=== PATIENT | female | born 1965 | race Caucasian/White ===

== ENCOUNTER → 2018-10-25 13:43 | Outpatient (CLI) | payer BC, SELFPAY ==
[2018-10-25 14:44] LABS: Alanine Aminotransferase 38 U/L (12-78); Albumin Level 3.7 gm/dL (3.4-5.0); Alkaline Phosphatase 84 U/L (46-116); Anion Gap 13.9 mEq/L (5-15); Aspartate Amino Transferase 12 U/L (15-37); Bilirubin,Total 0.7 mg/dL (0.2-1.0); Blood Urea Nitrogen 15 mg/dL (7-18); Calcium 9.9 mg/dL (8.5-10.1); Carbon Dioxide 28 mmol/L (21.0-32.0); Chloride 100 mmol/L (98-107); Chol/HDL Ratio 5.7 (1-3.5); Cholesterol 240 mg/dL (140-200); Creatinine,Serum 0.77 mg/dL (0.55-1.02); Estimated Glomerular Filt Rate 78 ml/min (>60); Free Thyroxine Index 3.2 ug/dL (5.93-13.13); GFR (African American) 95 ML/MIN (>60); Globulin 3.6 gm/dl (1.3-3.2); Glucose 131 mg/dL (74-106); HDL Cholesterol 42 mg/dL (29-89); LDL Cholesterol 135 mg/dL (0-130); Potassium 3.9 mmoL/L (3.5-5.1); Sodium 138 mmol/L (136-145); T4 (Thyroxine) 10.3 ug/dl (4.7-13.3); Thyroid Stimulating Hormone 2.91 uIU/ml (0.358-3.740); Total Protein,Serum 7.3 gm/dL (6.4-8.2); Triglycerides 316 mg/dL (30-200); Triiodothryronine (T3) Uptake 31 % (31-39); VLDL Cholesterol 63 mg/dL (0-40)
[2018-10-25 14:46] LABS: Basophils % 0.3 % (0.1-2.0); Eosinophils # 0.1 K/mm3 (0.0-0.4); Eosinophils % 1.3 % (0.1-12.0); Hematocrit 40.4 % (37.0-47.0); Hemoglobin 12.8 g/dL (12.2-16.2); Lymphocytes # 1.2 K/mm3 (0.7-4.5); Lymphocytes % 17.7 % (10-50); Mean Corpuscular HGB Conc 31.7 g/dL (31.8-35.4); Mean Corpuscular Volume 85.3 fl (81-99); Mean Platelet Volume 7.6 fl (7.4-10.4); Monocytes # 0.4 K/mm3 (0.1-1.0); Monocytes % 5.2 % (1.7-9.3); Neutrophils # 5.1 K/mm3 (1.8-7.8); Neutrophils % 75.4 % (37.0-80.0); Platelet Count 234 K/mm3 (142-424); Red Blood Count 4.74 M/mm3 (4.20-5.40); Red Cell Distribution Width 14.6 % (11.5-17.5); White Blood Count 6.8 K/mm3 (4.8-10.8)
== END ==
PROVIDERS: Visit Provider Physician Assistant
DX: F41.9 Anxiety disorder, unspecified (principal)
CPT/HCPCS: 80053; 80061; 82652; 84436; 84443; 84479; 85025

== ENCOUNTER → 2018-12-12 07:17 | Outpatient (CLI) | payer BC, SELFPAY ==
--- NOTE | 2018-12-12 07:22 | CA_ITS ---
PROCEDURE: 2-D M-mode and color Doppler study INDICATIONS FOR THE TEST: Chest pain+ COPD Heart Murmur Tobacco Smoking Palpitations+ Fatigue Syncope Edema Hypertension Diabetes Mellitus+ Rheumatic Fever SOB+ABBOTT Obesity Hyperlipidemia Family History HD Additional History PATIENT INFORMATION HEIGHT: 65 WEIGHT: 222 GENDER: Female B/P: 149/75 2-D/M-MODE INTERPRETATION: 2-D MEASUREMENTS OBSERVED VALUES IN CMS Right Ventricular Dimension (RVDd) 2.3 Interventricular Septum (Thickness)(IVsd) 0.9 Left Ventricular Internal Dimensions(LVIDd) 4.6 Left Ventricular Posterior Wall (Thickness)(LVPWd) 0.9 Aortic Root 2.7 Aortic Cusp Separation 2.0 Left Atrial Dimensions (LAD) 3.6 2D 1. Left atrium is normal size, left ventricle is normal size, there is no concentric left ventricular hypertrophy, visually estimated ejection fraction 55% with no regional wall motion abnormality. 2. The right atrium and right ventricle are normal size and contractility. 3. The aortic valve is minimally thickened and fibrosed. 4. The mitral valve leaflets are minimally thickened. 5. The tricuspid valve is grossly normal. 6. The pulmonic valve is poorly visualized. 7. No significant pericardial effusion noted. DOPPLER INTERROGATION: Doppler interrogation of the aortic, mitral and tricuspid valvular presence of mild mitral and tricuspid regurgitation, tricuspid regurgitation jet velocity is inadequate for calculation of the right ventricular systolic pressure, diastolic parameters are within normal range. CONCLUSION: 1. Normal left ventricular size, preserved left ventricular systolic function, visually estimated ejection fraction of 55% with no regional wall motion abnormality, diastolic parameters are within normal range. 2. Mild mitral and tricuspid regurgitation 3. No significant pericardial effusion noted.
--- NOTE | 2018-12-12 07:22 | NM_ITS ---
History and Indications: Hypertension, diabetes, hyperlipidemia, family history, chest pain and shortness of breath Procedure: Agent exercised on Froylan protocol 6 minutes, resting heart rate was 70 beats per resting blood pressure 162/93, with exercise maximum heart achieved was 1 56 bpm which is greater than 85% of the maximum predicted heart rate and a blood pressure was 210/88. Test was started due to shortness of breath patient denied any complained of chest pain. Patient has adequate exercise capacity achieved 7mets of workload on treadmill, the blood pressure response to exercise was hypertensive. Electrocardiogram: Resting echocardiogram showed sinus and a possible septal infarct, with exercise there is [address] segment depression noted from the baseline EKG more pronounced in the recovery. The EKG portion of the exercise Myoview is positive for ischemia. Cardiac stress and resting SPECT images: Cardiac stress and resting SPECT images were obtained using technetium 99 Myoview 32.9 mCi stress and 10.4 mCi at rest. Gated SPECT further analysis of segmental wall motion and calculation of the ejection fraction also done. Cardiac stress and resting SPECT images show uniform myocardial activity without segmental perfusion abnormality, computer derived ejection fraction is over 65% with no regional wall motion abnormality, right ventricle is normal size and contractility. Conclusion: 1. The EKG portion of the exercise Myoview is positive for ischemia, patient has adequate exercise capacity achieved 7mets of workload on treadmill, the blood pressure response to exercise was hypertensive, test was started shortness of breath patient denied any complained of chest pain. 2. No scintigraphic evidence of reversible ischemia seen at this level of exercise, either derived ejection fraction is over 65% with no regional wall motion abnormality, right ventricle is normal size and contractility.
--- NOTE | 2018-12-12 07:48 | HMH.ITSHM ---
Current Home Medications as stated by this patient Rosalinda Cooper or field service representative. []METFORMIN OMEPRAZOLE BUSPIRONE CARVEDILOL LOSARTAN MINOCYCLINE FUROSEMIDE GLIPIZIDE
== END ==
PROVIDERS: PCP Physician Assistant; Visit Provider Internal Medicine
DX: E11.9 Type 2 diabetes mellitus without complications (principal); F41.9 Anxiety disorder, unspecified; I20.9 Angina pectoris, unspecified; R00.2 Palpitations; R06.02 Shortness of breath; Z79.84 Long term (current) use of oral hypoglycemic drugs; F17.210 Nicotine dependence, cigarettes, uncomplicated
CPT/HCPCS: 78452; 93017; 93306; A9502

== ENCOUNTER → 2019-03-02 09:23 | Outpatient (CLI) | payer BC, SELFPAY ==
--- NOTE | 2019-03-02 09:24 | US_ITS ---
US thyroid HISTORY: Follow-up thyroid nodules ITS.REASON: Thyroid nodules ORDERING PHYSICIAN: RAMON Hi PATIENT AGE: 53 years Comparison: 01/11/2011 FINDINGS: The right lobe is 4.5 x 1.4 x 2 cm. Multiple small nodules are present including a 3 mm hypoechoic nodule upper pole, 7 x 4 mm isoechoic nodule upper pole, 4 mm slightly hypoechoic nodule upper pole, 5 mm hypoechoic nodule mid polar region posteriorly, 6 mm isoechoic nodule lower pole, 5 mm isoechoic nodule lower pole. There is a 9 x 5 mm hypoechoic nodule in the left aspect of the isthmus The left lobe is 4.7 x 1.3 x 1.7 cm. There is a 7 mm cyst in the upper pole, 3 mm cyst in the upper pole, 4 mm hypoechoic nodule mid pole, 4 mm hypoechoic nodule mid pole, 12 mm hypoechoic nodule lower pole IMPRESSION: Enlarged thyroid gland with multiple nodules which have low level of suspicion for malignancy. The nodules have low level of suspicion for malignancy. Most of the nodules are not significant changed. It is somewhat difficult to compare to the previous exam due to different scanning techniques. There is a 9 x 5 mm hypoechoic nodule at the isthmus was not readily demonstrated previously and may represent a cyst. A 12 x 6 mm hypoechoic nodule is noted in the lower pole of the left not demonstrated on the previous study. Recommend 6 month follow-up.
== END ==
PROVIDERS: PCP Physician Assistant; Visit Provider Physician Assistant
DX: E04.1 Nontoxic single thyroid nodule (principal)
CPT/HCPCS: 76536

== ENCOUNTER → 2019-07-31 13:48 | Outpatient (POV) | payer BC, SELFPAY | PROVIDERS: Visit Provider Dermatology | DX: Z00.00 Encounter for general adult medical examination without abnormal findings (principal) ==

== ENCOUNTER → 2020-01-09 11:55 | Outpatient (CLI) | payer BC, SELFPAY ==
[2020-01-11 17:50] LABS: Covid-19 Nasal PCR Sendout Lex DETECTED
--- NOTE | 2020-01-11 18:14 | PC.NURSE ---
Notified pt's PCP of POSITIVE COVID results. RAMON Obrien to notify patient. Results faxed to [facility].
== END ==
PROVIDERS: Visit Provider Internal Medicine Adolescent Medicine
DX: R06.00 Dyspnea, unspecified (principal); R05 Cough; Z03.818 Encounter for observation for suspected exposure to other biological agents ruled out

== ENCOUNTER → 2020-01-23 11:38 | Outpatient (CLI) | payer BC, SELFPAY ==
[2020-01-24 16:25] LABS: Covid-19 Nasal PCR Sendout Lex DETECTED
== END ==
PROVIDERS: Visit Provider Internal Medicine Adolescent Medicine
DX: Z20.828 Contact with and (suspected) exposure to other viral communicable diseases (principal)
CPT/HCPCS: U0003

== ENCOUNTER → 2020-02-06 10:42 | Outpatient (CLI) | payer BC, SELFPAY ==
[2020-02-07 15:06] LABS: Covid-19 Nasal PCR Sendout Lex NOT DETECTED
--- NOTE | 2020-02-07 15:14 | PC.NURSE ---
1511 pt notified of negative covid-19 results, results faxed to [facility] as requested
== END ==
PROVIDERS: Visit Provider Internal Medicine Adolescent Medicine
DX: Z03.818 Encounter for observation for suspected exposure to other biological agents ruled out (principal)
CPT/HCPCS: U0003

== ENCOUNTER 2020-03-28 16:24 | Emergency (ER) | payer BC, SELFPAY ==
[2020-03-28 16:25] VITALS: BP 170/99; PULSE 82; RESP 13; TEMP 36.8; O2SAT 99; BMI 36.3
--- NOTE | 2020-03-28 16:28 | ECG_ITS ---
APPROVED REPORT Exam: Resting ECG HR:85 bpm ECG Measurements Heart Rate 85 AXES RI 152 P 23 QRSd 88 QRS -9 QT 380 T 0 QTc 452 <Conclusion> Normal sinus rhythm Incomplete RBBB,Otherwise a normal ECG Electronically signed by : Vinnie Corcoran, 03/29/2020 12:17:32
--- NOTE | 2020-03-28 16:33 | XR_ITS ---
PROCEDURE: XR CHEST 2V Patient Age:54Y CLINICAL HISTORY: cp chest pain. Previous the smoker. COMPARISON: The CXR CHEST(2 VIEWS-NOT PORTABLE) from 03/20/2015 CXR CHEST(2 VIEWS-NOT PORTABLE) from 07/06/2016 ABDPELW/O CT ABD PELVIS W/O CONTRAST from 07/06/2016 XR CHEST 2V from 12/10/2019 FINDINGS: Lungs clear with nothing definitely acute. threat monitoring analyst leads are in place and likely contribute to a small focal area relative density at the medial left base retrocardiac region; along with other overlapping vascular structures and tent rib shadow here. Do not feel this is of significance but is noted. However if the patient does have a significant smoking history may qualify for a screening CT chest of which is a useful diagnostic screening tool The heart is normal in size but inna and mediastinal structures satisfactory. The chest wall T-spine intact,. No pleural effusion. No pneumothorax. . IMPRESSION: . No acute cardiopulmonary findings. . Overlapping shadows (including school lunch monitor lead, vascular markings and 10th rib) most likely account a small focal area of relative densityproject over the posterior 10th rib at the medial left lung base. Not of significant concern. However if patient does have a significant smoking history would suggest pursuing screening CT chest as it is a useful diagnostic screening tool. Alternatively a follow-up PA and lateral CXR in 4 months to confirm stability would be suggested Dictated by: Raúl Collins MD 03/30/2020 21:13 Electronically signed by Raúl Collins MD in [place] 03/30/2020 21:13
[2020-03-28 17:15] LABS: Basophils % 0.3 % (0.1-2.0); Eosinophils # 0.1 K/mm3 (0.0-0.4); Eosinophils % 1.7 % (0.1-12.0); Hematocrit 39.7 % (37.0-47.0); Hemoglobin 13.5 g/dL (12.2-16.2); Lymphocytes # 1.6 K/mm3 (0.7-4.5); Mean Corpuscular Hemoglobin 28.6 pg (27.0-31.2); Mean Corpuscular Volume 84.2 fl (81-99); Mean Platelet Volume 8.1 fl (7.4-10.4); Monocytes # 0.3 K/mm3 (0.1-1.0); Monocytes % 4.1 % (1.7-9.3); Neutrophils # 4.9 K/mm3 (1.8-7.8); Neutrophils % 71.1 % (37.0-80.0); Platelet Count 247 K/mm3 (142-424); Red Blood Count 4.71 M/mm3 (4.20-5.40); Red Cell Distribution Width 14.4 % (11.5-17.5); White Blood Count 6.9 K/mm3 (4.8-10.8)
[2020-03-28 17:26] LABS: Anion Gap 12.7 mEq/L (5-15); Blood Urea Nitrogen 12 mg/dl (7-17); Calcium 9.4 mg/dl (8.4-10.2); Carbon Dioxide 31 mmol/L (22.0-30.0); Chloride 91 mmol/L (98-107); Creatinine Clearance Estimated 130 mL/min (50-200); Estimated Glomerular Filt Rate 75 ml/min (>60); GFR (African American) 90 ML/MIN (>60); Glucose 311 mg/dl (74-100); Potassium 3.7 mmoL/L (3.5-5.1); Sodium 131 mmol/L (136-145)
[2020-03-28 17:37] VITALS: BP 138/67; PULSE 92; RESP 16; O2SAT 100
[2020-03-28 17:49] LABS: Troponin I < 0.01 ng/ml (0.00-0.034)
[2020-03-28 18:20] VITALS: BP 150/83; PULSE 95; RESP 18; O2SAT 99
--- NOTE | 2020-03-28 18:40 | HMH.EDCP ---
ED Disposition Clinical Impression: Atypical chest pain Disposition: Home, Self-Care Condition on Discharge: Good Instructions: DI for Atypical Chest Pain Referrals: Mara Mike PA [Primary Care Provider] - - Critical Care Critical Care Time: No Attestation: On 03/28/20, the high probability of a clinically significant, sudden or life threatening deterioration of the following system(s) required my full and direct attention, intervention and personal management. The time I documented below is in addition to time spent performing reported procedures but includes the following listed in this critical care notation. Medical Decision Making - Medical Records Medical records reviewed: Yes: I reviewed the patient's medical records. - Angel Inquiry Pt receiving controlled substance: No Vital Signs: 03/28/20 16:25 03/28/20 17:37 03/28/20 18:20 Temperature 98.2 F Temperature Source Oral Pulse Rate [Right] 82 92 H 95 H Respiratory Rate 13 16 18 Blood Pressure [Right Arm] 170/99 H 138/67 150/83 H Blood Pressure Mean [Right Arm] 122 90 105 Blood Pressure Source [Right Arm] Automatic Cuff Automatic Cuff Blood Pressure Position [Right Arm] Sitting Supine 02 Sat by Pulse Oximetry 99 100 99 Oxygen Delivery Method Room Air 03/28/20 18:47 Temperature Temperature Source Pulse Rate [Right] 87 Respiratory Rate 20 Blood Pressure [Right Arm] 141/79 H Blood Pressure Mean [Right Arm] 99 Blood Pressure Source [Right Arm] Automatic Cuff Blood Pressure Position [Right Arm] Supine 02 Sat by Pulse Oximetry 98 Oxygen Delivery Method - Lab Data Lab results reviewed: Yes: I reviewed the patient's lab results. Lab Results 03/28/20 17:05: WBC 6.9, RBC 4.71, Hgb 13.5, Hct 39.7, MCV 84.2, MCH 28.6, MCHC 34.0, RDW 14.4, Plt Count 247, MPV 8.1, Neut % (Auto) 71.1, Lymph % (Auto) 23.0, [place] % (Auto) 4.1, Eos % (Auto) 1.7, Baso % (Auto) 0.3, Neut # (Auto) 4.9, Lymph # (Auto) 1.6, [place] # (Auto) 0.3, Eos # (Auto) 0.1, Baso # (Auto) 0.0 03/28/20 17:05: Sodium 131 L, Potassium 3.7, Chloride 91 L, Carbon Dioxide 31 H, Anion Gap 12.7, BUN 12, Creatinine 0.80, Estimated Creat Clear 130, Estimated GFR 75, Est GFR ( Amer) 90, Glucose 311 H, Calcium 9.4, Troponin I < 0.01 Result diagrams: 03/28/20 17:05 03/28/20 17:05 Orders (Tests/Meds): ED MEDICATIONS Discontinued Medications Generic Name Dose Route Start Last Admin Trade Name Freq PRN Reason Stop Dose Admin Aspirin 243 mg 03/28/20 18:03 03/28/20 18:07 Aspirin 81mg Chewable Tablet PO 03/28/20 18:04 243 mg ONCE ONE Administration ORDERS Category Date Time Status XR chest 2V Stat Exams 03/28/20 16:33 Taken Troponin I Q3H Lab 03/28/20 19:45 Ordered Troponin I Q3H Lab 03/28/20 22:45 Ordered Troponin I Stat Lab 03/28/20 19:04 Ordered ECG Request by /Nse Stat Y 03/28/20 16:33 Ordered - Radiology Data #1 Image(s): Chest Image Reviewed: Yes I reviewed the patient's radiology image Preliminary Findings: Normal/NAD - MAYELIN Score for Non-Stemi Age of Patient: 40-49 years old Heart Rate: 70-89 bpm Systolic Blood Pressure: 120-139 mmhg Serum Creatinine: <0.40 mg/dl CHF Killip Class: I-No CHF Other Risk Factors: None Non-Stemi Risk Score: 69 Risk Stratification: 1-108 = Low Risk Medical Decision Narrative: Dr. Guzman about this patient and we both agreed that if the second troponin is negative she can go home and follow-up with cardiology next week. Chest Pain HPI - General Chief Complaint: Chest Pain Stated Complaint: chest pain Time Seen by Provider: 03/28/20 18:00 Mode of Arrival: Ambulatory Source of Information: Patient Limitations: No Limitations Description of Symptoms (Recalled from ER Triage Doc. by RN): C/O chest pressure and burning sensation in her chest for 2 weeks. Denies cough, fever, soa. - History of Present Illness HPI narrative: 54-year-old female presents the ED with chest pressure
--- NOTE | 2020-03-28 18:46 | PC.NURSE ---
dr sierra paged
[2020-03-28 18:47] VITALS: BP 141/79; PULSE 87; RESP 20; O2SAT 98
--- NOTE | 2020-03-28 18:50 | PC.NURSE ---
dr Megan jacobson
--- NOTE | 2020-03-28 18:54 | PC.NURSE ---
dr mckeon spoke with dr ayala
--- NOTE | 2020-03-28 19:11 | PC.NURSE ---
shift change report given to nacho rojas and lisetrn
[2020-03-28 19:13] VITALS: BP 134/76; PULSE 86; RESP 18; O2SAT 97
[2020-03-28 19:41] LABS: Troponin I < 0.01 ng/ml (0.00-0.034)
[2020-03-28 19:55] VITALS: BP 144/87; PULSE 85; RESP 18; TEMP 37; O2SAT 99
== END 2020-03-28 19:58 | disposition home or self-care (01) ==
PROVIDERS: Emergency Provider Family Medicine; PCP Physician Assistant
DX: R07.89 Other chest pain (principal); E11.9 Type 2 diabetes mellitus without complications; Z79.84 Long term (current) use of oral hypoglycemic drugs; I10 Essential (primary) hypertension; K21.9 Gastro-esophageal reflux disease without esophagitis; Z79.899 Other long term (current) drug therapy; Z90.49 Acquired absence of other specified parts of digestive tract; Z90.09 Acquired absence of other part of head and neck
CPT/HCPCS: 36415; 71046; 80048; 84484; 85025; 93005; 99284

== ENCOUNTER 2020-04-11 09:00 | Day surgery (SDC) | payer BC, SELFPAY ==
[2020-04-11] VITALS (11 sets, daily range): BP systolic 103–158; BP diastolic 72–94; PULSE 75–89; RESP 16–20; TEMP 36.6–36.8; O2SAT 94–97; BMI 35.3
--- NOTE | 2020-04-11 | IR_ITS ---
APPROVED REPORT PROCEDURES Left heart catheterization Left ventriculogram Selective coronary angiogram INDICATION High risk abnormal Myoview, Angina pectoris, Informed consent was obtained prior to the procedure. COMPLICATIONS None Estimated Blood Loss: less than 10 ml TECHNIQUE One percent lidocaine used to anesthetize the right anterior aspect of the wrist. The right radial artery was accessed via the Seldinger technique. A 6 [place] sheath was placed in the right radial artery. 2.5 mg of verapamil, 800 mcg of nitroglycerin, 1mg Lidocaine and 5000 U Heparin were given through the arterial sheath. The trap catheter was also used to perform left heart catheterization, left ventriculogram and selective coronary angiogram. At the end of the procedure the sheath was removed good hemostasis was achieved using Traclet band, patient was transferred to the postop holding area in stable condition. ANGIOGRAPHIC RESULTS The left main artery Has a distal 10 to 20% stenosis The left anterior descending artery Ostially and proximally normal with excellent KARO-3 flow. The remaining LAD has mild 10% atheromatous plaque The circumflex artery Dominant normal The right coronary artery Large dominant and has proximal 30 to 40% concentric stenosis with remaining vessel being normal The STANTON ventriculogram reveals Normal 65% The left ventricular end-diastolic pressure 25-30 mmHg IMPRESSION Moderate disease in the large dominant proximal right coronary Normal ejection fraction Moderate to severely LVEDP consistent with advanced diastolic dysfunction PLAN 1. Standard therapy for ischemic heart disease 2. Treatment of diastolic dysfunction Electronically signed by : Jagdish Mckenzie, 04/11/2020 14:04:40
[2020-04-11 09:46] LABS: Basophils % 0.7 % (0.1-2.0); Eosinophils # 0.1 K/mm3 (0.0-0.4); Eosinophils % 2.1 % (0.1-12.0); Hematocrit 40.8 % (37.0-47.0); Hemoglobin 13.1 g/dL (12.2-16.2); Lymphocytes # 0.8 K/mm3 (0.7-4.5); Lymphocytes % 19.1 % (10-50); Mean Corpuscular Hemoglobin 27.9 pg (27.0-31.2); Mean Platelet Volume 8.3 fl (7.4-10.4); Monocytes # 0.2 K/mm3 (0.1-1.0); Monocytes % 5.3 % (1.7-9.3); Neutrophils # 3.1 K/mm3 (1.8-7.8); Platelet Count 185 K/mm3 (142-424); Red Blood Count 4.69 M/mm3 (4.20-5.40); Red Cell Distribution Width 14.4 % (11.5-17.5); White Blood Count 4.3 K/mm3 (4.8-10.8)
[2020-04-11 10:01] LABS: Anion Gap 13.8 mEq/L (5-15); Blood Urea Nitrogen 11 mg/dl (7-17); Calcium 9.6 mg/dl (8.4-10.2); Carbon Dioxide 30 mmol/L (22.0-30.0); Chloride 94 mmol/L (98-107); Creatinine Clearance Estimated 202 mL/min (50-200); Estimated Glomerular Filt Rate 129 ml/min (>60); GFR (African American) 156 ML/MIN (>60); Glucose 329 mg/dl (74-100); Potassium 3.8 mmoL/L (3.5-5.1); Sodium 134 mmol/L (136-145)
== END 2020-04-11 15:02 | disposition home or self-care (01) ==
LOC: CATHLAB 09:05
PROVIDERS: PCP Physician Assistant; Visit Provider Internal Medicine
DX: I25.118 Atherosclerotic heart disease of native coronary artery with other forms of angina pectoris (principal); I11.0 Hypertensive heart disease with heart failure; I50.32 Chronic diastolic (congestive) heart failure; E11.9 Type 2 diabetes mellitus without complications; Z88.8 Allergy status to other drugs, medicaments and biological substances; Z79.84 Long term (current) use of oral hypoglycemic drugs; Z79.899 Other long term (current) drug therapy; Z86.19 Personal history of other infectious and parasitic diseases
CPT/HCPCS: 80048; 85025; 93458; 99152; C1725; C1769; J1644; Q9967

== ENCOUNTER → 2020-04-29 17:15 | Outpatient (CLI) | payer BC, SELFPAY ==
[2020-04-29 18:04] LABS: Basophils % 0.2 % (0.1-2.0); Eosinophils # 0.1 K/mm3 (0.0-0.4); Eosinophils % 0.9 % (0.1-12.0); Hematocrit 40.7 % (37.0-47.0); Hemoglobin 13.6 g/dL (12.2-16.2); Lymphocytes # 1.4 K/mm3 (0.7-4.5); Lymphocytes % 20.6 % (10-50); Mean Corpuscular HGB Conc 33.4 g/dL (31.8-35.4); Mean Corpuscular Hemoglobin 28.7 pg (27.0-31.2); Mean Corpuscular Volume 85.8 fl (81-99); Monocytes # 0.3 K/mm3 (0.1-1.0); Monocytes % 4.4 % (1.7-9.3); Neutrophils # 5.1 K/mm3 (1.8-7.8); Neutrophils % 73.9 % (37.0-80.0); Platelet Count 240 K/mm3 (142-424); Red Blood Count 4.74 M/mm3 (4.20-5.40); Red Cell Distribution Width 14.3 % (11.5-17.5); White Blood Count 6.9 K/mm3 (4.8-10.8)
[2020-04-29 18:15] LABS: Alanine Aminotransferase 173 U/L (12-78); Albumin Level 4.3 g/dl (3.5-5.0); Albumin/Globulin Ratio 1.5 (1.1-1.8); Alkaline Phosphatase 178 U/L (38-126); Anion Gap 18.1 mEq/L (5-15); Aspartate Amino Transferase 156 U/L (14-36); Bilirubin,Total 0.6 mg/dl (0.2-1.3); Blood Urea Nitrogen 18 mg/dl (7-17); Calcium 9.6 mg/dl (8.4-10.2); Carbon Dioxide 26 mmol/L (22.0-30.0); Chloride 94 mmol/L (98-107); Chol/HDL Ratio 6.1 (1-3.5); Cholesterol 279 mg/dl (140-200); Estimated Glomerular Filt Rate 87 ml/min (>60); GFR (African American) 106 ML/MIN (>60); Globulin 2.8 g/dL (1.3-3.2); Glucose 363 mg/dl (74-100); HDL Cholesterol 46 mg/dl (40-60); Potassium 4.1 mmoL/L (3.5-5.1); Sodium 134 mmol/L (136-145); Total Protein,Serum 7.1 g/dl (6.3-8.2)
[2020-04-29 18:27] LABS: Direct LDL Cholesterol 152.04 mg/dL (100-129)
[2020-04-29 18:31] LABS: Triglycerides 853 mg/dl (30-150)
[2020-04-29 18:33] LABS: 25-OH Vitamin D, Total 25.3 ng/mL (30-100)
[2020-04-29 18:46] LABS: Thyroid Stimulating Hormone 3.54 uIU/mL (0.465-4.68)
[2020-04-29 21:22] LABS: Hemoglobin A1C 11.1 % (4.0-6.0)
[2020-04-29 22:18] LABS: Creatinine,Urine Random 73 mg/dL (Not Estab.); Microalbumin < 6.000 mg/L (0-16.7)
[2020-05-02 08:48] LABS: Hep A Ab, IgM Negative (Negative); Hepatitis B Core Antibody IgM Negative (Negative); Hepatitis B Surface Antigen Negative (Negative)
[2020-05-02 17:59] LABS: Hepatitis C Antibody <0.1 s/co ratio (0.0-0.9)
== END ==
PROVIDERS: Visit Provider Physician Assistant
DX: E11.9 Type 2 diabetes mellitus without complications (principal); R79.89 Other specified abnormal findings of blood chemistry; E55.9 Vitamin D deficiency, unspecified; Z79.84 Long term (current) use of oral hypoglycemic drugs
CPT/HCPCS: 80053; 80061; 80074; 82043; 82306; 82570; 83036; 84436; 84443; 85025

== ENCOUNTER → 2020-05-13 14:07 | Outpatient (CLI) | payer BC, SELFPAY ==
--- NOTE | 2020-05-13 14:07 | CT_ITS ---
PROCEDURE: CT CHEST WO CON CLINICAL INDICATION: dyspnea Chest pain and dyspnea COMPARISON: CT ABDPELW/O CT ABD PELVIS W/O CONTRAST from 07/06/2016 TECHNIQUE: Axial images obtained with sagittal and coronal reformats. All CT scans at the facility use one or more dose reduction, viz: automated exposure control, ma/kV adjustment per patient size (including targeted exams where dose is matched to indication, i.e. head), or iterative reconstruction technique. FINDINGS: The HEART AND MEDIASTINAL STRUCTURES: 1.5 cm soft tissue density in the anterior mediastinum which may represent a mildly prominent lymph node. LUNGS AND PLEURAL SPACES: 5 mm subpleural nodule right upper lobe posteriorly. 6 mm nodule in the minor fissure on the right. Minimal atelectatic or fibrotic change in the right middle lobe and also in the lingula. No effusions or infiltrates. The no acute bony anomaly. BONY STRUCTURES: No acute bony abnormalities apparent. UPPER ABDOMEN: Unremarkable. ADDITIONAL FINDINGS: No other significant abnormalities. IMPRESSION: 1. No acute finding. 2. Soft tissue density anterior mediastinum which may represent a mildly prominent lymph node 3. 5 mm right upper lobe nodule. 4. Recommend six-month CT follow-up to confirm stability of the above mentioned abnormalities. Dictated b Ulises Byrd MD 05/14/2020 10:08 Ulises Byrd MD in [place] 05/14/2020 10:08
--- NOTE | 2020-05-13 14:38 | CA_ITS ---
APPROVED REPORT EXAM: Comprehensive 2D, Doppler, and color-flow Echocardiogram Sales And Service Officer: Amanda Cochran RDCS Ht: 5 ft 6 in Wt: 220lbs BSA: 2.08 BP: 130/70 mmHg Indications: SOA CP CAD DM HTN ABBOTT OBESITY 2D Dimensions LVOT 1.31 cm (M/F) 1.5-2.5 M-Mode Dimensions RVDd 1.81 cm (0.9-2.6) LVDd 4.53 cm (3.5-5.7) LVDs 2.92 cm (3.5-5.7) IVSd 0.84 cm (0.6-1.1) PWd 0.60 cm (0.6-1.1) EF (Teich) 65.10% FS 35.50% EDV (Teich) 93.90 mL ESV (Teich) 32.80 mL LV Diastology E/A Ratio 0.77 Aortic Valve LVOT Max 129.00 (70-110 cm/s) LVOT VTI 22.53 cm Mitral Valve MV A Velocity 82.00 (40-130 cm/s) Left Ventricle Left atrium is mildly enlarged, left ventricle is normal size, mild concentric left ventricular hypertrophy, visually estimated ejection fraction 55% with no regional wall motion abnormality, grade 1 diastolic dysfunction seen without tissue Doppler evidence of raise left atrial pressure. Right Ventricle Right atrium and right ventricular normal size and contractility. Aortic Valve Aortic valve is thickened and calcified leaflet chordae display good mobility, there is no aortic stenosis or aortic insufficiency. Mitral Valve Mitral valve is grossly normal, there is mild mitral regurgitation. Tricuspid Valve Tricuspid valve is grossly normal, there is mild tricuspid regurgitation, tricuspid regurgitation jet velocity is inadequate for calculation of the right ventricular systolic pressure. Pulmonic Valve Pulmonic valve is poorly visualized. Great Vessels Aortic root is normal size. Pericardium No significant pericardial effusion noted. Conclusion 1. Mildly enlarged left atrium, normal left ventricular size, mild concentric left ventricular hypertrophy, visually estimated ejection fraction 55% with no regional wall motion abnormality, grade 1 diastolic dysfunction seen without tissue Doppler evidence of raise left atrial pressure. 2. Mild mitral and tricuspid regurgitation. 3. No significant pericardial effusion noted. Electronically signed by : Glen Maldonado, 05/13/2020 18:11:50
[2020-05-13 16:58] LABS: Chloride 93 mmol/L (98-107)
[2020-05-13 16:59] LABS: Potassium 4.1 mmoL/L (3.5-5.1); Sodium 134 mmol/L (136-145)
[2020-05-13 17:01] LABS: Blood Urea Nitrogen 13 mg/dl (7-17); Estimated Glomerular Filt Rate 104 ml/min (>60); GFR (African American) 126 ML/MIN (>60)
[2020-05-13 17:02] LABS: Anion Gap 16.1 mEq/L (5-15); Calcium 9.3 mg/dl (8.4-10.2); Carbon Dioxide 29 mmol/L (22.0-30.0); Glucose 197 mg/dl (74-100)
== END ==
PROVIDERS: Urology; PCP Physician Assistant; Visit Provider Physician Assistant
DX: R06.00 Dyspnea, unspecified (principal); R07.9 Chest pain, unspecified; R07.89 Other chest pain; Z86.19 Personal history of other infectious and parasitic diseases; I10 Essential (primary) hypertension; I11.9 Hypertensive heart disease without heart failure; I25.118 Atherosclerotic heart disease of native coronary artery with other forms of angina pectoris; I51.89 Other ill-defined heart diseases; E11.9 Type 2 diabetes mellitus without complications; I25.10 Atherosclerotic heart disease of native coronary artery without angina pectoris; Z79.84 Long term (current) use of oral hypoglycemic drugs
CPT/HCPCS: 36415; 71250; 80048; 93306

== ENCOUNTER → 2020-09-05 12:50 | Outpatient (CLI) | payer BC, SELFPAY ==
--- NOTE | 2020-09-05 13:38 | PC.NURSE ---
Complete PFT done without complications. Albuterol 0.083% given via hand held nebulizer, per written protocol, Pt tolerated tx well.
--- NOTE | 2020-09-05 13:53 | CT_ITS ---
PROCEDURE: CT CHEST WO CON CLINICAL INDICATION: Lung nodule soa pulmonary nodule COMPARISON: CT CT CHEST WO CON from 05/13/2020 TECHNIQUE: Axial images obtained with sagittal and coronal reformats. All CT scans at the facility use one or more dose reduction, viz: automated exposure control, ma/kV adjustment per patient size (including targeted exams where dose is matched to indication, i.e. head), or iterative reconstruction technique. FINDINGS: HEART AND MEDIASTINAL STRUCTURES: There is a mildly prominent anterior mediastinal lymph node once again noted measuring 15 by 15 mm not significantly changed. LUNGS AND PLEURAL SPACES: A subpleural 5 mm nodules present in the right upper lobe which is stable. A 6 mm fissural nodule is present in the right minor fissure region which is stable. 3 mm left upper lobe nodule unchanged. Calcified granuloma superior segment left lower lobe unchanged BONY STRUCTURES: There are degenerative changes in the thoracic spine UPPER ABDOMEN: Diffuse fatty liver. Prior cholecystectomy. Borderline splenomegaly at 14 cm ADDITIONAL FINDINGS: No other significant abnormalities. IMPRESSION: Stable CT appearance of the chest. No change in the small pulmonary nodules and the anterior mediastinal lymph node. Consider annual follow-up. Dictated by: Ulises Byrd MD 09/07/2020 09:05 Ulises Byrd MD in [place] 09/07/2020 09:05
== END ==
PROVIDERS: PCP Physician Assistant; Visit Provider Internal Medicine Pulmonary Disease
DX: R91.1 Solitary pulmonary nodule (principal)
CPT/HCPCS: 71250; 94060; 94726; 94729

== ENCOUNTER → 2020-09-16 15:47 | Outpatient (POV) | payer BC, SELFPAY | PROVIDERS: Visit Provider Dermatology | DX: Z00.00 Encounter for general adult medical examination without abnormal findings (principal) ==

== ENCOUNTER → 2021-03-31 15:08 | Outpatient (POV) | payer BC, SELFPAY | PROVIDERS: Visit Provider Dermatology | DX: Z00.00 Encounter for general adult medical examination without abnormal findings (principal) ==

== ENCOUNTER → 2021-05-25 06:49 | Outpatient (CLI) | payer BC, SELFPAY ==
--- NOTE | 2021-05-25 07:13 | CT_ITS ---
PROCEDURE: CT CHEST WO CON CLINICAL INDICATION: Nodule follow up COMPARISON: CT ABDPELW/O CT ABD PELVIS W/O CONTRAST from 07/06/2016 TECHNIQUE: Axial images obtained with sagittal and coronal reformats. All CT scans at the facility use one or more dose reduction, viz: automated exposure control, ma/kV adjustment per patient size (including targeted exams where dose is matched to indication, i.e. head), or iterative reconstruction technique. FINDINGS: There is a mildly prominent anterior mediastinal lymph node once again identified the at 15 mm not significantly changed. No new areas of adenopathy are evident. Stable 6 mm nodule right upper lobe posteriorly a stable 6 mm fissural nodule in the right minor fissure. No new nodules evident. No effusions or infiltrates. Stable 4 mm fissural nodule along the left major fissure. 3 mm fissural nodule along the major fissure inferiorly. Stable 3 mm left upper lobe nodule superiorly IMPRESSION: Stable CT appearance of the chest. No change small bilateral pulmonary nodules and anterior mediastinal lymph node Dictated by: Ulises Byrd MD 05/26/2021 04:14 Ulises Byrd MD in [place] 05/26/2021 04:14
== END ==
PROVIDERS: PCP Physician Assistant; Visit Provider Internal Medicine Pulmonary Disease
DX: R91.8 Other nonspecific abnormal finding of lung field (principal)
CPT/HCPCS: 71250

== ENCOUNTER → 2021-07-03 16:20 | Outpatient (CLI) | payer BC, SELFPAY ==
[2021-07-03 17:42] LABS: Basophils % 0.3 % (0.1-2.0); Eosinophils # 0.1 K/mm3 (0.0-0.4); Eosinophils % 1.7 % (0.1-12.0); Hematocrit 36.6 % (37.0-47.0); Hemoglobin 11.8 g/dL (12.2-16.2); Lymphocytes # 1.7 K/mm3 (0.7-4.5); Lymphocytes % 23.2 % (10-50); Mean Corpuscular HGB Conc 32.1 g/dL (31.8-35.4); Mean Corpuscular Hemoglobin 27.6 pg (27.0-31.2); Mean Corpuscular Volume 85.9 fl (81-99); Mean Platelet Volume 8.2 fl (7.4-10.4); Monocytes # 0.3 K/mm3 (0.1-1.0); Monocytes % 4.3 % (1.7-9.3); Neutrophils # 5.2 K/mm3 (1.8-7.8); Neutrophils % 70.4 % (37.0-80.0); Platelet Count 251 K/mm3 (142-424); Red Blood Count 4.27 M/mm3 (4.20-5.40); Red Cell Distribution Width 15.1 % (11.5-17.5); White Blood Count 7.4 K/mm3 (4.8-10.8)
[2021-07-03 18:13] LABS: Alanine Aminotransferase 41 U/L (12-78); Alkaline Phosphatase 90 U/L (38-126); Anion Gap 10.6 mEq/L (5-15); Aspartate Amino Transferase 27 U/L (14-36); Bilirubin,Direct 0.1 mg/dl (0.0-0.4); Bilirubin,Indirect 0.2 mg/dL (0.0-0.9); Bilirubin,Total 0.3 mg/dl (0.2-1.3); Bilirubin,Unconjugated 0.2 mg/dL (0.0-1.1); Blood Urea Nitrogen 10 mg/dl (7-17); Calcium 9.4 mg/dl (8.4-10.2); Carbon Dioxide 29 mmol/L (22.0-30.0); Chloride 106 mmol/L (98-107); Chol/HDL Ratio 5.7 (1-3.5); Cholesterol 235 mg/dl (140-200); Estimated Glomerular Filt Rate 104 ml/min (>60); GFR (African American) 126 ML/MIN (>60); Glucose 113 mg/dl (74-100); HDL Cholesterol 41 mg/dl (40-60); Potassium 4.6 mmoL/L (3.5-5.1); Sodium 141 mmol/L (136-145); Total Protein,Serum 6.8 g/dl (6.3-8.2); Triglycerides 342 mg/dl (30-150); VLDL Cholesterol 68 mg/dL (0-40)
[2021-07-03 18:24] LABS: Direct LDL Cholesterol 139.25 mg/dL (100-129)
== END ==
PROVIDERS: Visit Provider Urology
DX: Z01.812 Encounter for preprocedural laboratory examination (principal); Z20.822 Contact with and (suspected) exposure to COVID-19; R06.00 Dyspnea, unspecified; R07.9 Chest pain, unspecified; R00.2 Palpitations; I25.10 Atherosclerotic heart disease of native coronary artery without angina pectoris; I10 Essential (primary) hypertension; E11.9 Type 2 diabetes mellitus without complications; E78.5 Hyperlipidemia, unspecified
CPT/HCPCS: 36415; 80048; 80061; 80076; 85025; C9803; U0003; U0005

== ENCOUNTER 2021-07-06 08:34 | Day surgery (SDC) | payer BC, SELFPAY ==
[2021-07-06] VITALS (12 sets, daily range): BP systolic 94–151; BP diastolic 60–95; PULSE 66–92; RESP 16–20; O2SAT 92–99; BMI 34.5
--- NOTE | 2021-07-06 07:11 | IR_ITS ---
APPROVED REPORT Patient Location: Outpatient PROCEDURES Left heart catheterization Left ventriculogram Selective coronary angiogram INDICATION Classic angina pectoris Informed consent was obtained prior to the procedure. COMPLICATIONS none Estimated Blood Loss: less than 10 ml TECHNIQUE One percent lidocaine used to anesthetize the right anterior aspect of the wrist. The right radial artery was accessed via the Seldinger technique. A 6 [place] sheath was placed in the right radial artery. 2.5 mg of verapamil, 800 mcg of nitroglycerin, 1mg Lidocaine and 5000 U Heparin were given through the arterial sheath. The [place] catheter was also used to perform left heart catheterization, left ventriculogram and selective coronary angiogram. At the end of the procedure the sheath was removed good hemostasis was achieved using Traclet band, patient was transferred to the postop holding area in stable condition. ANGIOGRAPHIC RESULTS The left main artery Normal The left anterior descending artery Mild luminal irregularities The circumflex artery Nondominant normal The right coronary artery Dominant with mild luminal irregularities The STANTON ventriculogram reveals Slightly hyperdynamic at 70% The left ventricular end-diastolic pressure 30 mmHg IMPRESSION Mild nonflow limiting coronary disease Hyperdynamic ventricle severely elevated LVEDP all consistent with diastolic dysfunction PLAN 1. Medical management 2. Increase diuretics as well as losartan and carvedilol for diastolic dysfunction Electronically signed by : Jagdish Mckenzie MD 07/06/2021 12:23:45
--- NOTE | 2021-07-06 09:47 | CA_ITS ---
APPROVED REPORT EXAM: Comprehensive 2D, Doppler, and color-flow Echocardiogram Poultry Cleaner: Amanda Cochran RDCS Ht: 5 ft 6 in Wt: 214lbs BSA: 2.06 BP: 146/90 mmHg Indications: CP,DM,HTN,HLP 2D Dimensions LVOT 1.49 cm (M/F) 1.5-2.5 M-Mode Dimensions RVDd 1.75 cm (0.9-2.6) LA Diam 3.41 cm (1.9-4.0) LVDd 4.99 cm (3.5-5.7) Ao Diam 2.83 cm (2.0-3.7) LVDs 3.21 cm (3.5-5.7) IVSd 0.75 cm (0.6-1.1) PWd 1.11 cm (0.6-1.1) EF (Teich) 64.90% FS 35.70% EDV (Teich) 117.70 mL TAPSE 1.65 (<1.7) ESV (Teich) 41.30 mL LV Diastology E Decel Time 227.00 (160-240 msec) E/A Ratio 0.9 MED E' 5.20 (< 7 cm/sec) E'/MED E' Ratio 12.29 (>14) LAT E' 7.50 (<10 cm/sec) E/LAT E' Ratio 8.52 (>14) Mitral Valve MV E Max Robert. 64.00 (40-130 cm/s) MV A Velocity 73.00 (40-130 cm/s) E/A Ratio 0.88 MV Decel. Time 227.00 (160-240 ms) MV PHT 66.00 ms Left Ventricle Left atrium is mildly enlarged, left ventricle is normal size, mild concentric left ventricular hypertrophy, visually estimated ejection fraction 55% with no regional wall motion abnormality, grade 1 diastolic dysfunction seen without tissue Doppler evidence of raise left atrial pressure. Right Ventricle Right atrium and right ventricle are normal size and contractility. Aortic Valve Aortic valve is minimally thickened and fibrosed, there is no aortic stenosis or aortic insufficiency. Mitral Valve Mitral valve grossly normal, there is trace mitral regurgitation. Tricuspid Valve Tricuspid valve grossly normal, there is trace tricuspid regurgitation, tricuspid regurgitation jet velocity is inadequate for calculation of the right ventricular systolic pressure. Pulmonic Valve Pulmonic valve is poorly visualized. Great Vessels Aortic root is normal size. Pericardium No significant pericardial effusion noted. Conclusion 1. Mildly enlarged left atrium, normal left ventricular size, mild concentric left ventricular hypertrophy, visually estimated ejection fraction 55% with no regional wall motion abnormality, grade 1 diastolic dysfunction seen without tissue Doppler evidence of raise left atrial pressure. 2. Trace mitral and tricuspid regurgitation. 3. No significant pericardial effusion noted. Electronically signed by : Glen Maldonado MD 07/06/2021 19:36:09
--- NOTE | 2021-07-06 12:38 | ECG_ITS ---
APPROVED REPORT Exam: Resting ECG HR:72 bpm ECG Measurements Heart Rate 72 AXES AL 170 P 29 QRSd 92 QRS -25 QT 414 T -11 QTc 453 Conclusion Normal sinus rhythm Late R wave progression, unchanged, previously noted inferior ST-T wave inversion in III, unchanged Abnormal ECG Electronically signed by : Alvin Burton MD 07/07/2021 10:54:39
[2021-07-06 12:42] LABS: POC Glucose,Bedside 135 (70-110)
== END 2021-07-06 13:28 | disposition home or self-care (01) ==
LOC: CATHLAB 08:35
PROVIDERS: PCP Physician Assistant; Visit Provider Internal Medicine
DX: I25.118 Atherosclerotic heart disease of native coronary artery with other forms of angina pectoris (principal); E78.5 Hyperlipidemia, unspecified; I10 Essential (primary) hypertension; E11.9 Type 2 diabetes mellitus without complications; R07.9 Chest pain, unspecified; Z79.4 Long term (current) use of insulin
CPT/HCPCS: 82962; 93005; 93306; 93458; 99152; C1725; C1769; J1644; J2405; Q9967

== ENCOUNTER → 2021-07-16 11:01 | Outpatient (CLI) | payer BC, SELFPAY ==
[2021-07-16 11:24] LABS: Basophils # 0.1 K/mm3 (0-0.2); Basophils % 0.8 % (0.1-2.0); Eosinophils # 0.1 K/mm3 (0.0-0.4); Eosinophils % 1.5 % (0.1-12.0); Hematocrit 40.9 % (37.0-47.0); Lymphocytes # 1.4 K/mm3 (0.7-4.5); Mean Corpuscular HGB Conc 31.8 g/dL (31.8-35.4); Mean Corpuscular Hemoglobin 26.9 pg (27.0-31.2); Mean Corpuscular Volume 84.7 fl (81-99); Mean Platelet Volume 7.9 fl (7.4-10.4); Monocytes # 0.3 K/mm3 (0.1-1.0); Neutrophils % 78.6 % (37.0-80.0); Platelet Count 258 K/mm3 (142-424); Red Blood Count 4.82 M/mm3 (4.20-5.40); Red Cell Distribution Width 15.2 % (11.5-17.5)
[2021-07-16 11:31] LABS: Chloride 95 mmol/L (98-107); Potassium 3.9 mmoL/L (3.5-5.1); Sodium 137 mmol/L (136-145)
[2021-07-16 11:33] LABS: Blood Urea Nitrogen 12 mg/dl (7-17)
[2021-07-16 11:34] LABS: Alanine Aminotransferase 43 U/L (12-78); Albumin Level 4.3 g/dl (3.5-5.0); Alkaline Phosphatase 97 U/L (38-126); Anion Gap 15.9 mEq/L (5-15); Aspartate Amino Transferase 31 U/L (14-36); Bilirubin,Direct 0.4 mg/dl (0.0-0.4); Bilirubin,Total 0.4 mg/dl (0.2-1.3); Calcium 8.8 mg/dl (8.4-10.2); Carbon Dioxide 30 mmol/L (22.0-30.0); Estimated Glomerular Filt Rate 128 ml/min (>60); GFR (African American) 155 ML/MIN (>60); Glucose 220 mg/dl (74-100); Total Protein,Serum 7.3 g/dl (6.3-8.2)
== END ==
PROVIDERS: Visit Provider Physician Assistant
DX: I10 Essential (primary) hypertension (principal); R53.83 Other fatigue; Z51.81 Encounter for therapeutic drug level monitoring; Z79.899 Other long term (current) drug therapy
CPT/HCPCS: 36415; 80048; 80076; 85025

== ENCOUNTER → 2021-07-16 11:30 | Outpatient (CLI) | payer BC, SELFPAY ==
--- NOTE | 2021-07-16 11:35 | XR_ITS ---
PROCEDURE: XR CHEST 2V CLINICAL HISTORY: SOA COMPARISON: CR CXR CHEST(2 VIEWS-NOT PORTABLE) from 07/06/2016 CR XR CHEST 2V from 12/10/2019 CR XR CHEST 2V from 03/28/[address] CHEST WO CON from 05/25/2021 FINDINGS: The cardiomediastinal silhouette and pulmonary vascularity are within normal limits. The lungs are clear without infiltrates, suspicious nodules, or pleural effusions. Minimal midthoracic curvature convex right. IMPRESSION: No acute findings. Dictated by: Ulises Byrd MD 07/16/2021 13:54 Ulises Byrd MD in [place] 07/16/2021 13:54
== END ==
PROVIDERS: PCP Physician Assistant; Visit Provider Internal Medicine
DX: R06.02 Shortness of breath (principal)
CPT/HCPCS: 71046

== ENCOUNTER 2021-09-11 16:19 | Emergency (ER) | payer BC, SELFPAY ==
--- NOTE | 2021-09-11 16:23 | XR_ITS ---
PROCEDURE INFORMATION: Exam: XR Left Knee Exam date and time: 09/11/2021 4:23 PM Age: 56 years old Clinical indication: Injury or trauma; Blunt trauma; Knee; Left; Patient HX: Fall 2 weeks ago TECHNIQUE: Imaging protocol: XR Left knee. Views: 3 views. COMPARISON: No relevant prior studies available. FINDINGS: Bones/joints: No acute fracture or dislocation. The 3 knee compartments are preserved. Normal bone mineralization. Soft tissues: No soft tissue swelling or effusion. IMPRESSION: No acute findings.
--- NOTE | 2021-09-11 16:23 | XR_ITS ---
PROCEDURE INFORMATION: Exam: XR Left Hip Exam date and time: 09/11/2021 4:23 PM Age: 56 years old Clinical indication: Injury or trauma; Blunt trauma (contusions or hematomas); Left; Hip; Patient HX: Fall 2 weeks ago TECHNIQUE: Imaging protocol: XR Left hip. Views: 2 or 3 views hip with pelvis when performed. COMPARISON: ABDPELW/O CT ABD PELVIS W/O CONTRAST 07/06/2016 11:45 AM FINDINGS: Bones/joints: No acute fracture or dislocation. SI joints, hip joints and pubic symphysis are unremarkable. Normal bone mineralization. Soft tissues: Unremarkable. IMPRESSION: No acute findings.
--- NOTE | 2021-09-11 16:24 | XR_ITS ---
PROCEDURE INFORMATION: Exam: XR Lumbosacral Spine Exam date and time: 09/11/2021 4:24 PM Age: 56 years old Clinical indication: Injury or trauma; Fall; Blunt trauma (contusions or hematomas) TECHNIQUE: Imaging protocol: XR of the lumbosacral spine. Views: 2 or 3 views. COMPARISON: ABDPELW/O CT ABD PELVIS W/O CONTRAST 07/06/2016 11:45 AM FINDINGS: Bones/joints: No acute fracture or spondylolisthesis. Mild disc space narrowing at L3-L4. Small endplate osteophytes are seen at all levels. Moderate facet arthrosis at L5-S1 and mild facet arthrosis at L4-L5. SI joints are unremarkable. Soft tissues: Unremarkable. IMPRESSION: Mild degenerative changes.
[2021-09-11 18:00] VITALS: BP 168/90; PULSE 85; RESP 18; TEMP 36.7; O2SAT 98; BMI 34.7
--- NOTE | 2021-09-11 18:40 | HMH.EDUTC ---
[facility] Disposition Clinical Impression: Left knee pain Qualifiers: Chronicity: acute Qualified Code(s): M25.562 - Pain in left knee Contusion of left hip Qualifiers: Encounter type: initial encounter Qualified Code(s): S70.02XA - Contusion of left hip, initial encounter Lumbar strain Qualifiers: Encounter type: initial encounter Qualified Code(s): S39.012A - Strain of muscle, fascia and tendon of lower back, initial encounter Disposition: Home, Self-Care Condition on Discharge: Good Additional Instructions: Rest the extremity, Elevate the extremity as tolerated while you are resting. Take ibuprofen for pain. I sent in a prescription to your pharmacy. Follow up with Dr. Simmons (orthopedics). I put in a referral but you need to call his office and schedule an appointment. Follow up with your regular doctor. GO TO THE ER FOR ANY WORSENING SYMPTOMS Prescriptions: Ibuprofen [Ibuprofen 800mg Tablet] 800 mg PO Q8HP PRN #30 tab PRN Reason: Moderate Pain Transmission Status: Received by [id number] Referrals: Mara Mike PA [Primary Care Provider] - Kael Simmons MD [Staff Physician] - Time of Disposition: 19:12 Medical Decision Making - Medical Records Medical records reviewed: No: I reviewed the patient's medical records. - Angel Inquiry Pt receiving controlled substance: No Vital Signs: 09/11/21 18:00 09/11/21 19:13 Temperature 98.0 F 98.0 F Temperature Source Oral Pulse Rate 85 Pulse Rate [Right Brachial] 85 Respiratory Rate 18 18 Blood Pressure 168/90 H Blood Pressure [Right Arm] 168/90 H Blood Pressure Mean [Right Arm] 116 Blood Pressure Source [Right Arm] Automatic Cuff Blood Pressure Position [Right Arm] Sitting 02 Sat by Pulse Oximetry 98 Oxygen Delivery Method Room Air [facility] [place] HPI - General Stated complaint: AO fall 08/26/21 injured L hip L knee lower back Time Seen by Provider: 09/11/21 18:40 Mode of Arrival: Ambulatory Source of Information: Patient Limitations: No Limitations Description of Symptoms (Recalled from Triage Doc. by RN): PATIENT C/O PAIN TO LEFT HIP, LEFT KNEE, AND LOWER BACK. SHE REPORTS SHE SLIPPED AND FELL AT HER BROTHER'S HOUSE THE DAY BEFORE THANKSGIVING HEENT Symptoms (Recalled from RN notes): No Resp Symptoms (Recalled from RN notes): No Skin Symptoms (Recalled from RN notes): No MS Symptoms (Recalled from RN notes): Yes Functional Status (Recalled from RN notes): WNL - History of Present Illness Provider Complaint: She states that she fell on [address] and came down on her left knee and left hip. She also has had low back pain since then. She thought she would get better, but she is still having this pain. - Related Data Home Medications Medication Instructions Recorded Confirmed Aspirin [Low Dose Aspirin EC] 81 mg PO DAILY 07/06/21 08/19/21 Blood Sugar Diagnostic [ReliOn See Rx Instructions .ROUTE 07/06/21 08/19/21 Prime Test Strips] .MEDSUPPLY Buspirone HCl [Buspirone 7.5mg See Rx Instructions .ROUTE .COMPLEX 07/06/21 08/19/21 tablets] Cholecalciferol (Vitamin D3) See Rx Instructions .ROUTE .COMPLEX 07/06/21 08/19/21 [Vitamin D3 1,000 Unit Cap] Dulaglutide [Trulicity] See Rx Instructions .ROUTE .COMPLEX 07/06/21 08/19/21 Ergocalciferol (Vitamin D2) See Rx Instructions .ROUTE .COMPLEX 07/06/21 08/19/21 [Drisdol] Metformin HCl [Metformin 1000mg See Rx Instructions .ROUTE .COMPLEX 07/06/21 08/19/21 Tablets] Minocycline HCl [Minocin 100mg See Rx Instructions .ROUTE .COMPLEX 07/06/21 08/19/21 capsule] Omeprazole See Rx Instructions .ROUTE .COMPLEX 07/06/21 08/19/21 Spironolactone See Rx Instructions .ROUTE .COMPLEX 07/06/21 08/19/21 carvediloL [Coreg 25mg Tablet] 25 mg PO BID 07/06/21 08/19/21 furosemide 80 mg tablet 80 mg PO BID tab 07/16/21 08/19/21 Previous Rx's Medication Instructions Recorded blood-glucose transmitter See Rx Instructions .ROUTE 08/10/21 .COMPLEX #1 each
[2021-09-11 19:13] VITALS: BP 168/90; PULSE 85; RESP 18; TEMP 36.7; O2SAT 98
== END 2021-09-11 19:19 | disposition home or self-care (01) ==
PROVIDERS: Emergency Provider Nurse Practitioner Family; PCP Physician Assistant
DX: S70.02XA Contusion of left hip, initial encounter (principal); S39.012A Strain of muscle, fascia and tendon of lower back, initial encounter; W01.0XXA Fall on same level from slipping, tripping and stumbling without subsequent striking against object, initial encounter; Y92.89 Other specified places as the place of occurrence of the external cause; K21.9 Gastro-esophageal reflux disease without esophagitis; I10 Essential (primary) hypertension; I25.10 Atherosclerotic heart disease of native coronary artery without angina pectoris; F41.9 Anxiety disorder, unspecified; Z79.899 Other long term (current) drug therapy; Z87.891 Personal history of nicotine dependence
CPT/HCPCS: 72100; 73502; 73562; 99202; G0463

== ENCOUNTER → 2021-09-30 14:34 | Outpatient (CLI) | payer BC, SELFPAY ==
[2021-09-30 15:00] LABS: Basophils # 0.1 K/mm3 (0-0.2); Basophils % 0.7 % (0.1-2.0); Eosinophils # 0.1 K/mm3 (0.0-0.4); Hematocrit 40.4 % (37.0-47.0); Lymphocytes # 1.5 K/mm3 (0.7-4.5); Lymphocytes % 16.8 % (10-50); Mean Corpuscular HGB Conc 32.3 g/dL (31.8-35.4); Mean Corpuscular Hemoglobin 27.5 pg (27.0-31.2); Mean Corpuscular Volume 85.4 fl (81-99); Mean Platelet Volume 8.7 fl (7.4-10.4); Monocytes # 0.3 K/mm3 (0.1-1.0); Monocytes % 3.4 % (1.7-9.3); Neutrophils # 6.9 K/mm3 (1.8-7.8); Neutrophils % 78.2 % (37.0-80.0); Platelet Count 315 K/mm3 (142-424); Red Blood Count 4.73 M/mm3 (4.20-5.40); Red Cell Distribution Width 16.1 % (11.5-17.5); White Blood Count 8.8 K/mm3 (4.8-10.8)
[2021-09-30 15:38] LABS: Creatinine,Urine Random 61 mg/dL (Not Estab.); Microalbumin < 6.000 mg/L (0-16.7)
[2021-09-30 16:46] LABS: Hemoglobin A1C 6.7 % (4.0-6.0)
[2021-09-30 18:03] LABS: Alanine Aminotransferase 52 U/L (12-78); Albumin Level 4.2 g/dl (3.5-5.0); Albumin/Globulin Ratio 1.5 (1.1-1.8); Alkaline Phosphatase 95 U/L (38-126); Anion Gap 15.8 mEq/L (5-15); Aspartate Amino Transferase 32 U/L (14-36); Bilirubin,Total 0.5 mg/dl (0.2-1.3); Blood Urea Nitrogen 14 mg/dl (7-17); Calcium 8.7 mg/dl (8.4-10.2); Carbon Dioxide 31 mmol/L (22.0-30.0); Chloride 93 mmol/L (98-107); Chol/HDL Ratio 4.7 (1-3.5); Cholesterol 155 mg/dl (140-200); Estimated Glomerular Filt Rate 87 ml/min (>60); GFR (African American) 105 ML/MIN (>60); Globulin 2.8 g/dL (1.3-3.2); Glucose 131 mg/dl (74-100); HDL Cholesterol 33 mg/dl (40-60); Potassium 3.8 mmoL/L (3.5-5.1); Sodium 136 mmol/L (136-145); Triglycerides 166 mg/dl (30-150); VLDL Cholesterol 33 mg/dL (0-40)
[2021-09-30 18:14] LABS: Direct LDL Cholesterol 98.67 mg/dL (100-129)
[2021-09-30 18:20] LABS: 25-OH Vitamin D, Total 55.1 ng/mL (30-100)
[2021-09-30 18:21] LABS: T4 (Thyroxine) 15.7 ug/dl (5.53-11.0)
[2021-09-30 18:34] LABS: Thyroid Stimulating Hormone 2.26 uIU/mL (0.465-4.68)
== END ==
PROVIDERS: Visit Provider Nurse Practitioner Family
DX: E11.9 Type 2 diabetes mellitus without complications (principal); E66.3 Overweight; Z68.34 Body mass index [BMI] 34.0-34.9, adult; Z79.4 Long term (current) use of insulin; Z79.899 Other long term (current) drug therapy
CPT/HCPCS: 80053; 80061; 82043; 82306; 82570; 83036; 84436; 84443; 85025

== ENCOUNTER → 2021-10-14 08:16 | Outpatient (CLI) | payer BC, SELFPAY ==
--- NOTE | 2021-10-14 08:17 | MM_ITS ---
PROCEDURE INFORMATION: Exam: Screening 3D Mammography Exam date and time: 10/14/2021 8:17 AM Age: 56 years old Clinical indication: Encounter for screening mammogram for malignant neoplasm of breast TECHNIQUE: Imaging protocol: Screening tomosynthesis and 2D mammography including computer-aided detection (CAD) when performed. Bilateral. COMPARISON: DMDB DIGITAL MAMM-DX BILATERAL 06/02/2012 10:08 AM FINDINGS: MAMMOGRAPHY: Breast composition: The breast tissue is composed of scattered areas of fibroglandular density. Mass: None. Architectural distortion: None. Calcifications: No suspicious calcifications. Asymmetric density: None. Skin thickening: None. Axillary adenopathy: None. IMPRESSION: No mammographic evidence of malignancy. Annual screening is recommended unless otherwise clinically indicated. ASSESSMENT: BI-RADS Category 1: Negative
== END ==
PROVIDERS: PCP Physician Assistant; Visit Provider Emergency Medicine
DX: Z12.31 Encounter for screening mammogram for malignant neoplasm of breast (principal)
CPT/HCPCS: 77063; 77067

== ENCOUNTER → 2021-10-16 15:07 | Outpatient (CLI) | payer BC, SELFPAY ==
--- NOTE | 2021-10-16 15:26 | XR_ITS ---
FINAL REPORT CLINICAL HISTORY: Rt hand/wrist pain, evaluate for cysts FINDINGS: RIGHT HAND Three views demonstrate no acute fracture. There is no dislocation. There are mild degenerative changes. The soft tissues are unremarkable. IMPRESSION: Mild degenerative change with no acute bony abnormality. Reviewed, Interpreted and Dictated by Nick Youssef III, MD Transcribed by Sarah Smith Authenticated by Nick Youssef III, MD on 10/16/2021 04:08:11 PM [facility]
--- NOTE | 2021-10-16 15:26 | XR_ITS ---
FINAL REPORT CLINICAL HISTORY: rt wrist pain, evaluate for cysts FINDINGS: RIGHT WRIST Three views demonstrate no acute fracture or dislocation. There are mild degenerative changes. The soft tissues are unremarkable. IMPRESSION: Mild degenerative change with no acute bony abnormality. Reviewed, Interpreted and Dictated by Nick Youssef III, MD Transcribed by Sarah Smith Authenticated by Nick Youssef III, MD on 10/16/2021 04:08:08 PM [facility]
== END ==
PROVIDERS: PCP Physician Assistant; Visit Provider Orthopaedic Surgery
DX: M79.641 Pain in right hand (principal); M25.531 Pain in right wrist
CPT/HCPCS: 73110; 73130

== ENCOUNTER 2021-10-18 02:10 | Emergency (ER) | payer BC, SELFPAY ==
[2021-10-18 02:11] VITALS: BP 133/92; PULSE 86; RESP 18; TEMP 36.5; O2SAT 98; BMI 34.7
[2021-10-18 02:25] LABS: POC Glucose,Bedside 487 (70-110)
--- NOTE | 2021-10-18 03:44 | HMH.EDGENADL ---
ED Disposition Clinical Impression: Hyperglycemia Disposition: Home, Self-Care Condition on Discharge: Fair Instructions: DI for Hyperglycemia -- Adult Additional Instructions: If you continue to have hypoglycemia please follow-up with your primary care physician, to discuss changing insulin regimen. In the meantime for greater than 200 glucoses you can take some additional insulin, recommend doing this slowly, seeing how your blood sugars respond before giving larger amounts. Referrals: Mara Mike PA [Primary Care Provider] - - Critical Care Critical Care Time: No Attestation: On 10/18/21, the high probability of a clinically significant, sudden or life threatening deterioration of the following system(s) required my full and direct attention, intervention and personal management. The time I documented below is in addition to time spent performing reported procedures but includes the following listed in this critical care notation. Medical Decision Making - Medical Records Medical records reviewed: Yes: I reviewed the patient's medical records. - Angel Inquiry Pt receiving controlled substance: No Angel was queried for this patient: No Vital Signs: 10/18/21 02:11 Temperature 97.7 F Temperature Source Oral Pulse Rate [Right Radial] 86 Respiratory Rate 18 Blood Pressure [Right Arm] 133/92 H Blood Pressure Mean [Right Arm] 105 Blood Pressure Source [Right Arm] Automatic Cuff Blood Pressure Position [Right Arm] Sitting 02 Sat by Pulse Oximetry 98 Oxygen Delivery Method Room Air - Lab Data Lab results reviewed: Yes: I reviewed the patient's lab results. Lab Results 10/18/21 02:16: POC Glucose 487 H* Orders (Tests/Meds): ED MEDICATIONS Generic Name Dose Route Start Last Admin Trade Name Freq PRN Reason Stop Dose Admin Lactated Ringer's 500 mls @ 999 mls/hr 10/18/21 02:45 10/18/21 02:53 Lactated Ringer's 1000 Ml Bag IV 10/18/21 03:15 999 mls/hr .Q31M TARA Administration Discontinued Medications Generic Name Dose Route Start Last Admin Trade Name Freq PRN Reason Stop Dose Admin Insulin Human Regular 5 unit 10/18/21 02:38 10/18/21 02:50 Insulin Human Regular 100 Units/Ml 10ml Vial IVP 10/18/21 02:39 5 unit ONCE ONE Administration ORDERS Category Date Time Status POC Glucose,Bedside Stat Lab 10/18/21 03:45 Ordered Medical Decision Narrative: Patient is a 56-year-old female presenting to emergency room due to complaint of hypoglycemia. She has no additional symptoms and also recently had a steroid shot, believe this is some reaction to that. Given this we will give patient a liter of fluids, treat patient with 5 units of regular insulin. Patient initial glucose was 480s, repeat was 401 and patient's glucose in the Dexcom was 366. Discussed increasing insulin at home in response to hypoglycemia, but doing so carefully. Patient made hemodynamically stable while here in the emergency department. General Adult HPI - General Chief complaint: Hyper/Hypoglycemia Stated complaint: Elevated blood sugar over 600 Time Seen by Provider: 10/18/21 02:20 Mode of Arrival: Ambulatory Limitations: No Limitations Description of Symptoms (Recalled from ER Triage Doc. by RN): Pt reports having steriod injections to her left knee and left hip and is now having trouble controlling her blood sugar. She reports FSBS of over 600 at home. FSBS is 487 per glucometer. Pt reports no other symptoms of hyperglycemia and has no complaints. - History of Present Illness HPI narrative: Patient is a 56-year-old female presenting to the emergency department chief complaint of glycemia. Patient states that she had steroid injections in her left hip on Tuesday and that since then her blood sugar has been uncontrollable. She states that she has a Dexcom which has been continuing to keep her up due to all the acting her high blood sugars. States that she takes 12 units of NovoLog
[2021-10-18 05:11] VITALS: BP 130/77; PULSE 81; RESP 18; TEMP 36.8; O2SAT 98
[2021-10-21 10:29] LABS: POC Glucose,Bedside 346 (70-110)
[2021-10-21 10:29] LABS: POC Glucose,Bedside 403 (70-110)
== END 2021-10-18 05:17 | disposition home or self-care (01) ==
PROVIDERS: Emergency Provider Emergency Medicine; PCP Physician Assistant
DX: E11.65 Type 2 diabetes mellitus with hyperglycemia (principal); F41.9 Anxiety disorder, unspecified; I25.10 Atherosclerotic heart disease of native coronary artery without angina pectoris; I10 Essential (primary) hypertension; K21.9 Gastro-esophageal reflux disease without esophagitis; Z87.891 Personal history of nicotine dependence; Z79.84 Long term (current) use of oral hypoglycemic drugs
CPT/HCPCS: 82962; 96365; 96375; 99282

== ENCOUNTER 2021-10-19 16:30 | Outpatient (RCR) | payer BC, SELFPAY ==
--- NOTE | 2021-10-13 17:26 | HMH.PTOPEV ---
PT Outpatient Evaluation Rehab PT Outpatient Evaluation Start: 10/13/21 17:09 Freq: Status: Active Protocol: Document 10/13/21 17:10 CARRILLOTING (Rec: 10/13/21 17:26 MELISSA [id number]) Electronically Signed By Curt Oconnell, PT 10/13/21 17:10 Outpatient Therapy Subjective History Subjective History Patient is a 56 year old female presenting to outpatient PT with reports of L hip and knee pain starting after a fall in 08/2021. Most recent imaging negative. Hip > knee. Comorbidities include hx of R elbow surgery x 2, hysterectomy, HTN, cardiomyopathy and diabetes. Chief Complaint Pain,Stiff Symptom Type Burning Symptoms Relieved By Rest/Positioning,OTC Meds Symptoms Aggravated By Standing,Physical Activity, Walking Prior Functional Limitations None Current Functional Limitations Housework,Sleeping,Standing, Walking,Stairs Symptom Description Constant but Variable Level of pain today (0-10) 3 Pain scale - at its best (0-10) 2 Pain scale - at its worst (0-10) 10 Hip/Knee Eval Gait Observation General Gait Pattern Observation Antalgic Gait,Decrease Weight Bear (L) Assistive Device Assistive Devices None / NA Palpation Tenderness left Knee Palpation Finding Tenderness Knee Palpation Overall Comment greater trochanteric bursa, pes anserene bursa 3/4 Hip Palpation Findings Tenderness MMT Hip Flexion Strength Grade 4 Good Hip Abduction Strength Grade 4 Good Hip Adduction Strength Grade 4 Good Hip Extension Strength Grade 4- Good- Hip External Rotation Strength Grade 4- Good- Hip Internal Rotation Strength Grade 4- Good- Knee Extension Strength Grade 4- Good- Knee Flexion Strength Grade 4 Good ROM Hip ROM Reason Not Measured Within Functional Limits Knee ROM Reason Not Measured Within Functional Limits Special Tests Hip Sherrie Test Positive Left Hip Piriformis Test Positive Left Guero Test Positive Outpatient Therapy Assessment Impairments Problems/Impairmments Palpation Tenderness,Impaired Strength,Impaired Walking, Impaired Standing,Impaired Household Care,Impaired Stair Climbing,Impaired Incline Stepping,Impaired Stepping on
== END 2021-10-19 16:35 | disposition home or self-care (01) ==
LOC: PT 16:30
PROVIDERS: PCP Physician Assistant; Visit Provider Nurse Practitioner Family
DX: M25.552 Pain in left hip (principal)
CPT/HCPCS: 97010; 97110; 97163

== ENCOUNTER → 2021-10-24 09:19 | Outpatient (CLI) | payer BC, SELFPAY ==
--- NOTE | 2021-10-24 09:20 | MR_ITS ---
PROCEDURE INFORMATION: Exam: MR Right Upper Extremity Other Than Joint Without Contrast; Hand Exam date and time: 10/24/2021 9:20 AM Age: 56 years old Clinical indication: Patient HX: 4th digit proximal cyst. Pain x's 6th months. Nki. No HX of ca/sx. [facility] X[facility]. ; Additional info: Hand pain TECHNIQUE: Imaging protocol: MR of the Right upper extremity without contrast. Exam focused on the hand. COMPARISON: CR XR HAND RT MIN 3V 10/16/2021 3:37 PM FINDINGS: Bones and cartilage: No acute fracture. There is loss of fat suppression within the distal portions of the fingers on the sagittal fluid sensitive sequence (most significantly involving the 3rd and 4th digits). There is no edema or abnormality of the 3rd and 4th digits on the remaining sequences. [id number] 5th MCP joint osteoarthrosis with subchondral cysts and joint line osteophytes. Otherwise scattered minimal to mild degenerative changes within the hand. Joint spaces: No joint effusion. Collateral ligaments of digits: Unremarkable. No evidence of tear. Flexor compartment tendons: Unremarkable. No evidence of tear. Extensor compartment tendons: Unremarkable. No evidence of tear. Muscles: Unremarkable. Soft tissues: There is a 4 mm T2 bright/T1 intermediate mass within volar soft tissues of the 4th finger, at the level of the mid diaphysis of the proximal phalanx. Mass is centered within subcutaneous adipose tissue, and demonstrates broad contact with the 4th digit flexor tendon sheath. The mass is also in close proximity to the digital nerve on the radial side, but appears to be by a fat plane. This is favored to represent a ganglion cyst on the basis of this noncontrast exam. Suspected additional ganglion cyst in the ulnar portion of the wrist, better seen on the dedicated wrist study. IMPRESSION: Small 4 mm probable ganglion cyst in the volar soft tissues of the proximal 4th finger, slightly radial to the midline.
--- NOTE | 2021-10-24 09:20 | MR_ITS ---
PROCEDURE INFORMATION: Exam: MR Right Upper Extremity Joint Without Contrast; Wrist Exam date and time: 10/24/2021 9:20 AM Age: 56 years old Clinical indication: Pain; Wrist; Right; Prior surgery; Surgery date: 6+ months; Surgery type: Cyst removal; Patient HX: PT had cyst removed 1 year ago. Since then its grown back. No HX of ca/sx. Prior XR @ [facility]; Additional info: Wrist pain TECHNIQUE: Imaging protocol: MR of the Right upper extremity without contrast. Exam focused on the wrist. COMPARISON: CR XR WRIST RT MIN 3V 10/16/2021 3:37 PM FINDINGS: Limitations: Significant motion artifact, which results in blurring/distortion of the images. Bones and cartilage: No acute fracture. [id number] osteoarthrosis of the distal radioulnar joint. Minimal degenerative spurring of the 1st CMC joint, triscaphe joint, and radiocarpal joint. Joint spaces: No joint effusion. Scapholunate ligament: No evidence of tear. Lunotriquetral ligament: No evidence of tear. Triangular fibrocartilage complex: There may be some degenerative thinning of the central articular disc. No gross tear. Flexor compartment tendons: Unremarkable. No tear. Extensor compartment tendons: Unremarkable. No tear. Muscles: Unremarkable. No acute abnormality. Soft tissues: There is a 6 mm T2 bright/T1 dark mass within the ulnar soft tissues of the rest, at the level of the ulnar styloid. Mass is centered within the superficial subcutaneous adipose tissue. This is favored to represent a ganglion cyst on the basis of this noncontrast exam. IMPRESSION: Motion degraded exam. Probable 6 mm ganglion cyst in the ulnar soft tissues of the wrist.
== END ==
PROVIDERS: PCP Physician Assistant; Visit Provider Orthopaedic Surgery
DX: M79.641 Pain in right hand (principal); M25.531 Pain in right wrist
CPT/HCPCS: 73218; 73221

== ENCOUNTER → 2021-10-27 09:44 | Outpatient (CLI) | payer BC, SELFPAY | PROVIDERS: PCP Physician Assistant; Visit Provider Nurse Practitioner | DX: U07.1 COVID-19 (principal) | CPT/HCPCS: C9803; U0003; U0005 ==

== ENCOUNTER 2022-04-23 08:44 | Emergency (ER) | payer BC, SELFPAY ==
[2022-04-23 08:45] VITALS: BP 143/88; PULSE 85; RESP 18; TEMP 36.8; O2SAT 100; BMI 34.7
[2022-04-23 08:49] VITALS: BP 143/88; PULSE 84; RESP 16; O2SAT 99
--- NOTE | 2022-04-23 08:58 | PC.NURSE ---
DELANEY WATTS at
--- NOTE | 2022-04-23 09:00 | HMH.EDGENADL ---
ED Disposition Clinical Impression: Hematoma Disposition: Home, Self-Care Condition on Discharge: Good Instructions: DI for Hematoma (Bruise) Additional Instructions: Moshe wrap, ice, elevation for 3 days. Tylenol for pain. Hematoma/discoloration will take several weeks to resolve. Follow-up with your primary care provider next week for recheck and further care. Additional instructions for EXTREMITY PAIN: Return to an emergency department immediately if you have uncontrollable pain, fever, loss of feeling or inability to move your injured extremity. Referrals: Mara Mike PA [Primary Care Provider] - - Critical Care Critical Care Time: No Attestation: On 04/23/22, the high probability of a clinically significant, sudden or life threatening deterioration of the following system(s) required my full and direct attention, intervention and personal management. The time I documented below is in addition to time spent performing reported procedures but includes the following listed in this critical care notation. Medical Decision Making - Angel Inquiry Pt receiving controlled substance: No Vital Signs: 04/23/22 08:45 04/23/22 08:49 Temperature 98.3 F Temperature Source Oral Pulse Rate 84 Pulse Rate [Left Radial] 85 Respiratory Rate 18 16 Blood Pressure 143/88 H Blood Pressure [Left Arm] 143/88 H Blood Pressure Mean 114 Blood Pressure Mean [Left Arm] 106 Blood Pressure Source [Left Arm] Automatic Cuff Blood Pressure Position [Left Arm] Sitting 02 Sat by Pulse Oximetry 100 99 Oxygen Delivery Method Room Air Room Air General Adult HPI - General Stated complaint: hematoma rt hand Time Seen by Provider: 04/23/22 08:55 - History of Present Illness HPI narrative: Patient states that she was using and adding machine this morning and suddenly developed painful swelling on the dorsum of her right hand. No trauma to the area. She had no prior existing problems in that area, no bumps or masses, prior to today she says the back of her hand was normal. Her hand feels tingly. She went to her primary care provider's office, no provider was in the office yet, office personnel sent her to the emergency room. She is concerned about a blood clot. She is on aspirin, no other anticoagulants. She has no other areas of bruising, no easy bleeding, no petechia. - Related Data Home Medications Medication Instructions Recorded Confirmed Blood Sugar Diagnostic [ReliOn See Rx Instructions .ROUTE 07/06/21 11/25/21 Prime Test Strips] .MEDSUPPLY Bacillus coagulans 800 million cell PO 11/25/21 11/25/21 cell tablet Previous Rx's Medication Instructions Recorded losartan 100 mg tablet 100 mg PO DAILY #30 tab 08/19/21 blood-glucose sensor See Rx Instructions .ROUTE 09/10/21 .COMPLEX #3 each Ibuprofen [Ibuprofen 800mg 800 mg PO Q8HP PRN #30 tab 09/11/21 Tablet] blood sugar diagnostic See Rx Instructions .ROUTE #100 09/14/21 each famotidine 20 mg tablet 20 mg PO BID #180 tab 09/16/21 spironolactone 50 mg tablet See Rx Instructions .ROUTE 11/16/21 .COMPLEX #90 tablet aspirin 81 mg tablet,delayed See Rx Instructions .ROUTE 12/29/21 release .COMPLEX #90 tablet buspirone 7.5 mg tablet See Rx Instructions .ROUTE 12/29/21 .COMPLEX #270 tablet carvedilol 25 mg tablet See Rx Instructions .ROUTE 12/29/21 .COMPLEX #180 tablet ergocalciferol (vitamin D2) 1,250 See Rx Instructions .ROUTE 12/29/21 mcg (50,000 unit) capsule .COMPLEX #14 cap furosemide 80 mg tablet See Rx Instructions .ROUTE 12/29/21 .COMPLEX #180 tab dulaglutide 1.5 mg/0.5 mL See Rx Instructions .ROUTE 02/18/22 subcutaneous pen injector .COMPLEX #12 ml glipizide 10 mg tablet, extended See Rx Instructions .ROUTE 02/18/22 release 24 hr .COMPLEX #180 tab metformin 1,000 mg tablet See Rx Instructions .ROUTE 02/18/22 .COMPLEX #180 tab blood-glucose transmitter See Rx Instructions .ROUTE 02/22/22 .COMPLEX #1 eac
--- NOTE | 2022-04-23 09:05 | PC.NURSE ---
Rt hand wrapped with minesh wrap and ice pack provided to pt.
[2022-04-23 09:21] VITALS: BP 143/88; PULSE 85; RESP 18; TEMP 36.8; O2SAT 100
== END 2022-04-23 09:23 | disposition home or self-care (01) ==
PROVIDERS: Emergency Provider Emergency Medicine; PCP Physician Assistant
DX: S60.221A Contusion of right hand, initial encounter (principal); R94.31 Abnormal electrocardiogram [ECG] [EKG]; R07.9 Chest pain, unspecified; R20.2 Paresthesia of skin; R00.2 Palpitations; R42 Dizziness and giddiness; I10 Essential (primary) hypertension; I45.10 Unspecified right bundle-branch block; I25.119 Atherosclerotic heart disease of native coronary artery with unspecified angina pectoris; E04.8 Other specified nontoxic goiter; E55.9 Vitamin D deficiency, unspecified; E11.9 Type 2 diabetes mellitus without complications; K21.9 Gastro-esophageal reflux disease without esophagitis; F41.9 Anxiety disorder, unspecified; Z79.4 Long term (current) use of insulin; Z79.82 Long term (current) use of aspirin; Z79.84 Long term (current) use of oral hypoglycemic drugs; Z79.899 Other long term (current) drug therapy; Z88.8 Allergy status to other drugs, medicaments and biological substances; Z87.891 Personal history of nicotine dependence; Z82.49 Family history of ischemic heart disease and other diseases of the circulatory system; Z83.3 Family history of diabetes mellitus; Z80.9 Family history of malignant neoplasm, unspecified
CPT/HCPCS: 99282

== ENCOUNTER → 2022-05-28 14:50 | Outpatient (CLI) | payer BC, SELFPAY ==
--- NOTE | 2022-05-28 14:50 | CT_ITS ---
FINAL REPORT CLINICAL HISTORY: LUNG CANCER SCREENING FORMER SMOKER QUIT 8 YEARS AGO 1 PACK PER DAY FOR 30 YEARS COMPARISON: CT dated May 25, 2021 and May 13, 2020 FINDINGS: CT CHEST SCREENING CTDI vol (mGy): 2.90 DLP (mGy-cm): 96.38 Axial images were obtained from the lung apex to the mid abdomen by computed tomography. Low-dose protocol was utilized. FINDINGS: CHEST: There is no axillary adenopathy. There is a 1.8 cm anterior mediastinal nodule seen on image 90 of series 3. The nodule has been entirely stable since 2020 and can be considered benign. There are calcified left hilar lymph nodes. The heart is proper size. There is no pericardial or pleural effusion. Limited images of the upper abdomen are unremarkable. Lung window images demonstrate scarring in the right lung base. There is a pleural based 4 mm nodule in the posterior right upper lobe seen on image 15 of series 5. This nodule has been stable since 2020 and can be considered benign. IMPRESSION: Lung RADS category 2. Recommend 12 month follow-up low-dose chest CT. Reviewed, Interpreted and Dictated by Valeriano Bowman MD Transcribed by Magdalene Titus Authenticated and [facility]
== END ==
PROVIDERS: PCP Physician Assistant; Visit Provider Internal Medicine Pulmonary Disease
DX: Z87.891 Personal history of nicotine dependence (principal); Z12.2 Encounter for screening for malignant neoplasm of respiratory organs
CPT/HCPCS: 71271

== ENCOUNTER → 2022-07-09 16:26 | Outpatient (CLI) | payer BC, SELFPAY ==
[2022-07-09 18:09] LABS: Alanine Aminotransferase 87 U/L (12-78); Albumin Level 3.8 g/dl (3.5-5.0); Alkaline Phosphatase 147 U/L (38-126); Aspartate Amino Transferase 49 U/L (14-36); Bilirubin,Indirect 0.3 mg/dL (0.0-0.9); Bilirubin,Total 0.3 mg/dl (0.2-1.3); Bilirubin,Unconjugated 0.3 mg/dL (0.0-1.1); Blood Urea Nitrogen 21 mg/dl (7-17); Calcium 8.5 mg/dl (8.4-10.2); Carbon Dioxide 31 mmol/L (22.0-30.0); Chloride 93 mmol/L (98-107); Chol/HDL Ratio 6.3 (1-3.5); Cholesterol 203 mg/dl (140-200); Estimated Glomerular Filt Rate 57 ml/min (>60); GFR (African American) 69 ML/MIN (>60); Glucose 272 mg/dl (74-100); HDL Cholesterol 32 mg/dl (40-60); Hemoglobin A1C 9.1 % (4.0-6.0); Sodium 138 mmol/L (136-145); Total Protein,Serum 6.3 g/dl (6.3-8.2)
[2022-07-09 18:10] LABS: Triglycerides 500 mg/dl (30-150)
[2022-07-09 18:20] LABS: Direct LDL Cholesterol 104.89 mg/dL (100-129)
[2022-07-09 18:27] LABS: Free Thyroxine Index 3.4 ug/dL (5.93-13.13); T4 (Thyroxine) 10.9 ug/dl (5.53-11.0); Triiodothryronine (T3) Uptake 31 % (23.5-40.5)
[2022-07-09 18:40] LABS: Thyroid Stimulating Hormone 2.51 uIU/mL (0.465-4.68)
== END ==
PROVIDERS: PCP Physician Assistant; Visit Provider Nurse Practitioner
DX: R06.09 Other forms of dyspnea (principal); I11.9 Hypertensive heart disease without heart failure; E78.5 Hyperlipidemia, unspecified; E78.2 Mixed hyperlipidemia
CPT/HCPCS: 36415; 80048; 80061; 80076; 83036; 83735; 84436; 84443; 84479

== ENCOUNTER → 2022-08-25 13:02 | Outpatient (CLI) | payer BC, SELFPAY ==
--- NOTE | 2022-08-25 13:12 | XR_ITS ---
FINAL REPORT CLINICAL HISTORY: stepped on glass LT FOOT FINDINGS: LEFT FOOT 3 views were obtained. There is no acute fracture or dislocation. The joint spaces are intact. There is no soft tissue abnormality. No radiopaque foreign body is identified. IMPRESSION: No acute bony abnormality with no evidence of radiopaque foreign body. Reviewed, Interpreted and Dictated by Nick Youssef III, MD Transcribed by Eliane Sanchez Authenticated and [facility]
== END ==
PROVIDERS: PCP Physician Assistant; Visit Provider Physician Assistant
DX: E11.69 Type 2 diabetes mellitus with other specified complication (principal); S99.922A Unspecified injury of left foot, initial encounter; Z79.4 Long term (current) use of insulin
CPT/HCPCS: 73630

== ENCOUNTER → 2022-09-07 09:27 | Outpatient (CLI) | payer BC, SELFPAY ==
--- NOTE | 2022-09-07 09:27 | US_ITS ---
FINAL REPORT CLINICAL HISTORY: elevated liver enzymes FINDINGS: Ultrasound images of the right upper quadrant were obtained. The pancreas is partially obscured. The liver parenchyma is increased echogenicity. The gallbladder is absent. The common duct is normal. Limited images of the right kidney are unremarkable. IMPRESSION: Fatty liver. Absent gallbladder. Reviewed, Interpreted and Dictated by Nick Youssef III, MD Transcribed by Carter Cruz Authenticated and . [facility]
== END ==
PROVIDERS: PCP Physician Assistant; Visit Provider Physician Assistant
DX: R00.2 Palpitations (principal); R00.0 Tachycardia, unspecified; R74.8 Abnormal levels of other serum enzymes
CPT/HCPCS: 76705; 93270

== ENCOUNTER → 2022-09-22 11:04 | Outpatient (CLI) | payer BC, SELFPAY ==
--- NOTE | 2022-09-22 11:07 | CT_ITS ---
FINAL REPORT CLINICAL HISTORY: evaluate for foreign object in the ball of the foot FINDINGS: CT LEFT FOOT WITHOUT CONTRAST Technique: Axial images through the left foot were performed by computed tomography. Sagittal and coronal reconstruction images were performed. This study was performed with techniques to keep radiation doses as low as reasonably achievable (ALARA). Individualized dose reduction techniques using automated exposure control or adjustment of mA and/or kV according to the patient's size were employed. No fracture is identified. No dislocation identified. No significant degenerative changes identified. There is a chronic calcification adjacent to the bipartite lateral sesamoid of the great toe. There is soft tissue infiltration of the lateral forefoot subcutaneous tissue that may represent localized inflammation. No foreign body is identified. IMPRESSION: No foreign body identified. Soft tissue infiltration of the lateral forefoot may represent localized inflammation. Chronic calcification adjacent to the bipartite lateral sesamoid of the great toe. Reviewed, Interpreted and Dictated by Nick Youssef III, MD Transcribed by Carter Cruz Authenticated and [facility]
== END ==
PROVIDERS: PCP Physician Assistant; Visit Provider Nurse Practitioner Family
DX: M79.672 Pain in left foot (principal); S90.852A Superficial foreign body, left foot, initial encounter; S99.922A Unspecified injury of left foot, initial encounter
CPT/HCPCS: 73700

== ENCOUNTER → 2022-10-26 16:28 | Outpatient (CLI) | payer BC, SELFPAY ==
--- NOTE | 2022-10-26 16:31 | MM_ITS ---
PROCEDURE INFORMATION: Exam: MG Bilateral Screening 3D Mammography Exam date and time: 10/26/2022 4:20 PM Age: 57 years old Clinical indication: Screening mammogram TECHNIQUE: Imaging protocol: Bilateral Screening tomosynthesis and 2D mammography including computer-aided detection (CAD) when performed. COMPARISON: 1. MG MM DIG SCREENING MAMM BI W/CAD 10/14/2021 8:27 AM 2. MG DMDB DIGITAL MAMM-DX BILATERAL 06/02/2012 10:08 AM FINDINGS: MAMMOGRAPHY: Breast composition: There are scattered areas of fibroglandular density. Mass: Stable benign-appearing subcentimeter nodules are present in the left breast. No new or morphologically suspicious nodule has developed to suggest malignancy. Architectural distortion: No new or suspicious architectural distortion. Calcifications: No new or suspicious calcifications are present Asymmetric density: No new or suspicious asymmetric density is present Skin thickening: None. Axillary adenopathy: None. IMPRESSION: No mammographic evidence of malignancy. Recommend annual screening mammography unless otherwise clinically indicated. ASSESSMENT: BI-RADS category 2: Benign
== END ==
PROVIDERS: PCP Physician Assistant; Visit Provider Physician Assistant
DX: Z12.31 Encounter for screening mammogram for malignant neoplasm of breast (principal)
CPT/HCPCS: 77063; 77067

== ENCOUNTER → 2022-12-02 06:13 | Outpatient (CLI) | payer BC, SELFPAY | PROVIDERS: PCP Physician Assistant; Visit Provider Nurse Practitioner Family | DX: I20.8 Other forms of angina pectoris (principal) | CPT/HCPCS: 78452; 93017; 93306; J2785 ==

== ENCOUNTER → 2022-12-06 15:49 | Outpatient (CLI) | payer BC, SELFPAY ==
[2022-12-06 16:57] LABS: Basophils # 0.1 K/mm3 (0-0.2); Basophils % 0.6 % (0.1-2.0); Eosinophils # 0.1 K/mm3 (0.0-0.4); Eosinophils % 1.4 % (0.1-12.0); Hemoglobin 13.1 g/dL (12.2-16.2); Lymphocytes # 1.6 K/mm3 (0.7-4.5); Lymphocytes % 17.1 % (10-50); Mean Corpuscular HGB Conc 32.7 g/dL (31.8-35.4); Mean Corpuscular Hemoglobin 28.2 pg (27.0-31.2); Mean Corpuscular Volume 86.5 fl (81-99); Mean Platelet Volume 8.1 fl (7.4-10.4); Monocytes # 0.3 K/mm3 (0.1-1.0); Monocytes % 3.5 % (1.7-9.3); Neutrophils # 7.3 K/mm3 (1.8-7.8); Neutrophils % 77.4 % (37.0-80.0); Platelet Count 290 K/mm3 (142-424); Red Blood Count 4.63 M/mm3 (4.20-5.40); Red Cell Distribution Width 14.4 % (11.5-17.5); White Blood Count 9.5 K/mm3 (4.8-10.8)
[2022-12-06 17:30] LABS: Hemoglobin A1C 9.4 % (4.0-6.0)
[2022-12-06 17:34] LABS: Alanine Aminotransferase 76 U/L (12-78); Albumin Level 4.6 g/dl (3.5-5.0); Alkaline Phosphatase 117 U/L (38-126); Anion Gap 13.1 mEq/L (5-15); Aspartate Amino Transferase 53 U/L (14-36); Bilirubin,Direct 0.4 mg/dl (0.0-0.4); Bilirubin,Indirect 0.4 mg/dL (0.0-0.9); Bilirubin,Total 0.8 mg/dl (0.2-1.3); Bilirubin,Unconjugated 0.4 mg/dL (0.0-1.1); Blood Urea Nitrogen 23 mg/dl (7-17); Calcium 9.7 mg/dl (8.4-10.2); Carbon Dioxide 31 mmol/L (22.0-30.0); Chloride 90 mmol/L (98-107); Chol/HDL Ratio 6.9 (1-3.5); Cholesterol 270 mg/dl (140-200); Estimated Glomerular Filt Rate 57 ml/min (>60); GFR (African American) 69 ML/MIN (>60); Glucose 353 mg/dl (74-100); HDL Cholesterol 39 mg/dl (40-60); Potassium 4.1 mmoL/L (3.5-5.1); Sodium 130 mmol/L (136-145); Total Protein,Serum 7.3 g/dl (6.3-8.2)
[2022-12-06 17:46] LABS: Direct LDL Cholesterol 118.16 mg/dL (100-129)
[2022-12-06 17:50] LABS: Free T4 (Free Thyroxine) 1.16 ng/dl (0.78-2.19); Triglycerides 748 mg/dl (30-150)
[2022-12-06 18:04] LABS: Thyroid Stimulating Hormone 3.71 uIU/mL (0.465-4.68)
== END ==
PROVIDERS: PCP Physician Assistant; Visit Provider Nurse Practitioner
DX: R06.00 Dyspnea, unspecified (principal); R07.9 Chest pain, unspecified; R42 Dizziness and giddiness; I25.118 Atherosclerotic heart disease of native coronary artery with other forms of angina pectoris; I11.9 Hypertensive heart disease without heart failure; I45.10 Unspecified right bundle-branch block; E78.2 Mixed hyperlipidemia; I63.9 Cerebral infarction, unspecified; E11.69 Type 2 diabetes mellitus with other specified complication; Z79.84 Long term (current) use of oral hypoglycemic drugs
CPT/HCPCS: 36415; 80048; 80061; 80076; 83036; 84439; 84443; 85025

== ENCOUNTER → 2023-09-01 11:58 | Outpatient (CLI) | payer BC, SELFPAY ==
[2023-09-01 11:25] LABS: Coronavirus 19, PCR Not Detected (NotDetected); Influenza A, PCR Not Detected (NotDetected); Influenza B, PCR Not Detected (NotDetected)
== END ==
PROVIDERS: PCP Physician Assistant; Visit Provider Internal Medicine
DX: R06.02 Shortness of breath (principal)
CPT/HCPCS: 87636

== ENCOUNTER 2023-09-04 12:32 | Emergency (ER) | payer BC, SELFPAY ==
[2023-09-04] VITALS (7 sets, daily range): BP systolic 112–133; BP diastolic 67–88; PULSE 82–113; RESP 18; TEMP 36.8; O2SAT 97–100; BMI 32.3
--- NOTE | 2023-09-04 13:13 | PC.NURSE ---
DR DENISE AT BEDSIDE
[2023-09-04 13:22] LABS: Adenovirus,PCR Not Detected (NotDetected); Coronavirus 19, PCR Not Detected (NotDetected); Coronavirus 229E Not Detected (NotDetected); Coronavirus NL63 Not Detected (NotDetected); Coronavirus OC43 Not Detected (NotDetected); Coronovirus HKU1,PCR Not Detected (NotDetected); Human Metapneumovirus Not Detected (NotDetected); Influenza A, PCR Not Detected (NotDetected); Influenza AH1, 2009 Not Detected (NotDetected); Influenza AH1, PCR Not Detected (NotDetected); Influenza AH3,PCR Not Detected (NotDetected); Influenza B, PCR Not Detected (NotDetected); Parainfluenza 1, PCR Not Detected (NotDetected); Parainfluenza 2, PCR Not Detected (NotDetected); Parainfluenza 3, PCR Not Detected (NotDetected); Parainfluenza 4, PCR Not Detected (NotDetected); Rhinovirus/Enterovirus Not Detected (NotDetected)
--- NOTE | 2023-09-04 13:22 | HMH.EDGENADL ---
Discharge Plan Disposition Patient Disposition: Home, Self-Care Prescriptions Prescriptions: New ipratropium-albuterol 0.5 mg-3 mg(2.5 mg base)/3 mL solution for nebulization 3 ml inhalation Q20M PRN (Reason: shortness of breath or wheezing) Qty: 90 0RF Rx Instructions: for 3 doses prednisone 50 mg tablet 50 mg PO DAILY 3 Days Qty: 3 0RF [id number]-fjaznuvqp-SU [Bromfed DM] 2-30-10 mg/5 mL syrup 5 ml PO Q6H PRN (Reason: cold symptoms) Qty: 118 0RF No Action metformin 1,000 mg tablet See Rx Instructions .ROUTE .COMPLEX Qty: 180 3RF Dose Instruction: Take 1 tablet by mouth twice daily Rx Instructions: Take 1 tablet by mouth twice daily losartan 50 mg tablet 50 mg PO DAILY Qty: 90 3RF (DME) Dexcom G7 Nut Tightener Misc See Rx Instructions .Route Qty: 1 0RF Rx Instructions: As directed Repatha SureClick 140 mg/mL pen injector 140 mg SQ Q2W 90 Days Qty: 7 3RF albuterol sulfate 90 mcg/actuation HFA aerosol inhaler 2 inh inhalation Q6H PRN (Reason: shortness of breath or wheezing) 90 Days Qty: 8.5 3RF Digestive Advantage Probio-Pre 800 million cell tablet PO ipratropium-albuterol 0.5 mg-3 mg(2.5 mg base)/3 mL solution for nebulization 3 ml inhalation QID PRN (Reason: shortness of breath or wheezing) Qty: 180 0RF sulfamethoxazole-trimethoprim [Bactrim DS] 800-160 mg tablet 1 tab PO BID 10 Days Qty: 20 0RF (DME) Dexcom G6 Sensor Device See Rx Instructions .ROUTE .COMPLEX Qty: 3 8RF Dose Instruction: USE DIRECTED Rx Instructions: USE DIRECTED (DME) Dexcom G6 Transmitter Device See Rx Instructions .ROUTE .COMPLEX Qty: 1 4RF Dose Instruction: USE DIRECTED Rx Instructions: USE DIRECTED spironolactone 50 mg tablet 50 mg PO DAILY Qty: 90 3RF (DME) ReliOn Prime Test Strips Strip See Rx Instructions .ROUTE .COMPLEX Qty: 100 0RF Dose Instruction: USE STRIP TO CHECK GLUCOSE TWICE DAILY Rx Instructions: USE STRIP TO CHECK GLUCOSE TWICE DAILY loratadine [Allergy Relief (loratadine)] 10 mg tablet 10 mg PO DAILY Qty: 90 2RF furosemide 80 mg tablet See Rx Instructions .ROUTE .COMPLEX Qty: 180 1RF Dose Instruction: Take 1 tablet by mouth twice daily Rx Instructions: Take 1 tablet by mouth twice daily (DME) pen needle, diabetic [BD Verónica 2nd Gen Pen Needle] 32 gauge x 5/32 needle See Rx Instructions .ROUTE .COMPLEX Qty: 100 12RF Dose Instruction: USE DIRECTED Rx Instructions: USE DIRECTED insulin lispro protamin-lispro [Humalog Mix 75-25 KwikPen] 100 unit/mL (75-25) insulin pen See Rx Instructions .ROUTE .COMPLEX Qty: 15 12RF Dose Instruction: INJECT 25 UNITS SUBCUTANEOUSLY TWICE DAILY Rx Instructions: INJECT 25 UNITS SUBCUTANEOUSLY TWICE DAILY ergocalciferol (vitamin D2) 1,250 mcg (50,000 unit) capsule See Rx Instructions .ROUTE .COMPLEX Qty: 14 3RF Dose Instruction: TAKE 1 CAPSULE BY MOUTH ONCE A WEEK FOR SUPPLEMENT Rx Instructions: TAKE 1 CAPSULE BY MOUTH ONCE A WEEK FOR SUPPLEMENT cholecalciferol (vitamin D3) [Vitamin D3] 25 mcg (1,000 unit) capsule See Rx Instructions .ROUTE .COMPLEX Qty: 90 3RF Dose Instruction: TAKE 1 CAPSULE BY MOUTH ONCE DAILY FOR SUPPLEMENT Rx Instructions: TAKE 1 CAPSULE BY MOUTH ONCE DAILY FOR SUPPLEMENT (DME) DexKlickSports G7 Sensor Device See Rx Instructions .ROUTE .COMPLEX Qty: 9 3RF Dose Instruction: USE DIRECTED Rx Instructions: USE DIRECTED Ozempic 2 mg/dose (8 mg/3 mL) pen injector See Rx Instructions .ROUTE .COMPLEX Qty: 3 5RF Dose Instruction: INJECT 2 MG SUBCUTANEOUSLY ONCE A WEEK Rx Instructions: INJECT 2 MG SUBCUTANEOUSLY ONCE A WEEK buspirone 7.5 mg tablet See Rx Instructions .ROUTE .COMPLEX Qty: 270 0RF Dose Instruction: TAKE 1 TABLET BY MOUTH THREE TIMES DAILY Rx Ins
--- NOTE | 2023-09-04 13:22 | XR_ITS ---
PROCEDURE INFORMATION: Exam: XR Chest Exam date and time: 09/04/2023 1:20 PM Age: 58 years old Clinical indication: Cough TECHNIQUE: Imaging protocol: Radiologic exam of the chest. Views: 2 views. COMPARISON: CT LUNG SCREENING 05/28/2022 2:58 PM FINDINGS: Lungs: Unremarkable. No consolidation. Pleural spaces: Unremarkable. No pleural effusion. No pneumothorax. Heart/Mediastinum: Unremarkable. No cardiomegaly. Bones/joints: Unremarkable. IMPRESSION: No acute findings.
--- NOTE | 2023-09-04 13:26 | PC.NURSE ---
pt to xray via wheelchair
--- NOTE | 2023-09-04 13:40 | PC.NURSE ---
pt back to room
--- NOTE | 2023-09-04 14:35 | PC.NURSE ---
DR DENISE AT BEDSIDE TO UPDATE PT AND FAMILY
[2023-09-04 16:11] LABS: Respiratory Syncytial Virus Detected (NotDetected)
== END 2023-09-04 14:55 | disposition home or self-care (01) ==
PROVIDERS: Emergency Provider Emergency Medicine; PCP Physician Assistant
DX: J45.901 Unspecified asthma with (acute) exacerbation (principal); J22 Unspecified acute lower respiratory infection; R06.02 Shortness of breath; R05.9 Cough, unspecified; I25.118 Atherosclerotic heart disease of native coronary artery with other forms of angina pectoris; E04.9 Nontoxic goiter, unspecified
CPT/HCPCS: 71046; 87632; 87635; 99284

== ENCOUNTER → 2023-09-12 23:21 | Outpatient (CLI) | payer BC, SELFPAY ==
[2023-09-12 18:39] LABS: Microalbumin < 6.000 mg/L (0-16.7)
[2023-09-12 18:47] LABS: Creatinine,Urine Random 24 mg/dL (Not Estab.)
== END ==
PROVIDERS: PCP Physician Assistant; Visit Provider Physician Assistant
DX: E11.9 Type 2 diabetes mellitus without complications (principal); Z79.4 Long term (current) use of insulin; Z79.84 Long term (current) use of oral hypoglycemic drugs; Z79.85 Long-term (current) use of injectable non-insulin antidiabetic drugs
CPT/HCPCS: 82043; 82570

== ENCOUNTER → 2023-09-14 16:46 | Outpatient (CLI) | payer BC, SELFPAY ==
[2023-09-14 17:12] LABS: Basophils # 0.1 K/mm3 (0-0.2); Basophils % 0.6 % (0.1-2.0); Eosinophils # 0.2 K/mm3 (0.0-0.4); Eosinophils % 1.6 % (0.1-12.0); Hemoglobin 13.3 g/dL (12.2-16.2); Lymphocytes # 1.5 K/mm3 (0.7-4.5); Lymphocytes % 12.6 % (10-50); Mean Corpuscular HGB Conc 33.2 g/dL (31.8-35.4); Mean Corpuscular Hemoglobin 29.4 pg (27.0-31.2); Mean Corpuscular Volume 88.3 fl (81-99); Mean Platelet Volume 7.8 fl (7.4-10.4); Monocytes # 0.4 K/mm3 (0.1-1.0); Monocytes % 3.3 % (1.7-9.3); Neutrophils # 9.4 K/mm3 (1.8-7.8); Neutrophils % 81.7 % (37.0-80.0); Platelet Count 269 K/mm3 (142-424); Red Blood Count 4.53 M/mm3 (4.20-5.40); Red Cell Distribution Width 14.7 % (11.5-17.5); White Blood Count 11.5 K/mm3 (4.8-10.8)
[2023-09-14 18:04] LABS: Hemoglobin A1C 8.1 % (4.0-6.0)
[2023-09-14 18:10] LABS: Alanine Aminotransferase 57 U/L (12-78); Albumin Level 4.4 g/dl (3.5-5.0); Albumin/Globulin Ratio 1.5 (1.1-1.8); Alkaline Phosphatase 127 U/L (38-126); Anion Gap 12.4 mEq/L (5-15); Aspartate Amino Transferase 33 U/L (14-36); Bilirubin,Total 0.5 mg/dl (0.2-1.3); Blood Urea Nitrogen 32 mg/dl (7-17); Calcium 9.3 mg/dl (8.4-10.2); Carbon Dioxide 30 mmol/L (22.0-30.0); Chloride 95 mmol/L (98-107); Chol/HDL Ratio 5.6 (1-3.5); Cholesterol 297 mg/dl (140-200); Estimated Glomerular Filt Rate 36 ml/min (>60); GFR (African American) 43 ML/MIN (>60); Glucose 295 mg/dl (74-100); HDL Cholesterol 53 mg/dl (40-60); Potassium 4.4 mmoL/L (3.5-5.1); Sodium 133 mmol/L (136-145); Total Protein,Serum 7.4 g/dl (6.3-8.2)
[2023-09-14 18:23] LABS: Triglycerides 731 mg/dl (30-150)
[2023-09-14 18:27] LABS: 25-OH Vitamin D, Total 47.8 ng/mL (30-100)
[2023-09-14 18:41] LABS: Thyroid Stimulating Hormone 2.47 uIU/mL (0.465-4.68)
== END ==
PROVIDERS: PCP Physician Assistant; Visit Provider Physician Assistant
DX: E11.9 Type 2 diabetes mellitus without complications (principal); Z79.899 Other long term (current) drug therapy; E66.9 Obesity, unspecified; Z68.34 Body mass index [BMI] 34.0-34.9, adult
CPT/HCPCS: 80053; 80061; 82306; 83036; 84443; 85025

== ENCOUNTER → 2023-09-27 08:38 | Outpatient (CLI) | payer BC, SELFPAY ==
[2023-09-27 16:02] LABS: Free Thyroxine Index 3.6 ug/dL (5.93-13.13); T4 (Thyroxine) 10.6 ug/dl (5.53-11.0); Triiodothryronine (T3) Uptake 34 % (23.5-40.5)
[2023-09-27 16:16] LABS: Thyroid Stimulating Hormone 2.39 uIU/mL (0.465-4.68)
== END ==
PROVIDERS: PCP Physician Assistant; Visit Provider Physician Assistant
DX: E04.9 Nontoxic goiter, unspecified (principal)
CPT/HCPCS: 84436; 84443; 84479

== ENCOUNTER → 2023-09-27 12:51 | Outpatient (CLI) | payer BC, SELFPAY ==
--- NOTE | 2023-09-27 12:52 | CT_ITS ---
FINAL REPORT TECHNIQUE: Axial CT images of the chest were obtained without contrast. Low-dose protocol was utilized. This study was performed with techniques to keep radiation doses as low as reasonably achievable (ALARA). Individualized dose reduction techniques using automated exposure control or adjustment of mA and/or kV according to the patient's size were employed. CLINICAL HISTORY: lung cancer screening FORMER SMOKER QUIT 9 YEARS AGO, 1PPD X30 YEARS WHEN SMOKING COMPARISON: 05/28/2022 FINDINGS: CT CHEST WITHOUT, LOW DOSE SCREENING CT Di Vol: 2.90 mGy DLP: 85.17 mGy*cm There is no axillary, mediastinal, or hilar adenopathy. The heart size is normal. There is no pleural or pericardial effusion. The lung windows show a stable 4 mm pleural-based focus in the posterior right upper lobe, a stable 3 mm nodule in the posterior left upper lobe on image 21 of series 3, and a stable 5 mm nodule in the anterior right lung on image 39. Limited images of the upper abdomen demonstrate no acute findings. IMPRESSION: Stable nodules as above. LR Category 2: 12 month follow-up low-dose chest CT is recommended. Reviewed, Interpreted and Dictated by Valeriano Bowman MD Transcribed by Poornima Beltran Authenticated and [facility]
[2023-09-27 14:20] LABS: Blood Urea Nitrogen 28 mg/dl (7-17); Carbon Dioxide 26 mmol/L (22.0-30.0); Chloride 96 mmol/L (98-107); Estimated Glomerular Filt Rate 46 ml/min (>60); GFR (African American) 56 ML/MIN (>60)
[2023-09-27 15:00] LABS: Anion Gap 16.2 mEq/L (5-15); Potassium 4.2 mmoL/L (3.5-5.1); Sodium 134 mmol/L (136-145)
[2023-09-27 15:03] LABS: Calcium 8.3 mg/dl (8.4-10.2); Glucose 248 mg/dl (74-100)
== END ==
PROVIDERS: PCP Physician Assistant; Visit Provider Physician Assistant
DX: Z12.2 Encounter for screening for malignant neoplasm of respiratory organs (principal); R79.89 Other specified abnormal findings of blood chemistry
CPT/HCPCS: 71271; 80048

== ENCOUNTER 2023-12-13 08:50 | Day surgery (SDC) | payer BC, SELFPAY ==
[2023-12-13 09:46] VITALS: BP 128/78; PULSE 78; RESP 18; TEMP 36.6; O2SAT 100; BMI 35.2
[2023-12-13 10:43] VITALS: BP 128/78; PULSE 87; RESP 18; TEMP 36.6; O2SAT 100
[2023-12-13] MEDS: APRACLONIDINE 0.5% OPHTH SOLN 5ML OP (14:22)
[2023-12-13] MEDS: PHENYLEPHRINE 2.5% OPHTH SOLN 2ML 0.0500000000000000028 ML OP (14:23)
[2023-12-13] MEDS: TETRACAINE 0.5% OPTH SOL 15ML OP (14:23)
[2023-12-13] MEDS: TROPICAMIDE 1% OPTH SOLN 2ML OP (14:23)
== END 2023-12-13 10:43 | disposition home or self-care (01) ==
PROVIDERS: PCP Physician Assistant; Visit Provider Ophthalmology
PROC: (CPT 66821; principal; 2023-12-13 10:30)
DX: H26.491 Other secondary cataract, right eye (principal)
CPT/HCPCS: 66821

== ENCOUNTER 2024-02-23 14:15 | Outpatient (CLI) | payer BC, SELFPAY ==
[2024-02-23 16:15] LABS: Hemoglobin A1C 9.4 % (4.0-6.0)
== END 2024-02-23 23:59 | disposition home or self-care (01) ==
LOC: LAB 14:15
PROVIDERS: PCP Physician Assistant; Visit Provider Physician Assistant
DX: E11.69 Type 2 diabetes mellitus with other specified complication (principal); Z79.4 Long term (current) use of insulin; Z79.84 Long term (current) use of oral hypoglycemic drugs; Z79.85 Long-term (current) use of injectable non-insulin antidiabetic drugs
CPT/HCPCS: 36415; 83036

== ENCOUNTER 2024-03-09 15:14 | Outpatient (CLI) | payer BC, SELFPAY ==
--- NOTE | 2024-03-09 15:14 | CA_ITS ---
FINAL REPORT TECHNIQUE: Color Doppler, duplex Doppler and compression sonography of the left lower extremity deep venous systems was performed. CLINICAL HISTORY: possible dvt, left leg pain/swelling COMPARISON: None FINDINGS: There is no evidence of deep venous thrombosis from the level of the groin to the calf. The veins are patent and compressible. IMPRESSION: No evidence of deep venous thrombosis left lower extremity. Reviewed, Interpreted and Dictated by Nick Youssef III, MD Transcribed by Poornima Beltran Authenticated and [facility]
[2024-03-09 16:44] LABS: Alanine Aminotransferase 62 U/L (12-78); Albumin Level 3.7 g/dl (3.5-5.0); Albumin/Globulin Ratio 1.5 (1.1-1.8); Alkaline Phosphatase 106 U/L (38-126); Amylase 63 U/L (30-110); Anion Gap 14.2 mEq/L (5-15); Aspartate Amino Transferase 40 U/L (14-36); Bilirubin,Total 0.5 mg/dl (0.2-1.3); Blood Urea Nitrogen 26 mg/dl (7-17); Calcium 9.2 mg/dl (8.4-10.2); Carbon Dioxide 28 mmol/L (22.0-30.0); Chloride 98 mmol/L (98-107); Estimated Glomerular Filt Rate 51 ml/min (>60); GFR (African American) 62 ML/MIN (>60); Globulin 2.5 g/dL (1.3-3.2); Glucose 328 mg/dl (74-100); Lipase 297 U/L (23-300); Potassium 4.2 mmoL/L (3.5-5.1); Sodium 136 mmol/L (136-145); Total Protein,Serum 6.2 g/dl (6.3-8.2)
== END 2024-03-09 23:59 | disposition home or self-care (01) ==
LOC: RT 15:14
PROVIDERS: PCP Physician Assistant; Visit Provider Physician Assistant
DX: M79.605 Pain in left leg (principal); M25.552 Pain in left hip; M54.32 Sciatica, left side; W18.2XXA Fall in (into) shower or empty bathtub, initial encounter; R22.42 Localized swelling, mass and lump, left lower limb; E11.69 Type 2 diabetes mellitus with other specified complication; Z79.84 Long term (current) use of oral hypoglycemic drugs; Z79.85 Long-term (current) use of injectable non-insulin antidiabetic drugs; Z79.4 Long term (current) use of insulin; E66.9 Obesity, unspecified; Z68.34 Body mass index [BMI] 34.0-34.9, adult
CPT/HCPCS: 36415; 80053; 82150; 83690; 93971

== ENCOUNTER 2024-03-12 16:48 | Outpatient (CLI) | payer BC, SELFPAY ==
--- NOTE | 2024-03-12 17:15 | XR_ITS ---
PROCEDURE INFORMATION: Exam: XR Left Hip Exam date and time: 03/12/2024 5:17 PM Age: 58 years old Clinical indication: Injury or trauma; Fall; Blunt trauma (contusions or hematomas); Left; Pelvic region TECHNIQUE: Imaging protocol: Radiologic exam of the left hip. Views: 2 or 3 views hip with pelvis when performed. COMPARISON: CR XR HIP LT 2-3V W/PELVIS 09/11/2021 4:24 PM FINDINGS: Bones/joints: Unremarkable. No acute fracture. Soft tissues: Unremarkable. IMPRESSION: No acute findings.
--- NOTE | 2024-03-12 17:15 | XR_ITS ---
PROCEDURE INFORMATION: Exam: XR Lumbosacral Spine Exam date and time: 03/12/2024 5:17 PM Age: 58 years old Clinical indication: Injury or trauma; Fall; Blunt trauma (contusions or hematomas) TECHNIQUE: Imaging protocol: Radiologic exam of the lumbosacral spine. Views: 4 or 5 views. COMPARISON: CR XR LUMBAR SPINE 2-3V 09/11/2021 4:23 PM FINDINGS: Bones/joints: No compression fractures. Mild multilevel degenerative disc disease. Moderate lower lumbar spine facet arthropathy. Soft tissues: Unremarkable. Intraperitoneal space: Right upper quadrant cholecystectomy clips in place. Vasculature: Mild aortoiliac atherosclerotic disease. IMPRESSION: No acute findings.
--- NOTE | 2024-03-12 17:15 | XR_ITS ---
PROCEDURE INFORMATION: Exam: XR Left Knee Exam date and time: 03/12/2024 5:17 PM Age: 58 years old Clinical indication: Injury or trauma; Fall; Blunt trauma; Knee; Left TECHNIQUE: Imaging protocol: Radiologic exam of the left knee. Views: 4 or more views. COMPARISON: CR XR KNEE LT 3V 09/11/2021 4:27 PM FINDINGS: Bones/joints: No fracture or dislocation. Mild tricompartmental degenerative joint disease is greatest in the medial compartment. Soft tissues: Normal. IMPRESSION: No acute findings.
== END 2024-03-12 23:59 | disposition home or self-care (01) ==
LOC: RAD 16:48
PROVIDERS: PCP Physician Assistant; Visit Provider Physician Assistant
DX: R22.42 Localized swelling, mass and lump, left lower limb (principal); M25.552 Pain in left hip; M54.32 Sciatica, left side; W19.XXXA Unspecified fall, initial encounter
CPT/HCPCS: 72110; 73502; 73564

== ENCOUNTER 2024-03-24 12:25 | Outpatient (CLI) | payer BC, SELFPAY ==
--- NOTE | 2024-03-24 12:26 | MR_ITS ---
FINAL REPORT TECHNIQUE: Multiplanar MR without gadolinium enhancement CLINICAL HISTORY: LBP radiating down left leg COMPARISON: None FINDINGS: Sagittal images show normal vertebral height. Alignment is normal. Marrow signal pattern is unremarkable. L1-2: There is no evidence of central canal stenosis or neural foraminal narrowing. L2-3: A small annular bulge is present with borderline central canal stenosis. L3-4: A small annular bulge and mild facet arthropathy are present, with borderline central canal stenosis. L4-5: A small annular bulge is present with moderate facet arthropathy and borderline central canal stenosis. L5-S1: Moderate facet arthropathy is present along with a tiny central disc protrusion. IMPRESSION: Multilevel lumbar degenerative change, with borderline canal stenosis at multiple levels. Reviewed, Interpreted and Dictated by Dano Ko MD Transcribed by Kala Murphy Authenticated and [facility]
== END 2024-03-24 23:59 | disposition home or self-care (01) ==
LOC: RAD 12:26
PROVIDERS: PCP Physician Assistant; Visit Provider Physician Assistant
DX: M54.16 Radiculopathy, lumbar region (principal)
CPT/HCPCS: 72148; 76376

== ENCOUNTER 2024-03-30 16:26 | Outpatient (CLI) | payer BC, SELFPAY | END 2024-03-30 23:59 | disposition home or self-care (01) | LOC: RAD 16:27 | PROVIDERS: PCP Physician Assistant; Visit Provider Physician Assistant | DX: M25.562 Pain in left knee (principal) | CPT/HCPCS: 73721 ==

== ENCOUNTER 2024-04-17 10:39 | Outpatient (CLI) | payer BC, SELFPAY ==
[2024-04-17 11:21] LABS: Basophils # 0.1 K/mm3 (0-0.2); Basophils % 0.6 % (0.1-2.0); Eosinophils # 0.2 K/mm3 (0.0-0.4); Hematocrit 40.6 % (37.0-47.0); Hemoglobin 13.1 g/dL (12.2-16.2); Lymphocytes # 1.4 K/mm3 (0.7-4.5); Lymphocytes % 15.6 % (10-50); Mean Corpuscular HGB Conc 32.3 g/dL (31.8-35.4); Mean Corpuscular Hemoglobin 29.6 pg (27.0-31.2); Mean Corpuscular Volume 91.6 fl (81-99); Mean Platelet Volume 7.9 fl (7.4-10.4); Monocytes # 0.4 K/mm3 (0.1-1.0); Monocytes % 4.2 % (1.7-9.3); Neutrophils # 7.1 K/mm3 (1.8-7.8); Neutrophils % 77.7 % (37.0-80.0); Platelet Count 222 K/mm3 (142-424); Red Blood Count 4.43 M/mm3 (4.20-5.40); Red Cell Distribution Width 15.6 % (11.5-17.5); White Blood Count 9.2 K/mm3 (4.8-10.8)
[2024-04-17 11:41] LABS: Alanine Aminotransferase 88 U/L (12-78); Albumin Level 4.2 g/dl (3.5-5.0); Albumin/Globulin Ratio 1.4 (1.1-1.8); Alkaline Phosphatase 89 U/L (38-126); Anion Gap 15.7 mEq/L (5-15); Aspartate Amino Transferase 76 U/L (14-36); Blood Urea Nitrogen 27 mg/dl (7-17); Calcium 9.6 mg/dl (8.4-10.2); Carbon Dioxide 27 mmol/L (22.0-30.0); Chloride 97 mmol/L (98-107); Estimated Glomerular Filt Rate 57 ml/min (>60); GFR (African American) 69 ML/MIN (>60); Glucose 186 mg/dl (74-100); Potassium 4.7 mmoL/L (3.5-5.1); Sodium 135 mmol/L (136-145); Total Protein,Serum 7.2 g/dl (6.3-8.2)
== END 2024-04-17 23:59 | disposition home or self-care (01) ==
LOC: LAB 10:40
PROVIDERS: PCP Physician Assistant; Visit Provider Physician Assistant
DX: Z01.818 Encounter for other preprocedural examination (principal); S83.207A Unspecified tear of unspecified meniscus, current injury, left knee, initial encounter
CPT/HCPCS: 36415; 80053; 85025

== ENCOUNTER 2024-05-09 06:49 | Day surgery (SDC) | payer BC, SELFPAY ==
[2024-05-07 11:45] VITALS: BMI 34.2
[2024-05-09] VITALS (10 sets, daily range): BP systolic 109–133; BP diastolic 64–84; PULSE 81–90; RESP 16–18; TEMP 36.1–36.6; O2SAT 90–100
[2024-05-09 07:12] LABS: POC Glucose,Bedside 213 (70-110)
[2024-05-09] MEDS: LACTATED RINGERS 1000ML 1,000 ML 25 ML IV (07:28)
[2024-05-09] MEDS: BUPIVACAINE 0.25% 30ML VIAL 75 MG (08:18)
[2024-05-09] MEDS: RINGERS SOLUTION,LACTATED 6,000 ML 25 ML IR (08:18)
[2024-05-09] MEDS: CLINDAMYCIN PHOSPHATE/D5W 900 MG/50 ML PIGGYBACK 100 MG IV (08:18)
--- NOTE | 2024-05-09 08:44 | P.OP_ITS ---
Date of procedure: 05/09/24 Pre-op Diagnosis:: Left knee medial and lateral meniscus tears Post-op Diagnosis:: Same Procedure performed:: Left knee arthroscopy partial medial meniscectomy partial lateral meniscectomy Surgeon:: Thanh Mcdowell DO Fish Drier(s):: Cal[employer] PROFESSOR:: Everette Ramirez Anesthesia: GETA Estimated blood loss (mL): 0 Operative findings:: Macerated complex tear posterior horn medial meniscus macerated complex tear posterior horn and body lateral meniscus Operative note:: Patient identified preoperatively. Left knee joanne with yes minus chills. Tr ansported operative suite placed upon operating bed. General anesthesia administered and the airway secured. Left lower extremity was then placed in the knee burrell prepped draped normal sterile fashion. Once prepped and draped final operative timeout performed to identify proper patient procedure and extremity. Everyone involved in the case agreed. There were no contraindications to beginning. She did receive preoperative antibiotics and clindamycin. Marking pen was used to joanne the bony landmarks of the knee and standard portal sites. Esmarch was used to exsanguinate the extremity pneumatic tourniquet inflated to 300 mmHg. Skin knife used to make standard anterior lateral portal. Blunt trocar was placed in the patellofemoral joint exchange with a camera. Diagnostic arthroscopy began. I spoke directly into the medial joint line where the anterior medial portal was made with the help of an 18-gauge spinal needle. There is a large macerated complex tear of the posterior horn of the medial meniscus. Using combination of straight biter sucker shaver and electrocautery partial medial meniscectomy was performed back to stable rim. There was some mild softening of the cartilage of the medial femoral condyle but no full- thickness cartilage lesions. Attention was then brought to the intercondylar notch the ACL was seen and there was some mild tearing of the most lateral fibers of the ACL. Debridement of the torn fibers were performed. The majority of the ACL intact. Scope into the lateral joint line. Within the lateral joint line there is also a large complex tear of the posterior horn and body of the lateral meniscus using combination of a straight biter and sucker shaver partial lateral meniscectomy was performed back to stable rim. Lateral cartilage was also without full-thickness cartilage lesion and only mildly softened. Swept back into the medial gutter into the patellofemoral joint patella tracked midline within the trochlea camera removed joint drain. Skin closed with nylon stitch sterile dressing placed from toe to thigh patient waking anesthesia taken recovery in stable condition. Condition: stable Disposition: PACU Complications:: None apparent
--- NOTE | 2024-05-09 08:49 | EXP.ANES.CKL ---
[facility] Disclaimer: The information contained in this section may have been updated after the patient was seen, as this information can be updated by other users. Medical History Metatarsalgia of both feet Injury of left foot Ground glass opacity present on imaging of lung Dyspnea on exertion Lung nodule Family history of lung cancer Stopped smoking with greater than 30 pack year history Mediastinal lymphadenopathy Mild intermittent asthma Abnormal electrocardiography RBBB Dizziness Typical angina Palpitations CAD (coronary artery disease) Chest pain Dyspnea Thyroid goiter Vitamin D deficiency Anxiety Right shoulder pain BMI 36.0-36.9,adult Surgical History History of bladder suspension procedure History of tonsillectomy Family History Other Cancer Coronary artery disease Diabetes Social History (Updated 05/09/24 @ 07:19 by Christine Pond RN) Smoking Status: Never smoker how long ago did patient quit smokin alcohol intake: never substance use type: denies use current occupational status: employed Travel in the last 8 weeks: None household members: spouse housing: house current occupational exposures/hazards: No caffeine: Yes [facility] Anesthesia Checklist Patient Identification Patient Identification: Arm Band and Family Structural Data Admitted From: Home Planned Operative Procedure/s: Left Knee ATS with partial lateral mniscectomy. Consent for Planned Operative Procedure(s) Verified: Yes Verified Documents: Surgical Consent and History and Physical NPO Status Verified Time NPO: 00:00 Additional verifications Patient : No Anesthesia Reactions: No Hx Blood Transfusions: No Blood Transfusion Reaction: No Cephalosporin Allergy: Yes Previous Colonoscopy: No Airway Assessment Mallampati Score:: Class II C-Spine Mobility Assessed: Yes TMJ Mobility Assessed: Yes Dentition: Good Dentition Neurological Assessment Level of Consciousness: Awake, Alert, Appropriate and Follows Commands Hx Seizures: No Anesthesia Plan Anesthesia Risk discussed: Yes ASA Class: III Anesthesia Type: General Preoperative Comments Pre-Operative Comments: IDDM. RBBB. Asthma.
--- NOTE | 2024-05-09 08:51 | P.PNANES_ITS ---
[facility] Anesthesia Record Part I Anesthesia Record I Intake, IV Amount: 800 Hydration: Adequate Estimated blood loss (mL): 10 Urine output (mL): 0 Blood Products used (#): none Blood Pressure: 116/73 SaO2: 90 Pulse Rate: 87 Airway Patency: Patent Respiratory Rate: 18 Temperature: 97.2 F Patient is:: Drowsy and Stable Stable to PACU at:: 08:45 Comments:: blood sugar in RR 176.
[2024-05-09 08:55] LABS: POC Glucose,Bedside 176 (70-110)
[2024-05-09] MEDS: MORPHINE 2MG/ML SYRINGE 2 MG IV (09:17)
[2024-05-09] MEDS: KETOROLAC 30MG/ML VIAL 30 MG IV (09:21)
--- NOTE | 2024-05-09 14:30 | EXP.ANES.II ---
[facility] Anesthesia Record Part II Anesthesia Record Part II Discharge Time: 09:15 Destination: Surgical Day Care (OP Surgery) PACU nurse assessment reviewed?: Yes Patient Condition:: Good Anesthesia Complications:: None Swallowing reflex intact?: Yes Airway Patency: Patent Cyanosis?: No Blood Pressure: 133/84 SaO2: 97 Respiratory Rate: 17 Pulse Rate: 86 Temperature: 98 F Mental Status: Alert & Oriented Pain level:: 0 Nausea and/or vomitting:: None Intake, IV Amount: 0 Hydration: Adequate
== END 2024-05-09 10:20 | disposition home or self-care (01) ==
PROVIDERS: PCP Physician Assistant; Visit Provider Orthopaedic Surgery
PROC: (CPT 29870; principal; 2024-05-09 08:30)
DX: S83.231A Complex tear of medial meniscus, current injury, right knee, initial encounter (principal); S83.271A Complex tear of lateral meniscus, current injury, right knee, initial encounter; W18.2XXA Fall in (into) shower or empty bathtub, initial encounter
CPT/HCPCS: 29880; 82962; 96374; J1100; J1885; J2250; J2270; J2405; J3010; J7120

== ENCOUNTER 2024-07-26 14:51 | Outpatient (CLI) | payer BC, SELFPAY ==
[2024-07-26 15:08] LABS: Basophils # 0.1 K/mm3 (0-0.2); Basophils % 0.7 % (0.1-2.0); Eosinophils # 0.2 K/mm3 (0.0-0.4); Eosinophils % 1.8 % (0.1-12.0); Hematocrit 38.7 % (37.0-47.0); Hemoglobin 13.2 g/dL (12.2-16.2); Lymphocytes # 1.7 K/mm3 (0.7-4.5); Lymphocytes % 19.6 % (10-50); Mean Corpuscular HGB Conc 34.2 g/dL (31.8-35.4); Mean Corpuscular Hemoglobin 29.3 pg (27.0-31.2); Mean Corpuscular Volume 85.6 fl (81-99); Mean Platelet Volume 7.6 fl (7.4-10.4); Monocytes # 0.4 K/mm3 (0.1-1.0); Monocytes % 4.6 % (1.7-9.3); Neutrophils # 6.4 K/mm3 (1.8-7.8); Neutrophils % 73.3 % (37.0-80.0); Platelet Count 254 K/mm3 (142-424); Red Blood Count 4.52 M/mm3 (4.20-5.40); Red Cell Distribution Width 14.7 % (11.5-17.5); White Blood Count 8.8 K/mm3 (4.8-10.8)
[2024-07-26 15:28] LABS: Hemoglobin A1C 9.7 % (4.0-6.0)
[2024-07-26 16:20] LABS: Free T4 (Free Thyroxine) 1.46 ng/dl (0.78-2.19)
[2024-07-26 16:58] LABS: Alanine Aminotransferase 93 U/L (12-78); Albumin Level 4.3 g/dl (3.5-5.0); Alkaline Phosphatase 126 U/L (38-126); Aspartate Amino Transferase 58 U/L (14-36); Bilirubin,Direct 0.4 mg/dl (0.0-0.4); Bilirubin,Indirect 0.3 mg/dL (0.0-0.9); Bilirubin,Total 0.7 mg/dl (0.2-1.3); Bilirubin,Unconjugated 0.3 mg/dL (0.0-1.1); Blood Urea Nitrogen 22 mg/dl (7-17); Calcium 9.2 mg/dl (8.4-10.2); Carbon Dioxide 25 mmol/L (22.0-30.0); Chloride 99 mmol/L (98-107); Chol/HDL Ratio 6.8 (1-3.5); Cholesterol 238 mg/dl (140-200); Estimated Glomerular Filt Rate 57 ml/min (>60); GFR (African American) 69 ML/MIN (>60); Glucose 216 mg/dl (74-100); HDL Cholesterol 35 mg/dl (40-60); Sodium 133 mmol/L (136-145); Total Protein,Serum 6.9 g/dl (6.3-8.2)
[2024-07-26 17:10] LABS: Direct LDL Cholesterol 108.46 mg/dL (100-129)
[2024-07-26 17:28] LABS: Thyroid Stimulating Hormone 1.98 uIU/mL (0.465-4.68)
[2024-07-26 17:43] LABS: Triglycerides 845 mg/dl (30-150)
== END 2024-07-26 23:59 | disposition home or self-care (01) ==
LOC: LAB 14:52
PROVIDERS: PCP Physician Assistant; Visit Provider Physician Assistant
DX: R06.09 Other forms of dyspnea (principal); R42 Dizziness and giddiness; E78.2 Mixed hyperlipidemia; I11.9 Hypertensive heart disease without heart failure; I10 Essential (primary) hypertension; I25.118 Atherosclerotic heart disease of native coronary artery with other forms of angina pectoris; R07.9 Chest pain, unspecified
CPT/HCPCS: 36415; 80048; 80061; 80076; 82565; 83036; 84439; 84443; 84520; 85025

== ENCOUNTER 2024-08-06 09:00 | Outpatient (CLI) | payer BC, SELFPAY ==
[2024-08-06] VITALS (8 sets, daily range): BP systolic 71–145; BP diastolic 41–87; PULSE 63–91; RESP 18; O2SAT 98–100; BMI 34.2
--- NOTE | 2024-08-06 09:01 | CT_ITS ---
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 A noncontrast coronary calcium scan was performed. A CT attenuation threshold of 130 Hounsfield units (HU) was used for the detection of calcium in contiguous voxels of 1 sq mm in area to be counted as individual lesions. Bolus tracking in the ascending aorta with a threshold of 180 HU was performed. Immediately afterwards, ECG synchronized cardiac CT was then performed from the cardiac base to apex using retrospective gating with ECG tube current modulation. A total of 85 mL of Isovue 370 mg/mL contrast medium was administered at 5 mL/sec followed by a saline flush using a biphasic injection protocol. A tube voltage of 120 KVp was used. The average heart rate at the time of acquisition was 56 bpm and regular. Image Reconstruction Transaxial images were reconstructed at 0.67 mm slide thickness. Data was reviewed interactively on an advanced workstation capable of 2 and 3-dimensional displays in all conventional reconstruction formats, including multiplanar reformations, maximum intensity projections, curved multiplanar reformations, and volume rendered reconstructions. When applicable, selected routine images describing the relevant coronary anatomy and pathology were saved and sent to PACS. Complications None Technical Quality Overall image quality was good. Coronary artery opacification was adequate. Total DLP (Dose-Length Product) is 1522.5 mGy-cm. The reported value represents the total of one or more individual components during the CT acquisition of this date and at this time, and as such, the same value may appear in more than one CT report depending on the interpreting/reporting physicians. COMPARISON None FINDINGS CT Coronary Calcium Scoring LMA (Left Main Artery) = 0 LAD (Left Anterior Descending) = 49 LCX (Left Coronary Circumflex) = 0 RCA (Right Coronary Artery) = 34 Total Calcium Score = 83 using the AJ-130 method. The observed calcium score of 83 is at 91st percentile for subjects of the same age, sex, and race/ethnicity. The interpretation of the calcium heart score is based on the following continuum*: 0 = no calcified plaque detected (risk of coronary artery disease is very low ??? less than 5%) 1-10 = calcium detected in extremely minimal levels (risk of coronary diseases is still low ??? less than 10%) 11-100 = mild levels of plaque detected with certainty (mild or minimal narrowing of heart arteries is likely) 101-400 = definite,at least moderate levels of plaque detected (relatively high risk of a heart attack within 3-5 years) >401-999 = extensive levels of plaque detected (high risk of heart attack, high levels of vascular disease are present, high likelihood of at least one significant coronary narrowing) *The calcium heart score quantifies the burden of coronary calcification/plaque in the coronary arteries. The calcium heart score is not able to evaluate the presence or burden of non-calcified (i.e. soft) plaque. There is no identifiable calcification in the aortic valve, mitral annulus or mitral valve, pericardium, or myocardium. Coronary CT Angiography The coronary arterial system is right dominant. Quantitative Stenosis Grading: Left Main (LM): The left main originates normally from the left sinus of Valsalva. The LM bifurcates into the left anterior descending artery and left circumflex artery. The LM is patent with no evidence of atherosclerosis. Left Anterior Descending (LAD) and Diagonal Branches: The LAD gives off 3 diagonal branch(es). There is mixed calcified/noncalcified plaque in the proximal LAD, with up to 50-70% luminal stenosis at the bifurcation with the first diagonal branch. There is no evidence of LAD-myocardial bridge. Left Circumflex (LCX) and Obtuse Marginals (OM): The LCX gives off 2 Obtuse Marginal (OM) branch(es). The LCX and its branches are patent with no evidence of atherosclerosis. Right Coronary Artery (RCA): The RCA originates normally from the right sinus of Valsalva. The RCA gives off a posterior descending artery (PDA) and posterolateral (PL) branches. There is mixed calcified/noncalcified plaque in the proximal and mid RCA segment, with up to 25-49% luminal stenosis in the mid RCA segment. Non-Coronary Cardiac Findings: Analysis of the left ventricular (LV) structure and function was performed after 3-D reconstruction of the LV from axial images, with user-corrected automatic contouring for assessment of LV volumes and user-defined reconstruction from oblique planes for measurement of 3-D cardiac structure and function. -The left ventricle systolic function is normal. -There is incomplete opacification of the distal left atrial appendage. This likely represents early imaging acquisition after IV contrast administration, but true perfusion defect cannot be entirely ruled out. Two right pulmonary veins and two left pulmonary veins drain normally into the left atrium. -No pericardial thickening or calcification. -Central and branch pulmonary arteries in the [id number] are unremarkable. -Thoracic aorta within the visualized thoracic aortic-branches in the [id number] is unremarkable. Extracardiac Structures No significant extra-cardiac findings. Note, however, that this study is focused on the cardiac findings. IMPRESSION -Presence of coronary calcification with an Agatston score = 83 using the AJ-130 method. -The observed calcium score of 83 is at 91st percentile for subjects of the same age, sex, and race/ethnicity. -Mild to moderate atherosclerotic coronary disease in the proximal LAD/first diagonal branch, as well as atherosclerosis in the mid RCA segment. The lesion at the bifurcation of LAD/first diagonal branch may have significant flow-limiting atherosclerosis. -CAD-RADS 3. Management recommendations per ACC/AHA guidelines*, as clinically appropriate. *Recommendations: CAD RADS 0: Reassurance. Consider non-atherosclerotic causes of chest pain. CAD RADS 1: Consider non-atherosclerotic causes of chest pain. Consider preventive therapy and risk factor modification. CAD RADS 2: Consider non-atherosclerotic causes of chest pain. Consider preventive therapy and risk factor modification, particularly for patients with nonobstructive plaque in multiple segments. CAD RADS 3: Consider further functional testing. Consider symptom-guided anti-ischemic and preventive pharmacotherapy as well as risk factor modification per published guideline statements. CAD RADS 4A: Consider further functional testing or invasive coronary angiography with revascularization per published guideline statements. Consider symptom-guided anti-ischemic and preventive pharmacotherapy as well as risk factor modification per published guideline statements. CAD RADS 4B: Invasive coronary angiography recommended with revascularization per published guideline statements. Consider symptom-guided anti-ischemic and preventive pharmacotherapy as well as risk factor modification per published guideline statements. CAD RADS 5: Consider invasive angiography and/or viability assessment with revascularization per published guideline statements. Consider symptom-guided anti-ischemic and preventive pharmacotherapy as well as risk factor modification per published guideline statements. CRITICAL RESULT None COMMUNICATION Per this written report The coronary and cardiac findings of this CCTA were reviewed, reported, and signed by Dominik Ohara MD (Global Marketing Coordinator) Conclusion Electronically signed by : Jacqueline Ohara MD 08/09/2024 09:52:48
[2024-08-06] MEDS: METOPROLOL TARTRATE 50MG TABLET PO ×2 (09:30→10:38)
[2024-08-06] MEDS: IVABRADINE HCL 7.5MG TABLET PO (09:30)
[2024-08-06 09:36] LABS: POC Glucose,Bedside 237 (70-110)
[2024-08-06] MEDS: NITROGLYCERIN 0.4MG SL TABLET SL (12:10)
[2024-08-06] MEDS: 0.9 % SODIUM CHLORIDE 50 ML VIAL IV (12:25)
[2024-08-06] MEDS: SODIUM CHLORIDE 0.9% 10ML SYR (RAD ONLY) 10 ML IV (12:25)
[2024-08-06] MEDS: IOPAMIDOL-370 (76%);100ML BOTTLE 85 ML IV (12:25)
== END 2024-08-06 12:45 | disposition home or self-care (01) ==
PROVIDERS: PCP Physician Assistant; Visit Provider Physician Assistant
DX: I25.118 Atherosclerotic heart disease of native coronary artery with other forms of angina pectoris (principal); R06.09 Other forms of dyspnea; R42 Dizziness and giddiness; I11.9 Hypertensive heart disease without heart failure; R07.9 Chest pain, unspecified
CPT/HCPCS: 75574; 82962; Q9967

== ENCOUNTER 2024-09-05 16:48 | Outpatient (CLI) | payer BC, SELFPAY ==
--- NOTE | 2024-09-05 16:51 | MM_ITS ---
PROCEDURE INFORMATION: Exam: MG Bilateral Screening 3D Mammography Exam date and time: 09/05/2024 4:44 PM Age: 59 years old Clinical indication: Screening examination TECHNIQUE: Imaging protocol: Bilateral Screening tomosynthesis and 2D mammography including computer-aided detection (CAD) when performed. COMPARISON: 1. MG MM DIG SCREENING MAMM BI W/CAD 10/26/2022 4:20 PM 2. MG MM DIG SCREENING MAMM BI W/CAD 10/14/2021 8:27 AM FINDINGS: MAMMOGRAPHY: Breast composition: There are scattered areas of fibroglandular density. Mass: None. Architectural distortion: None. Calcifications: No suspicious calcifications. Asymmetric density: None. Skin thickening: None. Axillary adenopathy: None. IMPRESSION: No mammographic evidence of malignancy. Annual screening is recommended unless otherwise clinically indicated. ASSESSMENT: BI-RADS Category 1: Negative.
== END 2024-09-05 23:59 | disposition home or self-care (01) ==
LOC: RAD 16:49
PROVIDERS: PCP Physician Assistant; Visit Provider Physician Assistant
DX: Z12.31 Encounter for screening mammogram for malignant neoplasm of breast (principal)
CPT/HCPCS: 77063; 77067

== ENCOUNTER 2024-09-18 07:42 | Outpatient (CLI) | payer BC, SELFPAY ==
[2024-09-18 08:11] LABS: Basophils # 0.1 K/mm3 (0-0.2); Basophils % 0.6 % (0.1-2.0); Eosinophils # 0.1 K/mm3 (0.0-0.4); Eosinophils % 1.6 % (0.1-12.0); Hematocrit 36.7 % (37.0-47.0); Hemoglobin 12.5 g/dL (12.2-16.2); Lymphocytes # 1.1 K/mm3 (0.7-4.5); Lymphocytes % 12.2 % (10-50); Mean Corpuscular HGB Conc 33.9 g/dL (31.8-35.4); Mean Corpuscular Hemoglobin 28.8 pg (27.0-31.2); Mean Corpuscular Volume 84.8 fl (81-99); Mean Platelet Volume 8.4 fl (7.4-10.4); Monocytes # 0.5 K/mm3 (0.1-1.0); Monocytes % 5.3 % (1.7-9.3); Neutrophils % 80.3 % (37.0-80.0); Platelet Count 232 K/mm3 (142-424); Red Blood Count 4.33 M/mm3 (4.20-5.40); Red Cell Distribution Width 15.1 % (11.5-17.5); White Blood Count 8.8 K/mm3 (4.8-10.8)
[2024-09-18 09:56] LABS: Albumin Level 3.9 g/dl (3.5-5.0); Chloride 96 mmol/L (98-107); Potassium 3.3 mmoL/L (3.5-5.1); Sodium 134 mmol/L (136-145)
[2024-09-18 09:59] LABS: Alanine Aminotransferase 75 U/L (12-78); Albumin/Globulin Ratio 1.6 (1.1-1.8); Alkaline Phosphatase 106 U/L (38-126); Anion Gap 9.3 mEq/L (5-15); Aspartate Amino Transferase 57 U/L (14-36); Bilirubin,Total 0.6 mg/dl (0.2-1.3); Blood Urea Nitrogen 35 mg/dl (7-17); Calcium 8.1 mg/dl (8.4-10.2); Carbon Dioxide 32 mmol/L (22.0-30.0); Cholesterol 160 mg/dl (140-200); Estimated Glomerular Filt Rate 46 ml/min (>60); GFR (African American) 56 ML/MIN (>60); Globulin 2.4 g/dL (1.3-3.2); Glucose 158 mg/dl (74-100); Total Protein,Serum 6.3 g/dl (6.3-8.2); Triglycerides 336 mg/dl (30-150); VLDL Cholesterol 67 mg/dL (0-40)
[2024-09-18 10:00] LABS: Chol/HDL Ratio 4.7 (1-3.5); HDL Cholesterol 34 mg/dl (40-60)
[2024-09-18 10:12] LABS: Direct LDL Cholesterol 70.83 mg/dL (100-129)
[2024-09-18 10:23] LABS: 25-OH Vitamin D, Total 37.3 ng/mL (30-100)
[2024-09-18 10:45] LABS: Hemoglobin A1C 8.1 % (4.0-6.0)
[2024-09-18 10:59] LABS: HIV Combo NEGATIVE (Negative)
[2024-09-18 14:51] LABS: Creatinine,Urine Random 98 mg/dL (Not Estab.)
[2024-09-18 15:07] LABS: Microalbumin < 6.000 mg/L (0-16.7)
== END 2024-09-18 23:59 | disposition home or self-care (01) ==
LOC: LAB 07:45
PROVIDERS: PCP Physician Assistant; Visit Provider Physician Assistant
DX: E11.9 Type 2 diabetes mellitus without complications (principal); Z79.84 Long term (current) use of oral hypoglycemic drugs
CPT/HCPCS: 36415; 80050; 80053; 80061; 82043; 82306; 82570; 83036; 84443; 85025; 87389; 87522

== ENCOUNTER 2024-09-24 12:03 | Observation (INO) | payer BC, SELFPAY ==
[2024-09-24] VITALS (18 sets, daily range): BP systolic 101–144; BP diastolic 54–92; PULSE 72–100; RESP 16–18; TEMP 36.5–37; O2SAT 94–100; BMI 34.2; BMI 33.5
--- NOTE | 2024-09-24 12:01 | ECG_ITS ---
APPROVED REPORT Exam: Resting ECG HR:94 bpm ECG Measurements Heart Rate 94 AXES IA 124 P -35 QRSd 110 QRS -34 QT 363 T -8 QTc 415 Conclusion SINUS RHYTHM LEFT AXIS DEVIATION [QRS AXIS < -30] LOW QRS VOLTAGE IN PRECORDIAL LEADS [QRS DEFLECTION < 1.0 mV IN CHEST LEADS] INCOMPLETE RIGHT BUNDLE BRANCH BLOCK [90+ ms QRS DURATION, TERMINAL R IN V1/V2, 40+ ms S IN I/aVL/V4/V5/V6] ANTEROSEPTAL MYOCARDIAL INFARCTION , OF INDETERMINATE AGE [40+ ms Q WAVE IN V1-V4] No STEMI Electronically signed by : AYAN OTTO, 09/24/2024 16:06:46
--- NOTE | 2024-09-24 12:14 | HMH.EDGENADL ---
Discharge Plan Disposition Patient Disposition: Admitted Condition: Serious Clinical Impressions Clinical Impression: Unstable angina, Hypokalemia Acute on chronic renal failure Qualifiers: Acute renal failure type: unspecified Chronic kidney disease stage: unspecified stage Qualified Code(s): N17.9 - Acute kidney failure, unspecified Discharge ED Provider: Mae Olivo General Adult HPI <RAMON Bellamy - Last Filed: 09/24/24 13:26> General Chief complaint: Chest Pain Stated complaint: Chest pain Time Seen by Provider: 09/24/24 12:13 History of Present Illness HPI narrative: Patient presents for evaluation of chest pain. Patient has a several month history of unstable angina. She has known nonocclusive cardiovascular disease and follows closely with Dr. Mckenzie's group. She has essentially been maximally medically managed and plan was for elective heart cath. Patient however presents with angina since Tuesday. It has been continuous and [id number]. She has taken all of her anginal regimens without relief including nitroglycerin. She called the cardiology clinic today and they sent her to the emergency department for further evaluation. On arrival patient reports chest pain at approximately 8 out of 10 with no dyspnea shortness of breath fever chills hemoptysis hematochezia melena nausea vomit diarrhea. It does not radiate and no are no aggravating or relieving factors. Related Data Home Medications ?Medication ?Instructions ?Recorded ?Confirmed aspirin 81 mg tablet,delayed 81 mg PO DAILY 05/09/24 09/24/24 release furosemide 80 mg tablet 80 mg PO BID 05/09/24 09/24/24 loratadine 10 mg tablet (Allergy 10 mg PO DAILY 05/09/24 09/24/24 Relief (loratadine)) metformin 1,000 mg tablet 1,000 mg PO BID 05/09/24 09/24/24 omeprazole 40 mg capsule,delayed 40 mg PO DAILY 05/09/24 09/24/24 release Lactobacillus 40-Bifidobact 1 cap PO DAILY 08/06/24 09/24/24 3-S.thermophilus 100 billion cell capsule (Probiotic) buspirone 7.5 mg tablet 7.5 mg PO TID 09/24/24 09/24/24 cholecalciferol (vitamin D3) 25 25 mcg PO DAILY 09/24/24 09/24/24 mcg (1,000 unit) capsule dapagliflozin propanediol 10 mg 10 mg PO DAILY 09/24/24 09/24/24 tablet (Farxiga) ergocalciferol (vitamin D2) 1,250 1,250 mcg PO WEEKLY 09/24/24 09/24/24 mcg (50,000 unit) capsule glipizide 10 mg tablet, extended 10 mg PO BID 09/24/24 09/24/24 release 24 hr insulin lispro protamine-lispro 25 unit SQ BID 09/24/24 09/24/24 100 unit/mL (75-25) subcutaneous pen (Humalog Mix 75-25 KwikPen) minocycline 100 mg capsule 100 mg PO BID 09/24/24 09/24/24 nitroglycerin 0.4 mg sublingual 0.4 mg sublingual Q5MINP PRN chest 09/24/24 09/24/24 tablet pain tirzepatide 7.5 mg/0.5 mL 7.5 mg SQ WEEKLY 09/24/24 09/24/24 subcutaneous pen injector (Guadalupe) Previous Rx's ?Medication ?Instructions ?Recorded losartan 50 mg tablet 50 mg PO DAILY #90 tabs 02/06/24 blood-glucose sensor (Dexcom G7 #9 ea 04/28/24 Sensor device) pen needle, diabetic 32 gauge x #100 ea 05/28/24 (BD Verónica 2nd Gen Pen Needle) blood sugar diagnostic (ReliOn #100 ea 06/20/24 Prime Test Strips) chlorthalidone 25 mg tablet 25 mg PO DAILY #30 tabs 07/26/24 evolocumab 140 mg/mL subcutaneous 140 mg SQ Q2W #3 mL 07/26/24 pen injector (Sonia Tam) carvedilol 25 mg tablet 25 mg PO BID #180 tabs 09/19/24 isosorbide mononitrate 60 mg 60 mg PO DAILY #30 tabs 09/19/24 tablet,extended release 24 hr Allergies Allergy/AdvReac Type Severity Reaction Status Date / Time acetaminophen (From Lortab) Allergy Severe Swelling Verified 09/06/24 15:24 oral / throat hydrocodone (HYDROCODONE) Allergy Severe S-SWELLS-OR Verified 09/06/24 15:24 AL/THROAT cefaclor (From CECLOR) Allergy Unknown S-SWELLS-OR Verified 09/06/24 15:24 AL/THROAT celecoxib (From CELEBREX) Allergy Unknown S-SWELLS-OR Verified 09/06/24 15:24 AL/THROAT meperidine (From DEMEROL) Allergy Unknown S-SWELLS-OR Verified 09/06/24 15:24 AL/THROAT isosorbide AdvReac Intermediate GUTIÉRREZ Verified 09/06/24 15:24 atorvastatin AdvReac Mild myalgia Verified 09/06/24 15:24 pravastatin AdvReac Mild myalgia Verified 09/06/24 15:24 rosuvastatin (From Crestor) AdvReac Mild myalgia Verified 09/06/24 15:24 ranolazine (From Ranexa) AdvReac Dizziness Verified 09/06/24 15:24 Nlceqlx-NRU-OcP Reductase AdvReac Muscle Pain Verified 09/06/24 15:24 Inhibitor (Iilpcbk-Loi-Xey Reductase Inhibitor) [facility] <RAMON Bellamy - Last Filed: 09/24/24 13:26> [facility] Disclaimer: The information contained in this section may have been updated after the patient was seen, as this information can be updated by other users. Medical History (Updated 09/24/24 @ 13:04 by RAMON Bellamy) Abnormal findings on diagnostic imaging of heart and coronary circulation Atypical angina Abnormal electrocardiography Metatarsalgia of both feet Injury of left foot Ground glass opacity present on imaging of lung Dyspnea on exertion Lung nodule Family history of lung cancer Stopped smoking with greater than 30 pack year history Mediastinal lymphadenopathy Mild intermittent asthma RBBB Dizziness Typical angina Palpitations CAD (coronary artery disease) Chest pain Dyspnea Thyroid goiter Vitamin D deficiency Anxiety Right shoulder pain BMI 36.0-36.9,adult Surgical History History of bladder suspension procedure History of tonsillectomy Family History Other Cancer Coronary artery disease Diabetes Social History Smoking Status: Former smoker tobacco type: cigarettes packs per day: 1 how long ago did patient quit smokin alcohol intake: never substance use type: denies use current occupational status: employed Travel in the last 8 weeks: None household members: spouse housing: house current occupational exposures/hazards: No caffeine: Yes Have you lived/traveled outside [place] in past 30 days?: No Contact w/someone who lives/traveled outside US past 30 days?: No Exposure to someone with infectious disease in past 14 days?: No Do you have a fever (greater than 100.4 F or 38 C)?: No Have you tested positive for COVID-19: No Exposed to someone with COVID-19 in past 14 days?: No Do you have a sore throat?: No Do you have a cough?: No Do you have any weakness?: No Do you have any diarrhea?: No Are you experiencing any unusual bleeding?: No Do you have any muscle aches/pain?: No Do you have any abdominal pain?: No Are you experiencing loss of taste or smell?: No Other Medical History Have you received the Flu Vaccine for this season: No Have you received the Pneumonia Vaccine: No <RAMON Bellamy - Last Filed: 09/24/24 13:26> ROS Obtained: Yes Systems reviewed as appropriate & no additional complaints except as documented Physical Exam <RAMON Bellamy - Last Filed: 09/24/24 13:26> General General appearance: alert and in no apparent distress Respiratory Respiratory exam: Present normal lung sounds bilaterally Cardiovascular Cardiovascular exam: Present regular rate Neurological Exam Neurological exam: Present alert and oriented X3 Medical Decision Making <RAMON Bellamy - Last Filed: 09/24/24 13:26> Medical Records Medical records reviewed: Yes I reviewed the patient's medical records. Screening: Per USPSTF and CDC recommendations, given the prevalence of disease in our region, it is our hospital?s policy to screen for HIV and viral Hepatitis for all patients aged 18 and over and those with ongoing risk factors. Angel Inquiry Pt receiving controlled substance: No Vital Signs: 09/24/24 12:04 09/24/24 12:31 09/24/24 13:33 Temperature 98.6 F 98.0 F Temperature Source Oral Oral Pulse Rate 92 H 74 Pulse Rate [Left Radial] 92 H Respiratory Rate 17 18 16 Blood Pressure 109/76 L 111/74 Blood Pressure [Right Arm] 101/72 L Blood Pressure Mean 87 Blood Pressure Mean [Right Arm] 81 Blood Pressure Source [Right Arm] Automatic Cuff Blood Pressure Position [Right Arm] Standing 02 Sat by Pulse Oximetry 98 100 Oxygen Delivery Method Room Air Room Air Lab Data Lab results reviewed: Yes I reviewed the patient's lab results. Lab Results 09/24/24 12:14: WBC 10.9 H, RBC 4.38, Hgb 12.3, Hct 36.8 L, MCV 84.0, MCH 28.1, MCHC 33.4, RDW 14.0, Plt Count 252, MPV 10.1, Neut % (Auto) 77.8, Lymph % (Auto) 13.7, Phillips % (Auto) 5.9, Eos % (Auto) 1.6, Baso % (Auto) 0.4, Neut # (Auto) 8.5 H, Lymph # (Auto) 1.5, Phillips # (Auto) 0.6, Eos # (Auto) 0.2, Baso # (Auto) 0.0, PT 10.7, INR 0.95, Sodium 132 L, Potassium 2.8 L*, Chloride 92 L, Carbon Dioxide 34 H, Anion Gap 8.8, BUN 36 H, Creatinine 1.50 H, Estimated Creat Clear 61, Estimated GFR 36 L, Est GFR ( Amer) 43 L, Glucose 107 H, Calcium 8.6, Total Bilirubin 0.8, AST 76 H, ALT 82 H, Alkaline Phosphatase 116, Troponin I < 0.01, Total Protein 7.0, Albumin 4.0, Globulin 3.0, Albumin/Globulin Ratio 1.3 09/24/24 12:46: Urine Color Yellow, Urine Appearance Clear, Urine pH 6.0, Ur Specific [place] 1.010, Urine Protein Negative, Urine Glucose (UA) Negative, Urine Ketones Negative, Urine Blood Negative, Urine Nitrate Negative, Urine Bilirubin Negative, Urine Urobilinogen 0.2, Ur Leukocyte Esterase Negative, Urine RBC None, Urine WBC None, Ur Squamous Epith Cells 3-5, Urine Bacteria None 09/24/24 12:14 09/24/24 12:14 Orders (Tests/Meds): ED MEDICATIONS Generic Name Dose Route Start Last Admin Trade Name Freq PRN Reason Stop Dose Admin Fentanyl Citrate 50 mcg 09/24/24 13:24 09/24/24 13:53 Fentanyl 100mcg/2ml Vial IV 09/25/24 01:24 100 mcg Q3MINP PRN Administration Sedation Fentanyl Citrate 25 mcg 12/23/24 13:24 Fentanyl 100mcg/2ml Vial IV 09/25/24 01:24 Q3MINP PRN Sedation Flumazenil 0.2 mg 09/24/24 13:24 Flumazenil 0.1mg/Ml 5ml Vial IV 09/25/24 01:24 NEEDED PRN Sedation Heparin Sodium (Porcine) 10,000 unit 09/24/24 13:24 09/24/24 13:52 Heparin 1,000 Units/Ml 10ml Vial (Software Project Engineer) IV 09/24/24 17:24 5,000 unit NEEDED PRN Administration Emergency Box Corporate Legal Secretary Hydralazine HCl 20 mg 09/24/24 13:24 Hydralazine 20mg/Ml Vial IV 09/24/24 17:24 ONCE PRN sbp>160 Potassium Chloride/Water 100 mls @ 50 mls/hr 09/24/24 13:19 09/24/24 13:28 Potassium Chloride 20meq/100ml Ivpb IV 09/24/24 19:18 50 mls/hr Q2H TARA Administration Adenosine 180 mg/ Sodium 90 mls @ 519.275 mls/hr 09/24/24 13:24 Chloride IV 09/24/24 17:24 ONCE PRN fractional flow reserve 180 MCG/KG/MIN Adenosine 90 mg/ Sodium 90 mls @ 1,038.55 mls/hr 09/24/24 13:24 Chloride IV 09/24/24 17:24 ONCE PRN fractional flow reserve 180 MCG/KG/MIN Sodium Chloride 1,000 mls @ 25 mls/hr 09/24/24 13:30 09/24/24 13:52 Sod Chloride 0.9% 500ml Bag IV 09/25/24 13:24 25 mls/hr .Q25H TARA Administration Labetalol HCl 20 mg 09/24/24 13:24 Labetalol 20mg/4ml Syringe IV 09/24/24 17:24 ONCE PRN sbp>160 Midazolam HCl 1 mg 09/24/24 13:24 Midazolam 2mg/2ml Vial IV 09/25/24 01:24 Q3MINP PRN Sedation Midazolam HCl 1 mg 09/24/24 13:24 09/24/24 13:53 Midazolam Hcl 1mg/Ml 5ml Vial IV 09/25/24 01:24 5 mg Q3MINP PRN Administration Sedation Naloxone HCl 0.4 mg 09/24/24 13:24 Naloxone 0.4mg/Ml Vial IV 09/25/24 01:24 Q5MINP PRN Decreased Respirations Nitroglycerin 800 mcg 09/24/24 13:24 09/24/24 13:52 Nitroglycerin 800mcg/8ml Syr (Software Project Engineer) IA 09/24/24 17:24 800 mcg NEEDED PRN Administration Emergency Box Corporate Legal Secretary Protamine Sulfate 50 mg 09/24/24 13:24 Protamine Sulfate 50mg/5ml Vial (Software Project Engineer) IV 09/24/24 17:24 ONCE PRN act>200 Sodium Chloride 10 ml 09/24/24 13:24 Sodium Chloride 0.9% 10ml Flush Syringe IV 10/24/24 13:23 NEEDED PRN Maintain IV Site Discontinued Medications Generic Name Dose Route Start Last Admin Trade Name Freq PRN Reason Stop Dose Admin Diphenhydramine HCl 50 mg 09/24/24 13:24 09/24/24 13:51 Diphenhydramine 50mg/Ml Vial IV 09/24/24 13:25 50 mg ONCE ONE Administration Heparin Sodium/Sodium Chloride 3,000 unit 09/24/24 13:24 Heparin 1,000 Units/500ml Ns (Software Project Engineer) IV 09/24/24 13:25 ONCE ONE Sodium Chloride 1,000 mls @ 999 mls/hr 09/24/24 12:22 09/24/24 12:39 Sod Chlor 0.9% 1000ml Bag IV 09/24/24 13:22 999 mls/hr .Q1H1M ONE Administration Lidocaine HCl 20 ml 09/24/24 13:24 Lidocaine 1% 10ml Mdv IJ 09/24/24 13:25 ONCE ONE Lidocaine HCl 20 ml 09/24/24 13:24 Lidocaine 1% 5ml Pf Vial IJ 09/24/24 13:25 ONCE ONE Potassium Chloride 60 meq 09/24/24 13:19 09/24/24 13:28 Potassium Chloride 20meq Tab PO 09/24/24 13:20 60 meq ONCE ONE Administration Propofol 60 mg 09/24/24 14:17 09/24/24 14:18 Propofol 10mg/Ml 20ml Vial IV 09/24/24 14:18 60 mg ONCE ONE Administration Verapamil HCl 2.5 mg 09/24/24 13:24 09/24/24 13:51 Verapamil 2.5mg/Ml 2ml Vial IV 09/24/24 13:25 2.5 mg ONCE ONE Administration ORDERS Category Date Time Status Chest XR -- portable [XR chest portable] Stat Exams 09/24/24 12:22 Completed CBC w/Auto Diff [Complete Blood Count Auto Diff] Stat Lab 09/24/24 12:14 Completed CMP [Comprehensive Metabolic Panel] Stat Lab 09/24/24 12:14 Completed INR [Prothrombin Time INR] Stat Lab 09/24/24 12:14 Completed Trop I [Troponin I] Stat Lab 09/24/24 12:14 Completed Troponin I Q3H Lab 09/24/24 15:30 Ordered Troponin I Q3H Lab 09/24/24 18:30 Ordered UA [Urinalysis and Microscopic] Stat Lab 09/24/24 12:46 Completed HEART Score History (anamnesis): Moderately suspicious ECG: Non-specific disturbance Age: 45-65 years Risk factors: Atherosclerosis history Troponin: </= normal limit HEART Score: 5 Medical Decision Narrative: In summary patient is a 59-year-old female who presents to the emergency department for evaluation of unstable angina. Patient is initially with a blood pressure of 101/72 pulse 92 satting at 98% on room air breathing 17 times a minute upon arrival, afebrile at 98.6. Physical exam reveals normal breath sounds normal heart sounds and no reproducible chest pain on palpation.. Differential diagnosis includes ACS versus angina versus pneumonia versus esophagitis or other noncardiac causes etc. Initial workup will be conducted with hematologic labs plain film chest x-ray. Initial interventions include crystalloid bolus Zofran.. Initial workup reviewed by me shows that her white count is 10.9 and H&H are normal absolute neutrophil count is 8.5 sodium is 132 potassium is 2.8 chloride 92 CO2 is 34 gap is 8.8 BUN is 36 creatinine is 1.5 GFR is 36 AST and ALT are 76 and 82 and initial troponin is less than 0.01 urinalysis is bland and my informal interpretation of her plain film chest x-ray shows no acute processes. I have initiated volume resuscitation for her acute on chronic kidney failure, potassium repletion for her critical potassium with p.o. and IV and I then had an interactive discussion with Mike Ibarra of cardiology. We discussed patient management and patient will be admitted for further evaluation and care. Spoke to the hospitalist as well regarding patient management and they have been agreeable for admission. Olivo: I personally evaluated the patient. I agree with the assessment and plan from the YASIR. I personally interpreted ECG which demonstrates sinus rhythm, rate 94, left axis deviation, normal TN and QTc, no STEMI. Patient is receiving treatment for hypokalemia identified on labs, additional repletion will be completed. Troponin is undetectably low which is reassuring against acute pathology, however given her history and the reason she was sent to the ER at the recommendation of the cardiology clinic, cardiology was consulted and the recommendations are being followed. I was consulted by the YASIR, and we discussed the complexity of problems being addressed. I approved the treatment and management plan for this patient's care in the emergency department, thus performing a substantial portion of the medical decision making. Mae Olivo MD <Mae Olivo MD - Last Filed: 09/24/24 14:24> Vital Signs: 09/24/24 12:04 09/24/24 12:31 09/24/24 13:33 Temperature 98.6 F 98.0 F Temperature Source Oral Oral Pulse Rate 92 H 74 Pulse Rate [Left Radial] 92 H Respiratory Rate 17 18 16 Blood Pressure 109/76 L 111/74 Blood Pressure [Right Arm] 101/72 L Blood Pressure Mean 87 Blood Pressure Mean [Right Arm] 81 Blood Pressure Source [Right Arm] Automatic Cuff Blood Pressure Position [Right Arm] Standing 02 Sat by Pulse Oximetry 98 100 Oxygen Delivery Method Room Air Room Air Lab Data Lab Results 09/24/24 12:14: WBC 10.9 H, RBC 4.38, Hgb 12.3, Hct 36.8 L, MCV 84.0, MCH 28.1, MCHC 33.4, RDW 14.0, Plt Count 252, MPV 10.1, Neut % (Auto) 77.8, Lymph % (Auto) 13.7, Phillips % (Auto) 5.9, Eos % (Auto) 1.6, Baso % (Auto) 0.4, Neut # (Auto) 8.5 H, Lymph # (Auto) 1.5, Phillips # (Auto) 0.6, Eos # (Auto) 0.2, Baso # (Auto) 0.0, PT 10.7, INR 0.95, Sodium 132 L, Potassium 2.8 L*, Chloride 92 L, Carbon Dioxide 34 H, Anion Gap 8.8, BUN 36 H, Creatinine 1.50 H, Estimated Creat Clear 61, Estimated GFR 36 L, Est GFR ( Amer) 43 L, Glucose 107 H, Calcium 8.6, Total Bilirubin 0.8, AST 76 H, ALT 82 H, Alkaline Phosphatase 116, Troponin I < 0.01, Total Protein 7.0, Albumin 4.0, Globulin 3.0, Albumin/Globulin Ratio 1.3 09/24/24 12:46: Urine Color Yellow, Urine Appearance Clear, Urine pH 6.0, Ur Specific [place] 1.010, Urine Protein Negative, Urine Glucose (UA) Negative, Urine Ketones Negative, Urine Blood Negative, Urine Nitrate Negative, Urine Bilirubin Negative, Urine Urobilinogen 0.2, Ur Leukocyte Esterase Negative, Urine RBC None, Urine WBC None, Ur Squamous Epith Cells 3-5, Urine Bacteria None Orders (Tests/Meds): ED MEDICATIONS Generic Name Dose Route Start Last Admin Trade Name Mehranq PRN Reason Stop Dose Admin Fentanyl Citrate 50 mcg 09/24/24 13:24 09/24/24 13:53 Fentanyl 100mcg/2ml Vial IV 09/25/24 01:24 100 mcg Q3MINP PRN Administration Sedation Fentanyl Citrate 25 mcg 09/24/24 13:24 Fentanyl 100mcg/2ml Vial IV 09/25/24 01:24 Q3MINP PRN Sedation Flumazenil 0.2 mg 09/24/24 13:24 Flumazenil 0.1mg/Ml 5ml Vial IV 09/25/24 01:24 NEEDED PRN Sedation Heparin Sodium (Porcine) 10,000 unit 09/24/24 13:24 09/24/24 13:52 Heparin 1,000 Units/Ml 10ml Vial (Software Project Engineer) IV 09/24/24 17:24 5,000 unit NEEDED PRN Administration Emergency Box Corporate Legal Secretary Hydralazine HCl 20 mg 09/24/24 13:24 Hydralazine 20mg/Ml Vial IV 09/24/24 17:24 ONCE PRN sbp>160 Potassium Chloride/Water 100 mls @ 50 mls/hr 09/24/24 13:19 09/24/24 13:28 Potassium Chloride 20meq/100ml Ivpb IV 09/24/24 19:18 50 mls/hr Q2H TARA Administration Adenosine 180 mg/ Sodium 90 mls @ 519.275 mls/hr 09/24/24 13:24 Chloride IV 09/24/24 17:24 ONCE PRN fractional flow reserve 180 MCG/KG/MIN Adenosine 90 mg/ Sodium 90 mls @ 1,038.55 mls/hr 09/24/24 13:24 Chloride IV 09/24/24 17:24 ONCE PRN fractional flow reserve 180 MCG/KG/MIN Sodium Chloride 1,000 mls @ 25 mls/hr 09/24/24 13:30 09/24/24 13:52 Sod Chloride 0.9% 500ml Bag IV 09/25/24 13:24 25 mls/hr .Q25H TARA Administration Labetalol HCl 20 mg 09/24/24 13:24 Labetalol 20mg/4ml Syringe IV 09/24/24 17:24 ONCE PRN sbp>160 Midazolam HCl 1 mg 09/24/24 13:24 Midazolam 2mg/2ml Vial IV 09/25/24 01:24 Q3MINP PRN Sedation Midazolam HCl 1 mg 09/24/24 13:24 09/24/24 13:53 Midazolam Hcl 1mg/Ml 5ml Vial IV 09/25/24 01:24 5 mg Q3MINP PRN Administration Sedation Naloxone HCl 0.4 mg 09/24/24 13:24 Naloxone 0.4mg/Ml Vial IV 09/25/24 01:24 Q5MINP PRN Decreased Respirations Nitroglycerin 800 mcg 09/24/24 13:24 09/24/24 13:52 Nitroglycerin 800mcg/8ml Syr (Software Project Engineer) IA 09/24/24 17:24 800 mcg NEEDED PRN Administration Emergency Box Corporate Legal Secretary Protamine Sulfate 50 mg 09/24/24 13:24 Protamine Sulfate 50mg/5ml Vial (Software Project Engineer) IV 09/24/24 17:24 ONCE PRN act>200 Sodium Chloride 10 ml 09/24/24 13:24 Sodium Chloride 0.9% 10ml Flush Syringe IV 10/24/24 13:23 NEEDED PRN Maintain IV Site Discontinued Medications Generic Name Dose Route Start Last Admin Trade Name Freq PRN Reason Stop Dose Admin Diphenhydramine HCl 50 mg 09/24/24 13:24 09/24/24 13:51 Diphenhydramine 50mg/Ml Vial IV 09/24/24 13:25 50 mg ONCE ONE Administration Heparin Sodium/Sodium Chloride 3,000 unit 09/24/24 13:24 Heparin 1,000 Units/500ml Ns (Software Project Engineer) IV 09/24/24 13:25 ONCE ONE Sodium Chloride 1,000 mls @ 999 mls/hr 09/24/24 12:22 09/24/24 12:39 Sod Chlor 0.9% 1000ml Bag IV 09/24/24 13:22 999 mls/hr .Q1H1M ONE Administration Lidocaine HCl 20 ml 09/24/24 13:24 Lidocaine 1% 10ml Mdv IJ 09/24/24 13:25 ONCE ONE Lidocaine HCl 20 ml 09/24/24 13:24 Lidocaine 1% 5ml Pf Vial IJ 09/24/24 13:25 ONCE ONE Potassium Chloride 60 meq 09/24/24 13:19 09/24/24 13:28 Potassium Chloride 20meq Tab PO 09/24/24 13:20 60 meq ONCE ONE Administration Propofol 60 mg 09/24/24 14:17 09/24/24 14:18 Propofol 10mg/Ml 20ml Vial IV 09/24/24 14:18 60 mg ONCE ONE Administration Verapamil HCl 2.5 mg 09/24/24 13:24 09/24/24 13:51 Verapamil 2.5mg/Ml 2ml Vial IV 09/24/24 13:25 2.5 mg ONCE ONE Administration ORDERS Category Date Time Status Chest XR -- portable [XR chest portable] Stat Exams 09/24/24 12:22 Completed CBC w/Auto Diff [Complete Blood Count Auto Diff] Stat Lab 09/24/24 12:14 Completed CMP [Comprehensive Metabolic Panel] Stat Lab 09/24/24 12:14 Completed INR [Prothrombin Time INR] Stat Lab 09/24/24 12:14 Completed Trop I [Troponin I] Stat Lab 09/24/24 12:14 Completed Troponin I Q3H Lab 09/24/24 15:30 Ordered Troponin I Q3H Lab 09/24/24 18:30 Ordered UA [Urinalysis and Microscopic] Stat Lab 09/24/24 12:46 Completed HEART Score HEART Score: 5 Medical Decision Narrative: In summary patient is a [age, sex] who presents to the emergency department for evaluation of [complaint]. Patient is [hemodynamically stable/unstable] upon arrival, [febrile/afebrile]. [Unremarkable physical exam, nonfocal exam versus focal remarkable exam]. Differential diagnosis includes [DDx]. Initial workup will be conducted with [hematologic labs, imaging, respiratory swab, describe workup]. Initial interventions include [crystalloid bolus, medications, p.o. challenge, etc.] initial workup reviewed by me [hematologic labs are remarkable for... Imaging remarkable for... Urinalysis remarkable for]. Upon repeat evaluation [patient had acceptable resolution of symptoms, had persistent pain for which additional interventions were conducted (describe interventions), tolerated p.o., was ambulatory, etc.]. Given this [patient is appropriate for discharge at this time and will be discharged with a prescription for... The case was discussed with hospital medicine regarding management and they will admit the patient their service for continued evaluation at this time... Etc.] Places where you can increase complexity: I informally interpreted the patient's chest x-ray or CT read and is remarkable for... Documenting what the alarm security or surveillance monitor shows with rate and rhythm Consideration of test but deferring. Ex: I considered chest x-ray on this patient however given that they have no oxygen requirement and are clear to auscultation all lung harrison will be deferred. Social determinants of health: Given that patient is undomiciled increases complexity. Given that patient has polysubstance abuse compounds all aspects of care Olivo: I personally evaluated the patient. I agree with the assessment and plan from the YASIR. I personally interpreted ECG which demonstrates sinus rhythm, rate 94, left axis deviation, normal TN and QTc, no STEMI. Patient is receiving treatment for hypokalemia identified on labs, additional repletion will be completed. Troponin is undetectably low which is reassuring against acute pathology, however given her history and the reason she was sent to the ER at the recommendation of the cardiology clinic, cardiology was consulted and the recommendations are being followed. I was consulted by the YASIR, and we discussed the complexity of problems being addressed. I approved the treatment and management plan for this patient's care in the emergency department, thus performing a substantial portion of the medical decision making. Mae Olivo MD Critical Care <RAMON Bellamy - Last Filed: 09/24/24 13:26> Critical Care Time Critical Care Time: Yes Attestation: On 09/24/24, the high probability of a clinically significant, sudden or life threatening deterioration of the following systems: Cardiovascular, cardiopulmonary, renal; required my full and direct attention, intervention and personal management. The time I documented below is in addition to time spent performing reported procedures but includes the following listed in this critical care notation. Total Time Total Critical Care Time: 30
--- NOTE | 2024-09-24 12:22 | XR_ITS ---
FINAL REPORT CLINICAL HISTORY: Chest pain COMPARISON: 12/10/2019 FINDINGS: No acute pulmonary opacity is present. There is no evidence of effusion or pneumothorax. Mediastinum is unremarkable. Heart size is normal. IMPRESSION: No acute abnormality. Authenticated and ERN
[2024-09-24 12:34] LABS: Chloride 92 mmol/L (98-107)
[2024-09-24 12:35] LABS: Sodium 132 mmol/L (136-145)
[2024-09-24 12:37] LABS: Alanine Aminotransferase 82 U/L (12-78); Aspartate Amino Transferase 76 U/L (14-36); Blood Urea Nitrogen 36 mg/dl (7-17); Creatinine Clearance Estimated 61 mL/min (50-200); Estimated Glomerular Filt Rate 36 ml/min (>60); GFR (African American) 43 ML/MIN (>60)
[2024-09-24 12:38] LABS: Albumin/Globulin Ratio 1.3 (1.1-1.8); Alkaline Phosphatase 116 U/L (38-126); Anion Gap 8.8 mEq/L (5-15); Bilirubin,Total 0.8 mg/dl (0.2-1.3); Calcium 8.6 mg/dl (8.4-10.2); Carbon Dioxide 34 mmol/L (22.0-30.0); Glucose 107 mg/dl (74-100)
[2024-09-24] MEDS: 0.9 % SODIUM CHLORIDE 1000ML 1,000 ML 999 ML IV (12:39)
[2024-09-24 12:47] LABS: Potassium 2.8 mmoL/L (3.5-5.1)
--- NOTE | 2024-09-24 12:47 | PC.NURSE ---
Don notified of 2.8 potassium
[2024-09-24 12:49] LABS: Basophils % 0.4 % (0.1-2.0); Eosinophils % 1.6 % (0.1-12.0); Hematocrit 36.8 % (37.0-47.0); Hemoglobin 12.3 g/dL (12.2-16.2); Lymphocytes # 1.5 K/mm3 (0.7-4.5); Lymphocytes % 13.7 % (10-50); Mean Corpuscular HGB Conc 33.4 g/dL (31.8-35.4); Mean Corpuscular Hemoglobin 28.1 pg (27.0-31.2); Mean Platelet Volume 10.1 fl (7.4-10.4); Monocytes % 5.9 % (1.7-9.3); Neutrophils # 8.5 K/mm3 (1.8-7.8); Neutrophils % 77.8 % (37.0-80.0); Platelet Count 252 K/mm3 (142-424); Red Blood Count 4.38 M/mm3 (4.20-5.40); White Blood Count 10.9 K/mm3 (4.8-10.8)
[2024-09-24 12:49] LABS: Microscopic, Urine URINE MICROSCOPIC (MICROSCOPIC)
[2024-09-24 12:50] LABS: Eosinophils # 0.2 K/mm3 (0.0-0.4); Monocytes # 0.6 K/mm3 (0.1-1.0)
[2024-09-24 12:52] LABS: Appearance,Urine CLEAR (Clear); Bilirubin,Urine Negative (Negative); Blood, Urine Negative (Negative); Color,Urine YELLOW (Yellow); Glucose,Urine (UA) Negative (Negative); Ketones,Urine Negative (Negative); Leukocyte Esterase,Urine Negative (Negative); Nitrate,Urine Negative (Negative); Protein,Urine Negative (Negative); Urobilinogen,Urine 0.2 EU/dl (0.2)
[2024-09-24 12:53] LABS: Troponin I < 0.01 ng/ml (0.00-0.034)
--- NOTE | 2024-09-24 13:01 | PC.NURSE ---
pt placed in a gown,belongings placed in bag and non skid socks applied. groin assessed and no shaving needed at this time
[2024-09-24 13:21] LABS: INR 0.95 (0.9-1.1); Prothrombin Time 10.7 seconds (10.1-12.5)
--- NOTE | 2024-09-24 13:22 | IR_ITS ---
APPROVED REPORT Patient Location: Inpatient Boarding Room Fixer: NICHOLAS Curry RT (R) PROCEDURES Left heart catheterization Left ventriculogram Selective coronary angiogram INDICATION Unstable angina Informed consent was obtained prior to the procedure. COMPLICATIONS None Estimated Blood Loss: Less than 10 mls TECHNIQUE One percent lidocaine used to anesthetize the right anterior aspect of the wrist. The right radial artery was accessed via the Seldinger technique. A 6 Yemeni sheath was placed in the right radial artery. 2.5 mg of Verapamil, 800 mcg of nitroglycerin, 1mg Lidocaine and 5000 U Heparin were given through the arterial sheath. The papa catheter was also used to perform left heart catheterization, left ventriculogram and selective coronary angiogram. At the end of the procedure the sheath was removed good hemostasis was achieved using Traclet band, patient was transferred to the postop holding area in stable condition. ANGIOGRAPHIC RESULTS The left main artery Normal The left anterior descending artery Mild diffuse 10% luminal regularities The circumflex artery Mild diffuse 10% luminal regularities The right coronary artery Dominant with proximal to mid vessel 30 to 40% nonflow limiting stenosis The [place] ventriculogram reveals Normal 65% The left ventricular end-diastolic pressure 10 to 15 mmHg IMPRESSION Mild nonflow limiting coronary artery disease Normal ejection fraction Normal LVEDP Elevated creatinine PLAN 1. Admitted overnight with IV fluids in order to reduce risk of contrast nephropathy 2. Medical management for coronary artery disease 3. Evaluation of noncardiac symptomatology Electronically signed by : Jagdish Mckenzie MD 09/24/2024 14:16:52
[2024-09-24] MEDS: KCl 20mEq/100ml 100 ML 50 MEQ IV ×3 (13:28→21:52)
[2024-09-24] MEDS: POTASSIUM CHLORIDE 20MEQ TAB 60 MEQ PO ×2 (13:28→22:54)
--- NOTE | 2024-09-24 13:44 | PC.NURSE ---
Notified of pt conflict with fentanyl r/t allergies, stated clear to give fentanyl
[2024-09-24] MEDS: diphenhydrAMINE 50MG/ML VIAL 50 MG IV (13:51)
[2024-09-24] MEDS: VERAPAMIL 2.5MG/ML 2ML VIAL 2.5 MG IV (13:51)
[2024-09-24] MEDS: 0.9 % SODIUM CHLORIDE 500 ML 25 ML IV (13:52)
[2024-09-24] MEDS: NITROGLYCERIN 800MCG/8ML SYR (CATH LAB) 800 MCG IA (13:52)
[2024-09-24] MEDS: HEPARIN 1,000 UNITS/ML 10ML VIAL (CATH LAB) 10000 UNIT IV (13:52)
[2024-09-24] MEDS: MIDAZOLAM HCL 1MG/ML 5ML VIAL 1 MG IV (13:53)
[2024-09-24] MEDS: FENTANYL 100MCG/2ML VIAL 50 MCG IV (13:53)
--- NOTE | 2024-09-24 14:06 | HMH.PHAINT1 ---
Pharmacy Intervention Comments: MEDICATION RECONCILIATION COMPLETED ON PATIENT USING EXTERNAL FILL HISTORY FROM PHARMACY AND LIST FROM CARDIOLOGY/PCP OFFICES. -KERA TAVAREZD
[2024-09-24] MEDS: PROPOFOL 10MG/ML 20ML VIAL 60 MG IV (14:18)
[2024-09-24] MEDS: IOPAMIDOL-370 (76%);100ML BOTTLE 40 ML IV (14:26)
--- NOTE | 2024-09-24 14:47 | PC.NURSE ---
arrived by o[facility] from [employer]
[2024-09-24 17:21] LABS: Magnesium 0.8 mg/dl (1.6-2.3)
--- NOTE | 2024-09-24 18:22 | PC.NURSE ---
NEW ADMIT THIS SHIFT FOLLOWING C RIGHT RADIAL APPROACH. C/O SLIGHT CHEST PAIN DURING INITIAL INTERACTION WITH MD, NOT REQUIRING O2 SUPPORT.
--- NOTE | 2024-09-24 18:47 | P.HP_ITS ---
History of Present Illness *Admission Date: 09/24/24 *Reason for visit:: Hypokalemia, ADELITA *History of present illness: Rosalinda Cooper is a 59-year-old female with a medical history significant for CAD, hypertension, type 2 diabetes, HFpEF, GERD presents with midsternal chest pain ongoing for 3 days. She states she has been having these chest pains for many years, but it was per pronounced over the weekend. She states it is midsternal pressure without radiation. Denies shortness of breath, palpitations, abdominal pain. She states she has a history of acid reflux but seems to think it is well-controlled with omeprazole. Has been adherent to medications, no recent stressors. Workup in the ED significant for potassium 2.8, creatinine 1.5 (baseline 1.0), slightly elevated AST/ALT. Dr. Mckenzie was contacted and proceeded with [facility] which did not show significant coronary disease requiring stents. Case discussed with ED provider and decision was made to admit patient for hypokalemia, ADELITA. [facility] Disclaimer: The information contained in this section may have been updated after the patient was seen, as this information can be updated by other users. Medical History Abnormal findings on diagnostic imaging of heart and coronary circulation Atypical angina Abnormal electrocardiography Metatarsalgia of both feet Injury of left foot Ground glass opacity present on imaging of lung Dyspnea on exertion Lung nodule Family history of lung cancer Stopped smoking with greater than 30 pack year history Mediastinal lymphadenopathy Mild intermittent asthma RBBB Dizziness Typical angina Palpitations CAD (coronary artery disease) Chest pain Dyspnea Thyroid goiter Vitamin D deficiency Anxiety Right shoulder pain BMI 36.0-36.9,adult Surgical History History of bladder suspension procedure History of tonsillectomy Family History Other Cancer Coronary artery disease Diabetes Social History (Updated 09/24/24 @ 15:39 by Alondra Quigley, LORI) Smoking Status: Former smoker tobacco type: cigarettes packs per day: 1 how long ago did patient quit smokin alcohol intake: never substance use type: denies use current occupational status: employed Travel in the last 8 weeks: None household members: spouse housing: house current occupational exposures/hazards: No caffeine: Yes Have you lived/traveled outside [place] in past 30 days?: No Contact w/someone who lives/traveled outside US past 30 days?: No Exposure to someone with infectious disease in past 14 days?: No Do you have a fever (greater than 100.4 F or 38 C)?: No Have you tested positive for COVID-19: No Exposed to someone with COVID-19 in past 14 days?: No Do you have a sore throat?: No Do you have a cough?: No Do you have any weakness?: No Do you have any diarrhea?: No Are you experiencing any unusual bleeding?: No Do you have any muscle aches/pain?: No Do you have any abdominal pain?: No Are you experiencing loss of taste or smell?: No Other Medical History Have you received the Flu Vaccine for this season: No Have you received the Pneumonia Vaccine: Yes Meds Home Medications and Allergies Home Medications ?Medication ?Instructions ?Recorded ?Confirmed ?Type losartan 50 mg tablet 50 mg PO DAILY #90 tabs 02/06/24 09/24/24 Rx blood-glucose sensor (Dexcom G7 #9 ea 04/28/24 09/24/24 Rx Sensor device) aspirin 81 mg tablet,delayed 81 mg PO DAILY 05/09/24 09/24/24 History release furosemide 80 mg tablet 80 mg PO BID 05/09/24 09/24/24 History loratadine 10 mg tablet (Allergy 10 mg PO DAILY 05/09/24 09/24/24 History Relief (loratadine)) metformin 1,000 mg tablet 1,000 mg PO BID 05/09/24 09/24/24 History omeprazole 40 mg capsule,delayed 40 mg PO DAILY 05/09/24 09/24/24 History release pen needle, diabetic 32 gauge x #100 ea 05/28/24 09/24/24 Rx 32 (BD Verónica 2nd Gen Pen Needle) blood sugar diagnostic (ReliOn #100 ea 06/20/24 09/24/24 Rx Prime Test Strips) chlorthalidone 25 mg tablet 25 mg PO DAILY #30 tabs 07/26/24 09/24/24 Rx evolocumab 140 mg/mL subcutaneous 140 mg SQ Q2W #3 mL 07/26/24 09/24/24 Rx pen injector (Sonia Tam) Lactobacillus 40-Bifidobact 1 cap PO DAILY 08/06/24 09/24/24 History 3-S.thermophilus 100 billion cell capsule (Probiotic) carvedilol 25 mg tablet 25 mg PO BID #180 tabs 09/19/24 09/24/24 Rx isosorbide mononitrate 60 mg 60 mg PO DAILY #30 tabs 09/19/24 09/24/24 Rx tablet,extended release 24 hr buspirone 7.5 mg tablet 7.5 mg PO TID 09/24/24 09/24/24 History cholecalciferol (vitamin D3) 25 25 mcg PO DAILY 09/24/24 09/24/24 History mcg (1,000 unit) capsule dapagliflozin propanediol 10 mg 10 mg PO DAILY 09/24/24 09/24/24 History tablet (Farxiga) ergocalciferol (vitamin D2) 1,250 1,250 mcg PO WEEKLY 09/24/24 09/24/24 History mcg (50,000 unit) capsule glipizide 10 mg tablet, extended 10 mg PO BID 09/24/24 09/24/24 History release 24 hr insulin lispro protamine-lispro 25 unit SQ BID 09/24/24 09/24/24 History 100 unit/mL (75-25) subcutaneous pen (Humalog Mix 75-25 KwikPen) minocycline 100 mg capsule 100 mg PO BID 09/24/24 09/24/24 History nitroglycerin 0.4 mg sublingual 0.4 mg sublingual Q5MINP PRN chest 09/24/24 09/24/24 History tablet pain tirzepatide 7.5 mg/0.5 mL 7.5 mg SQ WEEKLY 09/24/24 09/24/24 History subcutaneous pen injector (Mounjaro) New Prescriptions to Start Prescriptions: Allergies Allergy/AdvReac Type Severity Reaction Status Date / Time acetaminophen (From Lortab) Allergy Severe Swelling Verified 09/06/24 15:24 oral / throat hydrocodone (HYDROCODONE) Allergy Severe S-SWELLS-OR Verified 09/06/24 15:24 AL/THROAT cefaclor (From CECLOR) Allergy Unknown S-SWELLS-OR Verified 09/06/24 15:24 AL/THROAT celecoxib (From CELEBREX) Allergy Unknown S-SWELLS-OR Verified 09/06/24 15:24 AL/THROAT meperidine (From DEMEROL) Allergy Unknown S-SWELLS-OR Verified 09/06/24 15:24 AL/THROAT isosorbide AdvReac Intermediate GUTIÉRREZ Verified 09/06/24 15:24 atorvastatin AdvReac Mild myalgia Verified 09/06/24 15:24 pravastatin AdvReac Mild myalgia Verified 09/06/24 15:24 rosuvastatin (From Crestor) AdvReac Mild myalgia Verified 09/06/24 15:24 ranolazine (From Ranexa) AdvReac Dizziness Verified 09/06/24 15:24 Npkhgrk-NCK-DkW Reductase AdvReac Muscle Pain Verified 09/06/24 15:24 Inhibitor (Jorzgcv-Lio-Cnb Reductase Inhibitor) Exam Data for Last 24 hours Vital signs and Labs for Last 24 Hours: Temp Pulse Resp BP Pulse Ox O2 Del Method 98.1 F 85 18 144/80 H 95 Room Air 09/24/24 14:25 09/24/24 17:40 09/24/24 17:40 09/24/24 17:40 09/24/24 17:40 09/24/24 16:59 Laboratory Results - last 24 hr 09/24/24 12:14: WBC 10.9 H, RBC 4.38, Hgb 12.3, Hct 36.8 L, MCV 84.0, MCH 28.1, MCHC 33.4, RDW 14.0, Plt Count 252, MPV 10.1, Neut % (Auto) 77.8, Lymph % (Auto) 13.7, [place] % (Auto) 5.9, Eos % (Auto) 1.6, Baso % (Auto) 0.4, Neut # (Auto) 8.5 H, Lymph # (Auto) 1.5, [place] # (Auto) 0.6, Eos # (Auto) 0.2, Baso # (Auto) 0.0, PT 10.7, INR 0.95, Sodium 132 L, Potassium 2.8 L*, Chloride 92 L, Carbon Dioxide 34 H, Anion Gap 8.8, BUN 36 H, Creatinine 1.50 H, Estimated Creat Clear 61, Estimated GFR 36 L, Est GFR ( Amer) 43 L, Glucose 107 H, Calcium 8.6, Magnesium 0.8 L, Total Bilirubin 0.8, AST 76 H, ALT 82 H, Alkaline Phosphatase 116, Troponin I < 0.01, Total Protein 7.0, Albumin 4.0, Globulin 3.0, Albumin/Globulin Ratio 1.3 09/24/24 12:46: Urine Color Yellow, Urine Appearance Clear, Urine pH 6.0, Ur Specific Rodman 1.010, Urine Protein Negative, Urine Glucose (UA) Negative, Urine Ketones Negative, Urine Blood Negative, Urine Nitrate Negative, Urine Bilirubin Negative, Urine Urobilinogen 0.2, Ur Leukocyte Esterase Negative, Urine RBC None, Urine WBC None, Ur Squamous Epith Cells 3-5, Urine Bacteria None I & O for Last 24 hours: Intake & Output 09/21/24 09/22/24 09/23/24 09/24/24 23:59 23:59 23:59 23:59 Intake Total 500 / 500 Output Total 0 / 0 Balance 500 / 500 Weight 94.12 kg Constitutional Constitutional: no acute distress *Routine HEENT Exam Head: Present normocephalic Eye: Present EOMI and PERRL ENT: Present mucous membranes moist *Routine Neck Exam Neck: Present supple; Absent lymphadenopathy *Routine Respiratory Exam Respiratory: Present CTA bilaterally *Routine Cardiovascular Exam Cardiovascular: Present RRR *Routine Abdominal Exam Abdominal: Present soft and normoactive bowel sounds; Absent tenderness *Routine Rectal Exam Rectal:: deferred *Routine Genitalia Exam Genitalia:: deferred *Routine Extremities Exam Extremities: Absent cyanosis, clubbing or edema *Routine Skin Exam Skin: Present warm; Absent rash *Routine Neurological Exam Neurological: Present alert and oriented X3 Assessment and Plan *Assessment and plan (1) Hypokalemia: Status: Acute Category: Medical Code(s): E87.6 - Hypokalemia (2) Atypical angina: Status: Acute Category: Medical Code(s): I20.89 - Other forms of angina pectoris Plan Rosalinda Cooper is a 59-year-old female with a medical history significant for CAD, hypertension, type 2 diabetes, HFpEF, GERD presents with midsternal chest pain ongoing for 3 days. She states she has been having these chest pains for many years, but it was per pronounced over the weekend. She states it is midsternal pressure without radiation. Denies shortness of breath, palpitations, abdominal pain. She states she has a history of acid reflux but seems to think it is well-controlled with omeprazole. Has been adherent to medications, no recent stressors. She states she has been adherent to her diuretic regimen for her HFpEF including Lasix 80 mg twice daily, but also takes a chlorthalidone. Workup in the ED significant for potassium 2.8, creatinine 1.5 (baseline 1.0), slightly elevated AST/ALT. Dr. Mckenzie was contacted and proceeded with [facility] which did not show significant coronary disease requiring stents. Case discussed with ED provider and decision was made to admit patient for hypokalemia, ADELITA. #Chest pain ? S/p LHC today with no significant coronary disease requiring stents. ? CXR without acute findings. ? Etiology unclear at this time. May be related to acid reflux versus stress versus other esophageal spasm, and it does not seem reproducible to palpation. ? With a history of acid reflux, there might be underlying esophageal stricture. Can consider referral to GI if needed. ? Continue home PPI. ? Follow-up CT chest. #ADELITA #Hypokalemia #Hypomagnesemia ? Initial potassium 2.8, magnesium 0.8, creatinine 1.5 (baseline 1.0). ? Likely in the setting of overdiuresis for HFpEF. ? Replating potassium and magnesium. ? Continue IV NS at 75 mL/h for now. Continue oral rehydration. ? Anticipate discharge in the morning once this resolves. #Type 2 diabetes ? LDSSI, ACHS glucose checks. #HFpEF ? Hold home diuretics, Farxiga in the setting of ADELITA. #CAD ? Continue home aspirin, statin. #Hypertension ? Hold most home antihypertensives in the setting of ADELITA at this time, including chlorthalidone, Lasix, Imdur, losartan. ? Continue Coreg. #GERD ? Continue home PPI. #Anxiety/depression ? Continue home BuSpar Full code DVT prophylaxis: Lovenox 40 mg
--- NOTE | 2024-09-24 19:12 | CT_ITS ---
PROCEDURE INFORMATION: Exam: CT Chest Without Contrast; Diagnostic Exam date and time: 09/24/2024 7:23 PM Age: 59 years old Clinical indication: Pain; Chest pressure; Additional info: Chest pain TECHNIQUE: Imaging protocol: Diagnostic computed tomography of the chest without contrast. Radiation optimization: All CT scans at this facility use at least one of these dose optimization techniques: automated exposure control; mA and/or kV adjustment per patient size (includes targeted exams where dose is matched to clinical indication); or iterative reconstruction. COMPARISON: 1. CT LUNG SCREENING 09/27/2023 1:[address] LUNG SCREENING 05/28/2022 2:58 PM FINDINGS: Lungs: Multiple small bilateral calcified granulomata. Several additional scattered less than 4 mm nodules not definitively calcified. Stable posterior right upper lobe subpleural 4 mm nodule. Stable small right minor fissural nodule with benign morphology. No consolidation or mass. Pleural spaces: No pneumothorax. No pleural effusion. Heart: Heart size is normal. Mild mitral annular calcification. No pericardial effusion. Coronary arteries: Coronary artery calcifications, subjectively mild. Lymph nodes: Stable mildly enlarged 1.5 cm anterior mediastinal lymph node. No other enlarged lymph nodes. Small calcified mediastinal/hilar lymph nodes compatible with remote granulomatous disease. Vasculature: Limited evaluation without contrast. No thoracic aortic aneurysm. Mild calcified aortic atherosclerosis. Main pulmonary artery is normal caliber. Bones/joints: No acute or suspicious osseous lesion. Mild degenerative changes of the included spine. Soft tissues: Unremarkable. Other findings: No acute abnormality in the included upper abdomen. Decreased attenuation of the liver compatible hepatic steatosis. Status post cholecystectomy. IMPRESSION: 1. Scattered less than 6 mm pulmonary nodules as above. As per Fleischner Society 2017 guidelines for follow-up and management of pulmonary nodules: For patients at low risk (minimal or absent history of smoking and of other known risk factors), no routine follow-up is indicated. For patients at high risk (history of smoking or of other known risk factors), consider optional CT Chest at 12 months. 2. Coronary artery calcifications. 3. Hepatic steatosis. 4. Other chronic and incidental findings as above.
[2024-09-24] MEDS: MAGNESIUM SULFATE IN WATER 2 GM/50 ML PIGGYBACK IV (20:35)
[2024-09-24] MEDS: humaLOG 100 UNITS/ML 10ML VIAL (SSI) 3 UNIT SUBCUT (20:36)
[2024-09-24] MEDS: humaLOG 100 UNITS/ML 10ML VIAL (SSI) SUBCUT (20:36)
[2024-09-24] MEDS: PANTOPRAZOLE 40MG TABLET 40 MG PO (20:37)
[2024-09-24] MEDS: PATIENT'S OWN HOME MEDICATION (Buspirone 7.5 mg tablet) 7.5 EACH PO (20:37)
[2024-09-24] MEDS: CARVEDILOL 25MG TABLET 25 MG PO (20:37)
[2024-09-24 21:28] LABS: POC Glucose,Bedside 89 (70-110)
--- NOTE | 2024-09-25 01:39 | PC.NURSE ---
Pt complained of potassium burning vein. Potassium rate was slowed. Pt still complained of irritation. Hospitalist notified and med was switched to PO.
[2024-09-25 04:00] VITALS: BP 115/65; PULSE 91; RESP 16; TEMP 36.5; O2SAT 98; BMI 33.5
[2024-09-25] MEDS: humaLOG 100 UNITS/ML 10ML VIAL (SSI) SUBCUT (06:06)
[2024-09-25 07:57] VITALS: BP 135/68; PULSE 98; RESP 16; TEMP 36.7; O2SAT 98
[2024-09-25 07:59] LABS: Albumin Level 3.5 g/dl (3.5-5.0); Chloride 97 mmol/L (98-107); Potassium 3.9 mmoL/L (3.5-5.1); Sodium 131 mmol/L (136-145)
[2024-09-25 08:01] LABS: Alanine Aminotransferase 68 U/L (12-78); Aspartate Amino Transferase 75 U/L (14-36); Blood Urea Nitrogen 35 mg/dl (7-17); Creatinine Clearance Estimated 76 mL/min (50-200); Estimated Glomerular Filt Rate 46 ml/min (>60); GFR (African American) 56 ML/MIN (>60)
[2024-09-25 08:02] LABS: Albumin/Globulin Ratio 1.3 (1.1-1.8); Alkaline Phosphatase 107 U/L (38-126); Anion Gap 8.9 mEq/L (5-15); Bilirubin,Total 0.6 mg/dl (0.2-1.3); Calcium 7.9 mg/dl (8.4-10.2); Carbon Dioxide 29 mmol/L (22.0-30.0); Globulin 2.6 g/dL (1.3-3.2); Glucose 215 mg/dl (74-100); Magnesium 1.5 mg/dl (1.6-2.3); Total Protein,Serum 6.1 g/dl (6.3-8.2)
--- NOTE | 2024-09-25 09:39 | P.DS_ITS ---
General Admission date:: 09/24/24 Discharge date: 09/25/24 HPI HPI HPI: Rosalinda Cooper is a 59-year-old female with a medical history significant for CAD, hypertension, type 2 diabetes, HFpEF, GERD presents with midsternal chest pain ongoing for 3 days. She states she has been having these chest pains for many years, but it was per pronounced over the weekend. She states it is midsternal pressure without radiation. Denies shortness of breath, palpitations, abdominal pain. She states she has a history of acid reflux but seems to think it is well-controlled with omeprazole. Has been adherent to medications, no recent stressors. Workup in the ED significant for potassium 2.8, creatinine 1.5 (baseline 1.0), slightly elevated AST/ALT. Dr. Mckenzie was contacted and proceeded with [facility] which did not show significant coronary disease requiring stents. Case discussed with ED provider and decision was made to admit patient for hypokalemia, ADELITA. Hospital Course Hospital Course Hospital Course: Rosalinda Cooper is a 59-year-old female with a medical history significant for CAD, hypertension, type 2 diabetes, HFpEF, GERD presents with midsternal chest pain ongoing for 3 days. She states she has been having these chest pains for many years, but it was per pronounced over the weekend. She states it is midsternal pressure without radiation. Denies shortness of breath, palpitations, abdominal pain. She states she has a history of acid reflux but seems to think it is well-controlled with omeprazole. Has been adherent to medications, no recent stressors. She states she has been adherent to her diuretic regimen for her HFpEF including Lasix 80 mg twice daily, but also takes a chlorthalidone. Workup in the ED significant for potassium 2.8, creatinine 1.5 (baseline 1.0), slightly elevated AST/ALT. Dr. Mckenzie was contacted and proceeded with [facility] which did not show significant coronary disease requiring stents. Patient was observed to night. Had some improvement in her chest discomfort though not completely resolved. Expanded her GERD treatment. Stable to discharge home with further management for noncardiac etiology of chest pain as an outpatient. Problems addressed as follows: #Chest pain ? S/p C 09/24/2024 with no significant coronary disease requiring stents. CXR without acute findings. Etiology unclear at this time. May be related to acid reflux versus stress versus other esophageal spasm. Developed some reproducibility to exam after heart cath. Tender in left lower chest. Optimize acid reflux treatment as below. If does not respond to famotidine and PPI combo, recommend referral to GI for further evaluation and possible scope. #ADELITA #Hypokalemia #Hypomagnesemia ? Initial potassium 2.8, magnesium 0.8, creatinine 1.5 (baseline 1.0). Likely in the setting of overdiuresis. Kidney function improved by day of discharge with potassium 3.9, BUN 35, creatinine 1.2. Gentle hydration during admission. Continue liberal oral fluids. Okay to resume home meds at discharge. #Type 2 diabetes: A1c obtained 8.1. Continue home including Farxiga 10 mL daily, insulin 75/25 combo 25 units twice daily, metformin 1000 mg twice daily, Mounjaro 7.5 mg weekly. Needs repeat A1c in 3 months with further adjustment to regimen at that time. #HFpEF/ Hypertension: Continue home regimen and Aracely 50 mg daily, isosorbide mononitrate 60 mg daily, Lasix 80 Margarita to daily, chlorthalidone 25 mg daily, carvedilol 25 mg twice daily. Better controlled at discharge 135/68. #CAD: Continue home aspirin, statin. #GERD: Continue home PPI daily, add famotidine 40 mg nightly for GERD prophylaxis. Chest pain not related to cardiac source, suspect alternative etiology. Monitor for improvement. #Anxiety/depression: Continue home BuSpar Exam Data for Last 24 hours Vital signs and Labs for Last 24 Hours: Temp Pulse Resp BP Pulse Ox O2 Del Method 98.1 F 98 H 16 135/68 98 Room Air 09/25/24 07:57 09/25/24 07:57 09/25/24 07:57 09/25/24 07:57 09/25/24 07:57 09/25/24 07:57 Laboratory Results - last 24 hr 09/24/24 12:14: WBC 10.9 H, RBC 4.38, Hgb 12.3, Hct 36.8 L, MCV 84.0, MCH 28.1, MCHC 33.4, RDW 14.0, Plt Count 252, MPV 10.1, Neut % (Auto) 77.8, Lymph % (Auto) 13.7, [place] % (Auto) 5.9, Eos % (Auto) 1.6, Baso % (Auto) 0.4, Neut # (Auto) 8.5 H, Lymph # (Auto) 1.5, [place] # (Auto) 0.6, Eos # (Auto) 0.2, Baso # (Auto) 0.0, PT 10.7, INR 0.95, Sodium 132 L, Potassium 2.8 L*, Chloride 92 L, Carbon Dioxide 34 H, Anion Gap 8.8, BUN 36 H, Creatinine 1.50 H, Estimated Creat Clear 61, Estimated GFR 36 L, Est GFR ( Amer) 43 L, Glucose 107 H, Calcium 8.6, Magnesium 0.8 L, Total Bilirubin 0.8, AST 76 H, ALT 82 H, Alkaline Phosphatase 116, Troponin I < 0.01, Total Protein 7.0, Albumin 4.0, Globulin 3.0, Albumin/Globulin Ratio 1.3 09/24/24 12:46: Urine Color Yellow, Urine Appearance Clear, Urine pH 6.0, Ur Specific [place] 1.010, Urine Protein Negative, Urine Glucose (UA) Negative, Urine Ketones Negative, Urine Blood Negative, Urine Nitrate Negative, Urine Bilirubin Negative, Urine Urobilinogen 0.2, Ur Leukocyte Esterase Negative, Urine RBC None, Urine WBC None, Ur Squamous Epith Cells 3-5, Urine Bacteria None 09/24/24 16:00: POC Glucose 89 09/25/24 06:40: Sodium 131 L, Potassium 3.9 D, Chloride 97 L, Carbon Dioxide 29, Anion Gap 8.9, BUN 35 H, Creatinine 1.20 H, Estimated Creat Clear 76, Estimated GFR 46 L, Est GFR ( Amer) 56 L D, Glucose 215 H D, Calcium 7.9 L, Magnesium 1.5 L D, Total Bilirubin 0.6, AST 75 H, ALT 68, Alkaline Phosphatase 107, Total Protein 6.1 L, Albumin 3.5 D, Globulin 2.6, Albumin/Globulin Ratio 1.3 I & O for Last 24 hours: Intake & Output 09/22/24 09/23/24 09/24/24 09/25/24 23:59 23:59 23:59 23:59 Intake Total 920 / 920 480 / 480 Output Total 0 / 0 Balance 920 / 920 480 / 480 Weight 94.12 kg 94.801 kg Constitutional Constitutional: no acute distress, obese and cooperative *Routine HEENT Exam Head: Present normocephalic Eye: Present EOMI and PERRL ENT: Present mucous membranes moist *Routine Neck Exam Neck: Present supple; Absent lymphadenopathy Routine Chest/Breast/Axilla Exam Chest wall: Present tenderness (Left lower chest to palpation) *Routine Respiratory Exam Respiratory: Present CTA bilaterally; Absent rhonchi, wheezes or crackles *Routine Cardiovascular Exam Cardiovascular: Present RRR *Routine Abdominal Exam Abdominal: Present soft and normoactive bowel sounds; Absent tenderness *Routine Rectal Exam Patient deferred: visual exam *Routine Exam Patient deferred: external exam *Routine Extremities Exam Extremities: Absent cyanosis, clubbing or edema *Routine Skin Exam Skin: Present warm; Absent rash *Routine Neurological Exam Neurological: Present alert, oriented X3 and moving all extremities; Absent altered mental status Results Data Completed and Pending Labs on day of discharge: Labs from last 24 hours 09/25/24 09/24/24 09/24/24 06:40 16:00 12:46 WBC RBC Hgb Hct MCV MCH MCHC RDW Plt Count MPV Neut % (Auto) Lymph % (Auto) [place] % (Auto) Eos % (Auto) Baso % (Auto) Neut # (Auto) Lymph # (Auto) [place] # (Auto) Eos # (Auto) Baso # (Auto) PT INR Sodium 131 L Potassium 3.9 D Chloride 97 L Carbon Dioxide 29 Anion Gap 8.9 BUN 35 H Creatinine 1.20 H Estimated Creat Clear 76 Estimated GFR 46 L Est GFR ( Amer) 56 L D Glucose 215 H D POC Glucose 89 Calcium 7.9 L Magnesium 1.5 L D Total Bilirubin 0.6 AST 75 H ALT 68 Alkaline Phosphatase 107 Troponin I Total Protein 6.1 L Albumin 3.5 D Globulin 2.6 Albumin/Globulin Ratio 1.3 Urine Color Yellow Urine Appearance Clear Urine pH 6.0 Ur Specific [place] 1.010 Urine Protein Negative Urine Glucose (UA) Negative Urine Ketones Negative Urine Blood Negative Urine Nitrate Negative Urine Bilirubin Negative Urine Urobilinogen 0.2 Ur Leukocyte Esterase Negative Urine RBC None Urine WBC None Ur Squamous Epith Cells 3-5 Urine Bacteria None 09/24/24 12:14 WBC 10.9 H RBC 4.38 Hgb 12.3 Hct 36.8 L MCV 84.0 MCH 28.1 MCHC 33.4 RDW 14.0 Plt Count 252 MPV 10.1 Neut % (Auto) 77.8 Lymph % (Auto) 13.7 [place] % (Auto) 5.9 Eos % (Auto) 1.6 Baso % (Auto) 0.4 Neut # (Auto) 8.5 H Lymph # (Auto) 1.5 [place] # (Auto) 0.6 Eos # (Auto) 0.2 Baso # (Auto) 0.0 PT 10.7 INR 0.95 Sodium 132 L Potassium 2.8 L* Chloride 92 L Carbon Dioxide 34 H Anion Gap 8.8 BUN 36 H Creatinine 1.50 H Estimated Creat Clear 61 Estimated GFR 36 L Est GFR ( Amer) 43 L Glucose 107 H POC Glucose Calcium 8.6 Magnesium 0.8 L Total Bilirubin 0.8 AST 76 H ALT 82 H Alkaline Phosphatase 116 Troponin I < 0.01 Total Protein 7.0 Albumin 4.0 Globulin 3.0 Albumin/Globulin Ratio 1.3 Urine Color Urine Appearance Urine pH Ur Specific [place] Urine Protein Urine Glucose (UA) Urine Ketones Urine Blood Urine Nitrate Urine Bilirubin Urine Urobilinogen Ur Leukocyte Esterase Urine RBC Urine WBC Ur Squamous Epith Cells Urine Bacteria DS: Diagnosis Discharge Diagnosis (1) Hypokalemia: Status: Acute Code(s): E87.6 - Hypokalemia (2) Atypical angina: Status: Acute Code(s): I20.89 - Other forms of angina pectoris Meds Home Medications and Allergies Home Medications ?Medication ?Instructions ?Recorded ?Confirmed ?Type losartan 50 mg tablet 50 mg PO DAILY #90 tabs 02/06/24 09/24/24 Rx blood-glucose sensor (Snapverse G7 #9 ea 04/28/24 09/24/24 Rx Sensor device) aspirin 81 mg tablet,delayed 81 mg PO DAILY 05/09/24 09/24/24 History release furosemide 80 mg tablet 80 mg PO BID 05/09/24 09/24/24 History loratadine 10 mg tablet (Allergy 10 mg PO DAILY 05/09/24 09/24/24 History Relief (loratadine)) metformin 1,000 mg tablet 1,000 mg PO BID 05/09/24 09/24/24 History omeprazole 40 mg capsule,delayed 40 mg PO DAILY 05/09/24 09/24/24 History release pen needle, diabetic 32 gauge x #100 ea 05/28/24 09/24/24 Rx 32 (BD Verónica 2nd Gen Pen Needle) blood sugar diagnostic (ReliOn #100 ea 06/20/24 09/24/24 Rx Prime Test Strips) chlorthalidone 25 mg tablet 25 mg PO DAILY #30 tabs 07/26/24 09/24/24 Rx evolocumab 140 mg/mL subcutaneous 140 mg SQ Q2W #3 mL 07/26/24 09/24/24 Rx pen injector (Sonia Tam) Lactobacillus 40-Bifidobact 1 cap PO DAILY 08/06/24 09/24/24 History 3-S.thermophilus 100 billion cell capsule (Probiotic) carvedilol 25 mg tablet 25 mg PO BID #180 tabs 09/19/24 09/24/24 Rx isosorbide mononitrate 60 mg 60 mg PO DAILY #30 tabs 09/19/24 09/24/24 Rx tablet,extended release 24 hr buspirone 7.5 mg tablet 7.5 mg PO TID 09/24/24 09/24/24 History cholecalciferol (vitamin D3) 25 25 mcg PO DAILY 09/24/24 09/24/24 History mcg (1,000 unit) capsule dapagliflozin propanediol 10 mg 10 mg PO DAILY 09/24/24 09/24/24 History tablet (Farxiga) ergocalciferol (vitamin D2) 1,250 1,250 mcg PO WEEKLY 09/24/24 09/24/24 History mcg (50,000 unit) capsule glipizide 10 mg tablet, extended 10 mg PO BID 09/24/24 09/24/24 History release 24 hr insulin lispro protamine-lispro 25 unit SQ BID 09/24/24 09/24/24 History 100 unit/mL (75-25) subcutaneous pen (Humalog Mix 75-25 KwikPen) minocycline 100 mg capsule 100 mg PO BID 09/24/24 09/24/24 History nitroglycerin 0.4 mg sublingual 0.4 mg sublingual Q5MINP PRN chest 09/24/24 09/24/24 History tablet pain tirzepatide 7.5 mg/0.5 mL 7.5 mg SQ WEEKLY 09/24/24 09/24/24 History subcutaneous pen injector (Guadalupe) famotidine 40 mg tablet 40 mg PO HS #30 tabs 09/25/24 Rx New Prescriptions to Start Prescriptions: famotidine Everette Guzman Allergies Allergy/AdvReac Type Severity Reaction Status Date / Time acetaminophen (From Lortab) Allergy Severe Swelling Verified 09/06/24 15:24 oral / throat hydrocodone (HYDROCODONE) Allergy Severe S-SWELLS-OR Verified 09/06/24 15:24 AL/THROAT cefaclor (From CECLOR) Allergy Unknown S-SWELLS-OR Verified 09/06/24 15:24 AL/THROAT celecoxib (From CELEBREX) Allergy Unknown S-SWELLS-OR Verified 09/06/24 15:24 AL/THROAT meperidine (From DEMEROL) Allergy Unknown S-SWELLS-OR Verified 09/06/24 15:24 AL/THROAT isosorbide AdvReac Intermediate GUTIÉRREZ Verified 09/06/24 15:24 atorvastatin AdvReac Mild myalgia Verified 09/06/24 15:24 pravastatin AdvReac Mild myalgia Verified 09/06/24 15:24 rosuvastatin (From Crestor) AdvReac Mild myalgia Verified 09/06/24 15:24 ranolazine (From Ranexa) AdvReac Dizziness Verified 09/06/24 15:24 [id number] Reductase AdvReac Muscle Pain Verified 09/06/24 15:24 Inhibitor ([id number] Reductase Inhibitor) Discharge Plan Disposition Patient Disposition: Home, Self-Care Condition: Fair Follow up Plan Follow up with: Jagdish Mckenzie MD [Staff Physician] - Enter time for follow up (Please call office to schedule appointment.) Prescriptions/Medication Reconciliation: New famotidine 40 mg tablet 40 mg PO HS Qty: 30 0RF Continued chlorthalidone 25 mg tablet 25 mg PO DAILY Qty: 30 3RF Repatha SureClick 140 mg/mL pen injector 140 mg SQ Q2W Qty: 3 2RF losartan 50 mg tablet 50 mg PO DAILY Qty: 90 3RF (DME) Dexcom G7 Sensor Device See Rx Instructions .ROUTE .COMPLEX Qty: 9 3RF Dose Instruction: USE DIRECTED Rx Instructions: USE DIRECTED (DME) pen needle, diabetic [BD Verónica 2nd Gen Pen Needle] 32 gauge x 5/32 needle See Rx Instructions .ROUTE .COMPLEX Qty: 100 12RF Dose Instruction: USE DIRECTED Rx Instructions: USE DIRECTED (DME) ReliOn Prime Test Strips Strip See Rx Instructions .ROUTE .COMPLEX Qty: 100 0RF Dose Instruction: USE 1 STRIP TO CHECK GLUCOSE TWICE DAILY Rx Instructions: USE 1 STRIP TO CHECK GLUCOSE TWICE DAILY isosorbide mononitrate 60 mg tablet extended release 24 hr 60 mg PO DAILY Qty: 30 2RF carvedilol 25 mg tablet 25 mg PO BID Qty: 180 1RF dapagliflozin propanediol [Farxiga] 10 mg tablet 10 mg PO DAILY minocycline 100 mg capsule 100 mg PO BID glipizide 10 mg tablet extended release 24hr 10 mg PO BID nitroglycerin 0.4 mg tablet, sublingual 0.4 mg sublingual Q5MINP PRN (Reason: chest pain) Rx Instructions: do not exceed 3 doses per episode buspirone 7.5 mg tablet 7.5 mg PO TID ergocalciferol (vitamin D2) 1,250 mcg (50,000 unit) capsule 1,250 mcg PO WEEKLY cholecalciferol (vitamin D3) 25 mcg (1,000 unit) capsule 25 mcg PO DAILY insulin lispro protamin-lispro [Humalog Mix 75-25 KwikPen] 100 unit/mL (75-25) insulin pen 25 unit SQ BID Mounjaro 7.5 mg/0.5 mL pen injector 7.5 mg SQ WEEKLY omeprazole 40 mg capsule,delayed release(DR/EC) 40 mg PO DAILY aspirin 81 mg tablet,delayed release (DR/EC) 81 mg PO DAILY furosemide 80 mg tablet 80 mg PO BID metformin 1,000 mg tablet 1,000 mg PO BID loratadine [Allergy Relief (loratadine)] 10 mg tablet 10 mg PO DAILY Probiotic 100 billion cell Capsule 1 cap PO DAILY Problem Reconciliation Problems Reviewed?: Yes Patient Discharge Instructions ACTIVITY: Continue current activity DIET: continue same diet Patient Instructions: Cardiac Catheterization, Acute Kidney Injury, Chronic Kidney Disease, Hypokalemia, Cardiology Catheterization Patient / Family Discharge Instructions Print Language: Sammarinese Providers Primary Care Provider: Provider,Referral Admit Provider: Boaz Marshall Attending Provider: Boaz Marshlal
[2024-09-25 09:46] LABS: White Blood Count 7.5 K/mm3 (4.8-10.8)
[2024-09-25 09:47] LABS: Basophils % 0.3 % (0.1-2.0); Eosinophils % 0.9 % (0.1-12.0); Hematocrit 33.3 % (37.0-47.0); Hemoglobin 10.9 g/dL (12.2-16.2); Lymphocytes % 12.5 % (10-50); Mean Corpuscular HGB Conc 32.7 g/dL (31.8-35.4); Mean Corpuscular Volume 85.6 fl (81-99); Monocytes % 5.7 % (1.7-9.3); Neutrophils % 80.2 % (37.0-80.0); Platelet Count 194 K/mm3 (142-424); Red Blood Count 3.89 M/mm3 (4.20-5.40); Red Cell Distribution Width 14.3 % (11.5-17.5)
[2024-09-25 09:48] LABS: Eosinophils # 0.1 K/mm3 (0.0-0.4); Lymphocytes # 0.9 K/mm3 (0.7-4.5); Monocytes # 0.4 K/mm3 (0.1-1.0)
[2024-09-25] MEDS: CARVEDILOL 25MG TABLET 25 MG PO (09:52)
[2024-09-25] MEDS: ASPIRIN EC 81MG TABLET 81 MG PO (09:52)
[2024-09-25] MEDS: ENOXAPARIN 40MG/0.4ML SYRINGE 40 MG SUBCUT (09:52)
[2024-09-25] MEDS: BUSPIRONE HCL 5 MG TABLET 7.5 MG PO (09:52)
--- NOTE | 2024-09-27 09:58 | SW/DCPLANNER ---
spoke with patient on the phone. Patient stated that she is doing very well. Patient stated that her blood pressure has been really low and i suggested that she needs to call her primary care provider. Patient stated that she was able to meat pickler her new medication from [facility] and that she has no other concerns or questions at this time. Aure Calhoun
== END 2024-09-25 13:04 | disposition home or self-care (01) ==
LOC: ER 13:04 → 2ND 13:13
PROVIDERS: Internal Medicine; Physician Assistant; Admitting Provider Student in an Organized Health Care Education/Training Program; Emergency Provider Emergency Medicine; Visit Provider Student in an Organized Health Care Education/Training Program
DX: I25.110 Atherosclerotic heart disease of native coronary artery with unstable angina pectoris (principal); E87.6 Hypokalemia; E11.9 Type 2 diabetes mellitus without complications; I11.0 Hypertensive heart disease with heart failure; I50.30 Unspecified diastolic (congestive) heart failure; N17.9 Acute kidney failure, unspecified; Z79.4 Long term (current) use of insulin; Z79.899 Other long term (current) drug therapy; Z79.85 Long-term (current) use of injectable non-insulin antidiabetic drugs
CPT/HCPCS: 71045; 71250; 80053; 81001; 82962; 83735; 84484; 85025; 85610; 93005; 93458; 99152; 99291; C1725; C1769; G0378; J1200; J1644; J1650; J2250; J3010; J3475; J7030; Q9967

== ENCOUNTER 2024-10-01 11:31 | Observation (INO) | payer BC, SELFPAY ==
[2024-10-01] VITALS (17 sets, daily range): BP systolic 97–134; BP diastolic 59–88; PULSE 84–100; RESP 12–23; TEMP 36.6–36.7; O2SAT 98–100; BMI 33.7; BMI 32.6
--- NOTE | 2024-10-01 12:08 | ED_ITS ---
<Statement entered by Wayne Moreau MD - 10/01/24 15:27> I was consulted by the YASIR, and we discussed the complexity of the problems being addressed. I approved the treatment and management plan for this patient's care in the emergency department, thus performing a substantive portion of the medical decision making. Wayne Moreau MD, CHRISTEL, FACEP Discharge Plan Disposition Patient Disposition: Admitted Condition: Good Clinical Impressions Clinical Impression: Hypokalemia, Hypomagnesemia, Acute on chronic renal failure, Diarrhea Discharge ED Provider: Wayne Moreau General Adult HPI General Chief complaint: Weakness Stated complaint: weakness, dizzy, diarrhea Time Seen by Provider: 10/01/24 12:08 Mode of Arrival: Ambulatory Source of Information: Patient Limitations: No Limitations Description of Symptoms (Recalled from ER Triage Doc. by RN): pt presents to ED wth c/o weakness, dizziness. pt reports she was recently admitted to hospital and discharged on 09/25. pt reports when she was discharged home she felt better. pt reports symptoms began tuesday after starting the medication farxiga. pt reports that she stopped taking the medication. History of Present Illness HPI narrative: Patient presents for evaluation of weakness diarrhea. I admitted this patient on 09/24/2024 for chest pain. She underwent cardiac cath same day that showed mild nonflow limiting coronary artery disease with a normal ejection fraction normal left ventricular end-diastolic pressure. Patient was discharged the next day. Patient states that on Tuesday she began having approximately 5 loose stools and has felt generally weak since then. She denies any nausea or vomiting fever chills hemoptysis hematochezia melena hematemesis hematuria. Related Data Home Medications ?Medication ?Instructions ?Recorded ?Confirmed aspirin 81 mg tablet,delayed 81 mg PO DAILY 05/09/24 09/24/24 release furosemide 80 mg tablet 80 mg PO BID 05/09/24 09/24/24 loratadine 10 mg tablet (Allergy 10 mg PO DAILY 05/09/24 09/24/24 Relief (loratadine)) metformin 1,000 mg tablet 1,000 mg PO BID 05/09/24 09/24/24 omeprazole 40 mg capsule,delayed 40 mg PO DAILY 05/09/24 09/24/24 release Lactobacillus 40-Bifidobact 1 cap PO DAILY 08/06/24 09/24/24 3-S.thermophilus 100 billion cell capsule (Probiotic) buspirone 7.5 mg tablet 7.5 mg PO TID 09/24/24 09/24/24 cholecalciferol (vitamin D3) 25 25 mcg PO DAILY 09/24/24 09/24/24 mcg (1,000 unit) capsule dapagliflozin propanediol 10 mg 10 mg PO DAILY 09/24/24 09/24/24 tablet (Farxiga) ergocalciferol (vitamin D2) 1,250 1,250 mcg PO WEEKLY 09/24/24 09/24/24 mcg (50,000 unit) capsule glipizide 10 mg tablet, extended 10 mg PO BID 09/24/24 09/24/24 release 24 hr insulin lispro protamine-lispro 25 unit SQ BID 09/24/24 09/24/24 100 unit/mL (75-25) subcutaneous pen (Humalog Mix 75-25 KwikPen) minocycline 100 mg capsule 100 mg PO BID 09/24/24 09/24/24 nitroglycerin 0.4 mg sublingual 0.4 mg sublingual Q5MINP PRN chest 09/24/24 09/24/24 tablet pain tirzepatide 7.5 mg/0.5 mL 7.5 mg SQ WEEKLY 09/24/24 09/24/24 subcutaneous pen injector (Gu[place]upe) Previous Rx's ?Medication ?Instructions ?Recorded losartan 50 mg tablet 50 mg PO DAILY #90 tabs 02/06/24 blood-glucose sensor (Dexcom G7 #9 ea 04/28/24 Sensor device) pen needle, diabetic 32 gauge x #100 ea 05/28/24 (BD Verónica 2nd Gen Pen Needle) blood sugar diagnostic (ReliOn #100 ea 06/20/24 Prime Test Strips) chlorthalidone 25 mg tablet 25 mg PO DAILY #30 tabs 07/26/24 evolocumab 140 mg/mL subcutaneous 140 mg SQ Q2W #3 mL 07/26/24 pen injector (Sonia Tam) carvedilol 25 mg tablet 25 mg PO BID #180 tabs 09/19/24 isosorbide mononitrate 60 mg 60 mg PO DAILY #30 tabs 09/19/24 tablet,extended release 24 hr famotidine 40 mg tablet 40 mg PO HS #30 tabs 09/25/24 Allergies Allergy/AdvReac Type Severity Reaction Status Date / Time acetaminophen (From Lortab) Allergy Severe Swelling Verified 09/06/24 15:24 oral / throat hydrocodone (HYDROCODONE) Allergy Severe S-SWELLS-OR Verified 09/06/24 15:24 AL/THROAT cefaclor (From CECLOR) Allergy Unknown S-SWELLS-OR Verified 09/06/24 15:24 AL/THROAT celecoxib (From CELEBREX) Allergy Unknown S-SWELLS-OR Verified 09/06/24 15:24 AL/THROAT meperidine (From DEMEROL) Allergy Unknown S-SWELLS-OR Verified 09/06/24 15:24 AL/THROAT isosorbide AdvReac Intermediate GUTIÉRREZ Verified 09/06/24 15:24 atorvastatin AdvReac Mild myalgia Verified 09/06/24 15:24 pravastatin AdvReac Mild myalgia Verified 09/06/24 15:24 rosuvastatin (From Crestor) AdvReac Mild myalgia Verified 09/06/24 15:24 ranolazine (From Ranexa) AdvReac Dizziness Verified 09/06/24 15:24 Tvypspz-QOW-SrC Reductase AdvReac Muscle Pain Verified 09/06/24 15:24 Inhibitor (Mibprpa-Rmr-Emy Reductase Inhibitor) [facility] Disclaimer: The information contained in this section may have been updated after the patient was seen, as this information can be updated by other users. Medical History (Updated 10/01/24 @ 15:16 by RAMON Bellamy) Abnormal findings on diagnostic imaging of heart and coronary circulation Atypical angina Abnormal electrocardiography Metatarsalgia of both feet Injury of left foot Ground glass opacity present on imaging of lung Dyspnea on exertion Lung nodule Family history of lung cancer Stopped smoking with greater than 30 pack year history Mediastinal lymphadenopathy Mild intermittent asthma RBBB Dizziness Typical angina Palpitations CAD (coronary artery disease) Chest pain Dyspnea Thyroid goiter Vitamin D deficiency Anxiety Right shoulder pain BMI 36.0-36.9,adult Surgical History (Updated 09/29/24 @ 00:00 by Fadi Austin) Status post arthroscopy of left knee History of bladder suspension procedure History of tonsillectomy Family History Other Cancer Coronary artery disease Diabetes Social History (Updated 09/24/24 @ 15:39 by Alondra Quigley RN) Smoking Status: Never smoker how long ago did patient quit smokin alcohol intake: never substance use type: denies use current occupational status: employed Travel in the last 8 weeks: None household members: spouse housing: house current occupational exposures/hazards: No caffeine: Yes Have you lived/traveled outside [place] in past 30 days?: No Contact w/someone who lives/traveled outside [place] past 30 days?: No Exposure to someone with infectious disease in past 14 days?: No Do you have a fever (greater than 100.4 F or 38 C)?: No Have you tested positive for COVID-19: No Exposed to someone with COVID-19 in past 14 days?: No Do you have a sore throat?: No Do you have a cough?: No Do you have any weakness?: Yes Do you have any diarrhea?: Yes Are you experiencing any unusual bleeding?: No Do you have any muscle aches/pain?: No Do you have any abdominal pain?: No Are you experiencing loss of taste or smell?: No Other Medical History Have you received the Flu Vaccine for this season: No Have you received the Pneumonia Vaccine: No ROS Obtained: Yes Systems reviewed as appropriate & no additional complaints except as documented Physical Exam General General appearance: alert and in no apparent distress Respiratory Respiratory exam: Present normal lung sounds bilaterally and accessory muscle use Cardiovascular Cardiovascular exam: Present regular rate Neurological Exam Neurological exam: Present alert and oriented X3 Medical Decision Making Medical Records Medical records reviewed: Yes I reviewed the patient's medical records. Screening: Per USPSTF and CDC recommendations, given the prevalence of disease in our region, it is our hospital?s policy to screen for HIV and viral Hepatitis for all patients aged 18 and over and those with ongoing risk factors. Angel Inquiry Pt receiving controlled substance: No Vital Signs: 10/01/24 11:32 10/01/24 12:00 10/01/24 12:30 Temperature 98.0 F Temperature Source Oral Pulse Rate 95 H 97 H Pulse Rate [Left Radial] 96 H Respiratory Rate 19 18 18 Blood Pressure 113/73 104/69 L Blood Pressure [Right Arm] 120/78 Blood Pressure Mean [Right Arm] 92 02 Sat by Pulse Oximetry 98 99 98 Oxygen Delivery Method Room Air Room Air Room Air 10/01/24 13:00 10/01/24 13:16 10/01/24 13:30 Temperature Temperature Source Pulse Rate 91 H 92 H 84 Pulse Rate [Left Radial] Respiratory Rate 13 23 Blood Pressure 97/69 L 98/76 L 111/67 Blood Pressure [Right Arm] Blood Pressure Mean [Right Arm] 02 Sat by Pulse Oximetry 100 100 100 Oxygen Delivery Method Room Air Room Air Room Air 10/01/24 13:55 10/01/24 14:00 10/01/24 14:30 Temperature Temperature Source Pulse Rate 91 H 90 92 H Pulse Rate [Left Radial] Respiratory Rate 12 15 17 Blood Pressure 121/86 120/88 134/85 Blood Pressure [Right Arm] Blood Pressure Mean [Right Arm] 02 Sat by Pulse Oximetry 100 99 100 Oxygen Delivery Method Room Air Room Air Room Air 10/01/24 15:00 Temperature Temperature Source Pulse Rate 91 H Pulse Rate [Left Radial] Respiratory Rate 14 Blood Pressure 118/78 Blood Pressure [Right Arm] Blood Pressure Mean [Right Arm] 02 Sat by Pulse Oximetry 100 Oxygen Delivery Method Room Air Lab Data Lab results reviewed: Yes I reviewed the patient's lab results. Lab Results 10/01/24 11:52: WBC 11.4 H, RBC 4.35, Hgb 12.5, Hct 36.5 L, MCV 83.9, MCH 28.7, MCHC 34.2, RDW 14.0, Plt Count 278, MPV 10.5 H, Neut % (Auto) 79.8, Lymph % (Auto) 12.9, [place] % (Auto) 5.3, Eos % (Auto) 1.1, Baso % (Auto) 0.4, Neut # (Auto) 9.1 H, Lymph # (Auto) 1.5, [place] # (Auto) 0.6, Eos # (Auto) 0.1, Baso # (Auto) 0.0, Sodium 128 L, Potassium 2.8 L*, Chloride 87 L, Carbon Dioxide 28, A nion Gap 15.8 H, BUN 37 H, Creatinine 1.60 H, Estimated Creat Clear 57, E stimated GFR 33 L, Est GFR ( Amer) 40 L, Glucose 185 H, Calcium 8.9, M agnesium 1.2 L, Total Bilirubin 1.0, AST 87 H, ALT 95 H, Alkaline Phosphatase 113, Total Protein 7.3, Albumin 4.3, Globulin 3.0, Albumin/Globulin Ratio 1.4, HIV Ag/Ab Combo Qual Negative 10/01/24 12:42: SARS-CoV-2 (PCR) Not detected, Influenza A Untype (PCR) Not detected, Influenza Type B (PCR) Not detected, POC RSV Rapid Negative 10/01/24 11:52 10/01/24 11:52 Orders (Tests/Meds): ED MEDICATIONS Generic Name Dose Route Start Last Admin Trade Name Freq PRN Reason Stop Dose Admin Potassium Chloride/Water 100 mls @ 50 mls/hr 10/01/24 12:54 10/01/24 13:11 Potassium Chloride 20meq/100ml Ivpb IV 10/01/24 18:53 50 mls/hr Q2H TARA Administration Discontinued Medications Generic Name Dose Route Start Last Admin Trade Name Freq PRN Reason Stop Dose Admin Sodium Chloride 1,000 mls @ 999 mls/hr 10/01/24 12:22 10/01/24 12:38 Sod Chlor 0.9% 1000ml Bag IV 10/01/24 13:22 999 mls/hr .Q1H1M ONE Administration Magnesium Sulfate 2 gm in 50 mls @ 50 mls/hr 10/01/24 13:39 Magnesium Sulfate 2gm/50ml Premix IV 10/01/24 14:38 ONCE ONE Potassium Chloride 60 meq 10/01/24 12:53 10/01/24 13:11 Potassium Chloride 20meq Tab PO 10/01/24 12:54 60 meq ONCE ONE Administration ORDERS Category Date Time Status Basic Metabolic Panel Routine Lab 10/01/24 20:00 Ordered CBC w/Auto Diff [Complete Blood Count Auto Diff] Stat Lab 10/01/24 11:52 Completed CMP [Comprehensive Metabolic Panel] Stat Lab 10/01/24 11:52 Completed Complete Blood Count Auto Diff AMLAB Lab 10/02/24 06:00 Ordered Comprehensive Metabolic Panel AMLAB Lab 10/02/24 06:00 Ordered Diarrhea 23 Panel, PCR Stat Lab 10/01/24 12:23 Ordered HIV Combo Stat Lab 10/01/24 11:52 Completed Hep C Ab with Reflex to RNA Stat Lab 10/01/24 11:52 Received Magnesium AMLAB Lab 10/02/24 06:00 Ordered Magnesium Routine Lab 10/01/24 20:00 Ordered Magnesium Stat Lab 10/01/24 11:52 Completed RSV Rapid Ab Screen Stat Lab 10/01/24 12:42 Completed Rapid PCR Covid and Flu A/B Routine Lab 10/01/24 12:42 Completed Medical Decision Narrative: In summary patient is a 59-year-old female who presents to the emergency department for evaluation of weakness and diarrhea. Patient is initially normotensive at 120/78 with a pulse of 96 respiratory rate of 19 satting at 98% on room air upon arrival, afebrile at 98.0. Physical exam reveals normal breath sounds normal bowel sounds no abdominal tenderness. Differential diagnosis includes gastroenteritis versus colitis versus electrolyte abnormality versus infectious diarrhea etc. Initial workup will be conducted with hematologic labs diarrhea panel if patient is able to provide a sample. Initial interventions include crystalloid bolus for now. Initial workup reviewed by me and patient has hypomagnesia hypokalemia and acute on chronic kidney injury.. Upon repeat evaluation attempted to replete the medication both with oral and IV however patient was intolerant of oral and IV potassium at the rate that they were going. She is able to tolerate IV potassium but it is significantly lower infusion rate. Given this I had an interactive discussion with hospital medicine regarding patient management and she will be admitted for further evaluation and care Critical Care Critical Care Time Critical Care Time: No
--- NOTE | 2024-10-01 12:14 | ECG_ITS ---
APPROVED REPORT Exam: Resting ECG HR:92 bpm ECG Measurements Heart Rate 92 AXES AZ 140 P -31 QRSd 110 QRS -58 QT 379 T 1 QTc 429 Conclusion SINUS RHYTHM INCOMPLETE RIGHT BUNDLE BRANCH BLOCK [90+ ms QRS DURATION, TERMINAL R IN V1/V2, 40+ ms S IN I/aVL/V4/V5/V6] LEFT ANTERIOR FASCICULAR BLOCK [QRS AXIS <= -45, QR IN I, RS IN II] ANTEROSEPTAL MYOCARDIAL INFARCTION , OF INDETERMINATE AGE [40+ ms Q WAVE IN V1-V4] ABNORMAL ECG UNCONFIRMED REPORT Electronically signed by : Everette Moreau, 10/01/2024 15:32:30
[2024-10-01] MEDS: 0.9 % SODIUM CHLORIDE 1000ML 1,000 ML 999 ML IV (12:38)
[2024-10-01 12:41] LABS: Albumin Level 4.3 g/dl (3.5-5.0); Chloride 87 mmol/L (98-107); Sodium 128 mmol/L (136-145)
[2024-10-01 12:44] LABS: Alanine Aminotransferase 95 U/L (12-78); Albumin/Globulin Ratio 1.4 (1.1-1.8); Alkaline Phosphatase 113 U/L (38-126); Anion Gap 15.8 mEq/L (5-15); Aspartate Amino Transferase 87 U/L (14-36); Blood Urea Nitrogen 37 mg/dl (7-17); Calcium 8.9 mg/dl (8.4-10.2); Carbon Dioxide 28 mmol/L (22.0-30.0); Creatinine Clearance Estimated 57 mL/min (50-200); Estimated Glomerular Filt Rate 33 ml/min (>60); GFR (African American) 40 ML/MIN (>60); Glucose 185 mg/dl (74-100); Total Protein,Serum 7.3 g/dl (6.3-8.2)
[2024-10-01 12:45] LABS: Magnesium 1.2 mg/dl (1.6-2.3)
[2024-10-01 12:47] LABS: Coronavirus 19, PCR Not Detected (NotDetected); Influenza A, PCR Not Detected (NotDetected); Influenza B, PCR Not Detected (NotDetected)
[2024-10-01 12:48] LABS: Basophils % 0.4 % (0.1-2.0); Eosinophils # 0.1 K/mm3 (0.0-0.4); Eosinophils % 1.1 % (0.1-12.0); Hematocrit 36.5 % (37.0-47.0); Hemoglobin 12.5 g/dL (12.2-16.2); Lymphocytes # 1.5 K/mm3 (0.7-4.5); Lymphocytes % 12.9 % (10-50); Mean Corpuscular HGB Conc 34.2 g/dL (31.8-35.4); Mean Corpuscular Hemoglobin 28.7 pg (27.0-31.2); Mean Corpuscular Volume 83.9 fl (81-99); Mean Platelet Volume 10.5 fl (7.4-10.4); Monocytes # 0.6 K/mm3 (0.1-1.0); Monocytes % 5.3 % (1.7-9.3); Neutrophils # 9.1 K/mm3 (1.8-7.8); Neutrophils % 79.8 % (37.0-80.0); Platelet Count 278 K/mm3 (142-424); Red Blood Count 4.35 M/mm3 (4.20-5.40); White Blood Count 11.4 K/mm3 (4.8-10.8)
[2024-10-01 12:49] LABS: Potassium 2.8 mmoL/L (3.5-5.1)
[2024-10-01 13:03] LABS: RSV Rapid Ab Screen Negative (Negative)
[2024-10-01 13:05] LABS: HIV Combo NEGATIVE (Negative)
[2024-10-01] MEDS: POTASSIUM CHLORIDE 20MEQ TAB 60 MEQ PO (13:11)
[2024-10-01] MEDS: KCl 20mEq/100ml 100 ML 50 MEQ IV (13:11)
--- NOTE | 2024-10-01 15:06 | P.HP_ITS ---
History of Present Illness *Admission Date: 10/01/24 *Reason for visit:: Weakness, diarrhea *History of present illness: Ms. Cooper is a 59-year-old female who presented to the ER with complaint of diarrhea over the weekend, dizziness and fatigue. She was recently admitted for chest pain and underwent heart cath on 09/24. Found to have mild disease with no flow-limiting lesions. Has been continued on high-dose diuretics for her HFpEF. Recently initiated on Farxiga for her diabetes. Over the weekend developed diarrhea and has become more fatigued and weak. Presented to the ER today for evaluation. She denies any blood in her stool. No shortness of breath. Persistent noncardiac chest pain. Having approximately 5 loose stools a day. No fever or chill. On workup in the ER, found to have electrolyte disturbances with low magnesium, potassium, ADELITA. Initiated replacement. Medicine consulted for admission and further management of electrolyte replacement along with reevaluation of medications. On arrival to the floor, patient is already feeling somewhat better after fluid resuscitation in the ER. Tolerating potassium replacement at this time. Hungry and interested in eating food. Has not had a bowel movement since admission. Alert and oriented x 4. [facility] Disclaimer: The information contained in this section may have been updated after the patient was seen, as this information can be updated by other users. Medical History Abnormal findings on diagnostic imaging of heart and coronary circulation Atypical angina Abnormal electrocardiography Metatarsalgia of both feet Injury of left foot Ground glass opacity present on imaging of lung Dyspnea on exertion Lung nodule Family history of lung cancer Stopped smoking with greater than 30 pack year history Mediastinal lymphadenopathy Mild intermittent asthma RBBB Dizziness Typical angina Palpitations CAD (coronary artery disease) Chest pain Dyspnea Thyroid goiter Vitamin D deficiency Anxiety Right shoulder pain BMI 36.0-36.9,adult Surgical History Status post arthroscopy of left knee History of bladder suspension procedure History of tonsillectomy Family History Other Cancer Coronary artery disease Diabetes Social History Smoking Status: Never smoker how long ago did patient quit smokin alcohol intake: never substance use type: denies use current occupational status: employed Travel in the last 8 weeks: None household members: spouse housing: house current occupational exposures/hazards: No caffeine: Yes Have you lived/traveled outside [place] in past 30 days?: No Contact w/someone who lives/traveled outside US past 30 days?: No Exposure to someone with infectious disease in past 14 days?: No Do you have a fever (greater than 100.4 F or 38 C)?: No Have you tested positive for COVID-19: No Exposed to someone with COVID-19 in past 14 days?: No Do you have a sore throat?: No Do you have a cough?: No Do you have any weakness?: Yes Do you have any diarrhea?: Yes Are you experiencing any unusual bleeding?: No Do you have any muscle aches/pain?: No Do you have any abdominal pain?: No Are you experiencing loss of taste or smell?: No Other Medical History Have you received the Flu Vaccine for this season: No Have you received the Pneumonia Vaccine: No Review of Systems Review of Systems Review of systems (narrative): 14 point review of systems performed, pertinent positives and negatives as per HPI Meds Home Medications and Allergies Home Medications ?Medication ?Instructions ?Recorded ?Confirmed ?Type losartan 50 mg tablet 50 mg PO DAILY #90 tabs 02/06/24 10/01/24 Rx blood-glucose sensor (Dexcom G7 #9 ea 04/28/24 10/01/24 Rx Sensor device) aspirin 81 mg tablet,delayed 81 mg PO DAILY 05/09/24 10/01/24 History release loratadine 10 mg tablet (Allergy 10 mg PO DAILY 05/09/24 10/01/24 History Relief (loratadine)) metformin 1,000 mg tablet 1,000 mg PO BID 05/09/24 10/01/24 History omeprazole 40 mg capsule,delayed 40 mg PO DAILY 05/09/24 10/01/24 History release pen needle, diabetic 32 gauge x #100 ea 05/28/24 10/01/24 Rx 5/32 (BD Verónica 2nd Gen Pen Needle) blood sugar diagnostic (Zuleima #100 ea 06/20/24 10/01/24 Rx Prime Test Strips) evolocumab 140 mg/mL subcutaneous 140 mg SQ Q2W #3 mL 07/26/24 10/01/24 Rx pen injector (Repkeith SureClick) Lactobacillus 40-Bifidobact 1 cap PO DAILY 08/06/24 10/01/24 History 3-S.thermophilus 100 billion cell capsule (Probiotic) carvedilol 25 mg tablet 25 mg PO BID #180 tabs 09/19/24 10/01/24 Rx isosorbide mononitrate 60 mg 60 mg PO DAILY #30 tabs 09/19/24 10/01/24 Rx tablet,extended release 24 hr buspirone 7.5 mg tablet 7.5 mg PO TID 09/24/24 10/01/24 History cholecalciferol (vitamin D3) 25 25 mcg PO DAILY 09/24/24 10/01/24 History mcg (1,000 unit) capsule dapagliflozin propanediol 10 mg 10 mg PO DAILY 09/24/24 10/01/24 History tablet (Farxiga) ergocalciferol (vitamin D2) 1,250 1,250 mcg PO WEEKLY 09/24/24 10/01/24 History mcg (50,000 unit) capsule glipizide 10 mg tablet, extended 10 mg PO BID 09/24/24 10/01/24 History release 24 hr insulin lispro protamine-lispro 25 unit SQ BID 09/24/24 10/01/24 History 100 unit/mL (75-25) subcutaneous pen (Humalog Mix 75-25 KwikPen) minocycline 100 mg capsule 100 mg PO BID 09/24/24 10/01/24 History nitroglycerin 0.4 mg sublingual 0.4 mg sublingual Q5MINP PRN chest 09/24/24 10/01/24 History tablet pain tirzepatide 7.5 mg/0.5 mL 7.5 mg SQ WEEKLY 09/24/24 10/01/24 History subcutaneous pen injector (Zackunever) furosemide 80 mg tablet 40 mg (1/2 x 80 mg) PO DAILY 30 10/01/24 10/01/24 Rx days #0 tabs New Prescriptions to Start Prescriptions: Allergies Allergy/AdvReac Type Severity Reaction Status Date / Time acetaminophen (From Lortab) Allergy Severe Swelling Verified 09/06/24 15:24 oral / throat hydrocodone (HYDROCODONE) Allergy Severe S-SWELLS-OR Verified 09/06/24 15:24 AL/THROAT cefaclor (From CECLOR) Allergy Unknown S-SWELLS-OR Verified 09/06/24 15:24 AL/THROAT celecoxib (From CELEBREX) Allergy Unknown S-SWELLS-OR Verified 09/06/24 15:24 AL/THROAT meperidine (From DEMEROL) Allergy Unknown S-SWELLS-OR Verified 09/06/24 15:24 AL/THROAT isosorbide AdvReac Intermediate GUTIÉRREZ Verified 09/06/24 15:24 atorvastatin AdvReac Mild myalgia Verified 09/06/24 15:24 pravastatin AdvReac Mild myalgia Verified 09/06/24 15:24 rosuvastatin (From Crestor) AdvReac Mild myalgia Verified 09/06/24 15:24 ranolazine (From Ranexa) AdvReac Dizziness Verified 09/06/24 15:24 Kflmtkm-LPN-ImO Reductase AdvReac Muscle Pain Verified 09/06/24 15:24 Inhibitor (Krkhzkr-Ugf-Ggw Reductase Inhibitor) Exam Data for Last 24 hours Vital signs and Labs for Last 24 Hours: Temp Pulse Resp BP Pulse Ox O2 Del Method 98.0 F 90 15 120/88 99 Room Air 10/01/24 11:32 10/01/24 14:00 10/01/24 14:00 10/01/24 14:00 10/01/24 14:00 10/01/24 14:00 Laboratory Results - last 24 hr 10/01/24 11:52: WBC 11.4 H, RBC 4.35, Hgb 12.5, Hct 36.5 L, MCV 83.9, MCH 28.7, MCHC 34.2, RDW 14.0, Plt Count 278, MPV 10.5 H, Neut % (Auto) 79.8, Lymph % (Auto) 12.9, [place] % (Auto) 5.3, Eos % (Auto) 1.1, Baso % (Auto) 0.4, Neut # (Auto) 9.1 H, Lymph # (Auto) 1.5, [place] # (Auto) 0.6, Eos # (Auto) 0.1, Baso # (Auto) 0.0, Sodium 128 L, Potassium 2.8 L*, Chloride 87 L, Carbon Dioxide 28, Anion Gap 15.8 H, BUN 37 H, Creatinine 1.60 H, Estimated Creat Clear 57, Estimated GFR 33 L, Est GFR ( Amer) 40 L, Glucose 185 H, Calcium 8.9, Magnesium 1.2 L, Total Bilirubin 1.0, AST 87 H, ALT 95 H, Alkaline Phosphatase 113, Total Protein 7.3, Albumin 4.3, Globulin 3.0, Albumin/Globulin Ratio 1.4, HIV Ag/Ab Combo Qual Negative 10/01/24 12:42: SARS-CoV-2 (PCR) Not detected, Influenza A Untype (PCR) Not detected, Influenza Type B (PCR) Not detected, POC RSV Rapid Negative I & O for Last 24 hours: Intake & Output 09/28/24 09/29/24 09/30/24 10/01/24 23:59 23:59 23:59 23:59 Weight 94.801 kg Constitutional Constitutional: no acute distress, obese and cooperative *Routine HEENT Exam Head: Present normocephalic Eye: Present EOMI and PERRL ENT: Present mucous membranes moist *Routine Neck Exam Neck: Present supple; Absent lymphadenopathy Routine Chest/Breast/Axilla Exam Chest wall: Present tenderness (Minimal mid chest between breasts) *Routine Respiratory Exam Respiratory: Present CTA bilaterally; Absent rhonchi, wheezes or crackles *Routine Cardiovascular Exam Cardiovascular: Present RRR *Routine Abdominal Exam Abdominal: Present soft and normoactive bowel sounds; Absent tenderness *Routine Rectal Exam Rectal:: deferred *Routine Genitalia Exam Genitalia:: deferred *Routine Extremities Exam Extremities: Absent cyanosis, clubbing or edema *Routine Skin Exam Skin: Present intact and warm; Absent rash *Routine Neurological Exam Neurological: Present alert, oriented X3 and moving all extremities; Absent altered mental status Assessment and Plan *Assessment and plan (1) Acute on chronic renal failure: Status: Acute Category: Medical Code(s): N17.9 - Acute kidney failure, unspecified; N18.9 - Chronic kidney disease, unspecified (2) Hypokalemia: Status: Acute Category: Medical Code(s): E87.6 - Hypokalemia (3) Hypomagnesemia: Status: Acute Category: Medical Code(s): E83.42 - Hypomagnesemia (4) Diarrhea: Status: Acute Category: Medical Code(s): R19.7 - Diarrhea, unspecified (5) Atypical angina: Status: Acute Category: Medical Code(s): I20.89 - Other forms of angina pectoris (6) Hyperlipidemia: Status: Chronic Qualifiers: Hyperlipidemia type: mixed hyperlipidemia Qualified Code(s): E78.2 - Mixed hyperlipidemia Category: Medical Code(s): E78.5 - Hyperlipidemia, unspecified (7) HTN (hypertension): Status: Chronic Qualifiers: Hypertension type: essential hypertension Qualified Code(s): I10 - Essential (primary) hypertension Category: Medical Code(s): I10 - Essential (primary) hypertension (8) Anxiety: Status: Chronic Category: Medical Code(s): F41.9 - Anxiety disorder, unspecified Plan Ms. Miles is a 59-year-old female with history significant for CAD, hypertension, diabetes, HFpEF, GERD who was just admitted and discharged a week ago for chest pain. Underwent heart cath. Found to have stable coronaries with no flow-limiting lesions. Found to have significant electrolyte disturbances at that time. Discharged home on supplementation and adjustments of her medications. She presents today with dizziness and weakness. Having diarrhea for 3 days. Workup in the ER concerning for electrolyte disturbances and worsening ADELITA. Discussed case with ER physician, request admission for electro lyte replacement and medication adjustments. I agreed to admit for further care. Received fluids in the ER. Replacing magnesium and potassium. Repeat labs ordered for tonight and in the morning. Problems addressed as follows: #ADELITA #Hypokalemia #Hypomagnesemia ? Initial potassium 2.8, magnesium 1.2, creatinine 1.6 with BUN 37. Baseline creatinine 1. - Likely in the setting of overdiuresis for HFpEF, recent contrast administration with heart cath, medication component from [facility]B, dehydration from diarrhea. ? Replacing potassium and magnesium IV. Potassium causing pain, will have pharmacy administer with lidocaine to decrease discomfort. Intolerant of p.o. replacement at this time. Repeat BMP ordered for this evening to monitor correction rate. Repeat CBC, CMP, magnesium ordered for the morning. - Continue oral rehydration. -Concern electrolyte disturbances are related to high-dose Lasix with addition of Farxiga recently and use of chlorthalidone. Will make adjustment to doses prior to discharge home. - Diarrhea panel pending. EKG obtained, per my review has incomplete right bundle branch block. No acute ischemic changes. # Chest pressure: Still present however underwent heart cath last week. Noncardiac in etiology. Will monitor for improvement with electrolyte replacement as above. #Type 2 diabetes: Resume home 75/25 combo twice daily. Fingersticks ACHS/okay to use home Dexcom if she has her monitor with her #HFpEF: Hold home diuretics, Farxiga in the setting of ADELITA. #CAD: Hold home statin in the setting of diarrhea and kidney injury. Continue aspirin #Hypertension ? Hold most home antihypertensives in the setting of ADELITA at this time, including chlorthalidone, Lasix, Imdur, losartan. ? Continue Coreg at reduced dose. -Left heart cath remarks on normal end-diastolic pressures and LV. Will review medications and decrease diuretic component given her electrolyte disturbances. #GERD: Continue home PPI; no benefit from famotidine started last visit. Will discontinue #Anxiety/depression: Continue home BuSpar Full code Diabetic diet
--- NOTE | 2024-10-01 15:20 | HMH.PHAINT1 ---
Pharmacy Intervention Comments: MEDICATION RECONCILIATION COMPLETED ON PATIENT USING EXTERNAL FILL HISTORY FROM PHARMACY AND DISCHARGE SUMMARY FROM PREVIOUS ADMISSION. -EMELIA MONK, KERAD
--- NOTE | 2024-10-01 15:26 | PC.NURSE ---
report called to alvarado on second floor
--- NOTE | 2024-10-01 15:41 | PC.NURSE ---
arrived by w/c from ED
[2024-10-01] MEDS: MAGNESIUM SULFATE IN WATER 2 GM/50 ML PIGGYBACK IV (16:21)
--- NOTE | 2024-10-01 16:42 | PC.NURSE ---
pt arrived to the floor at 1540. a&o4. tolerating ra with sats >90%. complains of no body pain, only pain from potassium infusion. remaining bags to be administered with lidocaine. potassium and mag being replaced IV. pt complains of no chest pain. stool sample needs collected but pt unable to produce at this time. no needs at the moment. call light within reach.
[2024-10-01] MEDS: POTASSIUM CHLORIDE 20 MEQ, LIDOCAINE HCL/PF 3 ML in 0.9 % SODIUM CHLORIDE 100 ML 56.5 MEQ IV ×2 (17:35→21:17)
[2024-10-01] MEDS: PANTOPRAZOLE 40MG TABLET 40 MG PO (20:12)
[2024-10-01] MEDS: humaLOG MIX 75/25 3ML FLEXPEN 25 UNIT SUBCUT (20:13)
[2024-10-01] MEDS: CARVEDILOL 25MG TABLET 12.5 MG PO (20:14)
[2024-10-01] MEDS: PATIENT'S OWN HOME MEDICATION (Buspirone 7.5 mg tablet) 7.5 EACH PO (20:14)
[2024-10-01 20:42] LABS: Chloride 92 mmol/L (98-107)
[2024-10-01 20:43] LABS: Potassium 3.1 mmoL/L (3.5-5.1); Sodium 130 mmol/L (136-145)
[2024-10-01 20:46] LABS: Anion Gap 13.1 mEq/L (5-15); Blood Urea Nitrogen 36 mg/dl (7-17); Calcium 8.2 mg/dl (8.4-10.2); Carbon Dioxide 28 mmol/L (22.0-30.0); Creatinine Clearance Estimated 49 mL/min (50-200); Estimated Glomerular Filt Rate 29 ml/min (>60); GFR (African American) 35 ML/MIN (>60); Glucose 250 mg/dl (74-100); Magnesium 1.7 mg/dl (1.6-2.3)
[2024-10-02] VITALS: PULSE 100
--- NOTE | 2024-10-02 00:19 | EXP.EVENT.NO ---
Patient having mild back pain at home., Because it listed Tylenol as being a allergen as she takes it with Lortab because her throat to close off did not get that even so she asked for it. Went and interviewed her and she does take naproxen at home in the form of Aleve 2 tablets whenever she has minor pain Naproxen 500 mg ordered twice daily as needed for pain
[2024-10-02] MEDS: NAPROXEN 500MG TABLET 500 MG PO (00:24)
[2024-10-02] MEDS: MAGNESIUM SULFATE IN WATER 2 GM/50 ML PIGGYBACK IV (00:24)
[2024-10-02 04:00] VITALS: BP 119/61; PULSE 88; PULSE 90; RESP 16; TEMP 36.4; O2SAT 98; BMI 32.3
[2024-10-02 04:19] LABS: POC Glucose,Bedside 260 (70-110)
--- NOTE | 2024-10-02 05:30 | PC.NURSE ---
Pt A&OX4 and has tolerated room air. Potassium and magnesium was replaced throughout the shift. She has ambulated to the bathroom independently. She did complain of back pain once and was medicated per MAR. No other complaints at this time,call light within reach.
[2024-10-02] MEDS: CALCIUM CARBONATE 500MG CHEWTAB 500 MG PO (05:53)
[2024-10-02 06:05] LABS: POC Glucose,Bedside 161 (70-110)
[2024-10-02 06:45] LABS: Adenovirus F 40/41, stool Not Detected (NotDetected); Astrovirus Not Detected (NotDetected); Campylobacter Not Detected (NotDetected); Clostridium Difficile A/B, PCR Not Detected (NotDetected); Cryptosporidium Not Detected (NotDetected); Cyclospora Cayetanesis Not Detected (NotDetected); Entamoeba histolytica Not Detected (NotDetected); Enteroaggregative E coli Not Detected (NotDetected); Enteropathogenic E coli Not Detected (NotDetected); Enterotoxigenic E coli Not Detected (NotDetected); Giardia lamblia Not Detected (NotDetected); Norovirus Not Detected (NotDetected); Plesimonas Shigalloides, PCR Not Detected (NotDetected); Rotavirus A Not Detected (NotDetected); Salmonella, PCR Not Detected (NotDetected); Sapovirus Not Detected (NotDetected); Shiga-like toxin E coli Not Detected (NotDetected); Shigella Enterovasive E coli Not Detected (NotDetected); Vibrio Cholerae Not Detected (NotDetected); Vibrio, PCR Not Detected (NotDetected); Yersinia Entercolitica, PCR Not Detected (NotDetected)
[2024-10-02 06:55] LABS: Basophils % 0.3 % (0.1-2.0); Eosinophils # 0.1 K/mm3 (0.0-0.4); Hematocrit 31.2 % (37.0-47.0); Lymphocytes % 15.2 % (10-50); Mean Corpuscular Hemoglobin 28.9 pg (27.0-31.2); Mean Platelet Volume 10.2 fl (7.4-10.4); Monocytes # 0.5 K/mm3 (0.1-1.0); Monocytes % 7.6 % (1.7-9.3); Neutrophils # 4.8 K/mm3 (1.8-7.8); Neutrophils % 74.4 % (37.0-80.0); Platelet Count 192 K/mm3 (142-424); Red Blood Count 3.67 M/mm3 (4.20-5.40); White Blood Count 6.4 K/mm3 (4.8-10.8)
[2024-10-02 07:12] LABS: Albumin Level 3.2 g/dl (3.5-5.0); Chloride 96 mmol/L (98-107); Potassium 3.1 mmoL/L (3.5-5.1); Sodium 131 mmol/L (136-145)
[2024-10-02 07:14] LABS: Blood Urea Nitrogen 33 mg/dl (7-17); Creatinine Clearance Estimated 58 mL/min (50-200); Estimated Glomerular Filt Rate 36 ml/min (>60); GFR (African American) 43 ML/MIN (>60)
[2024-10-02 07:15] LABS: Alanine Aminotransferase 62 U/L (12-78); Albumin/Globulin Ratio 1.3 (1.1-1.8); Alkaline Phosphatase 116 U/L (38-126); Anion Gap 9.1 mEq/L (5-15); Aspartate Amino Transferase 49 U/L (14-36); Bilirubin,Total 0.6 mg/dl (0.2-1.3); Calcium 7.9 mg/dl (8.4-10.2); Carbon Dioxide 29 mmol/L (22.0-30.0); Globulin 2.5 g/dL (1.3-3.2); Glucose 155 mg/dl (74-100); Magnesium 2.2 mg/dl (1.6-2.3); Total Protein,Serum 5.7 g/dl (6.3-8.2)
[2024-10-02 07:22] LABS: HCV Ab Non Reactive (Non Reactive)
[2024-10-02 07:25] LABS: Hemoglobin 10.6 g/dL (12.2-16.2)
[2024-10-02 07:44] VITALS: BP 131/74; PULSE 86; RESP 16; TEMP 36.4; O2SAT 100
--- NOTE | 2024-10-02 07:49 | EXP.DC.SUM ---
General Admission date:: 10/01/24 Discharge date: 10/02/24 HPI HPI HPI: Ms. Cooper is a 59-year-old female who presented to the ER with complaint of diarrhea over the weekend, dizziness and fatigue. She was recently admitted for chest pain and underwent heart cath on 09/24. Found to have mild disease with no flow-limiting lesions. Has been continued on high-dose diuretics for her HFpEF. Recently initiated on Farxiga for her diabetes. Over the weekend developed diarrhea and has become more fatigued and weak. Presented to the ER today for evaluation. She denies any blood in her stool. No shortness of breath. Persistent noncardiac chest pain. Having approximately 5 loose stools a day. No fever or chill. On workup in the ER, found to have electrolyte disturbances with low magnesium, potassium, ADELITA. Initiated replacement. Medicine consulted for admission and further management of electrolyte replacement along with reevaluation of medications. On arrival to the floor, patient is already feeling somewhat better after fluid resuscitation in the ER. Tolerating potassium replacement at this time. Hungry and interested in eating food. Has not had a bowel movement since admission. Alert and oriented x 4. Exam Data for Last 24 hours Vital signs and Labs for Last 24 Hours: Temp Pulse Resp BP Pulse Ox O2 Del Method 97.6 F 86 16 131/74 100 Room Air 10/02/24 07:44 10/02/24 07:44 10/02/24 07:44 10/02/24 07:44 10/02/24 07:44 10/02/24 07:44 Laboratory Results - last 24 hr 10/01/24 11:52: WBC 11.4 H, RBC 4.35, Hgb 12.5, Hct 36.5 L, MCV 83.9, MCH 28.7, MCHC 34.2, RDW 14.0, Plt Count 278, MPV 10.5 H, Neut % (Auto) 79.8, Lymph % (Auto) 12.9, Hopkins % (Auto) 5.3, Eos % (Auto) 1.1, Baso % (Auto) 0.4, Neut # (Auto) 9.1 H, Lymph # (Auto) 1.5, Hopkins # (Auto) 0.6, Eos # (Auto) 0.1, Baso # (Auto) 0.0, Sodium 128 L, Potassium 2.8 L*, Chloride 87 L, Carbon Dioxide 28, Anion Gap 15.8 H, BUN 37 H, Creatinine 1.60 H, Estimated Creat Clear 57, Estimated GFR 33 L, Est GFR ( Amer) 40 L, Glucose 185 H, Calcium 8.9, Magnesium 1.2 L, Total Bilirubin 1.0, AST 87 H, ALT 95 H, Alkaline Phosphatase 113, Total Protein 7.3, Albumin 4.3, Globulin 3.0, Albumin/Globulin Ratio 1.4, Hepatitis C Antibody Non reactive, HIV Ag/Ab Combo Qual Negative 10/01/24 12:42: SARS-CoV-2 (PCR) Not detected, Influenza A Untype (PCR) Not detected, Influenza Type B (PCR) Not detected, POC RSV Rapid Negative 10/01/24 19:58: POC Glucose 260 H 10/01/24 20:15: Sodium 130 L, Potassium 3.1 L, Chloride 92 L, Carbon Dioxide 28, Anion Gap 13.1, BUN 36 H, Creatinine 1.80 H, Estimated Creat Clear 49, Estimated GFR 29 L, Est GFR ( Amer) 35 L, Glucose 250 H D, Calcium 8.2 L, Magnesium 1.7 D 10/02/24 05:56: POC Glucose 161 H 10/02/24 06:07: WBC 6.4 D, RBC 3.67 L, Hgb 10.6 L D, Hct 31.2 L, MCV 85.0, MCH 28.9, MCHC 34.0, RDW 14.0, Plt Count 192 D, MPV 10.2, Neut % (Auto) 74.4, Lymph % (Auto) 15.2, Hopkins % (Auto) 7.6, Eos % (Auto) 2.0, Baso % (Auto) 0.3, Neut # (Auto) 4.8, Lymph # (Auto) 1.0, Hopkins # (Auto) 0.5, Eos # (Auto) 0.1, Baso # (Auto) 0.0, Sodium 131 L, Potassium 3.1 L, Chloride 96 L, Carbon Dioxide 29, Anion Gap 9.1, BUN 33 H, Creatinine 1.50 H, Estimated Creat Clear 58, Estimated GFR 36 L, Est GFR ( Amer) 43 L D, Glucose 155 H D, Calcium 7.9 L, Magnesium 2.2 D, Total Bilirubin 0.6, AST 49 H D, ALT 62 D, Alkaline Phosphatase 116, Total Protein 5.7 L, Albumin 3.2 L D, Globulin 2.5, Albumin/Globulin Ratio 1.3 I & O for Last 24 hours: Intake & Output 09/29/24 09/30/24 10/01/24 10/02/24 23:59 23:59 23:59 23:59 Intake Total 400 / 950 550 / 550 Output Total 0 / 0 Balance 400 / 950 550 / 550 Weight 91.852 kg 91.127 kg Results Data Completed and Pending Labs on day of discharge: Labs from last 24 hours 10/02/24 10/02/24 10/01/24 06:07 05:56 20:15 WBC 6.4 D RBC 3.67 L Hgb 10.6 L D Hct 31.2 L MCV 85.0 MCH 28.9 MCHC 34.0 RDW 14.0 Plt Count 192 D MPV 10.2 Neut % (Auto) 74.4 Lymph % (Auto) 15.2 Hopkins % (Auto) 7.6 Eos % (Auto) 2.0 Baso % (Auto) 0.3 Neut # (Auto) 4.8 Lymph # (Auto) 1.0 Hopkins # (Auto) 0.5 Eos # (Auto) 0.1 Baso # (Auto) 0.0 Sodium 131 L 130 L Potassium 3.1 L 3.1 L Chloride 96 L 92 L Carbon Dioxide 29 28 Anion Gap 9.1 13.1 BUN 33 H 36 H Creatinine 1.50 H 1.80 H Estimated Creat Clear 58 49 Estimated GFR 36 L 29 L Est GFR ( Amer) 43 L D 35 L Glucose 155 H D 250 H D POC Glucose 161 H Calcium 7.9 L 8.2 L Magnesium 2.2 D 1.7 D Total Bilirubin 0.6 AST 49 H D ALT 62 D Alkaline Phosphatase 116 Total Protein 5.7 L Albumin 3.2 L D Globulin 2.5 Albumin/Globulin Ratio 1.3 SARS-CoV-2 (PCR) Hepatitis C Antibody HIV Ag/Ab Combo Qual Influenza A Untype (PCR) Influenza Type B (PCR) POC RSV Rapid 10/01/24 10/01/24 10/01/24 19:58 12:42 11:52 WBC 11.4 H RBC 4.35 Hgb 12.5 Hct 36.5 L MCV 83.9 MCH 28.7 MCHC 34.2 RDW 14.0 Plt Count 278 MPV 10.5 H Neut % (Auto) 79.8 Lymph % (Auto) 12.9 Hopkins % (Auto) 5.3 Eos % (Auto) 1.1 Baso % (Auto) 0.4 Neut # (Auto) 9.1 H Lymph # (Auto) 1.5 Hopkins # (Auto) 0.6 Eos # (Auto) 0.1 Baso # (Auto) 0.0 Sodium 128 L Potassium 2.8 L* Chloride 87 L Carbon Dioxide 28 Anion Gap 15.8 H BUN 37 H Creatinine 1.60 H Estimated Creat Clear 57 Estimated GFR 33 L Est GFR ( Amer) 40 L Glucose 185 H POC Glucose 260 H Calcium 8.9 Magnesium 1.2 L Total Bilirubin 1.0 AST 87 H ALT 95 H Alkaline Phosphatase 113 Total Protein 7.3 Albumin 4.3 Globulin 3.0 Albumin/Globulin Ratio 1.4 SARS-CoV-2 (PCR) Not detected Hepatitis C Antibody Non reactive HIV Ag/Ab Combo Qual Negative Influenza A Untype (PCR) Not detected Influenza Type B (PCR) Not detected POC RSV Rapid Negative DS: Diagnosis Discharge Diagnosis (1) Acute on chronic renal failure: Status: Acute Code(s): N17.9 - Acute kidney failure, unspecified; N18.9 - Chronic kidney disease, unspecified (2) Hypokalemia: Status: Acute Code(s): E87.6 - Hypokalemia (3) Hypomagnesemia: Status: Acute Code(s): E83.42 - Hypomagnesemia (4) Diarrhea: Status: Acute Code(s): R19.7 - Diarrhea, unspecified (5) Atypical angina: Status: Acute Code(s): I20.89 - Other forms of angina pectoris (6) Hyperlipidemia: Status: Chronic Code(s): E78.5 - Hyperlipidemia, unspecified Qualifiers: Hyperlipidemia type: mixed hyperlipidemia Qualified Code(s): E78.2 - Mixed hyperlipidemia (7) HTN (hypertension): Status: Chronic Code(s): I10 - Essential (primary) hypertension Qualifiers: Hypertension type: essential hypertension Qualified Code(s): I10 - Essential (primary) hypertension (8) Anxiety: Status: Chronic Code(s): F41.9 - Anxiety disorder, unspecified Meds Home Medications and Allergies Home Medications ?Medication ?Instructions ?Recorded ?Confirmed ?Type losartan 50 mg tablet 50 mg PO DAILY #90 tabs 02/06/24 10/01/24 Rx blood-glucose sensor (Dexcom G7 #9 ea 04/28/24 10/01/24 Rx Sensor device) aspirin 81 mg tablet,delayed 81 mg PO DAILY 05/09/24 10/01/24 History release loratadine 10 mg tablet (Allergy 10 mg PO DAILY 05/09/24 10/01/24 History Relief (loratadine)) metformin 1,000 mg tablet 1,000 mg PO BID 05/09/24 10/01/24 History omeprazole 40 mg capsule,delayed 40 mg PO DAILY 05/09/24 10/01/24 History release pen needle, diabetic 32 gauge x #100 ea 05/28/24 10/01/24 Rx 5/32 (BD Verónica 2nd Gen Pen Needle) blood sugar diagnostic (ReliOn #100 ea 06/20/24 10/01/24 Rx Prime Test Strips) evolocumab 140 mg/mL subcutaneous 140 mg SQ Q2W #3 mL 07/26/24 10/01/24 Rx pen injector (Cyber-Rain) Lactobacillus 40-Bifidobact 1 cap PO DAILY 08/06/24 10/01/24 History 3-S.thermophilus 100 billion cell capsule (Probiotic) carvedilol 25 mg tablet 25 mg PO BID #180 tabs 09/19/24 10/01/24 Rx isosorbide mononitrate 60 mg 60 mg PO DAILY #30 tabs 09/19/24 10/01/24 Rx tablet,extended release 24 hr buspirone 7.5 mg tablet 7.5 mg PO TID 09/24/24 10/01/24 History cholecalciferol (vitamin D3) 25 25 mcg PO DAILY 09/24/24 10/01/24 History mcg (1,000 unit) capsule dapagliflozin propanediol 10 mg 10 mg PO DAILY 09/24/24 10/01/24 History tablet (Farxiga) ergocalciferol (vitamin D2) 1,250 1,250 mcg PO WEEKLY 09/24/24 10/01/24 History mcg (50,000 unit) capsule glipizide 10 mg tablet, extended 10 mg PO BID 09/24/24 10/01/24 History release 24 hr minocycline 100 mg capsule 100 mg PO BID 09/24/24 10/01/24 History nitroglycerin 0.4 mg sublingual 0.4 mg sublingual Q5MINP PRN chest 09/24/24 10/01/24 History tablet pain tirzepatide 7.5 mg/0.5 mL 7.5 mg SQ WEEKLY 09/24/24 10/01/24 History subcutaneous pen injector (Guadalupe) furosemide 80 mg tablet 40 mg (1/2 x 80 mg) PO DAILY 30 10/01/24 10/01/24 Rx days #0 tabs insulin lispro protamine-lispro 28 unit (0.28 mL) SQ BID 30 days 10/02/24 10/01/24 Rx 100 unit/mL (75-25) subcutaneous #0 mL pen (Humalog Mix 75-25 KwikPen) New Prescriptions to Start Prescriptions: Allergies Allergy/AdvReac Type Severity Reaction Status Date / Time acetaminophen (From Lortab) Allergy Severe Swelling Verified 09/06/24 15:24 oral / throat hydrocodone (HYDROCODONE) Allergy Severe S-SWELLS-OR Verified 09/06/24 15:24 AL/THROAT cefaclor (From CECLOR) Allergy Unknown S-SWELLS-OR Verified 09/06/24 15:24 AL/THROAT celecoxib (From CELEBREX) Allergy Unknown S-SWELLS-OR Verified 09/06/24 15:24 AL/THROAT meperidine (From DEMEROL) Allergy Unknown S-SWELLS-OR Verified 09/06/24 15:24 AL/THROAT isosorbide AdvReac Intermediate GUTIÉRREZ Verified 09/06/24 15:24 atorvastatin AdvReac Mild myalgia Verified 09/06/24 15:24 pravastatin AdvReac Mild myalgia Verified 09/06/24 15:24 rosuvastatin (From Crestor) AdvReac Mild myalgia Verified 09/06/24 15:24 ranolazine (From Ranexa) AdvReac Dizziness Verified 09/06/24 15:24 Pqplgxi-FKK-AmK Reductase AdvReac Muscle Pain Verified 09/06/24 15:24 Inhibitor (Fzofapi-Nje-Nka Reductase Inhibitor) Discharge Plan Disposition Patient Disposition: Home, Self-Care Condition: Good Follow up Plan Prescriptions/Medication Reconciliation: Continued Repatha SureClick 140 mg/mL pen injector 140 mg SQ Q2W Qty: 3 2RF dapagliflozin propanediol [Farxiga] 10 mg tablet 10 mg PO DAILY minocycline 100 mg capsule 100 mg PO BID glipizide 10 mg tablet extended release 24hr 10 mg PO BID nitroglycerin 0.4 mg tablet, sublingual 0.4 mg sublingual Q5MINP PRN (Reason: chest pain) Rx Instructions: do not exceed 3 doses per episode buspirone 7.5 mg tablet 7.5 mg PO TID ergocalciferol (vitamin D2) 1,250 mcg (50,000 unit) capsule 1,250 mcg PO WEEKLY cholecalciferol (vitamin D3) 25 mcg (1,000 unit) capsule 25 mcg PO DAILY Mounjaro 7.5 mg/0.5 mL pen injector 7.5 mg SQ WEEKLY Patient Comments: taken last tuesday omeprazole 40 mg capsule,delayed release(DR/EC) 40 mg PO DAILY aspirin 81 mg tablet,delayed release (DR/EC) 81 mg PO DAILY loratadine [Allergy Relief (loratadine)] 10 mg tablet 10 mg PO DAILY Probiotic 100 billion cell Capsule 1 cap PO DAILY Changed furosemide 80 mg tablet 40 mg PO DAILY 30 Days Qty: 0 0RF insulin lispro protamin-lispro [Humalog Mix 75-25 KwikPen] 100 unit/mL (75-25) insulin pen 28 unit SQ BID 30 Days Qty: 0 0RF Discontinued chlorthalidone 25 mg tablet 25 mg PO DAILY Qty: 30 3RF famotidine 40 mg tablet 40 mg PO HS Qty: 30 0RF No Action losartan 50 mg tablet 50 mg PO DAILY Qty: 90 3RF Patient Comments: not taking due to illness (DME) Dexcom G7 Sensor Device See Rx Instructions .ROUTE .COMPLEX Qty: 9 3RF Dose Instruction: USE DIRECTED Rx Instructions: USE DIRECTED (DME) pen needle, diabetic [BD Verónica 2nd Gen Pen Needle] 32 gauge x 5/32 needle See Rx Instructions .ROUTE .COMPLEX Qty: 100 12RF Dose Instruction: USE DIRECTED Rx Instructions: USE DIRECTED (DME) ReliOn Prime Test Strips Strip See Rx Instructions .ROUTE .COMPLEX Qty: 100 0RF Dose Instruction: USE 1 STRIP TO CHECK GLUCOSE TWICE DAILY Rx Instructions: USE 1 STRIP TO CHECK GLUCOSE TWICE DAILY isosorbide mononitrate 60 mg tablet extended release 24 hr 60 mg PO DAILY Qty: 30 2RF carvedilol 25 mg tablet 25 mg PO BID Qty: 180 1RF metformin 1,000 mg tablet 1,000 mg PO BID Patient Discharge Instructions Patient Instructions: Magnesium, Hypokalemia Print Language: Luxembourgish Providers Primary Care Provider: Mara Mike Admit Provider: Everette Guzman Attending Provider: Everette Guzman
[2024-10-02 08:00] VITALS: PULSE 90
[2024-10-02] MEDS: DAPAGLIFLOZIN PROPANEDIOL 10 MG TABLET PO (09:16)
[2024-10-02] MEDS: BUSPIRONE HCL 5 MG TABLET 7.5 MG PO ×2 (09:17→13:08)
[2024-10-02] MEDS: MINOCYCLINE HCL 100 MG PO (09:17)
[2024-10-02] MEDS: ASPIRIN EC 81MG TABLET 81 MG PO (09:18)
[2024-10-02] MEDS: CARVEDILOL 12.5MG TABLET 12.5 MG PO (09:23)
[2024-10-02] MEDS: humaLOG MIX 75/25 3ML FLEXPEN 25 UNIT SUBCUT (09:23)
[2024-10-02 09:55] LABS: POC Glucose,Bedside 310 (70-110)
[2024-10-02] MEDS: POTASSIUM CHLORIDE 20MEQ TAB 40 MEQ PO ×2 (10:19→13:07)
[2024-10-02 11:31] VITALS: BP 121/71; PULSE 85; RESP 17; TEMP 36.4; O2SAT 97
[2024-10-02 12:00] VITALS: PULSE 90
[2024-10-02 12:38] LABS: POC Glucose,Bedside 334 (70-110)
[2024-10-02] MEDS: humaLOG 100 UNITS/ML 10ML VIAL (SSI) SUBCUT (12:48)
[2024-10-02 14:58] LABS: Chloride 95 mmol/L (98-107); Potassium 3.3 mmoL/L (3.5-5.1); Sodium 134 mmol/L (136-145)
[2024-10-02 15:01] LABS: Anion Gap 10.3 mEq/L (5-15); Blood Urea Nitrogen 33 mg/dl (7-17); Calcium 8.4 mg/dl (8.4-10.2); Carbon Dioxide 32 mmol/L (22.0-30.0); Creatinine Clearance Estimated 67 mL/min (50-200); Estimated Glomerular Filt Rate 42 ml/min (>60); GFR (African American) 51 ML/MIN (>60); Glucose 194 mg/dl (74-100); Magnesium 2.1 mg/dl (1.6-2.3)
--- NOTE | 2024-10-04 10:25 | SW/DCPLANNER ---
Spoke with patient on the phone. Patient stated that she is doing very well. Patient stated that she was able to get her medicine picked up at [facility] and that she is aware of her upcoming appointments. Patient stated that she has no concerns or questions at this time. Aure Calhoun
== END 2024-10-02 15:45 | disposition home or self-care (01) ==
LOC: ER 11:41 → 2ND 15:16
PROVIDERS: Physician Assistant; Admitting Provider Internal Medicine Adolescent Medicine; Emergency Provider Student in an Organized Health Care Education/Training Program; PCP Physician Assistant; Visit Provider Internal Medicine Adolescent Medicine
DX: N17.9 Acute kidney failure, unspecified (principal); N18.9 Chronic kidney disease, unspecified; E87.6 Hypokalemia; E83.42 Hypomagnesemia; I13.0 Hypertensive heart and chronic kidney disease with heart failure and stage 1 through stage 4 chronic kidney disease, or unspecified chronic kidney disease; E78.5 Hyperlipidemia, unspecified; I25.118 Atherosclerotic heart disease of native coronary artery with other forms of angina pectoris; E11.22 Type 2 diabetes mellitus with diabetic chronic kidney disease; Z79.4 Long term (current) use of insulin; Z79.85 Long-term (current) use of injectable non-insulin antidiabetic drugs; Z79.899 Other long term (current) drug therapy; E55.9 Vitamin D deficiency, unspecified; I50.30 Unspecified diastolic (congestive) heart failure
CPT/HCPCS: 36415; 80048; 80053; 82962; 83735; 85025; 86803; 87389; 87507; 87636; 87807; 93005; 99285; G0378; J3475; J3480; J7030

== ENCOUNTER 2024-10-10 17:36 | Outpatient (CLI) | payer BC, SELFPAY ==
[2024-10-10 18:11] LABS: Albumin Level 4.2 g/dl (3.5-5.0); Chloride 100 mmol/L (98-107); Sodium 139 mmol/L (136-145)
[2024-10-10 18:12] LABS: Potassium 4.1 mmoL/L (3.5-5.1)
[2024-10-10 18:14] LABS: Alanine Aminotransferase 87 U/L (12-78); Albumin/Globulin Ratio 1.5 (1.1-1.8); Alkaline Phosphatase 108 U/L (38-126); Anion Gap 15.1 mEq/L (5-15); Aspartate Amino Transferase 78 U/L (14-36); Bilirubin,Total 0.6 mg/dl (0.2-1.3); Blood Urea Nitrogen 20 mg/dl (7-17); Carbon Dioxide 28 mmol/L (22.0-30.0); Estimated Glomerular Filt Rate 51 ml/min (>60); GFR (African American) 62 ML/MIN (>60); Globulin 2.8 g/dL (1.3-3.2)
[2024-10-10 18:15] LABS: Calcium 9.1 mg/dl (8.4-10.2); Glucose 193 mg/dl (74-100); Magnesium 1.3 mg/dl (1.6-2.3)
== END 2024-10-10 23:59 | disposition home or self-care (01) ==
LOC: LAB 17:37
PROVIDERS: PCP Physician Assistant; Visit Provider Internal Medicine Adolescent Medicine
DX: E87.6 Hypokalemia (principal)
CPT/HCPCS: 80053; 83735

== ENCOUNTER 2024-11-17 09:23 | Outpatient (CLI) | payer BC, SELFPAY ==
[2024-11-17 10:25] LABS: Albumin Level 3.8 g/dl (3.5-5.0); Chloride 105 mmol/L (98-107); Potassium 4.2 mmoL/L (3.5-5.1); Sodium 142 mmol/L (136-145)
[2024-11-17 10:28] LABS: Alanine Aminotransferase 65 U/L (12-78); Albumin/Globulin Ratio 1.7 (1.1-1.8); Alkaline Phosphatase 122 U/L (38-126); Anion Gap 12.2 mEq/L (5-15); Aspartate Amino Transferase 51 U/L (14-36); Bilirubin,Total 0.4 mg/dl (0.2-1.3); Blood Urea Nitrogen 20 mg/dl (7-17); Calcium 9.2 mg/dl (8.4-10.2); Carbon Dioxide 29 mmol/L (22.0-30.0); Estimated Glomerular Filt Rate 46 ml/min (>60); GFR (African American) 56 ML/MIN (>60); Globulin 2.2 g/dL (1.3-3.2); Glucose 163 mg/dl (74-100)
[2024-11-17 10:47] LABS: Hemoglobin A1C 7.1 % (4.0-6.0)
== END 2024-11-17 23:59 | disposition home or self-care (01) ==
LOC: LAB 09:24
PROVIDERS: PCP Physician Assistant; Visit Provider Physician Assistant
DX: E11.9 Type 2 diabetes mellitus without complications (principal); E87.8 Other disorders of electrolyte and fluid balance, not elsewhere classified
CPT/HCPCS: 36415; 80053; 83036

== ENCOUNTER 2024-11-26 16:46 | Emergency (ER) | payer BC, SELFPAY ==
[2024-11-26 17:06] VITALS: BP 149/87; PULSE 94; RESP 18; TEMP 36.8; O2SAT 100; BMI 33.0
--- NOTE | 2024-11-26 17:11 | XR_ITS ---
PROCEDURE INFORMATION: Exam: XR Right Knee Exam date and time: 11/26/2024 6:47 PM Age: 59 years old Clinical indication: Injury or trauma; Other: Twisted knee TECHNIQUE: Imaging protocol: Radiologic exam of the right knee. Views: 3 views. Total images: 3 COMPARISON: CR ANKCMRT XR ankle RT min 3V 02/06/2019 6:04 PM FINDINGS: Bones/joints: No acute fracture, joint dislocation, or joint effusion. Patellar enthesophyte at the quadriceps and patellar tendon insertions. No concerning bone lesions or calcifications. Age-appropriate joint spaces. No significant degenerative arthropathy. Soft tissues: Mild soft tissue swelling anterior to the proximal tibia. IMPRESSION: 1. No acute osseous abnormality or joint effusion. 2. Mild soft tissue swelling anterior to the proximal tibia.
--- NOTE | 2024-11-26 20:09 | PC.NURSE ---
pt ambulatory from lobby to room 14
[2024-11-26 20:55] VITALS: BP 137/84; PULSE 102; O2SAT 98
--- NOTE | 2024-11-26 21:09 | HMH.EDGENADL ---
Discharge Plan Disposition Patient Disposition: Home, Self-Care Condition: Good Prescriptions Prescriptions: No Action Repatha SureClick 140 mg/mL pen injector 140 mg SQ Q2W Qty: 3 2RF menthol-zinc oxide [CalProtect] 0.44-20.6 % ointment topical Patient Comments: APPLY PEA SIZED AMOUNT THREE TIMES A DAY Mounjaro 12.5 mg/0.5 mL pen injector 12.5 mg SQ QWEEK Patient Comments: INJECT 1 SYRINGE SUBCUTANEOUSLY ONCE A WEEK furosemide 80 mg tablet 80 mg PO BID Qty: 180 2RF losartan 50 mg tablet 50 mg PO DAILY Qty: 90 3RF Patient Comments: not taking due to illness (DME) Dexcom G7 Sensor Device See Rx Instructions .ROUTE .COMPLEX Qty: 9 3RF Dose Instruction: USE DIRECTED Rx Instructions: USE DIRECTED (DME) pen needle, diabetic [BD Verónica 2nd Gen Pen Needle] 32 gauge x 5/32 needle See Rx Instructions .ROUTE .COMPLEX Qty: 100 12RF Dose Instruction: USE DIRECTED Rx Instructions: USE DIRECTED (DME) ReliOn Prime Test Strips Strip See Rx Instructions .ROUTE .COMPLEX Qty: 100 0RF Dose Instruction: USE 1 STRIP TO CHECK GLUCOSE TWICE DAILY Rx Instructions: USE 1 STRIP TO CHECK GLUCOSE TWICE DAILY dapagliflozin propanediol [Farxiga] 10 mg tablet 10 mg PO DAILY minocycline 100 mg capsule 100 mg PO BID glipizide 10 mg tablet extended release 24hr 10 mg PO BID nitroglycerin 0.4 mg tablet, sublingual 0.4 mg sublingual Q5MINP PRN (Reason: chest pain) Rx Instructions: do not exceed 3 doses per episode buspirone 7.5 mg tablet 7.5 mg PO TID ergocalciferol (vitamin D2) 1,250 mcg (50,000 unit) capsule 1,250 mcg PO WEEKLY cholecalciferol (vitamin D3) 25 mcg (1,000 unit) capsule 25 mcg PO DAILY Mounjaro 7.5 mg/0.5 mL pen injector 7.5 mg SQ WEEKLY Patient Comments: taken last tuesday omeprazole 40 mg capsule,delayed release(DR/EC) 40 mg PO DAILY aspirin 81 mg tablet,delayed release (DR/EC) 81 mg PO DAILY metformin 1,000 mg tablet 1,000 mg PO BID loratadine [Allergy Relief (loratadine)] 10 mg tablet 10 mg PO DAILY Probiotic 100 billion cell Capsule 1 cap PO DAILY insulin lispro protamin-lispro [Humalog Mix 75-25 KwikPen] 100 unit/mL (75-25) insulin pen 28 unit SQ BID 30 Days Qty: 0 0RF carvedilol 12.5 mg Tablet 12.5 mg PO BID 30 Days Qty: 60 0RF potassium chloride [Klor-Con M20] 20 mEq Tablet,Er Particles/Crystals 20 meq PO TID 30 Days Qty: 90 0RF magnesium oxide 400 mg magnesium tablet 400 mg PO BID Qty: 60 0RF Referrals Follow up/Referrals: Mara Mike PA [Primary Care Provider] - See instructions Thanh Mcdowell DO [Staff Physician] - See instructions Activity Restrictions/Add. Instructions Additional Instructions/Restrictions: You were evaluated in the emergency department today. Please call Dr. Mcdowell right away to schedule an appointment for follow-up. Use your knee based for support. Use crutches as needed to help offload weight. Take Tylenol and ibuprofen every 4-6 hours at home as needed for pain. Keep your leg elevated to reduce pain and swelling. Ice to help reduce pain and swelling. Clinical Impressions Clinical Impression: Injury of knee, right, Effusion of right knee Instructions Patient Instructions: DI for Knee Effusion, DI for Knee Pain Print Language Print Language: French Discharge ED Provider: Marie Garcia General Adult HPI General Chief complaint: Extremity Injury, Lower Stated complaint: Twisted right knee 9 days ago Time Seen by Provider: 11/26/24 20:22 Mode of Arrival: Ambulatory Source of Information: Patient Limitations: No Limitations Description of Symptoms (Recalled from ER Triage Doc. by RN): c/o right knee twisted approx 9 days ago. Left knee she had surgery and trying to baby that knee when she twisted and hurt her right knee. History of Present Illness HPI narrative: This patient is a 59-year-old female who has a history of left knee problems presenting with concern for right knee injury. Patient states that she twisted her knee approximately 9 days ago and has felt pain since, feeling instability popping and locking whenever she walks. She has pain along the medial joint line. She still ambulatory and able to bear weight. No numbness, tingling, or other concerns. She has otherwise been well. Related Data Home Medications ?Medication ?Instructions ?Recorded ?Confirmed aspirin 81 mg tablet,delayed 81 mg PO DAILY 05/09/24 10/11/24 release loratadine 10 mg tablet (Allergy 10 mg PO DAILY 05/09/24 10/11/24 Relief (loratadine)) metformin 1,000 mg tablet 1,000 mg PO BID 05/09/24 10/11/24 omeprazole 40 mg capsule,delayed 40 mg PO DAILY 05/09/24 10/11/24 release Lactobacillus 40-Bifidobact 1 cap PO DAILY 08/06/24 10/11/24 3-S.thermophilus 100 billion cell capsule (Probiotic) buspirone 7.5 mg tablet 7.5 mg PO TID 09/24/24 10/11/24 cholecalciferol (vitamin D3) 25 25 mcg PO DAILY 09/24/24 10/11/24 mcg (1,000 unit) capsule dapagliflozin propanediol 10 mg 10 mg PO DAILY 09/24/24 10/11/24 tablet (Farxiga) ergocalciferol (vitamin D2) 1,250 1,250 mcg PO WEEKLY 09/24/24 10/11/24 mcg (50,000 unit) capsule glipizide 10 mg tablet, extended 10 mg PO BID 09/24/24 10/11/24 release 24 hr minocycline 100 mg capsule 100 mg PO BID 09/24/24 10/11/24 nitroglycerin 0.4 mg sublingual 0.4 mg sublingual Q5MINP PRN chest 09/24/24 10/11/24 tablet pain tirzepatide 7.5 mg/0.5 mL 7.5 mg SQ WEEKLY 09/24/24 10/11/24 subcutaneous pen injector (Mounjaro) menthol 0.44 %-zinc oxide 20.6 % topical 10/11/24 10/11/24 topical ointment (CalProtect) tirzepatide 12.5 mg/0.5 mL 12.5 mg SQ QWEEK 10/11/24 10/11/24 subcutaneous pen injector (Mounjaro) Previous Rx's ?Medication ?Instructions ?Recorded losartan 50 mg tablet 50 mg PO DAILY #90 tabs 02/06/24 blood-glucose sensor (Dexcom G7 #9 ea 04/28/24 Sensor device) pen needle, diabetic 32 gauge x #100 ea 08/26/24 5/32 (BD Verónica 2nd Gen Pen Needle) blood sugar diagnostic (ReliOn #100 ea 06/20/24 Prime Test Strips) evolocumab 140 mg/mL subcutaneous 140 mg SQ Q2W #3 mL 07/26/24 pen injector (Sonia Romoick) carvedilol 12.5 mg tablet 12.5 mg PO BID 30 days #60 tabs 10/02/24 insulin lispro protamine-lispro 28 unit (0.28 mL) SQ BID 30 days 10/02/24 100 unit/mL (75-25) subcutaneous #0 mL pen (Humalog Mix 75-25 KwikPen) magnesium oxide 400 mg PO BID #60 tabs 10/02/24 potassium chloride 20 mEq 20 meq PO TID 30 days #90 tabs 10/02/24 tablet,extended release(part/cryst) (Klor-Con M) furosemide 80 mg tablet 80 mg PO BID #180 tabs 10/12/24 Allergies Allergy/AdvReac Type Severity Reaction Status Date / Time acetaminophen (From Lortab) Allergy Severe Swelling Verified 10/11/24 15:18 oral / throat hydrocodone (HYDROCODONE) Allergy Severe S-SWELLS-OR Verified 10/11/24 15:18 AL/THROAT cefaclor (From CECLOR) Allergy Unknown S-SWELLS-OR Verified 10/11/24 15:18 AL/THROAT celecoxib (From CELEBREX) Allergy Unknown S-SWELLS-OR Verified 10/11/24 15:18 AL/THROAT meperidine (From DEMEROL) Allergy Unknown S-SWELLS-OR Verified 10/11/24 15:18 AL/THROAT isosorbide AdvReac Intermediate GUTIÉRREZ Verified 10/11/24 15:18 atorvastatin AdvReac Mild myalgia Verified 10/11/24 15:18 pravastatin AdvReac Mild myalgia Verified 10/11/24 15:18 rosuvastatin (From Crestor) AdvReac Mild myalgia Verified 10/11/24 15:18 ranolazine (From Ranexa) AdvReac Dizziness Verified 10/11/24 15:18 Lqyseph-DVF-HnC Reductase AdvReac Muscle Pain Verified 10/11/24 15:18 Inhibitor (Idhxlko-Ouk-Ecw Reductase Inhibitor) PFSH PFS Disclaimer: The information contained in this section may have been updated after the patient was seen, as this information can be updated by other users. Medical History Hypokalemia Unstable angina Abnormal findings on diagnostic imaging of heart and coronary circulation Atypical angina Abnormal electrocardiography Metatarsalgia of both feet Injury of left foot Ground glass opacity present on imaging of lung Dyspnea on exertion Lung nodule Family history of lung cancer Stopped smoking with greater than 30 pack year history Mediastinal lymphadenopathy Mild intermittent asthma RBBB Dizziness Typical angina Palpitations CAD (coronary artery disease) Chest pain Dyspnea Thyroid goiter Vitamin D deficiency Anxiety Right shoulder pain BMI 36.0-36.9,adult Surgical History Status post arthroscopy of left knee History of bladder suspension procedure History of tonsillectomy Family History Other Cancer Coronary artery disease Diabetes Social History Smoking Status: Never smoker how long ago did patient quit smokin alcohol intake: never substance use type: denies use current occupational status: employed Travel in the last 8 weeks: None household members: spouse housing: house current occupational exposures/hazards: No caffeine: Yes Have you lived/traveled outside US in past 30 days?: No Contact w/someone who lives/traveled outside US past 30 days?: No Exposure to someone with infectious disease in past 14 days?: No Do you have a fever (greater than 100.4 F or 38 C)?: No Have you tested positive for COVID-19: No Exposed to someone with COVID-19 in past 14 days?: No Do you have a sore throat?: No Do you have a cough?: No Do you have any weakness?: No Do you have any diarrhea?: No Are you experiencing any unusual bleeding?: No Do you have any muscle aches/pain?: No Do you have any abdominal pain?: No Are you experiencing loss of taste or smell?: No Other Medical History Have you received the Flu Vaccine for this season: No Have you received the Pneumonia Vaccine: No ROS Obtained: Yes All systems reviewed & no additional complaints except as documented Physical Exam General General appearance: alert and in no apparent distress Head Head exam: atraumatic and normocephalic Eye Eye exam: Present normal appearance, PERRL and EOMI ENT ENT exam: Present normal exam, normal oropharynx, mucous membranes moist and normal external ear exam Neck Neck exam: Present normal inspection, full ROM and trachea midline; Absent tenderness Chest Chest inspection: Present normal inspection and symmetric chest wall rise; Absent tenderness Respiratory Respiratory exam: Present normal lung sounds bilaterally; Absent respiratory distress, wheezes, stridor or accessory muscle use Cardiovascular Cardiovascular exam: Present regular rate and normal rhythm Abdominal Exam Abdominal exam: Present soft; Absent distention, tenderness or guarding Extremities Exam Extremities exam: Present tenderness, normal capillary refill, joint swelling and other (Right knee effusion with tenderness palpation over the medial joint line. All compartments soft. Neurovascularly intact distally); Absent edema Back Exam Back exam: Present normal inspection and full ROM; Absent tenderness Neurological Exam Neurological exam: Present alert, oriented X3, CN II-XII intact and normal gait; Absent motor sensory deficit Psychiatric Psychiatric exam: Present normal affect and normal mood Skin Skin exam: Present warm and dry Medical Decision Making Medical Records Medical records reviewed: Yes I reviewed the patient's medical records. Screening: Per USPSTF and CDC recommendations, given the prevalence of disease in our region, it is our hospital?s policy to screen for HIV and viral Hepatitis for all patients aged 18 and over and those with ongoing risk factors. Angel Inquiry Pt receiving controlled substance: No Vital Signs: 11/26/24 17:06 11/26/24 20:55 Temperature 98.2 F Temperature Source Oral Pulse Rate 102 H Pulse Rate [Left Radial] 94 H Respiratory Rate 18 Blood Pressure 137/84 Blood Pressure [Right Arm] 149/87 H Blood Pressure Mean [Right Arm] 107 Blood Pressure Position Sitting 02 Sat by Pulse Oximetry 100 98 Oxygen Delivery Method Room Air Lab Data Lab results reviewed: Yes I reviewed the patient's lab results. Orders (Tests/Meds): ORDERS Category Date Time Status Knee XR right 3 views [XR knee RT 3V] Stat Exams 11/26/24 17:11 Completed Medical Decision Narrative: In summary, this patient is a 59-year-old female presenting to the Emergency Department for evaluation of right knee pain after an injury 9 days ago. Differential diagnoses considered include but are not limited fracture, contusion, strain/sprain, cartilage injury, ligamentous injury. Ruling out the most morbid conditions drove assessment. It should be noted patient's history includes diabetes, CAD, hypertension which may or may not be at goal therapy. This complicates all aspects of care by increasing patient's risk for morbidity. I reviewed patient's past medical records and noted previous orthopedic evaluations for her left knee issues as well as prior cardiology evaluation. On exam, the patient has right knee effusion with tenderness palpation over the medial joint line. All compartments soft, she is neurovascularly intact. Workup included x-rays of the right knee. I independently interpreted x-ray prior to the radiologist read and noted no acute fracture. Please see their read for final interpretation. At this time, I feel patient is appropriate for discharge home with close follow-up with orthopedics for further evaluation and management, she may benefit from knee MRI at their discretion for evaluation with concern for possible ligamentous/cartilaginous injury. She was given brace for support, instructions for close follow-up, and she states she already has crutches at home. Strict return precautions were given and she was discharged after all questions were answered. Critical Care Critical Care Time Critical Care Time: No
[2024-11-26 21:13] VITALS: BP 137/84; PULSE 62; RESP 18; TEMP 36.8; O2SAT 97
== END 2024-11-26 21:13 | disposition home or self-care (01) ==
PROVIDERS: Emergency Provider Emergency Medicine; PCP Physician Assistant
DX: M25.461 Effusion, right knee (principal); M25.561 Pain in right knee; S89.91XA Unspecified injury of right lower leg, initial encounter; X58.XXXA Exposure to other specified factors, initial encounter; Y93.9 Activity, unspecified
CPT/HCPCS: 73562; 99283

== ENCOUNTER 2024-12-10 16:49 | Outpatient (CLI) | payer BC, SELFPAY ==
--- NOTE | 2024-12-10 16:57 | XR_ITS ---
PROCEDURE INFORMATION: Exam: XR Right Knee Exam date and time: 12/10/2024 4:59 PM Age: 59 years old Clinical indication: Injury to right knee x 1 week, lateral side knee pain; Additional info: RT knee pain TECHNIQUE: Imaging protocol: Radiologic exam of the right knee. Views: 3 views. COMPARISON: CR XR KNEE RT 3V 11/26/2024 6:47 PM FINDINGS: Bones/joints: Mild tricompartmental joint space narrowing and osteophyte formation consistent with degenerative changes. There is no evidence of acute fracture.There is no evidence of malalignment or dislocation. Soft tissues: Normal. IMPRESSION: 1. Mild tricompartmental joint space narrowing and osteophyte formation consistent with degenerative changes. 2. There is no evidence of acute fracture.There is no evidence of malalignment or dislocation.
== END 2024-12-10 23:59 | disposition home or self-care (01) ==
LOC: RAD 16:50
PROVIDERS: PCP Physician Assistant; Visit Provider Orthopaedic Surgery
DX: M25.561 Pain in right knee (principal); M23.91 Unspecified internal derangement of right knee
CPT/HCPCS: 73562

== ENCOUNTER 2024-12-19 14:13 | Outpatient (CLI) | payer BC, SELFPAY ==
--- NOTE | 2024-12-19 14:17 | MR_ITS ---
FINAL REPORT TECHNIQUE: Multiplanar MR without contrast CLINICAL HISTORY: Rt Knee Pain COMPARISON: None FINDINGS: Articular cartilage: There is mild diffuse thinning of the articular cartilage. Marrow signal: Unremarkable Joint fluid: A small joint effusion is present. There is a small Penaloza's cyst, that is partially ruptured and contains debris and/or filling defect measuring up to 6 mm in size. Menisci: There is a small radial tear of the posterior horn of the medial meniscus. The lateral meniscus is intact. Ligaments: Unremarkable Tendons: Quadriceps and patellar tendon unremarkable IMPRESSION: Small radial tear of the posterior horn of the medial meniscus. Partially ruptured Penaloza's cyst, with debris as described. Reviewed, Interpreted and Dictated by Dano Ko MD Transcribed by Kala Murphy Authenticated and [facility]
== END 2024-12-19 23:59 | disposition home or self-care (01) ==
LOC: RAD 14:14
PROVIDERS: PCP Physician Assistant; Visit Provider Orthopaedic Surgery
DX: M25.561 Pain in right knee (principal); S89.91XA Unspecified injury of right lower leg, initial encounter
CPT/HCPCS: 73721

== ENCOUNTER 2025-01-08 15:34 | Outpatient (CLI) | payer BC, SELFPAY ==
[2025-01-08 16:07] LABS: Basophils % 0.3 % (0.1-2.0); Eosinophils # 0.2 K/mm3 (0.0-0.4); Eosinophils % 1.6 % (0.1-12.0); Hematocrit 37.9 % (37.0-47.0); Hemoglobin 12.1 g/dL (12.2-16.2); Lymphocytes # 1.7 K/mm3 (0.7-4.5); Mean Corpuscular HGB Conc 31.9 g/dL (31.8-35.4); Mean Corpuscular Hemoglobin 26.4 pg (27.0-31.2); Mean Corpuscular Volume 82.8 fl (81-99); Mean Platelet Volume 10.5 fl (7.4-10.4); Monocytes # 0.6 K/mm3 (0.1-1.0); Monocytes % 5.9 % (1.7-9.3); Neutrophils # 7.5 K/mm3 (1.8-7.8); Neutrophils % 74.7 % (37.0-80.0); Platelet Count 279 K/mm3 (142-424); Red Blood Count 4.58 M/mm3 (4.20-5.40); Red Cell Distribution Width 15.6 % (11.5-17.5); White Blood Count 10.1 K/mm3 (4.8-10.8)
[2025-01-08 16:46] LABS: Alanine Aminotransferase 73 U/L (12-78); Albumin Level 4.1 g/dl (3.5-5.0); Alkaline Phosphatase 151 U/L (38-126); Anion Gap 18.6 mEq/L (5-15); Aspartate Amino Transferase 72 U/L (14-36); Bilirubin,Direct 0.5 mg/dl (0.0-0.4); Bilirubin,Indirect 0.3 mg/dL (0.0-0.9); Bilirubin,Total 0.8 mg/dl (0.2-1.3); Bilirubin,Unconjugated 0.3 mg/dL (0.0-1.1); Blood Urea Nitrogen 29 mg/dl (7-17); Carbon Dioxide 27 mmol/L (22.0-30.0); Chloride 95 mmol/L (98-107); Cholesterol 159 mg/dl (140-200); Estimated Glomerular Filt Rate 38 ml/min (>60); GFR (African American) 47 ML/MIN (>60); Glucose 164 mg/dl (74-100); HDL Cholesterol 40 mg/dl (40-60); Potassium 3.6 mmoL/L (3.5-5.1); Sodium 137 mmol/L (136-145); Total Protein,Serum 7.1 g/dl (6.3-8.2)
[2025-01-08 16:57] LABS: Direct LDL Cholesterol 32.98 mg/dL (100-129)
[2025-01-08 17:01] LABS: Free T4 (Free Thyroxine) 1.81 ng/dl (0.78-2.19)
[2025-01-08 17:03] LABS: Triglycerides 697 mg/dl (30-150)
[2025-01-08 17:16] LABS: Thyroid Stimulating Hormone 0.05 uIU/mL (0.465-4.68)
== END 2025-01-08 23:59 | disposition home or self-care (01) ==
LOC: LAB 15:35
PROVIDERS: PCP Physician Assistant; Visit Provider Internal Medicine
DX: Z01.810 Encounter for preprocedural cardiovascular examination (principal); R53.1 Weakness; E11.69 Type 2 diabetes mellitus with other specified complication; E66.9 Obesity, unspecified; E78.2 Mixed hyperlipidemia; I11.9 Hypertensive heart disease without heart failure
CPT/HCPCS: 36415; 80048; 80061; 80076; 84439; 84443; 85025

== ENCOUNTER 2025-01-09 13:07 | Outpatient (CLI) | payer BC, SELFPAY | END 2025-01-09 23:59 | disposition home or self-care (01) | LOC: PREOP 13:07 | PROVIDERS: PCP Physician Assistant; Visit Provider Orthopaedic Surgery | DX: R69 Illness, unspecified (principal) ==

== ENCOUNTER 2025-01-15 13:03 | Outpatient (CLI) | payer BC, SELFPAY ==
--- NOTE | 2025-01-15 13:05 | CA_ITS ---
APPROVED REPORT EXAM: Comprehensive 2D, Doppler, and color-flow Echocardiogram Director Of [employer]: Violeta Wilson RVT Ht: 5 ft 6 in Wt: 204lbs BSA: 2.02 BP: 151/83 mmHg Indications: PRE-OP,CAD,ABN EKG,HTN,CP,DM,HLD 2D Dimensions IVSd 1.58 cm F: 0.6-1.0 LVEF (Visual) 70.80 % PWd 1.09 cm F: 0.6 - 1.0 LA Volume 44.70 mL LVDd 4.15 cm F: 3.9 - 5.3 LA Volume Index 22.13 mL/m2 (M/F) 16-34 LVDs 2.50 cm F: 2.2 - 3.5 M-Mode Dimensions LA Diam 3.60 cm (1.9-4.0) TAPSE 2.26 (<1.7) LV Diastology E Decel Time 227 (160-240 msec) E/A Ratio 0.7 Aortic Valve SIMA Index 1.71 cm2/m2 AoV Peak Robert. 209.0 (50-130 cm/s) AO Peak GR. 17.40 mmHg AO Mean GR. 8.70 (<5 mmHg) AO VTI 36.0 (18-25 cm) SIMA (VTI) 3.55 (2.5-4.5 cm2) Mitral Valve MV E Max Robert. 73.0 (40-130 cm/s) MV A Velocity 107.0 (40-130 cm/s) E/A Ratio 0.69 MV PHT 66.0 ms Pulmonary Valve PV Peak Velocity 114.0 (50-150 cm/s) Tricuspid Valve TR P. Velocity 192.00 cm/s RAP Estimate 10.00 mmHg RVSP 24.80 mmHg Left Ventricle The left ventricle is normal size. The left ventricular systolic function is normal. The left ventricular ejection fraction is within the normal range. There is increased LV wall thickness. There is normal LV segmental wall motion. Transmitral Doppler flow pattern suggests impaired LV relaxation. LVEF is 60%. Right Ventricle The right ventricle is normal size. The right ventricular systolic function is normal. Atria The left atrium size is normal. The right atrium size is normal. There is no Doppler evidence of interatrial shunt. Valve is mildly thickened. Trace aortic regurgitation. Aortic Valve There is no aortic valvular stenosis. Mitral Valve The mitral valve is normal in structure. No evidence of mitral valve stenosis. Trace mitral regurgitation. Tricuspid Valve Tricuspid valve is grossly normal in structure and function. Trace tricuspid rotation. There is insufficient TR jet to estimate RVSP. Pulmonic Valve The pulmonary valve is normal in structure. Trace pulmonic regurgitation. Great Vessels The aortic root is normal in size. IVC is normal in size and collapses >50% with inspiration. Pericardium There is no pericardial effusion. Other Information Study Quality: Fair Conclusion Normal biventricular systolic function. No significant valvular stenosis or regurgitation. Electronically signed by : Jacqueline Ohara MD 01/15/2025 14:19:40
== END 2025-01-15 23:59 | disposition home or self-care (01) ==
LOC: RT 13:03
PROVIDERS: PCP Physician Assistant; Visit Provider Internal Medicine
DX: Z01.810 Encounter for preprocedural cardiovascular examination (principal); I10 Essential (primary) hypertension; S83.206A Unspecified tear of unspecified meniscus, current injury, right knee, initial encounter
CPT/HCPCS: 93306

== ENCOUNTER 2025-01-21 06:04 | Day surgery (SDC) | payer BC, SELFPAY ==
[2025-01-09 14:33] VITALS: BMI 32.9
--- NOTE | 2025-01-14 10:40 | SUR.PREOP ---
Called cardiology to check on status of ECHO/Clearance. States ECHO is still pending insurance approval. They are to check with billing and update on status when known. [id number] - Return call from cardiology states ECHO still pending and may take up to 2 weeks for approval. Dia in Dr. Mcdowell's office notified, She will speak w/ Dr. Mcdowell. Procedure to possibly be postponed pending ECHO and clearance.
[2025-01-21] VITALS (9 sets, daily range): BP systolic 93–159; BP diastolic 48–98; PULSE 80–100; RESP 16–20; TEMP 36.1–36.8; O2SAT 99–100
[2025-01-21 06:40] LABS: POC Glucose,Bedside 167 (70-110)
[2025-01-21] MEDS: LACTATED RINGERS 1000ML 1,000 ML 100 ML IV (07:09)
[2025-01-21] MEDS: CLINDAMYCIN PHOSPHATE/D5W 900 MG/50 ML PIGGYBACK 100 MG IV (07:40)
--- NOTE | 2025-01-21 08:07 | P.PNANES_ITS ---
[facility] Disclaimer: The information contained in this section may have been updated after the patient was seen, as this information can be updated by other users. Medical History Encounter for pre-operative cardiovascular clearance Hypokalemia Unstable angina Abnormal findings on diagnostic imaging of heart and coronary circulation Atypical angina Abnormal electrocardiography Metatarsalgia of both feet Injury of left foot Ground glass opacity present on imaging of lung Dyspnea on exertion Lung nodule Family history of lung cancer Stopped smoking with greater than 30 pack year history Mediastinal lymphadenopathy Mild intermittent asthma RBBB Dizziness Typical angina Palpitations CAD (coronary artery disease) Chest pain Dyspnea Thyroid goiter Vitamin D deficiency Anxiety Right shoulder pain BMI 36.0-36.9,adult Surgical History Status post arthroscopy of left knee History of bladder suspension procedure History of tonsillectomy Family History Other Cancer Coronary artery disease Diabetes Social History (Updated 01/21/25 @ 06:20 by Christine Pond RN) Smoking Status: Former smoker tobacco type: cigarettes packs per day: 1 how long ago did patient quit smokin alcohol intake: never substance use type: denies use current occupational status: employed Travel in the last 8 weeks: None household members: spouse housing: house current occupational exposures/hazards: No caffeine: Yes Have you lived/traveled outside US in past 30 days?: No Contact w/someone who lives/traveled outside US past 30 days?: No Exposure to someone with infectious disease in past 14 days?: No Do you have a fever (greater than 100.4 F or 38 C)?: No Have you tested positive for COVID-19: No Exposed to someone with COVID-19 in past 14 days?: No Do you have a sore throat?: No Do you have a cough?: No Do you have any weakness?: No Are you experiencing any nausea/vomitting?: No Do you have any diarrhea?: No Are you experiencing any unusual bleeding?: No Do you have any muscle aches/pain?: No Do you have any abdominal pain?: No Are you experiencing loss of taste or smell?: No [facility] Anesthesia Checklist Patient Identification Patient Identification: Verbal (Name & ) Structural Data Admitted From: Home Planned Operative Procedure/s: r knee arthro Consent for Planned Operative Procedure(s) Verified: Yes NPO Status Verified Time NPO: 00:00 Additional verifications Anesthesia Reactions: No Hx Blood Transfusions: No Blood Transfusion Reaction: No Airway Assessment Mallampati Score:: Class II C-Spine Mobility Assessed: Yes TMJ Mobility Assessed: Yes Dentition: Good Dentition Neurological Assessment Level of Consciousness: Awake, Alert and Appropriate Anesthesia Plan Anesthesia Risk discussed: Yes Anesthesia Plan: Verified ASA Class: II Anesthesia Type: General w/block Preoperative Comments Pre-Operative Comments: pt requests block due to bad experience w pain for last knee surgery
--- NOTE | 2025-01-21 08:11 | P.OP_ITS ---
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 Right knee marked yes my initials. Underwent a block with anesthesia preoperatively. Then taken to the operating room placed upon operating bed. General anesthesia administered airway secured. Right lower extremity prepped and draped within the knee burrell. Once prepped and draped final operative timeout performed to identify proper patient procedure and extremity. Everyone involved the case agreed. There is no counter indications to beginning. Did receive preoperative antibiotics with clindamycin. Marking pen was used to joanne the bony landmarks of the knee and standard portal sites. Esmarch was used to exsanguinate the extremity pneumatic tourniquet inflated to 250 mmHg. Skin knife was used to incise through standard anterior lateral portal. Blunt with trocar was placed in the patellofemoral joint and then exchanged with a camera. I swept directly into the medial joint line where the anterior medial portal was made with the help of an 18-gauge spinal needle. Diagnostic arthroscopy began the medial joint line there was a macerated complex tear of the posterior horn of the medial meniscus. Given the nature of the tear meniscectomy was indicated so partial meniscectomy was performed with a combination of straight biter and sucker shaver. Once meniscectomy was complete attention was brought to the knee joint suction was placed to remove any debris from the previous ruptured Penaloza's cyst there was grade III chondromalacia of the medial femoral condyle but no loose hugh cartilage. Tendons brought the intercondylar notch the ACL was seen and intact. Tendons brought to the lateral joint line the lateral meniscus is intact lateral cartilage was preserved with only mild softening of the cartilage. Tendons brought back in the patellofemoral joint line the patella tracked midline the trochlea there was areas of grade III chondromalacia the undersurface of the patella. Cameras removed the joint was drained local anesthesia infiltrated the portal sites skin closed with nylon stitch sterile dressing placed from toe to thigh patient waken anesthesia taken recovery in stable condition. Condition: stable Disposition: PACU Complications:: None apparent
[2025-01-21 08:24] LABS: POC Glucose,Bedside 146 (70-110)
--- NOTE | 2025-01-21 09:17 | EXP.ANES.I ---
[facility] Anesthesia Record Part I Anesthesia Record I Intake, IV Amount: 500 Hydration: Adequate Estimated blood loss (mL): 0 Urine output (mL): 0 Blood Products used (#): none Blood Pressure: 93/48 SaO2: 99 Pulse Rate: 80 Airway Patency: Patent Respiratory Rate: 16 Temperature: 97.0 F Patient is:: Drowsy and Nasal O2 Stable to PACU at:: 08:12
--- NOTE | 2025-01-22 10:07 | EXP.ANES.II ---
[facility] Anesthesia Record Part II Anesthesia Record Part II Discharge Time: 08:42 Destination: Surgical Day Care (OP Surgery) PACU nurse assessment reviewed?: Yes Patient Condition:: Good Anesthesia Complications:: None Swallowing reflex intact?: Yes Airway Patency: Patent Cyanosis?: No Blood Pressure: 126/73 SaO2: 100 Respiratory Rate: 18 Pulse Rate: 88 Temperature: 98 F Mental Status: Alert & Oriented Pain level:: 0 Nausea and/or vomitting:: None Intake, IV Amount: 0 Hydration: Adequate
[2025-01-22 10:08] VITALS: BP 126/73; PULSE 88; RESP 18; TEMP 36.6; O2SAT 100
== END 2025-01-21 09:08 | disposition home or self-care (01) ==
PROVIDERS: PCP Physician Assistant; Visit Provider Orthopaedic Surgery
PROC: (CPT 29870; principal; 2025-01-21 07:30)
DX: S83.241A Other tear of medial meniscus, current injury, right knee, initial encounter (principal); S86.811A Strain of other muscle(s) and tendon(s) at lower leg level, right leg, initial encounter; M22.41 Chondromalacia patellae, right knee; M66.0 Rupture of popliteal cyst
CPT/HCPCS: 29881; 82962; 96374; J0736; J1100; J2003; J2250; J2371; J2405; J2704; J3010; J7120

== ENCOUNTER 2025-05-28 13:36 | Outpatient (CLI) | payer BC, SELFPAY ==
--- NOTE | 2025-05-28 13:38 | US_ITS ---
FINAL REPORT TECHNIQUE: Limited sonographic images of the upper right back were obtained. CLINICAL HISTORY: SWELLING MASS LUMP FINDINGS: There is an oval, 15 mm hypoechoic nodule at the area of interest which is avascular. There is a second, hyperechoic nodule measuring 9 mm at the more inferior aspect of the right back which is also hypervascular. There is a third hyperechoic abnormality in the left lower back measuring 20 mm. There is a fourth hyperechoic abnormality in the left lower back measuring 15 mm which is also avascular. IMPRESSION: Four lesions along the back, may represent lipomas. Reviewed, Interpreted and Dictated by Sravani Mancilla MD Transcribed by Paola Hong Authenticated and [facility]
--- OUTSIDE RECORDS SUMMARY | 2025-05-28 13:44 | XMS_ITS | Clinical Summary ---
Author Organization [facility] Address [address] [place] [address] Care Team Providers Care Technical Maintenance Technician Name Role Phone Mara Mike Primary Care Provider [phone] Family History Medical History Relation Name Comments Conversions - Other Father History of thyroid surgery Goiter Father Conversions - Other Mother History of thyroid surgery Graves' disease Mother Relation Name Status Comments Father Mother Social History Tobacco Use Types Packs/Day Years Used Date Smoking Tobacco: Never Assessed Alcohol Use Standard Drinks/Week Comments Yes 0 (1 standard drink = 0.6 oz pure alcohol) Alcoholic Drinks/day: Consumes alcohol weekly Comments Unknown Sex and Gender Information Value Date Recorded Sex Assigned at Female 02/07/2023 2:53 PM EDT Legal Sex Female 8:31 PM EDT Gender Identity Female 02/07/2023 2:53 PM EDT Sexual Orientation Straight 02/07/2023 2: 53 PM EDT Last Filed Vital Signs Vital Sign Reading Time Taken Comments Blood Pressure 138/82 07/11/2019 2:33 PM EDT Pulse 77 07/11/2019 2:33 PM EDT Temperature 37.2 C (98.9 F) 07/11/2019 2:33 PM EDT Respiratory Rate - - Oxygen Saturation - - Inhaled Oxygen Concentration - - Weight 104 kg (228 lb 9.5 oz) 07/11/2019 2:33 PM EDT Height 165.1 cm (5' 5 ) 07/11/2019 2:33 PM EDT Body Mass Index 38.04 07/11/2019 2:33 PM EDT Plan of Treatment Health Maintenance Due Date Last Done Comments [facility]-Depression Screening 1965 [facility]-Infant/Child/Adol SDOH Screenings 1965 [facility]- SDOH Screenings 1983 [facility]-Adult SDOH Screenings 1983 [facility]-Hepatitis B Vaccines (1 of 3 - 19+ 3-dose series) 1984 [facility]-Pap Smear 1986 [facility]-Cervical Cancer Screening 1995 [facility]Y-HPV/Cotest 1995 CT Colonography 2010 Colonoscopy 2010 FIT-DNA 2010 FIT 2010 FOBT 2010 Sigmoidoscopy 2010 [facility]Y-Colorectal Cancer Screening 2010 [facility]Y-Zoster Vaccines (3 of 3) 09/25/2019 07/31/2019, 04/22/2017 [id number] Vaccine ( season) 2024 05/08/2022, 11/05/2020, 10/08/2020 [facility]-Influenza Vaccine (#1) 06/03/202508/19, 09/01/2021, 07/19/2020, Additional history exists [facility]-DTaP,Tdap,and Td Vaccines (2 - Td or Tdap) 07/19/2030 07/19/2020 [facility]Y-Pneumococcal Vaccine: 50+ Years Completed 2022, 04/22/2017, 04/21/2017 HPV Vaccines Aged Out No longer eligi ble based on patient's age to complete this topic [facility]-HIB Vaccines Aged Out No longer e ligible based on patient's age to complete this topic [facility]Y-Hepatitis A Vaccines Aged Out No longer eligible based on patient's age to complete this topic [facility]Y-IPV Vaccines Aged Out No longer e ligible based on patient's age to complete this topic [facility]Y-Rotavirus Vaccines Aged Out No lo nger eligible based on patient's age to complete this topic Insurance ANTHEM Care Teams Technical Maintenance Technician Relationship Specialty Start Date End Date Mara Mike PA [address] [place] [address] PCP - General 02/13/21
--- OUTSIDE RECORDS SUMMARY | 2025-05-28 13:44 | XMS_ITS | Clinical Summary ---
Author Organization [facility] Address [address] [place] [address] Care Team Providers Care Claims Adjustor Name Role Phone Mara Mike Primary Care Provider [phone] Allergies Active Allergy Reactions Criticality Noted Date Comments Cefaclor 03/31/2016 Celecoxib 04/07/2017 Meperidine 03/31/2016 Cephalexin 03/31/2016 Lisinopril-Hydrochlorothiazide 03/31 Hydrocodone-Acetaminophen 03/31/2016 Oxycodone-Acetaminophen 03/31/2016 Tramadol Hcl Hives 04/07/2017 Medications metFORMIN (GLUCOPHAGE) 1000 MG tablet Take 1,000 mg by mouth 2 (two) times a day. Active ALBUTEROL IN Inhale 90 mcg As Needed. Active furosemide (LASIX) 80 MG tablet Take 80 mg by mouth Daily. Active carvedilol (COREG) 25 MG tablet Take 25 mg by mouth 2 (Two) Times a Day. Active esomeprazole (NexIUM) 20 MG capsule Take 20 mg by mouth daily. Active glipizide (GLUCOTROL XL) 10 MG 24 hr tablet Take 10 mg by mouth Daily. 1 6 Active magnesium hydroxide (MILK OF MAGNESIA) 400 MG/5ML suspension Take by mouth Daily As Needed for Constipation. Active aspirin 81 MG EC tablet Take 81 mg by mouth Daily. Active Unable to find 1 (One) Time. Bacillus Coagulans- Digestive Advantage Probio-Pre Active busPIRone (BUSPAR) 7.5 MG tablet Take 7.5 mg by mouth 3 (Three) Times a Day. Active Cholecalciferol (Vitamin D3) 25 MCG (1000 UT) capsule Take 1,000 Units by mouth. Active Dulaglutide 1.5 MG/0.5ML solution pen-injector Inject under the skin into the appropriate area as directed. Active Ergocalciferol (VITAMIN D2 PO) Take by mouth. Active famotidine (PEPCID) 20 MG tablet Take 20 mg by mouth 2 (Two) Times a Day. Active ibuprofen (ADVIL,MOTRIN) 800 MG tablet Take 800 mg by mouth Every 6 (Six) Hours As Needed for Mild Pain. Active insulin lispro protamine-insul in lispro (humaLOG 75-25) (75-25) 100 UNIT/ML suspension injection Inject under the skin into the appropriate area as directed 2 (Two) Times a Day With Meals. Active omeprazole (priLOSEC) 40 MG capsule Take 40 mg by mouth Daily. Active spironolactone (ALDACTONE) 50 MG tablet Take 50 mg by mouth Daily. Active minocycline (MINOCIN,DYNACI N) 100 MG capsule Take 100 mg by mouth 2 (Two) Times a Day. Active Active Problems No known active problems Family History Medical History Relation Name Comments Cancer Father Diabetes Father Heart disease Father Hypertension Father Kidney disease Father Thyroid disease Father Breast cancer Maternal Aunt 1 Breast cancer Maternal Aunt 2 Arthritis Mother Graves' disease Mother Heart disease Mother Hypertension Mother Relation Name Status Comments Father Maternal Aunt 1 Maternal Aunt 2 Mother Social History Tobacco Use Types Packs/Day Years Used Date Smoking Tobacco: Former Cigarettes 0.5 30 1 10/1983 - 08/2014 Smokeless Tobacco: Never Alcohol Use Standard Drinks/Week Comments Yes 0 (1 standard drink = 0.6 oz pur e alcohol) Social Abuse Screen Answer Date Recorded Unsafe at Home or Work/School Not on file Feels Threatened by Someone? Not on file 07/2023 Does Anyone Keep You from Co ntacting Others or Doint Things Outside the Home? Not on file 07/12/2023 Physical Sign of Abuse Present Not on file 1 Housing Stability Answer Date Recorded Current Living Arrangements Not on file 07/03 Potentially Unsafe Housing Conditions Not on rain e 07/12/2023 Family and Community Support Answer Osorio e Recorded Help with Day-to-Day Activities Not on file 07/12/2023 Lonely or Isolated Not on file 07/12/2023 Employment Answer Date Recorded Do you want help finding or keeping work or a jose manuel b? Not on file 07/12/2023 Disabilities Answer Date Recorded Concentrating, Remembering, or Making Decisions Difficulty Not on file 07/12/2023 Doing Errands Independently Difficulty Not on fi le 07/12/2023 Education Answer Date Recorded Help with school or training? Not on file Preferred Language Not on file 07/12/2023 Comments No Sex and Gender Information Value Date Recorded Sex Assigned at Female 05/25/2022 1:58 PM EDT Legal Sex Female 1:50 PM EDT Gender Identity Female 05/25/2022 1:58 PM EDT Sexual Orientation Straight 05/25/2022 1: 58 PM EDT Last Filed Vital Signs Vital Sign Reading Time Taken Comments Blood Pressure 142/74 04/08/2017 11:41 AM EDT Pulse 49 04/08/2017 11:41 AM EDT Temperature 36.2 C (97.1 F) 06/11/2022 2:58 PM EDT Respiratory Rate 18 04/08/2017 11:41 AM EDT Oxygen Saturation 98% 04/08/2017 11:41 AM EDT Inhaled Oxygen Concentration - - Weight 97.3 kg (214 lb 9.6 oz) 06/11/2022 2:58 P M EDT Height 167.6 cm (5' 6 ) 06/11/2022 2:58 PM EDT Body Mass Index 34.64 06/11/2022 2:58 PM EDT Plan of Treatment Health Maintenance Due Date Last Done Comments Annual Gynecologic Pelvic an d Breast Exam 1965 MAMMOGRAM 07/28/2008 07/28/2006 COLOGUARD 2010 COLON CANCER SCREENING 5 YEA R SIGMOIDOSCOPY [address] COLONOGRAPHY 2010 FECAL OCCULT BLOOD TEST 2010 FIT Testing (1 year) 2010 ANNUAL PHYSICAL 02/14/2017 HEPATITIS C SCREENING 02/14/2017 COLONOSCOPY 07/28/2019 07/28/2014 COLORECTAL CANCER SCREENING 07/28/2019 ZOSTER VACCINE (3 of 3) 09/25/2019 07/31/2019, 04/22 Pneumococcal Vaccine 50+ (3 of 3 - PCV20 or PCV21) 04/22/2022 04/22/2017, 04/21/2017 COVID-19 Vaccine (4 - season) 2024 05/08/2022, 11/05/2020, 10/08/2020 INFLUENZA VACCINE 07/03/2025 07/19/2020 TDAP/TD VACCINES (2 - Td or Tdap) 07/19/2030 020 Medical Devices Implanted Type Area Media Liaison Officer Device Identifier Shelf Expiration Date Model / Serial / Lot Mesh Ventralight St Echo Ps Cir 4.5in - [id number] Implanted:Qty: 1 on 04/08/2017 by Boaz Robert MD at [facility] Implant N/A: Umbilical DAVOL (DIV OF [employer]) 09/29/2018 [id number] / / [id number] Insurance PPO Care Teams Claims Adjustor Relationship Specialty Start Date End Date Mara Mike PA PCP - General Physician Croze Machine Operator 05/07/22
== END 2025-05-28 23:59 | disposition home or self-care (01) ==
LOC: RAD 13:36
PROVIDERS: PCP Physician Assistant; Visit Provider Physician Assistant
DX: E07.9 Disorder of thyroid, unspecified (principal)
CPT/HCPCS: 76604

== ENCOUNTER 2025-07-10 15:27 | Outpatient (CLI) | payer BC, SELFPAY ==
[2025-07-10 15:51] LABS: Hematocrit 39.5 % (37.0-47.0); Hemoglobin 12.3 g/dL (12.2-16.2); Immature Granulocytes % 0.4 %; Mean Corpuscular HGB Conc 31.1 g/dL (31.8-35.4); Mean Corpuscular Hemoglobin 25.7 pg (27.0-31.2); Mean Corpuscular Volume 82.6 fl (81-99); Nucleated Red Blood Cells % 0 %; Platelet Count 217 K/mm3 (142-424); Red Blood Count 4.78 M/mm3 (4.20-5.40); Red Cell Distribution Width-SD 47.5 fL; White Blood Count 8.0 K/mm3 (4.8-10.8)
[2025-07-10 17:30] LABS: Alanine Aminotransferase 83 U/L (12-78); Albumin Level 4.1 g/dl (3.5-5.0); Alkaline Phosphatase 253 U/L (38-126); Anion Gap 16.0 mEq/L (5-15); Aspartate Amino Transferase 62 U/L (14-36); Bilirubin,Direct 0.6 mg/dl (0.0-0.4); Bilirubin,Indirect 0.2 mg/dL (0.0-0.9); Bilirubin,Total 0.8 mg/dl (0.2-1.3); Bilirubin,Unconjugated 0.2 mg/dL (0.0-1.1); Blood Urea Nitrogen 34 mg/dl (7-17); Calcium 8.9 mg/dl (8.4-10.2); Carbon Dioxide 27 mmol/L (22.0-30.0); Chloride 95 mmol/L (98-107); Cholesterol 175 mg/dl (140-200); Creatinine,Serum 1.30 mg/dl (0.52-1.04); Estimated Glomerular Filt Rate 42 ml/min (>60); GFR (African American) 51 ML/MIN (>60); Glucose 281 mg/dl (74-100); HDL Cholesterol 36 mg/dl (40-60); Magnesium 1.5 mg/dl (1.6-2.3); Potassium 4.0 mmoL/L (3.5-5.1); Sodium 134 mmol/L (136-145); Total Protein,Serum 6.5 g/dl (6.3-8.2)
[2025-07-10 17:38] LABS: Free T4 (Free Thyroxine) 1.27 ng/dl (0.78-2.19)
[2025-07-10 18:00] LABS: Thyroid Stimulating Hormone 0.07 uIU/mL (0.465-4.68)
[2025-07-10 18:26] LABS: Triglycerides 1077 mg/dl (30-150)
== END 2025-07-10 23:59 | disposition home or self-care (01) ==
LOC: LAB 15:27
PROVIDERS: PCP Physician Assistant; Visit Provider Internal Medicine
DX: I25.10 Atherosclerotic heart disease of native coronary artery without angina pectoris (principal); I73.9 Peripheral vascular disease, unspecified; I10 Essential (primary) hypertension; E78.5 Hyperlipidemia, unspecified
CPT/HCPCS: 36415; 80048; 80061; 80076; 83735; 84439; 84443; 85025

== ENCOUNTER 2025-07-22 15:18 | Outpatient (CLI) | payer BC, SELFPAY ==
--- NOTE | 2025-07-22 15:15 | CA_ITS ---
FINAL REPORT CLINICAL HISTORY: EDEMA,HTN,DM,EX SMOKER FINDINGS: Multiple transverse and longitudinal scans were performed of the femoral popliteal deep venous system, with augmentation and compression maneuvers. Normal phasic flow was noted in the visualized deep venous system. No intraluminal increased echogenicity is noted to suggest thrombus. There is normal compression and augmentation of the venous structures. No abnormal venous collaterals are seen. IMPRESSION: No evidence of deep venous thrombosis of the bilateral lower extremities. Reviewed, Interpreted and Dictated by Dano Ko MD Transcribed by Paola Hong Authenticated and [facility]
== END 2025-07-22 23:59 | disposition home or self-care (01) ==
LOC: RT 15:19
PROVIDERS: PCP Physician Assistant; Visit Provider Internal Medicine
DX: I25.10 Atherosclerotic heart disease of native coronary artery without angina pectoris (principal); I73.9 Peripheral vascular disease, unspecified; I10 Essential (primary) hypertension; E78.5 Hyperlipidemia, unspecified; E11.9 Type 2 diabetes mellitus without complications; R60.9 Edema, unspecified; Z87.891 Personal history of nicotine dependence
CPT/HCPCS: 93970

== ENCOUNTER 2025-07-29 09:37 | Outpatient (CLI) | payer BC, SELFPAY ==
--- OUTSIDE RECORDS SUMMARY | 2025-07-29 09:48 | XMS_ITS | Clinical Summary ---
Author Organization [facility] Address [address] [place] [address] Care Team Providers Care Urologist Md Name Role Phone Mara Mike Primary Care Provider [phone] Family History Medical History Relation Name Comments [...] Date Last Done Comments [facility]-Depression Screening 1965 [facility]-/Child/Adol SDOH Screenings 1965 [facility]- SDOH Screenings 1983 [facility]-Adult SDOH Screenings 1983 [facility]-Hepatitis B Vaccines (1 of 3 - 19+ 3-dose series) 1984 [facility]-Pap Smear 1986 [facility]-Cervical Cancer Screening 1995 [facility]Y-HPV/Cotest 1995 CT Colonography 2010 Colonoscopy 2010 FIT-DNA 2010 FIT 2010 FOBT 2010 Sigmoidoscopy 2010 [facility]Y-Colorectal Cancer Screening 2010 [facility]Y-Zoster Vaccines (3 of 3) 09/25/2019 07/31/2019, 04/22/2017 [id number] Vaccine ( season) 2025 05/08/2022, 11/05/2020, 10/08/2020 [facility]-Influenza Vaccine (#1) 06/03/202508/19, [...] complete this topic Insurance ANTHEM Care Teams Urologist Md Relationship Specialty Start Date End Date Mara Mike PA [address] [place] [address] PCP - General 02/13/21
--- OUTSIDE RECORDS SUMMARY | 2025-07-29 09:48 | XMS_ITS | Clinical Summary ---
Author Organization [facility] Address [address] [place] [address] Care Team Providers Care Instrument Lens Inspector Name Role Phone Mara Mike Primary Care Provider [phone] Allergies Active Allergy Reactions Criticality Noted Date [...] Date Last Done Comments Annual Gynecologic Pelvic and Breast Exam 1965 MAMMOGRAM 07/28/2008 07/28/2006 COLOGUARD [...] - PCV20 or PCV21) 04/22/2022 04/22/2017, 04/21/2017 INFLUENZA VACCINE 05/03/2025 07/19/2020 TDAP/TD VACCINES (2 - Td or Tdap) 07/19/2030 020 Medical Devices Implanted Type Area Cnc Specialist Device Identifier Shelf Expiration Date Model / Serial / Lot Mesh Ventralight St Echo Ps Cir 4.5in - [id number] Implanted:Qty: 1 on 04/08/2017 by Boaz Robert MD at [facility] Implant N/A: Umbilical DAVOL (DIV OF [employer]) 09/29/2018 [id number] / / [id number] Insurance PPO Care Teams Instrument Lens Inspector Relationship Specialty Start Date End Date Mara Mike PA PCP - General Physician District Manager Primary Care Sales 05/07/22
--- NOTE | 2025-07-29 11:15 | CA_ITS ---
FINAL REPORT TECHNIQUE: Graded compression, spectral analysis and ultrasound images of the venous system of the upper extremity were obtained. CLINICAL HISTORY: HX OF DVT IN LEFT ARM 2 YEARS AGO,C/O KNOT LEFT LATERAL DISTAL WRIST AND CUBITAL FOSSA,PT ON ASA FINDINGS: The jugular vein, subclavian vein, axillary vein, brachial vein, cephalic vein and basilic venous system are fully compressible and demonstrate no evidence of thrombosis. There is an ovoid anechoic focus measuring up to 9 mm corresponding to palpable abnormality, may be due to ganglion cyst. IMPRESSION: No evidence of thrombosis of the venous system of the left upper extremity. Possible ganglion cyst at the area of palpable abnormality. Reviewed, Interpreted and Dictated by Valeriano Bowman MD Transcribed by Poornima Beltran Authenticated and [facility]
== END 2025-07-29 23:59 | disposition home or self-care (01) ==
LOC: RT 09:37
PROVIDERS: PCP Physician Assistant; Visit Provider Internal Medicine
DX: I73.9 Peripheral vascular disease, unspecified (principal); R60.9 Edema, unspecified; I25.10 Atherosclerotic heart disease of native coronary artery without angina pectoris; I10 Essential (primary) hypertension; E78.5 Hyperlipidemia, unspecified; R93.89 Abnormal findings on diagnostic imaging of other specified body structures; Z86.718 Personal history of other venous thrombosis and embolism
CPT/HCPCS: 93971

== ENCOUNTER 2025-09-17 07:49 | Outpatient (CLI) | payer BC, SELFPAY ==
--- OUTSIDE RECORDS SUMMARY | 2025-09-17 07:53 | XMS_ITS | Clinical Summary ---
Author Organization [facility] Address [address] [place] [address] Care Team Providers Care Humanities Teacher Name Role Phone Mara Mike Primary Care Provider [phone] Allergies Active Allergy Reactions Criticality Noted Date [...] 07/19/2030 020 Medical Devices Implanted Type Area Doweling Machine Operator Device Identifier Shelf Expiration Date Model / Serial / Lot Mesh Ventralight St Echo Ps Cir 4.5in - [id number] Implanted:Qty: 1 on 04/08/2017 by Boaz Robert MD at [facility] Implant N/A: Umbilical DAVOL (DIV OF [employer]) 09/29/2018 [id number] / / [id number] Insurance PPO Care Teams Humanities Teacher Relationship Specialty Start Date End Date Mara Mike PA PCP - General Physician Circular Tank Cooper 05/07/22
--- OUTSIDE RECORDS SUMMARY | 2025-09-17 07:53 | XMS_ITS | Clinical Summary ---
Author Organization [facility] Address [address] [place] [address] Care Team Providers Care Thread Dresser Name Role Phone Mara Mike Primary Care Provider [phone] Family History Medical History Relation Name Comments [...] SDOH Screenings 1983 [facility]-Adult SDOH Screenings 1983 [facility]Y-Pap Smear 1986 [facility]-Cervical Cancer Screening 1995 [facility]Y-HPV/Cotest 1995 CT Colonography 2010 Colonoscopy 2010 FIT-DNA 2010 FIT 2010 FOBT 2010 Sigmoidoscopy 2010 [facility]Y-Colorectal Cancer Screening 2010 [facility]Y-Zoster Vaccines (3 of 3) 09/25/2019 07/31/2019, 04/22/2017 [id number] Vaccine ( - season) 2025 05/08/2022, 11/05/2020, 10/08/2020 [facility]Y-Influenza Vaccine (#1) 06/03/202508/19, 09/01/2021, 07/19/2020, Additional history exists [facility]Y-DTaP,Tdap,and Td Vaccines (2 - Td or Tdap) 07/19/2030 07/19/2020 UKY-RSV Vaccine: 60+ Years or (1 - 1-dose 75+ series) 2040 [facility]Y-Pneumococcal Vaccine: 50+ Years Completed 2022, 04/22/2017, 04/21/2017 HPV Vaccines (No Doses Required) Completed [facility]Y-HIB Vaccines Aged Out No longer e [...] patient's age to complete this topic Insurance JASSI Care Teams Thread Dresser Relationship Specialty Start Date End Date Mara Mike PA [address] [place] [address] PCP - General 02/13/21
--- OUTSIDE RECORDS SUMMARY | 2025-09-17 07:53 | XMS_ITS | Continuity of Care Document ---
Author Organization [place] - [facility] [facility] Address [address] [place] [address] Assessment No assessment recorded. Plan of Treatment Reminders Order Date Submit Date Provider Last Modified By Organization Details Last Modified Time Details Appointments None recorded. Lab unlisted lab - toxassure flex 19, [id number] 2024 025 FREIDA [facility] ([facility], [address] [place] [address], [place], [address], 5 12:08:05 HbA1c (hemoglobi n A1c), blood [address], [address] [facility], [place], [address], 5 11:10:02 microalbum in/creatin ine, mass ratio, urine [address], [address] [facility], [place], [address], 5 11:10:02 Referral EGD referral - STAT 2024 025 [email or web address] Gordon Prado MD, [address], [place], [address], 5 10:16:57 Procedures None recorded. Surgeries None recorded. Imaging None recorded. Medication Orders Xyzal 5 mg tablet 2024 025 FREIDA [facility] [id number] [facility] [place], [address], 11:02:20 Patient TargetsNo targets recorded. Patient InstructionsNo instructions recorded. Reason for Referral EGD Referral for Esophageal dysphagia STAT Referring Physician: Mara Mike, Family Medicine, Encounter Date: 09/05/2025 Results Created Date Observation Date Name Description Value Unit Range Abnormal Flag Note LastModifiedBy Organization Detail LastModifiedTime 09/05/20 25 09/09/2025 TOXAS SURE FLEX 19, UR summary report FINAL ===== ===== ===== ===== ===== ===== ===== ===== ===== ===== ===== ===== ===== === ToxAs sure Flex 19, Ur ===== ===== ===== ===== ===== ===== ===== ===== ===== ===== ===== ===== ===== === Speci men Alert Note: Urina ry creat inine is low; abili ty to detec t some drugs may be compr omise d. Inter pret resul ts with cauti on. ===== ===== ===== ===== ===== ===== ===== ===== ===== ===== ===== ===== ===== === Test Resul t Flag Units Drug Prese nt Prega balin PRESE NT ===== ===== ===== ===== ===== ===== ===== ===== ===== ===== ===== ===== ===== === Test Resul t Flag Units Ref Range Creat inine 16 L mg/dL >=20 ===== ===== ===== ===== ===== ===== ===== ===== ===== ===== ===== ===== ===== === Decla red Medic ation s: Medic ation list was not provi ded. ===== ===== ===== ===== ===== ===== ===== ===== ===== ===== ===== ===== ===== === For clini lucía consu ltati on, pleas e call [phone]. ===== ===== ===== ===== ===== ===== ===== ===== ===== ===== ===== ===== ===== === Not Available [facility] ([facility]) [address] [place], [address], 09/09/2025 12:08:05 09/05/20 25 09/09/2025 TOXAS SURE FLEX 19, UR pdf . Not Available [facility] ([facility]) [address] [place], [address], 09/09/2025 12:08:05 09/05/20 25 09/09/2025 TOXAS SURE FLEX 19, UR creatinine 16 mg/dL >=20 below low normal Note: Urina ry creat inine is low; abili ty to detec t some drugs may be compr omise d. Inter pret resul ts with cauti on. REFER ENCE RANGE : Ref Range >=20 Not Available [facility] ([facility]) [address] [facility], [place], [address], 09/09/2025 12:08:05 09/05/20 25 09/09/2025 TOXAS SURE FLEX 19, UR amphetamines ia Negati ve NG/mL cutoff :300 Not Available [facility] ([facility]) [address] [place], [address], 09/09/2025 12:08:05 09/05/20 25 09/09/2025 TOXAS SURE FLEX 19, UR benzodiazepi zohreh Negati ve Not Available [facility] ([facility]) [address] [place], [address], 09/09/2025 12:08:05 09/05/20 25 09/09/2025 TOXAS SURE FLEX 19, UR diazepam Not Detect ed NG/mg _crea t Not Available [facility] ([facility]) [address] [place], [address], 09/09/2025 12:08:05 09/05/20 25 09/09/2025 TOXAS SURE FLEX 19, UR desmethyldia zepam Not Detect ed NG/mg _crea t Not Available [facility] ([facility]) [address] [place] [address], [address], 09/09/2025 12:08:05 09/05/20 25 09/09/2025 TOXAS SURE FLEX 19, UR oxazepam Not Detect ed NG/mg _crea t Not Available [facility] ([facility]) [address] [place], [address], 09/09/2025 12:08:05 09/05/20 25 09/09/2025 TOXAS SURE FLEX 19, UR temazepam Not Detect ed NG/mg _crea t Expec cali metab olism of benzo diaze pine class drugs : Paren t Drug Detec cali Metab olite s ----- ----- - ----- ----- ----- ----- Diaze pedro: Desme thyld iazep am, Temaz epam, Oxaze pedro Chlor diaze poxid e: Desme thyld iazep am, Oxaze pedro Clora zepat e: Desme thyld iazep am, Oxaze pedro Halaz epam: Desme thyld iazep am, Oxaze pedro Temaz epam: Oxaze pedro Oxaze pedro: None Not Available [facility] ([facility]) [address] [place], [address], 09/09/2025 12:08:05 09/05/20 25 09/09/2025 TOXAS SURE FLEX 19, UR alprazolam Not Detect ed NG/mg _crea t Not Available [facility] ([facility]) [address] [place], [address], 09/09/2025 12:08:05 09/05/20 25 09/09/2025 TOXAS SURE FLEX 19, UR alpha-hydrox yalprazolam Not Detect ed NG/mg _crea t Not Available [facility] ([facility]) [address] [place], [address], 09/09/2025 12:08:05 09/05/20 25 09/09/2025 TOXAS SURE FLEX 19, UR desalkylflur azepam Not Detect ed NG/mg _crea t Not Available [facility] ([facility]) [address] [place], [address], 09/09/2025 12:08:05 09/05/20 25 09/09/2025 TOXAS SURE FLEX 19, UR lorazepam Not Detect ed NG/mg _crea t Not Available [facility] ([facility]) [address] [place], [address], 09/09/2025 12:08:05 09/05/20 25 09/09/2025 TOXAS SURE FLEX 19, UR alpha-hydrox ytriazolam Not Detect ed NG/mg _crea t Not Available [facility] ([facility]) [address] [place], [address], 09/09/2025 12:08:05 09/05/20 25 09/09/2025 TOXAS SURE FLEX 19, UR clonazepam Not Detect ed NG/mg _crea t Not Available [facility] ([facility]) [address] [facility], [place], [address], 09/09/2025 12:08:05 09/05/20 25 09/09/2025 TOXAS SURE FLEX 19, UR 7-aminoclona zepam Not Detect ed NG/mg _crea t Not Available [facility] ([facility]) [address] [place], [address], 09/09/2025 12:08:05 09/05/20 25 09/09/2025 TOXAS SURE FLEX 19, UR midazolam Not Detect ed NG/mg _crea t Not Available [facility] ([facility]) [address] [place], [address], 09/09/2025 12:08:05 09/05/20 25 09/09/2025 TOXAS SURE FLEX 19, UR alpha-hydrox ymidazolam Not Detect ed NG/mg _crea t Not Available [facility] ([facility]) [address] [place], [address], 09/09/2025 12:08:05 09/05/20 25 09/09/2025 TOXAS SURE FLEX 19, UR flunitrazepa m Not Detect ed NG/mg _crea t Not Available [facility] ([facility]) [address] [place], [address], 09/09/2025 12:08:05 09/05/20 25 09/09/2025 TOXAS SURE FLEX 19, UR desmethylflu nitrazepam Not Detect ed NG/mg _crea t Not Available [facility] ([facility]) [address] [place], [address], 09/09/2025 12:08:05 09/05/20 25 09/09/2025 TOXAS SURE FLEX 19, UR cocaine metabolite ia Negati ve NG/mL cutoff :150 Not Available [facility] ([facility]) [address] [place], [address], 09/09/2025 12:08:05 09/05/20 25 09/09/2025 TOXAS SURE FLEX 19, UR ethanol biomarkers ia Negati ve NG/mL cutoff :500 Not Available [facility] ([facility]) [address] [place], [address], 09/09/2025 12:08:05 09/05/20 25 09/09/2025 TOXAS SURE FLEX 19, UR cannabinoids ia Negati ve NG/mL cutoff :20 Not Available [facility] ([facility]) [address] [place], [address], 09/09/2025 12:08:05 09/05/20 25 09/09/2025 TOXAS SURE FLEX 19, UR 6-acetylmorp alo ia Negati ve NG/mL cutoff :10 Not Available [facility] ([facility]) [address] [place], [address], 09/09/2025 12:08:05 09/05/20 25 09/09/2025 TOXAS SURE FLEX 19, UR opiate class ia Negati ve NG/mL cutoff :100 Not Available [facility] ([facility]) [address] [place], [address], 09/09/2025 12:08:05 09/05/20 25 09/09/2025 TOXAS SURE FLEX 19, UR oxycodone class ia Negati ve NG/mL cutoff :100 Not Available [facility] ([facility]) [address] [place], [address], 09/09/2025 12:08:05 09/05/20 25 09/09/2025 TOXAS SURE FLEX 19, UR methadone ia Negati ve NG/mL cutoff :100 Not Available [facility] ([facility]) [address] [place], [address], 09/09/2025 12:08:05 09/05/20 25 09/09/2025 TOXAS SURE FLEX 19, UR methadone mtb ia Negati ve NG/mL cutoff :100 Not Available [facility] ([facility]) [address] [place], [address], 09/09/2025 12:08:05 09/05/20 25 09/09/2025 TOXAS SURE FLEX 19, UR buprenorphin e ia Negati ve NG/mL cutoff :5.0 Not Available [facility] ([facility]) [address] [place], [address], 09/09/2025 12:08:05 09/05/20 25 09/09/2025 TOXAS SURE FLEX 19, UR fentanyl ia Negati ve NG/mL cutoff :2.0 Not Available [facility] ([facility]) [address] [place], [address], 09/09/2025 12:08:05 09/05/20 25 09/09/2025 TOXAS SURE FLEX 19, UR tapentadol ia Negati ve NG/mL cutoff :200 Not Available [facility] ([facility]) [address] [place], [address], 09/09/2025 12:08:05 09/05/20 25 09/09/2025 TOXAS SURE FLEX 19, UR propoxyphene ia Negati ve NG/mL cutoff :300 Not Available [facility] ([facility]) [address] [place], [address], 09/09/2025 12:08:05 09/05/20 25 09/09/2025 TOXAS SURE FLEX 19, UR tramadol ia Negati ve NG/mL cutoff :200 Not Available [facility] ([facility]) [address] [place], [address], 09/09/2025 12:08:05 12/04/20 25 09/09/2025 TOXAS SURE FLEX 19, UR methylphenid ate ia Negati ve NG/mL cutoff :100 Not Available [facility] ([facility]) [address] [place], [address], 09/09/2025 12:08:05 09/05/20 25 09/09/2025 TOXAS SURE FLEX 19, UR barbiturates ia Negati ve NG/mL cutoff :200 Not Available [facility] ([facility]) [address] [place], [address], 09/09/2025 12:08:05 09/05/20 25 09/09/2025 TOXAS SURE FLEX 19, UR phencyclidin e ia Negati ve NG/mL cutoff :25 Not Available [facility] ([facility]) [address] [place], [address], 09/09/2025 12:08:05 09/05/20 25 09/09/2025 TOXAS SURE FLEX 19, UR gabapentin ia Negati ve ug/mL cutoff :1.0 Not Available [facility] ([facility]) [address] [place], [address], 09/09/2025 12:08:05 09/05/20 25 09/09/2025 TOXAS SURE FLEX 19, UR anticonvulsa nts +POSIT PATRICA+ Not Available [facility] ([facility]) [address] [place], [address], 09/09/2025 12:08:05 09/05/20 25 09/09/2025 TOXAS SURE FLEX 19, UR pregabalin PRESEN T Not Available [facility] ([facility]) [address] [place] [address], [address], 09/09/2025 12:08:05 09/05/20 25 09/09/2025 TOXAS SURE FLEX 19, UR carisoprodol ia Negati ve NG/mL cutoff :100 Not Available [facility] ([facility]) [address], [place], [address], 09/09/2025 12:08:05 09/05/20 25 09/05/2025 micro album in/cr eatin ine, mass ratio , urine Microalbumin 10 mg/L Not Available [facility] [address] [place] [address], [address], 09/05/2025 10:47:23 09/05/20 25 09/05/2025 micro album in/cr eatin ine, mass ratio , urine Creatinine 10 mg/dL Not Available [facility] [address] [place] [address], [place], [address], 09/05/2025 10:47:23 09/05/20 25 09/05/2025 micro album in/cr eatin ine, mass ratio , urine Ratio <30 mg/g Not Available [address], [place], [address], 09/05/2025 10:47:23 09/05/20 25 09/05/2025 HbA1c (hemo globi n A1c), blood HbA1c 8.5 % Not Available [address], [place], [address], 09/05/2025 10:47:17 Result Notes None recorded. Problems Name Problem SNOMED Code Status Onset Date Resolution Date Notes Provider Name and Address Organization Details Recorded Time Type 2 diabetes mellitus without complicatio n 654799158 Active 2023 RAMON Obrien [address] [place] [address], [address] 8, [employer] 4 09:24:20 Hypertensiv e disorder 21885618 Active 2023 RAMON Obrien [address] [place] [address], 76571-223 8, [facility] [employer] 4 09:24:11 Vitamin D deficiency 22477089 Active 2023 RAMON Obrien [address] [place] [address], 07980-646 8, [employer] 4 09:24:45 Anxiety 38619516 Active 2023 RAMON Obrien [address] [place] [address], 81319-813 8, [employer] 4 09:24:59 Allergic rhinitis 98465611 Active 2023 RAMON Obrien [address] [place] [address], 27319-594 8, [employer] 4 09:25:29 Gastroesoph ageal reflux disease 743751675 Active 2023 RAMON Obrien [address] [place] [address], 91690-327 8, [employer] 4 09:26:01 Chronic obstructive pulmonary disease 66727595 Active 2023 RAMON Obrien [address] [place] [address], 01547-973 8, [employer] 4 09:26:33 Congestive heart failure 55799255 Active 2023 RAMON Obrien [address] [place] [address], 76229-908 8, [employer] 4 09:28:28 Internal hemorrhoids 79235711 Active 2023 RAMON Obrien [address] [place] [address], 44721-242 8, [employer] 4 09:41:10 Folliculiti s 83373283 Active 2024 RAMON Obrien [address] [place] [address], 69038-871 8, [employer] 5 08:18:48 Type 2 diabetes mellitus 37353342 Active 2024 RAMON Obrien [address] [place] [address], 50638-768 8, [employer] 17:14:21 Neuropathy due to type 2 diabetes mellitus 4653070969008 06 Active 2024 RAMON Obrien [address] [place] [address], 29671-004 8, [employer] 11:49:16 Stasis dermatitis of lower limb due to chronic peripheral venous hypertensio n 053710543 Active 2024 RAMON Obrien [address] [place] [address], 43245-009 8, [employer] 09:16:10 Acute urinary tract infection 546090558 Active 2024 RAMON Obrien [address] [place] [address], 85422-164 8, [employer] 15:33:07 Chronic kidney disease 393289181 Active 2024 RAMON Obrien [address] [place] [address], 27296-990 8, [employer] 15:48:18 Lipoma of back 342163176 Active 2024 RAMON Obrien [address] [place] [address], 37616-660 8, [employer] 13:57:00 Nasal sinus problem 512574755 Active 2024 RAMON Obrien [address] [place] [address], 83104-518 8, [employer] 11:01:32 Esophageal dysphagia 85942012 Active 2024 RAMON Obrien [address] [place] [address], 61294-237 8, [employer] 11:08:31 Bacterial sinusitis 249451191 Active 2024 RAMON Obrien [address] [place] [address], 23686-081 8, [employer] 12:20:46 Problem Notes None recorded. Procedures Surgical History Date Name Laterality Status Provider Name and Address Organization Details Recorded Time 11/15/19 25 Diabetic Foot Screen completed RAMON Obrien [address] [place] [address], [address], [employer] 11/15/2024 17:28:01 09/05/20 24 Most Recent Mammogram completed [employer] 11/15/2024 17:05:03 Caesarean Section completed [employer] 08/13/2024 09:02:44 Total Hysterectomy completed [employer] 08/13/2024 09:03:22 Orthopedic Surgery completed [employer] 08/13/2024 09:03:38 Tonsillectomy completed [employer] 08/13/2024 09:04:01 Other completed [employer] 08/13/2024 09:04:24 Knee Surgery completed [employer] 05/23/2025 16:39:35 Knee Surgery completed [employer] 05/23/2025 16:39:48 Imaging Results None recorded. Procedure Notes None recorded. Medical Equipment None Reported. Allergies Allergen ID Allergen Name Allergen Category Reaction Reaction Severity Criticality Documentation Date Start Date Code Code System Note Provider Name and Address Organization Details Recorded Time 92530 atorvasta tin medicatio n Not available Not available Not available 08/13/2024 58161 RxNorm Birdie Vice null, [employer] 4 08:56:10 09976 acetamino phen / hydrocodo ne medicatio n Not available Not available Not available 08/13/2024 16419 2 RxNorm Birdie Vice null, [employer] 4 08:56:23 03089 cefaclor medicatio n Not available Not available Not available 08/13/2024 2176 RxNorm Birdie Vice null, [employer] 4 08:56:33 59963 celecoxib medicatio n Not available Not available Not available 08/13/2024 19971 7 RxNorm Birdie Vice null, [employer] 4 08:56:41 21239 hydrocodo ne Not available Not available Not available Not available 08/13/2024 5489 RxNorm Birdie Vice null, [employer] 4 08:56:50 63582 isosorbid e medicatio n Not available Not available Not available 08/13/2024 6057 RxNorm Birdie Vice null, [employer] 4 08:56:59 05547 meperidin e medicatio n Not available Not available Not available 08/13/2024 6754 RxNorm Birdie Vice null, [employer] 4 08:57:10 37396 pravastat in medicatio n Not available Not available Not available 08/13/2024 17879 RxNorm Birdie Vice null, [employer] 4 08:57:20 37025 ranolazin e medicatio n Not available Not available Not available 08/13/2024 87364 RxNorm Birdie Vice null, [employer] 4 08:57:27 61193 rosuvasta tin medicatio n Not available Not available Not available 08/13/2024 46699 2 RxNorm Birdie Vice null, [employer] 4 08:57:35 26762 Product containin g 3-hydroxy -3-methyl glutaryl- coenzyme A reductase inhibitor (product) medicatio n Not available Not available Not available 08/13/2024 65292 009 SNOMED Birdie Vice null, [employer] 4 08:57:45 16626 cephalexi n medicatio n Not available Not available Not available 09/05/20252015 2231 RxNorm Not Available [employer] - [employer] - prod 5 07:56:20 Medications Name Sig Start Date Stop Date Status Note LastModified by Organization Details LastModified Time vitamin d3 (giulia) 50mcg cap TAKE 1 CAPSULE BY MOUTH ONCE DAILY 05/23 completed Not Available Not Available Not Available vitamin d3 25mcg cap TAKE 1 CAPSULE BY MOUTH ONCE DAILY 11/15 completed Not Available Not Available Not Available eq ibuprofen 200mg tab TAKE 1 TABLET BY MOUTH EVERY 6 HOURS NEEDED FOR PAIN MAX OF 4 TABLETS DAILY 09/05 completed Not Available Not Available Not Available losartan 50 mg tablet TAKE 1 TABLET BY MOUTH ONCE DAILY FOR BLOOD PRESSURE active Not Available Not Available No t Available clotrimazol e 10 mg albina DISSOLVE 1 TABLET BY MOUTH FIVE TIMES DAILY FOR 14 DAYS 08/13 completed Not Available Not Available Not Available carvedilol 25 mg tablet TAKE 1 TABLET BY MOUTH TWICE DAILY active Not Available Not Available No t Available carvedilol 12.5 mg tablet 11/15 completed Not Available Not Available Not Available ipratropium 0.5 mg-albutero l 3 mg (2.5 mg base)/3 mL nebulizatio n soln INHALE 1 VIAL IN NEBULIZER EVERY 20 MINUTES NEEDED FOR SHORTNESS OF BREATH OR WHEEZING FOR 3 DOSES active Not Available Not Available No t Available azithromyci n 250 mg tablet TAKE 2 TABLETS BY MOUTH ON DAY 1, AND THEN TAKE 1 TABLET BY MOUTH ONCE A DAY ON DAY 2 THROUGH DAY 5 active Not Available Not Available No t Available tizanidine 4 mg tablet TAKE 1 TABLET BY MOUTH EVERY 8 HOURS NEEDED FOR MUSCLE SPASTICIT Y 08/13 completed Not Available Not Available Not Available benzonatate 200 mg capsule TAKE 1 CAPSULE BY MOUTH THREE TIMES DAILY NEEDED FOR COUGH FOR 10 DAYS 08/13 completed Not Available Not Available Not Available valacyclovi r 1 gram tablet TAKE 1 TABLET BY MOUTH TWICE DAILY PRN active Not Available Not Available No t Available minocycline 100 mg capsule TAKE 1 CAPSULE BY MOUTH EVERY 12 HOURS DIRECTED active Not Available Not Available No t Available glipizide ER 10 mg tablet, extended release 24 hr TAKE 1 TABLET BY MOUTH TWICE DAILY active Not Available Not Available No t Available famotidine 40 mg tablet 11/15 completed Not Available Not Available Not Available prednisone 20 mg tablet Take 1 tablet twice a day by oral route for 5 days. 09/17 completed Not Available Not Available Not Available Pyridium 200 mg tablet Take 1 tablet 3 times a day by oral route for 3 days. 05/23 completed Not Available Not Available Not Available chlorthalid one 25 mg tablet TAKE 1 TABLET BY MOUTH ONCE DAILY 11/15 completed Not Available Not Available Not Available sulfamethox azole 800 mg-trimetho prim 160 mg tablet TAKE 1 TABLET BY MOUTH TWICE DAILY FOR 10 DAYS 08/13 completed Not Available Not Available Not Available omeprazole 40 mg capsule,del ayed release TAKE 1 CAPSULE BY MOUTH ONCE DAILY active Not Available Not Available No t Available aspirin 81 mg tablet,florina yed release TAKE 1 TABLET BY MOUTH ONCE DAILY active Not Available Not Available No t Available tramadol 50 mg tablet TAKE ONE TABLET BY MOUTH EVERY 4 HOURS NEEDED FOR post op pain MAY CAUSE DROWSINES S 09/05 completed Not Available Not Available Not Available isosorbide mononitrate ER 60 mg tablet,exte nded release 24 hr 11/15 completed Not Available Not Available Not Available potassium chloride ER 20 mEq tablet,exte nded release(par t/cryst) 11/15 completed Not Available Not Available Not Available furosemide 80 mg tablet TAKE 1 TABLET BY MOUTH TWICE DAILY active Not Available Not Available No t Available metformin 1,000 mg tablet TAKE 1 TABLET BY MOUTH TWICE DAILY active Not Available Not Available No t Available prednisone 50 mg tablet TAKE 1 TABLET BY MOUTH ONCE DAILY FOR 3 DAYS 08/13 completed Not Available Not Available Not Available nitroglycer in 0.4 mg sublingual tablet PRN active Not Available Not Available Not Available buspirone 7.5 mg tablet TAKE 1 TABLET BY MOUTH THREE TIMES DAILY active Not Available Not Available No t Available ergocalcife rol (vitamin D2) 1,250 mcg (50,000 unit) capsule TAKE 1 CAPSULE BY MOUTH ONCE A WEEK active Not Available Not Available No t Available levofloxaci n 500 mg tablet TAKE 1 TABLET BY MOUTH ONCE DAILY FOR 7 DAYS 09/05 completed Not Available Not Available Not Available methylpredn isolone 4 mg tablets in a dose pack TAKE BY MOUTH DIRECTED ON INSIDE OF PACKAGE 08/13 completed Not Available Not Available Not Available albuterol sulfate HFA 90 mcg/actuati on aerosol inhaler INHALE 2 PUFFS BY MOUTH EVERY 6 HOURS NEEDED FOR SHORTNESS OF BREATH FOR WHEEZING active Not Available Not Available No t Available bromphenira mine-pseudo ephedrine-D M 2 mg-30 mg-10 mg/5 mL oral syrup TAKE 5 ML BY MOUTH EVERY 6 HOURS NEEDED FOR COLD SYMPTOMS 08/13 completed Not Available Not Available Not Available loratadine 10 mg tablet TAKE 1 TABLET BY MOUTH ONCE DAILY FOR ALLERGIES active Not Available Not Available No t Available spironolact one 50 mg tablet TAKE 1 TABLET BY MOUTH ONCE DAILY 08/13 completed Not Available Not Available Not Available oxycodone 5 mg tablet TAKE ONE TABLET BY MOUTH EVERY 6 HOURS NEEDED FOR post-op pain MAY CAUSE DROWSINES S 08/13 completed Not Available Not Available Not Available cholecalcif almaz (vitamin D3) 25 mcg (1,000 unit) capsule TAKE 1 CAPSULE BY MOUTH ONCE DAILY 05/23 completed Not Available Not Available Not Available minocycline 100 mg tablet TAKE 1 TABLET BY MOUTH TWICE DAILY 08/13 completed Not Available Not Available Not Available acyclovir 5 % topical cream APPLY TOPICALLY FIVE TIMES DAILY FOR 5 DAYS 09/05 completed Not Available Not Available Not Available pregabalin 75 mg capsule Take 1 capsule by mouth twice daily 05/23 completed Not Available Not Available Not Available pregabalin 100 mg capsule TAKE 1 CAPSULE BY MOUTH TWICE DAILY FOR 90 DAYS 07/15 completed Not Available Not Available Not Available pregabalin 150 mg capsule Take 1 capsule by mouth twice daily 2024 active Not Available Not Available Not Avai lable Lantus Solostar U-100 Insulin 100 unit/mL (3 mL) subcutaneou s pen INJECT 20 UNITS SUBCUTANE OUSLY ONCE DAILY active Not Available Not Available No t Available Xyzal 5 mg tablet Take 1 tablet every day by oral route for 90 days. 2024 active Not Available Not Available Not Avai lable Mucinex DM 60 mg-1,200 mg tablet,exte nded release 12 hr TAKE 1 TABLET BY MOUTH EVERY 12 HOURS 08/13 completed Not Available Not Available Not Available Humalog Mix 75-25 KwikPen U-100 insulin 100 unit/mL subcutaneou s pen INJECT 25 UNITS SUBCUTANE OUSLY TWICE DAILY DIRECTED FOR DIABETES active Not Available Not Available No t Available cholecalcif almaz (vitamin D3) 50 mcg (2,000 unit) capsule TAKE 1 CAPSULE BY MOUTH ONCE DAILY active Not Available Not Available No t Available Calmoseptin e 0.44 %-20.6 % topical ointment APPLY PEA SIZED AMOUNT THREE TIMES A DAY active Not Available Not Available No t Available ReliOn Prime Test Strips USE 1 STRIP TO CHECK GLUCOSE TWICE DAILY active Not Available Not Available No t Available Farxiga 10 mg tablet TAKE 1 TABLET BY MOUTH ONCE DAILY FOR DIABETES AND FOR KIDNEY active Not Available Not Available No t Available Repatha SureClick 140 mg/mL subcutaneou s pen injector TAKE 140 MG UNDER THE SKIN INTO THE APPROPRIA TE AREA EVERY 2 WEEKS active Not Available Not Available No t Available Procto-Med HC 2.5 % topical cream perineal applicator APPLY CREAM RECTALLY TO AFFECTED AREA ONCE TO TWICE DAILY NEEDED FOR HEMORRHOI DS active Not Available Not Available No t Available Rybelsus 7 mg tablet TAKE 1 TABLET BY MOUTH ONCE DAILY 08/13 completed Not Available Not Available Not Available Arthritis Pain (diclofenac ) 1 % topical gel 11/15 completed Not Available Not Available Not Available Kerendia 20 mg tablet TAKE 1 TABLET BY MOUTH ONCE DAILY active Not Available Not Available No t Available Ozempic 2 mg/dose (8 mg/3 mL) subcutaneou s pen injector INJECT 2MG SUBCUTANE OUSLY ONCE A WEEK DIRECTED 08/13 completed Not Available Not Available Not Available Mounjaro 7.5 mg/0.5 mL subcutaneou s pen injector INJECT 1 SYRINGE SUBCUTANE OUSLY ONCE A WEEK 08/13 completed Not Available Not Available Not Available Mounjaro 5 mg/0.5 mL subcutaneou s pen injector INJECT THE CONTENTS OF 1 SYRINGE UNDER THE SKIN ONCE A WEEK 08/13 completed Not Available Not Available Not Available Mounjaro 15 mg/0.5 mL subcutaneou s pen injector INJECT 1 PEN SUBCUTANE OUSLY ONCE A WEEK active Not Available Not Available No t Available Mounjaro 10 mg/0.5 mL subcutaneou s pen injector Inject 0.5 mL every week by subcutane ous route as directed for 28 days, for diabetes. 11/15 completed Not Available Not Available Not Available Mounjaro 12.5 mg/0.5 mL subcutaneou s pen injector INJECT 1 SYRINGE SUBCUTANE OUSLY ONCE A WEEK 11/15 completed Not Available Not Available Not Available Mounjaro 2.5 mg/0.5 mL subcutaneou s pen injector INJECT 1 SYRINGE SUBCUTANE OUSLY ONCE A WEEK 08/13 completed Not Available Not Available Not Available Dexcom G7 Sensor device USE DIRECTED active Not Available Not Available No t Available Verónica 2nd Gen Pen Needle 32 gauge x / USE DIRECTED active Not Available Not Available No t Available Vitals Date Recorded Body height Body mass index (BMI) Body weight Oxygen saturation Heart rate Body temperature Systolic And Diastolic Provider Name and Address Organization Details Last Updated DateTime 167.64 cm 34.7 kg/m2 31239.0 8 g 98 % 80 /min 98 [degF] 118/80 mm[Hg] Birdie [employer] 10:44:51 Social History Question Answer Notes LastModified by Organizat ion Details LastModified Time Tobacco Smoking Status Former Smoker Birdiemikayla [employer], [employer]. 08/13/2024 09:00:56 Do You Have An Advance Directive? No Information not available 08/13/2024 Is Your Home Air Conditioned? Yes Information not available 08/13/2024 Are You Blind Or Do You Have Difficulty Seeing? No Information not available 08/13/2024 What Is Your Level Of Caffeine Consumption? Moderate Information not available 08/13/2024 Are You A Caregiver? No Information not available 09/05/2025 Have You Been To An Area Known To Be High Risk For COVID-19? No Information not available 08/13/2024 Are You Deaf Or Do You Have Serious Difficulty Hearing? No Information not available 08/13/2024 What Type Of Diet Are You Following? DIABETIC Information not available 08/13/2024 What Is The Highest Grade Or Level Of School You Have Completed Or The Highest Degree You Have Received? [id number] Information not available 09/05/2025 Have There Been Any Changes To Your Family Or Social Situation? No Information no t available 08/13/2024 When Did You Quit Smoking? 11-15yearsescobar mckee Information not available 09/05/2025 Are There Any Guns Present In Your Home? Yes Information not available 09/05/2025 Which Of Your Hands Is Dominant? Right Information not available 08/13/2024 Do You Engage In Moderate/heavy Exercise (e.g. Brisk Walk, Jogging, Strength Training, Etc)? No Information not available 09/05/2025 How Many Times In The Past Year Have You Used An Illegal Drug Or Used A Prescription Medication For Nonmedical Reasons? 0 Information not available 09/05/2025 Are You Following A Low Salt Diet? Yes Information not available 09/05/2025 Do You Have A Medical Power Of Top Precipitator Operator Helper? No Information not available 08/13/2024 What Was The Date Of Your Most Recent Tobacco Screening? 09/05/2025 Information not available 09/05/2025 What Is Your Current Pack Years? 30ormorepackyears Information no t available 09/05/2025 Have You Ever Been Counseled For Unhealthy Alcohol Use? No Information not available 08/13/2024 Do You Have Any Pets? No Information not available 08/13/2024 What Is Your Relationship Status? Information not available 08/13/2024 Do You Wear A Seatbelt When Driving Or As A Passenger? Yes Information not available 09/05/2025 Do You Use Your Seat Belt Or Car Seat Routinely? Yes Information not available 08/13/2024 Are You Sexually Active? Yes Information not available 09/05/2025 Do You Have Smoke And Carbon Monoxide Detectors In Your Home? Yes Information not available 08/13/2024 At What Age Did You Start Smoking Tobacco? 18 Information not available 09/05/2025 Are You Passively Exposed To Smoke? No Information no t available 08/13/2024 Are There Any Smokers In Your House? No Information not available 08/13/2024 How Much Tobacco Do You Smoke? No Information not available 08/13/2024 Do You Participate In Social Media? Yes Information not available 08/13/2024 Has Tobacco Cessation Counseling Been Provided? No Information not available 08/13/2024 How Many Years Have You Smoked Tobacco? 30 Information not available 09/05/2025 Have You Recently Traveled Abroad? No Information not available 08/13/2024 Do You Have Difficulty Walking Or Climbing Stairs? No Information not available 08/13/2024 Are You Currently In School? No Information not available 08/13/2024 What Contraceptive Method Was Reported At Start Of This Visit? Female Sterilization Information not available 09/05/2025 Do You Feel Safe In Your Home? Yes Information not available 09/05/2025 Do You Have Any Dietary Restrictions? Yes Information not available 11/15/2024 Sex: Female Functional Status Question Answer Note LastModified by [employer] Details LastModified Time How many times per week do you consume alcohol? Less than 1 time per week Information not available 08/13/2024 Do you use any illicit or recreational drugs? No Information not available 08/13/2024 Do you feel safe in your relationship? Yes Information not available 09/05/2025 Do you or have you ever used any other forms of tobacco or nicotine? No Information not available 08/13/2024 What is your level of alcohol consumption? Occasional Information not available 08/13/2024 Are you currently employed? Yes Information not available 08/13/2024 Do you have transportation difficulties? No Information not available 08/13/2024 Are you able to walk independently without assistance or assistive devices? YESWOREST Information not available 08/13/2024 Do you have difficulty doing errands alone? No Information not available 08/13/2024 Are you able to care for yourself independently? Yes Information not available 08/13/2024 Do you have difficulty dressing, bathing, grooming, or toileting? No Information not available 08/13/2024 Mental Status Question Answer Note LastModified by [employer] Details LastModified Time Do you feel stressed (tense, restless, nervous, or anxious, or unable to sleep at night)? [id number] Information not available 08/13/2024 Do you have difficulty concentrating, remembering or making decisions? No Information no t available 08/13/2024 Family History Relationship Description Onset Age of this Age Resolved Age Notes LastModified by Organization Details LastModified Time Mother Diabetes mellitus Not available 2023 08:50:55 Mother Heart disease Not available 2023 08:51:01 Mother Glaucoma Not available 1 10/13/2023 08:51:08 Mother Dementia Not available 1 10/13/2023 08:51:16 Father Heart disease Not available 2023 08:51:23 Father Diabetes mellitus Not available 2023 08:51:27 Father Malignant neoplasm of prostate Not available 2023 08:51:43 Brother Chronic obstructive pulmonary disease Not available 2023 08:52:27 Medical History Condition Response Coronary Artery Disease Y Other N Gout N Kidney Stones N Blood Diseases N Hyperthyroidism N Blood Transfusion N Breast Cancer N Emergency room visit since last appointm ent. N COPD N Depression N Dermatologic Disorders N Hypothyroidism Y Lung Disease Y Developmental or Behavioral Disorders N Defects or Inherited Disease N Breast Problem N Difficulty Swallowing N Anesthesia Complications N History of STI N Meniere's disease N Anxiety Disorder N Muscle, Joint, or Bone Problems N Autoimmune disease N Vision or Eye Problems N Arthritis N Polyps N Infertility N Mental Disorder N Congenital Anomalies N Acid Reflux (GERD) N Cancer N Stroke N Neurologic/Epilepsy N Endometriosis N Bladder or Kidney Problems N High Cholesterol Y Liver Disease N Organ Transplant N Psychiatric/Mental Health Condition N Fibromyalgia N Dialysis N Schizophrenia N Headaches N Kidney Disease N Allergies/Hayfever N Heart Problems Y Ear or Hearing Problems N Hospitalizations N Learning Disorder N Artificial Joints N Thyroid Problems Y GI Problems N Acne N ADD/ADHD N Eating Disorder N Anemia N Constipation Y Mental Illness N Ovarian Cancer N Diabetes Y Bedwetting N Hepatitis/Liver Disease N Tuberculosis N Eczema N Diverticulitis N Abuse/Domestic Violence N Asthma Y Trauma/Violence N Substance Abuse N Reflux/GERD Y Depression/ depression N Hepatitis N Heart Disease N Pulmonary Embolism N Tourette Syndrome N Chronic Ear Infections N Pre-Eclampsia N Hypertension N Chicken Pox N Autism Spectrum Disorder (ASD) N Osteoporosis N Thrombophilias N Gynecological History Statement/Question Response Menses Monthly N Abnormal Pap N Date of Last Pap Smear Current Control Method Hysterectom y Most Recent Mammogram 09/05/2024 Obstetrics History GPAL:G 2 P 2 0 0 2 Type Value Multiple Births 0 Full Term 2 Induced 0 Spontaneous 0 Premature 0 Living 2 Ectopics 0 Total 2 Immunizations Vaccine Type Date Status Note Provider Nam e and Address Organization Details Recorded Time RSV, recombinant, protein subunit RSVpreF, adjuvant reconstituted, 0.5 mL, PF 4 completed RAMON Obrien [address] [place] [address], [id number], [employer] 08/13/2024 12:51:32 Pneumococcal conjugate PCV21, polysaccharide EPW090 conjugate, PF 5 completed Birdie Vice null, [employer] 09/05/2025 11:33:32 Tdap 0 completed Birdie Vice null, [employer] 11/15/2024 16:54:27 influenza, unspecified formulation 4 completed Birdie Vice null, [employer] 11/15/2024 16:54:27 pneumococcal polysaccharide PPV23 7 completed Birdie Vice null, [employer] 11/15/2024 16:54:27 pneumococcal polysaccharide PPV23 2 completed Birdie Vice null, [employer] 11/15/2024 16:54:27 Pneumococcal conjugate PCV 13 7 completed RAMON Obrien [address] [place], [address], [employer] 08/13/2024 13:03:27 Influenza, recombinant, quadrivalent, PF 0 completed Birdie Vice null, [employer] 11/15/2024 16:54:27 zoster recombinant 9 completed Birdie Vice null, [employer] 11/15/2024 16:54:27 COVID-19, mRNA, LNP-S, PF, 100 mcg/0.5mL dose or 50 mcg/0.25mL dose 1 completed Birdie Vice null, [employer] 11/15/2024 16:54:27 COVID-19, mRNA, LNP-S, PF, 100 mcg/0.5mL dose or 50 mcg/0.25mL dose 1 completed Birdie Vice null, [employer] 11/15/2024 16:54:27 COVID-19, mRNA, LNP-S, PF, 100 mcg/0.5mL dose or 50 mcg/0.25mL dose 2 completed Birdie Vice null, [employer] 11/15/2024 16:54:27 zoster live 7 completed Birdie Vice null, [employer] 11/15/2024 16:54:27 VZIG 7 completed Birdie Vice null, [employer] 11/15/2024 16:54:27 Influenza, split virus, quadrivalent, PF 8 completed Birdie Vice null, [employer] 11/15/2024 16:54:27 Influenza, split virus, quadrivalent, PF 3 completed Birdie Vice null, [employer] 11/15/2024 16:54:27 Influenza, split virus, quadrivalent, PF 9 completed Birdie Vice null, [employer] 11/15/2024 16:54:27 Influenza, split virus, quadrivalent, PF 2 completed Birdie Vice null, [employer] 11/15/2024 16:54:27 Influenza, split virus, quadrivalent, PF 1 completed Birdie Vice null, [employer] 11/15/2024 16:54:27 Influenza, recombinant, trivalent, PF 4 completed Birdie Vice null, [employer] 11/15/2024 16:54:27 Hep A-Hep B 4 completed Birdie Vice null, [place] [facility] [employer] 11/15/2024 16:54:27 Hep A-Hep B 3 completed Birdie Vice null, [employer] - [employer] 11/15/2024 16:54:27 Hep A-Hep B 3 completed [facility] null[facility] 11/15/2024 16:54:27 Influenza, recombinant, trivalent, PF 5 completed Not Available [facility] 09/05/[facility] 10:39:32 Past Encounters Encounter ID Performer Location Encounter Start Date Encounter Closed Date Diagnosis/Indication Diagnosis SNOMED-CT Code Diagnosis ICD10 Code Diagnosis IMO Codes Diagnosis Note [id number] RAMON Obrien [facility] [address] [place], [place] [address] [address] 09/05/2025 10:27:59 09/05/2025 11:14:35 Neuropathy due to type 2 diabetes mellitus 9098411519 07557 E11.40 Z79.4 01961559 Long-term current use of drug therapy 606863634 Z79.899 14583515 Nasal sinus problem 3012 35391 J34.89 390838 Requires v accination against Streptococcus pneumoniae 0674979160 Z23 936003 Esophageal dysphagia 408 60135 R13.19 8211 Concern for esophageal stricture Health Concerns Section Related Observation LastModified by Organization Detai ls LastModified Time None Recorded Concern Status LastModified by Organization Details LastModified Time None Recorded Payers Encounter Date Sequence Insurance Name Policy Number Policy Zarate Covered Member ID Zarate Member ID Guarantor Name 09/05/2025 1 [employer]: [place] [id number] 1 Rosalinda Cooper [id number] Rosalinda Cooper Notes Date Note Type Note Provider Name and Address Organization Details Recorded Time 09/05/2025 text/html ROS as noted in the HPI 2-3 month history of choking with swallowing. Has sinus drainage as well. Has a hiatal hernia but has not had an EGD for years. Has noticed progressive difficulty swallowing and sensation of food getting stuck. Started after she actually swallowed wrong, food went down the wrong pipe and she had a severe coughing spell. Nearly all solids feel like they get stuck, but meat is the worst. RAMON Obrien [address] [place] [address], [place], [id number], [facility] [employer] 09/06/2025 10:47:01 OBGyn Episode No OBEpisode recorded.
--- OUTSIDE RECORDS SUMMARY | 2025-09-17 07:53 | XMS_ITS | Data Portability ---
Author Organization [facility] Address [address] [place] [address] Assessment No assessment recorded. Plan of Treatment Reminders Order Date Submit Date Provider Last Modified By Organization Details Last Modified Time Details Appointments None recorded. Lab unlisted lab - toxassure flex 19, [id number] 2024 025 KAI [facility] ([place]), [facility] [place], [address], 5 12:08:05 HbA1c (hemoglobin A1c), blood [address], [address] [place], [address], 11:10:02 microalbumi n/creatinin e, mass ratio, urine [address], [address] [place], [address], 5 11:10:02 unlisted lab - toxassure flex 19, [id number] 2024 025 Qwiki [facility]), [address] [place], [address], 5 16:08:26 HbA1c (hemoglobin A1c), blood 2024 025 [email or web address] [facility], [address] [facility], [place], [address], 5 17:02:56 microalbumi n/creatinin e, mass ratio, urine 2024 025 [id number] [facility], [address] [facility], [place], [address], 5 17:02:57 HbA1c (hemoglobin A1c), blood 2024 025 [facility] (Lab), [address], [place], [address], 5 15:49:24 CMP, serum or plasma [id number] (Lab), [address], [place], [address], 5 13:15:09 Referral EGD referral - STAT 2024 025 latrell Prado MD, [address], [place], [address], 5 10:16:57 colon & rectal surgeon referral - first available appt 2023 024 [facility], [address], [place], [address], 4 10:39:27 Procedures None recorded. Surgeries None recorded. Imaging US, lower back - soft tissue - nodule left mid back 2024 025 [facility] (Scheduling), [address], [place], [address], 5 13:22:07 ankle brachial index [address] (Scheduling), [address], [place], [address], 5 10:46:20 MAMMO, screening, bilateral 2023 024 [facility] (Scheduling), [address], [place], [address], 4 10:20:23 Medication Orders Xyzal 5 mg tablet 2024 025 [facility], [address] [place], [address], 5 11:02:20 Lyrica 150 mg capsule 2024 025 [facility], [address] [place], [address], 5 17:06:30 Lantus Solostar U-100 Insulin 100 unit/mL (3 mL) subcutaneou s pen 2024 025 [facility], [address] [place], [address], 5 17:06:26 glipizide ER 10 mg tablet, extended release 24 hr [address] [facility], [address] [place], [address], 5 17:22:38 Mounjaro 15 mg/0.5 mL subcutaneou s pen injector [address] [facility], [address] [place], [address], 5 17:22:38 Farxiga 10 mg tablet 2024 025 [facility], [address] [place], [address], 17:23:27 Lyrica 75 mg capsule [address] [facility], [address] [facility], [address], 16:40:23 Patient TargetsNo targets recorded. Patient Instructions Encounter Date Encounter Id Patient Instructions Last Modified By Organization Details Last Modified Time 08/13/2024 [id number] mammogram: about this test Not available 08/13/2024 09:27:59 body mass index: care instructions [email or web address] Not available 08/13/2024 12:56:29 learning about healthy weight [email or web address] Not available 08/13/2024 12:56:29 Will return in one month for Shingrix and labs [email or web address] Not available 08/13/2024 12:55:44 11/15/2024 [id number] type 2 diabetes: care instructions [email or web address] Not available 11/15/2024 17:22:38 electrolyte imbalance: care instructions [email or web address] Not available 11/15/2024 17:28:38 Reason for Referral Colon & Rectal Surgeon Refer ral for Internal hemorrhoids first available appt Referring Physician: [facility], Encounter Date: 08/13/2024 EGD Referral for Esophageal dysphagia STAT Referring Physician: [facility], Encounter Date: 09/05/2025 Results Created Date Observation Date Name Description Value Unit Range Abnormal Flag Note LastModifiedBy Organization Detail LastModifiedTime 11/17/1911/17/2024 HbA1c (hemo globi n A1c), blood A1C 7.1 Not Available [facility] (Lab) [address] [facility] [address], [place], [address], 11/22/2024 15:36:35 05/23/20 25 05/27/2025 TOXAS SURE FLEX 19, UR summary report [...] t Flag Units Ref Range Creat inine 29 mg/dL >=20 ===== ===== ===== ===== ===== ===== ===== ===== ===== ===== ===== ===== ===== === Decla red Medic ation s: Medic ation list was not provi ded. ===== ===== ===== ===== ===== ===== ===== ===== ===== ===== ===== ===== ===== === For clini lucía consu ltati on, pleas e call . ===== ===== ===== ===== ===== ===== ===== ===== ===== ===== ===== ===== ===== === Not Available [facility] ([facility]) [address] , [place], [address], 05/27/2025 16:08:26 08/ 25 05/27/2025 TOXAS SURE FLEX 19, UR pdf . Not Available [facility] ([facility]) [address] [place], [address], 05/27/2025 16:08:26 05/23/20 25 05/27/2025 TOXAS SURE FLEX 19, UR creatinine 29 mg/dL >=20 REFER ENCE RANGE : Ref Range >=20 Not Available [facility] ([facility]) [address] [place], [address], 05/27/2025 16:08:26 05/23/20 25 05/27/2025 TOXAS SURE FLEX 19, UR amphetamines ia Negati ve NG/mL cutoff :300 Not Available [facility] ([facility]) [address] [place], [address], 05/27/2025 16:08:26 05/23/20 25 05/27/2025 TOXAS SURE FLEX 19, UR benzodiazepi zohreh Negati ve Not Available [facility] ([facility]) [address] [place], [address], 05/27/2025 16:08:26 05/23/20 25 05/27/2025 TOXAS SURE FLEX 19, UR diazepam Not Detect ed NG/mg _crea t Not Available [facility] ([facility]) [address] [place], [address], 05/27/2025 16:08:26 05/23/20 25 05/27/2025 TOXAS SURE FLEX 19, UR desmethyldia zepam Not Detect ed NG/mg _crea t Not Available [facility] ([facility]) [address] [place], [address], 05/27/2025 16:08:26 05/23/20 25 05/27/2025 TOXAS SURE FLEX 19, UR oxazepam Not Detect ed NG/mg _crea t Not Available [facility] ([facility]) [address] [place], [address], 05/27/2025 16:08:26 05/23/20 25 05/27/2025 TOXAS SURE FLEX 19, UR temazepam Not [...] pedro Oxaze pedro: None Not Available [facility] ([facility]) [address] [place], [address], 05/27/2025 16:08:26 05/23/20 25 05/27/2025 TOXAS SURE FLEX 19, UR alprazolam Not Detect ed NG/mg _crea t Not Available [facility] ([facility]) [address] [place], [address], 05/27/2025 16:08:26 05/23/20 25 05/27/2025 TOXAS SURE FLEX 19, UR alpha-hydrox yalprazolam Not Detect ed NG/mg _crea t Not Available [facility] ([facility]) [address] [place], [address], 05/27/2025 16:08:26 05/23/20 25 05/27/2025 TOXAS SURE FLEX 19, UR desalkylflur azepam Not Detect ed NG/mg _crea t Not Available [facility] ([facility]) [address] [place], [address], 05/27/2025 16:08:26 05/23/20 25 05/27/2025 TOXAS SURE FLEX 19, UR lorazepam Not Detect ed NG/mg _crea t Not Available [facility] ([facility]) [address] [place], [address], 05/27/2025 16:08:26 05/23/20 25 05/27/2025 TOXAS SURE FLEX 19, UR alpha-hydrox ytriazolam Not Detect ed NG/mg _crea t Not Available [facility] ([facility]) [address] [place], [address], 05/27/2025 16:08:26 05/23/20 25 05/27/2025 TOXAS SURE FLEX 19, UR clonazepam Not Detect ed NG/mg _crea t Not Available [facility] ([facility]) [address] [place], [address], 05/27/2025 16:08:26 05/23/20 25 05/27/2025 TOXAS SURE FLEX 19, UR 7-aminoclona zepam Not Detect ed NG/mg _crea t Not Available [facility] ([facility]) [address] [place], [address], 05/27/2025 16:08:26 05/23/20 25 05/27/2025 TOXAS SURE FLEX 19, UR midazolam Not Detect ed NG/mg _crea t Not Available [facility] ([facility]) [address] [place], [address], 05/27/2025 16:08:26 05/23/20 25 05/27/2025 TOXAS SURE FLEX 19, UR alpha-hydrox ymidazolam Not Detect ed NG/mg _crea t Not Available [facility] ([facility]) [address] [place], [address], 05/27/2025 16:08:26 05/23/20 25 05/27/2025 TOXAS SURE FLEX 19, UR flunitrazepa m Not Detect ed NG/mg _crea t Not Available [facility] ([facility]) [address] [place], [address], 05/27/2025 16:08:26 05/23/20 25 05/27/2025 TOXAS SURE FLEX 19, UR desmethylflu nitrazepam Not Detect ed NG/mg _crea t Not Available [facility] ([facility]) [address] [place], [address], 05/27/2025 16:08:26 05/23/20 25 05/27/2025 TOXAS SURE FLEX 19, UR cocaine metabolite ia Negati ve NG/mL cutoff :150 Not Available [facility] ([facility]) [address] [place], [address], 05/27/2025 16:08:26 05/23/20 25 05/27/2025 TOXAS SURE FLEX 19, UR ethanol biomarkers ia Negati ve NG/mL cutoff :500 Not Available [facility] ([facility]) [address] [place], [address], 05/27/2025 16:08:26 05/23/20 25 05/27/2025 TOXAS SURE FLEX 19, UR cannabinoids ia Negati ve NG/mL cutoff :20 Not Available [facility] ([facility]) [address] [place], [address], 05/27/2025 16:08:26 05/23/20 25 05/27/2025 TOXAS SURE FLEX 19, UR 6-acetylmorp alo ia Negati ve NG/mL cutoff :10 Not Available [facility] ([facility]) [address] [place], [address], 05/27/2025 16:08:26 05/23/20 25 05/27/2025 TOXAS SURE FLEX 19, UR opiate class ia Negati ve NG/mL cutoff :100 Not Available [facility] ([facility]) [address] [place], [address], 05/27/2025 16:08:26 05/23/20 25 05/27/2025 TOXAS SURE FLEX 19, UR oxycodone class ia Negati ve NG/mL cutoff :100 Not Available [facility] ([facility]) [address] [place], [address], 05/27/2025 16:08:26 05/23/20 25 05/27/2025 TOXAS SURE FLEX 19, UR methadone ia Negati ve NG/mL cutoff :100 Not Available [facility] ([facility]) [address] [place], [address], 05/27/2025 16:08:26 05/23/20 25 05/27/2025 TOXAS SURE FLEX 19, UR methadone mtb ia Negati ve NG/mL cutoff :100 Not Available [facility] ([facility]) [address] [place], [address], 05/27/2025 16:08:26 05/23/20 25 05/27/2025 TOXAS SURE FLEX 19, UR buprenorphin e ia Negati ve NG/mL cutoff :5.0 Not Available [facility] ([facility]) [address] [place], [address], 05/27/2025 16:08:26 05/23/20 25 05/27/2025 TOXAS SURE FLEX 19, UR fentanyl ia Negati ve NG/mL cutoff :2.0 Not Available [facility] ([facility]) [address] [place], [address], 05/27/2025 16:08:26 05/23/20 25 05/27/2025 TOXAS SURE FLEX 19, UR tapentadol ia Negati ve NG/mL cutoff :200 Not Available [facility] ([facility]) [address] [place], [address], 05/27/2025 16:08:26 05/23/20 25 05/27/2025 TOXAS SURE FLEX 19, UR propoxyphene ia Negati ve NG/mL cutoff :300 Not Available [facility] ([facility]) [address] [place], [address], 05/27/2025 16:08:26 05/23/20 25 05/27/2025 TOXAS SURE FLEX 19, UR tramadol ia Negati ve NG/mL cutoff :200 Not Available [facility] ([facility]) [address] [place], [address], 05/27/2025 16:08:26 05/23/20 25 05/27/2025 TOXAS SURE FLEX 19, UR methylphenid ate ia Negati ve NG/mL cutoff :100 Not Available [facility] ([facility]) [address] [place], [address], 05/27/2025 16:08:26 05/23/20 25 05/27/2025 TOXAS SURE FLEX 19, UR barbiturates ia Negati ve NG/mL cutoff :200 Not Available [facility] ([facility]) [address] [place], [address], 05/27/2025 16:08:26 05/23/20 25 05/27/2025 TOXAS SURE FLEX 19, UR phencyclidin e ia Negati ve NG/mL cutoff :25 Not Available [facility] ([facility]) [address] [place], [address], 05/27/2025 16:08:26 05/23/20 25 05/27/2025 TOXAS SURE FLEX 19, UR gabapentin ia Negati ve ug/mL cutoff :1.0 Not Available [facility] ([facility]) [address] [place] [address], [address], 05/27/2025 16:08:26 05/23/20 25 05/27/2025 TOXAS SURE FLEX 19, UR anticonvulsa nts +POSIT PATRICA+ Not Available [facility] ([facility]) [address] [facility], [place], [address], 05/27/2025 16:08:26 05/23/20 25 05/27/2025 TOXAS SURE FLEX 19, UR pregabalin PRESEN T Not Available [facility] ([facility]) [address] [facility], [place], [address], 05/27/2025 16:08:26 05/23/20 25 05/27/2025 TOXAS SURE FLEX 19, UR carisoprodol ia Negati ve NG/mL cutoff :100 Not Available [facility] ([facility]) [address] [facility], [place], [address], 05/27/2025 16:08:26 05/23/20 25 05/23/2025 HbA1c (hemo globi n A1c), blood HbA1c 9.4 % Not Available [facility] [address] [place], [address], 05/23/2025 16:47:06 05/23/20 25 05/23/2025 micro album in/cr eatin ine, mass ratio , urine Microalbumin 10 mg/L Not Available [facility] [address] [place], [address], 05/23/2025 16:47:12 05/23/20 25 05/23/2025 micro album in/cr eatin ine, mass ratio , urine Creatinine 50 mg/dL Not Available [facility] [address] [place], [address], 05/23/2025 16:47:12 05/23/20 25 05/23/2025 micro album in/cr eatin ine, mass ratio , urine Ratio <30 mg/g Not Available [facility] [address] [place], [address], 05/23/2025 16:47:12 12/04/20 25 09/09/2025 TOXAS SURE FLEX 19, [...] lucía consu ltati on, pleas e call . ===== ===== ===== ===== ===== ===== ===== ===== ===== ===== ===== ===== ===== === Not Available [facility] ([facility]) [address] [place], [address], 09/09/2025 12:08:05 09/05/20 25 09/09/2025 TOXAS SURE FLEX 19, UR pdf . Not Available [facility] ([facility]) [address] [place], [address], 09/09/2025 12:08:05 09/05/20 25 09/09/2025 TOXAS SURE FLEX 19, UR creatinine 16 mg/dL >=20 below low normal Note: Urina ry creat inine is low; abili ty to detec t some drugs may be compr omise d. Inter pret resul ts with cauti on. REFER ENCE RANGE : Ref Range >=20 Not Available [facility] ([facility]) [address] [place], [address], 09/09/2025 12:08:05 09/05/2009/09/2025 TOXAS SURE FLEX 19, UR amphetamines ia Negati ve NG/mL cutoff :300 Not Available [facility] ([facility]) [address] [place], [address], 09/09/2025 12:08:05 09/05/20 25 09/09/2025 TOXAS SURE FLEX 19, UR benzodiazepi zohreh Negati ve Not Available [facility] ([facility]) [address] [place], [address], 09/09/2025 12:08:05 09/05/20 25 09/09/2025 TOXAS SURE FLEX 19, UR diazepam Not Detect ed NG/mg _crea t Not Available [facility] ([facility]) [address] [place], [address], 09/09/2025 12:08:05 09/05/20 25 09/09/2025 TOXAS SURE FLEX 19, UR desmethyldia zepam Not Detect ed NG/mg _crea t Not Available [facility] ([facility]) [address] [place], [address], 09/09/2025 12:08:05 09/05/20 25 09/09/2025 TOXAS SURE FLEX 19, UR oxazepam Not Detect ed NG/mg _crea t Not Available [facility] ([facility]) [address] [place], [address], 09/09/2025 12:08:05 09/05/20 25 09/09/2025 TOXAS SURE [...] pedro Oxaze pedro: None Not Available [facility] ([facility]) [address] [place], [address], 09/09/2025 12:08:05 09/05/20 25 09/09/2025 TOXAS SURE FLEX 19, UR alprazolam Not Detect ed NG/mg _crea t Not Available [facility] ([facility]) [address] [facility], [place], [address], 09/09/2025 12:08:05 09/05/20 25 09/09/2025 TOXAS SURE FLEX 19, UR alpha-hydrox yalprazolam Not Detect ed NG/mg _crea t Not Available [facility] ([facility]) [address] [place], [address], 09/09/2025 12:08:05 09/05/20 25 09/09/2025 TOXAS SURE FLEX 19, UR desalkylflur azepam Not Detect ed NG/mg _crea t Not Available [facility] ([facility]) [address] [facility], [place], [address], 09/09/2025 12:08:05 09/05/20 25 09/09/2025 TOXAS SURE FLEX 19, UR lorazepam Not Detect ed NG/mg _crea t Not Available [facility] ([facility]) [address] [place], [address], 09/09/2025 12:08:05 09/05/20 25 09/09/2025 TOXAS SURE FLEX 19, UR alpha-hydrox ytriazolam Not Detect ed NG/mg _crea t Not Available [facility] ([facility]) [address] [place], [address], 09/09/2025 12:08:05 09/05/20 25 09/09/2025 TOXAS SURE FLEX 19, UR clonazepam Not Detect ed NG/mg _crea t Not Available [facility] ([facility]) [address] [place], [address], 09/09/2025 12:08:05 09/05/20 25 09/09/2025 TOXAS SURE FLEX 19, UR 7-aminoclona zepam Not Detect ed NG/mg _crea t Not Available [facility] ([facility]) [address] [place], [address], 09/09/2025 12:08:05 09/05/20 25 09/09/2025 TOXAS SURE FLEX 19, UR midazolam Not Detect ed NG/mg _crea t Not Available [facility] ([facility]) [address] [place], [address], 09/09/2025 12:08:05 09/05/20 25 09/09/2025 TOXAS SURE FLEX 19, UR alpha-hydrox ymidazolam Not Detect ed NG/mg _crea t Not Available [facility] ([facility]) [address] [place], [address], 09/09/2025 12:08:05 09/05/20 25 09/09/2025 TOXAS SURE FLEX 19, UR flunitrazepa m Not Detect ed NG/mg _crea t Not Available [facility] ([facility]) [address] [place], [address], 09/09/2025 12:08:05 09/05/20 25 09/09/2025 TOXAS SURE FLEX 19, UR desmethylflu nitrazepam Not Detect ed NG/mg _crea t Not Available [facility] ([facility]) [address] [place], [address], 09/09/2025 12:08:05 09/05/20 25 09/09/2025 TOXAS SURE FLEX 19, UR cocaine metabolite ia Negati ve NG/mL cutoff :150 Not Available [facility] ([facility]) [address] [place], [address], 09/09/2025 12:08:05 09/05/20 25 09/09/2025 TOXAS SURE FLEX 19, UR ethanol biomarkers ia Negati ve NG/mL cutoff :500 Not Available [facility] ([facility]) [address] [place], [address], 09/09/2025 12:08:05 09/05/20 25 09/09/2025 TOXAS SURE FLEX 19, UR cannabinoids ia Negati ve NG/mL cutoff :20 Not Available [facility] ([facility]) [address] [place], [address], 09/09/2025 12:08:05 09/05/20 25 09/09/2025 TOXAS SURE FLEX 19, UR 6-acetylmorp alo ia Negati ve NG/mL cutoff :10 Not Available [facility] ([facility]) [address] [place], [address], 09/09/2025 12:08:05 09/05/20 25 09/09/2025 TOXAS SURE FLEX 19, UR opiate class ia Negati ve NG/mL cutoff :100 Not Available [facility] ([facility]) [address] [place], [address], 09/09/2025 12:08:05 09/05/20 25 09/09/2025 TOXAS SURE FLEX 19, UR oxycodone class ia Negati ve NG/mL cutoff :100 Not Available [facility] ([facility]) [address] [place], [address], 09/09/2025 12:08:05 09/05/20 25 09/09/2025 TOXAS SURE FLEX 19, UR methadone ia Negati ve NG/mL cutoff :100 Not Available [facility] ([facility]) [address] [place], [address], 09/09/2025 12:08:05 09/05/20 25 09/09/2025 TOXAS SURE FLEX 19, UR methadone mtb ia Negati ve NG/mL cutoff :100 Not Available [facility] ([facility]) [address] [place], [address], 09/09/2025 12:08:05 09/05/20 25 09/09/2025 TOXAS SURE FLEX 19, UR buprenorphin e ia Negati ve NG/mL cutoff :5.0 Not Available [facility] ([facility]) [address] [place], [address], 09/09/2025 12:08:05 09/05/20 25 09/09/2025 TOXAS SURE FLEX 19, UR fentanyl ia Negati ve NG/mL cutoff :2.0 Not Available [facility] ([facility]) [address] [place], [address], 09/09/2025 12:08:05 09/05/20 25 09/09/2025 TOXAS SURE FLEX 19, UR tapentadol ia Negati ve NG/mL cutoff :200 Not Available [facility] ([facility]) [address] [place], [address], 09/09/2025 12:08:05 09/05/20 25 09/09/2025 TOXAS SURE FLEX 19, UR propoxyphene ia Negati ve NG/mL cutoff :300 Not Available [facility] ([facility]) [address] [place], [address], 09/09/2025 12:08:05 09/05/20 25 09/09/2025 TOXAS SURE FLEX 19, UR tramadol ia Negati ve NG/mL cutoff :200 Not Available [facility] ([facility]) [address] [place], [address], 09/09/2025 12:08:05 09/05/20 25 09/09/2025 TOXAS SURE FLEX 19, UR methylphenid ate ia Negati ve NG/mL cutoff :100 Not Available [facility] ([facility]) [address] [place], [address], 09/09/2025 12:08:05 09/05/20 25 09/09/2025 TOXAS SURE FLEX 19, UR barbiturates ia Negati ve NG/mL cutoff :200 Not Available [facility] ([facility]) [address] [facility] [place], [address], 09/09/2025 12:08:05 09/05/20 25 09/09/2025 TOXAS SURE FLEX 19, UR phencyclidin e ia Negati ve NG/mL cutoff :25 Not Available [facility] ([facility]) [address] [facility], [place], [address], 09/09/2025 12:08:05 09/05/20 25 09/09/2025 TOXAS SURE FLEX 19, UR gabapentin ia Negati ve ug/mL cutoff :1.0 Not Available [facility] ([facility]) [address] [facility], [place], [address], 09/09/2025 12:08:05 09/05/20 25 09/09/2025 TOXAS SURE FLEX 19, UR anticonvulsa nts +POSIT PATRICA+ Not Available [facility] ([facility]) [address] [place], [address], 09/09/2025 12:08:05 09/05/20 25 09/09/2025 TOXAS SURE FLEX 19, UR pregabalin PRESEN T Not Available [facility] ([facility]) [address] [facility], [place], [address], 09/09/2025 12:08:05 09/05/20 25 09/09/2025 TOXAS SURE FLEX 19, UR carisoprodol ia Negati ve NG/mL cutoff :100 Not Available [facility] ([facility]) [address] [place], [address], 09/09/2025 12:08:05 09/05/20 25 09/05/2025 micro album in/cr eatin ine, mass ratio , urine Microalbumin 10 mg/L Not Available [facility] [address] [facility], [place], [address], 09/05/2025 10:47:23 09/05/20 25 09/05/2025 micro album in/cr eatin ine, mass ratio , urine Creatinine 10 mg/dL Not Available [facility] [address] [place] [address], [place], [address], 09/05/2025 10:47:23 09/05/20 25 09/05/2025 micro album in/cr eatin ine, mass ratio , urine Ratio <30 mg/g Not Available [facility] [address] [place] [address], [place], [address], 09/05/2025 10:47:23 09/05/20 25 09/05/2025 HbA1c (hemo globi n A1c), blood HbA1c 8.5 % Not Available [facility] [address] [place] [address], [place], [address], 09/05/2025 10:47:17 09/11/20 24 09/05/2024 MAMMO , scree kera, bilat eral No observ ation record ed. [facility] ([facility] [address], [place], [address], 09/24/2024 08:47:36 05/29/20 25 05/28/2025 US, lower back No observ ation record ed. [email or web address] [facility] [address], [place], [address], 06/27/2025 13:56:46 07/23/2007/22/2025 US, doppl er, venou s No observ ation record ed. [email or web address], [place], [address], 07/23/2025 08:54:39 07/29/20 25 07/29/2025 US, doppl er, venou s No observ ation record ed. [email or web address] [address], [place], [address], 07/29/2025 14:10:53 Result Notes None recorded. Problems Name Problem SNOMED Code Status Onset Date Resolution Date Notes Provider Name and Address Organization Details Recorded Time Type 2 diabetes mellitus without complicatio n 732128298 Active 2023 RAMON Obrien [address] [place] [address], [address], [employer] 4 09:24:20 Hypertensiv e disorder 48413025 Active 2023 RAMON Obrien [address] [place] [address], [address] 8, [employer] 4 09:24:11 Vitamin D deficiency 81070845 Active 2023 RAMON Obrien [address] [place] [address], [address] 8, [employer] 4 09:24:45 Anxiety 05918750 Active 2023 RAMON Obrien [address] [place] [address], [address], [employer] 4 09:24:59 Allergic rhinitis 24339005 Active 2023 RAMON Obrien [address] [place] [address], [address] 8, [employer] 4 09:25:29 Gastroesoph ageal reflux disease 956095521 Active 2023 RAMON Obrien [address] [place] [address], 35174-854 8, [employer] 4 09:26:01 Chronic obstructive pulmonary disease 07148687 Active 2023 RAMON Obrien [address] [place] [address], 93201-997 8, [employer] 4 09:26:33 Congestive heart failure 62039466 Active 2023 RAMON Obrien [address] [place] [address], 05897-212 8, [employer] 4 09:28:28 Internal hemorrhoids 71447147 Active 2023 RAMON Obrien [address] [place] [address], 54988-954 8, [employer] 4 09:41:10 Folliculiti s 24631543 Active 2024 RAMON Obrien [address] [place] [address], 90762-598 8, [employer] 5 08:18:48 Type 2 diabetes mellitus 69621491 Active 2024 RAMON Obrien [address] [place], [place] [address], [address] 8, [employer] 5 17:14:21 Neuropathy due to type 2 diabetes mellitus 4636336468382 06 Active 2024 RAMON Obrien [address] [place] [address], [address] 8, [employer] 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 5 09:16:10 Acute urinary tract infection 895349529 Active 2024 RAMON Obrien [address] [place] [address], 05252-611 8, [employer] 5 15:33:07 Chronic kidney disease 407132806 Active 2024 RAMON Obrien [address] [place] [address], 84302-099 8, [employer] 5 15:48:18 Lipoma of back 217095575 Active 2024 RAMON Obrien [address] [place] [address], 93838-761 8, [employer] 5 13:57:00 Nasal sinus problem 364613811 Active 2024 RAMON Obrien [address] [place] [address], 66748-805 8, [employer] 11:01:32 Esophageal dysphagia 03540544 Active 2024 RAMON Obrien [address] [place] [address], 09675-616 8, [employer] 5 11:08:31 Bacterial sinusitis 124777398 Active 2024 RAMON Obrien [address] [place] [address], 72812-928 8, [employer] 12:20:46 Problem Notes None recorded. Procedures Surgical History Date Name Laterality Status Provider Name and Address Organization Details Recorded Time 11/15/19 25 Diabetic Foot Screen completed RAMON Obrien [address] [place] [address], [phone], [employer] 11/15/2024 17:28:01 09/05/20 24 Most Recent Mammogram completed [employer] 11/15/2024 17:05:03 Caesarean Section completed [employer] 08/13/2024 09:02:44 Total Hysterectomy completed [employer] 08/13/2024 09:03:22 Orthopedic Surgery completed [employer] 08/13/2024 09:03:38 Tonsillectomy completed [employer] 08/13/2024 09:04:01 Other completed [employer] 08/13/2024 09:04:24 Knee Surgery completed [employer] 05/23/2025 16:39:35 Knee Surgery completed [employer] 05/23/2025 16:39:48 Imaging Results None recorded. Procedure Notes None recorded. Medical Equipment None Reported. Allergies Allergen ID Allergen Name Allergen Category Reaction Reaction Severity Criticality Documentation Date Start Date Code Code System Note Provider Name and Address Organization Details Recorded Time 89115 atorvasta tin medicatio n Not available Not available Not available 08/13/2024 33786 RxNorm Birdie Vice null, [employer] 4 08:56:10 37741 acetamino phen / hydrocodo ne medicatio n Not available Not available Not available 08/13/2024 44561 2 RxNorm Bidrie Vice null, [employer] 4 08:56:23 56208 cefaclor medicatio n Not available Not available Not available 08/13/2024 2176 RxNorm Birdie Vice null, [employer] 4 08:56:33 71237 celecoxib medicatio n Not available Not available Not available 08/13/2024 60097 7 RxNorm Birdie Vice null, [employer] 4 08:56:41 28378 hydrocodo ne Not available Not available Not available Not available 08/13/2024 5489 RxNorm Birdie Vice null, [employer] 4 08:56:50 37449 isosorbid e medicatio n Not available Not available Not available 08/13/2024 6057 RxNorm Birdie Vice null, [employer] 4 08:56:59 48194 meperidin e medicatio n Not available Not available Not available 08/13/2024 6754 RxNorm Birdie Vice null, [employer] 4 08:57:10 41520 pravastat in medicatio n Not available Not available Not available 08/13/2024 80552 RxNorm Birdie Vice null, [employer] 4 08:57:20 05264 ranolazin e medicatio n Not available Not available Not available 08/13/2024 45898 RxNorm Birdie Vice null, [employer] 4 08:57:27 97538 rosuvasta tin medicatio n Not available Not available Not available 08/13/2024 44555 2 RxNorm Birdie Vice null, [employer] 4 08:57:35 14536 Product containin g 3-hydroxy -3-methyl glutaryl- coenzyme A reductase inhibitor (product) medicatio n Not available Not available Not available 08/13/2024 25284 009 SNOMED Birdie taylor, [employer] 4 08:57:45 01134 cephalexi n medicatio n Not available Not available Not available 09/05/20252015 2231 RxNorm Not Available mineral point - External Data [employer] - prod 5 [...] 2nd Gen Pen Needle 32 gauge x 5/32 USE DIRECTED active Not Available Not Available No t Available Vitals Date Recorded Body height Body mass index (BMI) Body weight Oxygen saturation Heart rate Body temperature Systolic And Diastolic Systolic And Diastolic Provider Name and Address Organization Details Last Updated DateTime 5 167.64 cm 33.2 kg/m2 87748.0 3 g 99 % 86 /min 97.9 [degF] 146/88 mm[Hg] 138/86 mm[Hg] [employer] 5 17:10:08 Date Recorded Body height Body mass index (BMI) Body weight Heart rate Oxygen saturation Body temperature Systolic And Diastolic Provider Name and Address Organization Details Last Updated DateTime 5 167.64 cm 34.2 kg/m2 87405.5 8 g 82 /min 99 % 98.1 [degF] 116/80 mm[Hg] [employer] 5 16:45:06 Date Recorded Body weight Body mass index (BMI) Body height Oxygen saturation Heart rate Systolic And Diastolic Provider Name and Address Organization Details Last Updated DateTime 4 27070.8 g 34.8 kg/m2 167.64 cm 99 % 90 /min 112/79 mm[Hg] [employer] 4 08:49:24 Date Recorded Body height Body mass index (BMI) Body weight Oxygen saturation Heart rate Body temperature Systolic And Diastolic Provider Name and Address Organization Details Last Updated DateTime 5 167.64 cm 34.7 kg/m2 35826.0 8 g 98 % 80 /min 98 [degF] 118/80 mm[Hg] [employer] 5 10:44:51 Social History Question Answer Notes LastModified by Organizat ion Details LastModified Time Tobacco Smoking Status Former Smoker [facility] 08/13/2024 09:00:56 Do You Have An Advance [...] Or The Highest Degree You Have Received? [id number] Information not available 09/05/2025 Have There Been [...] Do You Have A Medical Power Of Yeast Washer? No Information not available 08/13/2024 What Was [...] Functional Status Question Answer Note LastModified by Organizat ion Details LastModified Time How many times per [...] Mental Status Question Answer Note LastModified by Organizat ion Details LastModified Time Do you feel stressed (tense, restless, nervous, or anxious, or unable to sleep at night)? [id number] Information not available 08/13/2024 Do you have [...] COPD N Depression N Dermatologic Disorders N Lung Disease Y Hypothyroidism Y Developmental or Behavioral Disorders N Defects or Inherited Disease N Breast Problem N Difficulty Swallowing N Anesthesia Complications N History of STI N Anxiety Disorder N Meniere's disease N Autoimmune disease N Muscle, Joint, or Bone Problems N Vision or Eye Problems N Arthritis N Infertility N Polyps N Mental Disorder N Congenital Anomalies N Acid Reflux (GERD) N Cancer N Stroke N Neurologic/Epilepsy N Endometriosis N Bladder or Kidney Problems N High Cholesterol Y Liver Disease N Psychiatric/Mental Health Condition N Organ Transplant N Fibromyalgia N Headaches N Schizophrenia N Dialysis N Kidney Disease N Allergies/Hayfever N Heart [...] 0.5 mL, PF 4 completed RAMON Obrien [address] [place], [address], [employer] 08/13/2024 12:51:32 Pneumococcal conjugate PCV21, polysaccharide CKU110 conjugate, PF 5 completed Birdie Vice null, [employer] 09/05/2025 11:33:32 Tdap 0 completed Birdie Vice null, [employer] 11/15/2024 16:54:27 influenza, unspecified formulation 4 completed Birdie Vice null, [employer] 11/15/2024 16:54:27 pneumococcal polysaccharide PPV23 7 completed Birdie Vice null, [employer] 11/15/2024 16:54:27 pneumococcal polysaccharide PPV23 2 completed Birdie Vice null, [employer] 11/15/2024 16:54:27 Pneumococcal conjugate PCV 13 7 completed RAMON Obrien [address] [place], [address], [employer] 08/13/2024 13:03:27 Influenza, recombinant, quadrivalent, PF 0 completed Birdie Vice null, [employer] 11/15/2024 16:54:27 zoster recombinant 9 completed Birdie Vice null, [employer] 11/15/2024 16:54:27 COVID-19, mRNA, LNP-S, PF, 100 mcg/0.5mL dose or 50 mcg/0.25mL dose 1 completed Birdie Vice null, [employer] 11/15/2024 16:54:27 COVID-19, mRNA, LNP-S, PF, 100 mcg/0.5mL dose or 50 mcg/0.25mL dose 1 completed Ibrdie Vice null, [employer] 11/15/2024 16:54:27 COVID-19, mRNA, LNP-S, PF, 100 mcg/0.5mL dose or 50 mcg/0.25mL dose 2 completed Birdie Vice null, [employer] 11/15/2024 16:54:27 zoster live 7 completed Birdie Vice null, [employer] 11/15/2024 16:54:27 VZIG 7 completed Birdie Vice null, [employer] 11/15/2024 16:54:27 Influenza, split virus, quadrivalent, PF 8 completed Birdie Vice null, [employer] 11/15/2024 16:54:27 Influenza, split virus, quadrivalent, PF 3 completed Birdie Vice null, [employer] 11/15/2024 16:54:27 Influenza, split virus, quadrivalent, PF 9 completed Birdie Vice null, [employer] 11/15/2024 16:54:27 Influenza, split virus, quadrivalent, PF 2 completed Birdie Vice null, [employer] 11/15/2024 16:54:27 Influenza, split virus, quadrivalent, PF 1 completed Birdie Vice null, [employer] 11/15/2024 16:54:27 Influenza, recombinant, trivalent, PF 4 completed Birdie Vice null, [employer] 11/15/2024 16:54:27 Hep A-Hep B 4 completed Birdie Vice null, [employer] 11/15/2024 16:54:27 Hep A-Hep B 3 completed Birdie Vice null, [employer] 11/15/2024 16:54:27 Hep A-Hep B 3 completed [place], [place] - [facility] [employer] 11/15/2024 16:54:27 Influenza, recombinant, trivalent, PF 5 completed [facility] Available [facility] 09/[facility] 10:39:32 Past Encounters Encounter ID Performer Location Encounter Start Date Encounter Closed Date Diagnosis/Indication Diagnosis SNOMED-CT Code Diagnosis ICD10 Code Diagnosis IMO Codes Diagnosis Note [id number] RAMON Obrien [address] [address] 08/13/2024 08:36:37 08/13/2024 10:00:41 Screening mammography 26658122 Z12.31 Active or passive immunization 715323807 Z23 Internal hemorrhoids 904 41413 K64.8 Body mass index 30+ - obesity 744720660 Z68.34 [id number] RAMON Obrien [address] [address] 11/15/2024 16:50:25 11/15/2024 17:33:50 Type 2 diabetes mellitus without complication 481654680 E11.9 Type 2 brittany betes mellitus 58681779 E11.9 Electrolyte imbalance 10 5287192 E87.8 Neuropathy due to type 2 diabetes mellitus 0288568749 50321 E11.40 Stasis yenny matitis of lower limb due to chronic peripheral venous hypertension 911084488 I87.126 [id number] RAMON Obrien [address] [address] 05/23/2025 16:32:17 05/23/2025 17:06:36 Neuropathy due to type 2 diabetes mellitus 1138189863 46878 E11.40 Z79.4 10557551 Increase LyricaAdd Lantus Long-term current use of drug therapy 037462771 Z79.899 57372329 Subcutaneous nodule 9532 5000 R22.9 590987 [id number] RAMON Obrien [address] [address] 09/05/2025 10:27:59 09/05/2025 11:14:35 Neuropathy due to type 2 diabetes mellitus 5766863567 84296 E11.40 Z79.4 21454957 Long-term current use of drug therapy 180015711 Z79.899 62571544 Nasal sinus problem 3012 90844 J34.89 068236 Requires v accination against Streptococcus pneumoniae 0859775113 Z23 280527 Esophageal dysphagia 408 04084 R13.19 8211 Concern for esophageal stricture Health Concerns Section Related Observation LastModified by Organization Detai ls LastModified Time None Recorded Concern Status LastModified by Organization Details LastModified Time None Recorded Advance Directives Directive N: Payers Insurance Date Sequence Insurance Name Policy Number Policy Zarate Covered Member ID Zarate Member ID Guarantor Name 09/04/2025 1 [place] [id number] 1 Rosalinda Cooper [id number] Rosalinda Cooper Notes Date Note Type Note Provider Name and Address Organization Details Recorded Time 08/13/2024 text/html Patient presents to establish care at [facility].Patient has a history of diabetes. Taking Mounjaro with other meds. States sugar is well controlled.Patient has hemorrhoids. These developed after COVID19. She had diarrhea for months. THey are uncomfortable and would like a referral to have the removed.Patient had meniscus repair of left knee, ACL repair in May.She states that she has not had physical therapy yet.Patient would like [facility]. She had RSV last fall and was sick for months. RAMON Obrien [address] [place] [address], [phone], [employer] 08/13/2024 12:56:33 11/15/2024 text/html Patient presents for followup.History of diabetes. History of CKD. She would like to increase Mounjaro. Taking Farxiga.Hospital ed twice in September. Had low potassium. Stopped chlorthalidone.Has numbness and burning in her feet and splotchy rash on lower legs. RAMON Obrien [address] [place] [address], [phone], [employer] 11/16/2024 17:20:47 05/23/2025 text/html ROS as noted in the HPI Patient presents for follow up. History of diabetes. HgA1c has gone up. Patient states her neuropathy is really bad. Toes burn all the time. Wonders if Lyrica can be increased. States she is taking other meds as directed.Has a knot on her left wrist.Also has knots under the skin in her back that are painful. RAMON Obrien [address] [place], [address], [employer], [employer]. 05/27/2025 11:52:53 09/05/2025 text/html ROS as noted in the [...] but meat is the worst. RAMON Obrien [address] [place], [address], [employer] 09/06/2025 10:47:01 OBGyn Episode No OBEpisode recorded.
--- NOTE | 2025-09-17 08:00 | US_ITS ---
FINAL REPORT TECHNIQUE: Ultrasound images of the thyroid were obtained. CLINICAL HISTORY: evaluation for treatment FINDINGS: The right lobe of the thyroid measures 5.4 x 2.0 x 2.9 cm. The left lobe measures 5.4 x 1.8 x 2.1 cm. Thyroid is borderline enlarged bilaterally. There are numerous nodules identified within both lobes consistent with multinodular goiter. There are at least 4 lesions within the right lobe and 3 within the left. Lesions are all TI-RADS category 3. Largest of the right lobe measures up to 11 mm with mixed cystic and solid appearance. Second oval lesion on the right lobe is predominantly solid measuring up to 12 mm. Largest nodule on the left is mixed cystic and solid measuring 18 x 16 x 11 mm. IMPRESSION: Multinodular goiter. Recommend 12-month follow-up. Reviewed, Interpreted and Dictated by Dano Ko MD Transcribed by Zara Downing Authenticated and [facility]
--- NOTE | 2025-09-17 08:30 | FL_ITS ---
FINAL REPORT CLINICAL HISTORY: trouble swallowing 864.13 dap 0.41 fluoro time FINDINGS: ESOPHAGRAM HISTORY: Feels like food getting stuck in throat. TECHNIQUE: Patient ingested thick and thin barium contrast. Effervescent crystals were also administered. Spot films were performed. A total of 38 images were saved. FINDINGS: The esophagus demonstrates a small sliding-type hiatal hernia. There is no gastroesophageal reflux demonstrated. No mucosal defects are seen. Motility appears normal. No changes of esophagitis are evident. 13 mm barium tablet passes easily through the esophagus and into the stomach. FLUOROSCOPY TIME: 0.41 minutes RADIATION DOSE IN TOTAL DAP: 864.13 uGym2 IMPRESSION: Small hiatal hernia. Otherwise, unremarkable esophagram. Reviewed, Interpreted and Dictated by Sravani Mancilla MD Transcribed by Merary Martinez PA-C Authenticated and [facility]
[2025-09-17] MEDS: E-Z-GASII EFFERVESCENT GRANULES;1PK 1 EACH PO (08:51)
[2025-09-17] MEDS: BARIUM SULFATE (E-Z-HD 340GM);135ML BOTTLE 135 ML PO (08:51)
[2025-09-17] MEDS: BARIUM SULFATE(E-Z-AC);750ML BOTTLE 750 ML PO (08:51)
== END 2025-09-17 23:59 | disposition home or self-care (01) ==
LOC: RAD 07:49
PROVIDERS: PCP Physician Assistant; Visit Provider Nurse Practitioner
DX: K44.9 Diaphragmatic hernia without obstruction or gangrene (principal); E04.2 Nontoxic multinodular goiter
CPT/HCPCS: 74220; 76536

== ENCOUNTER 2025-09-19 11:19 | Day surgery (SDC) | payer BC, SELFPAY ==
--- NOTE | 2025-09-17 07:32 | EXP.HP ---
History of Present Illness *Admission Date: 09/19/25 *History of present illness: Mrs. Cooper is a 60-year-old female who is here for diagnostic EGD secondary to dysphagia. This usually occurs with solid foods such as meats and has progressively worsened. She often has to regurgitate. She is on omeprazole 40 mg daily and will occasionally awaken with reflux. She does have some chronic constipation and has been on Mounjaro for the past year. She did have an EGD 7 or 8 years ago according to the patient. The examination is deemed medically necessary for diagnostic EGD. The patient has been seen, interviewed and examined prior to the procedure by both myself and the anesthesia provider. [facility] Disclaimer: The information contained in this section may have been updated after the patient was seen, as this information can be updated by other users. Medical History Globus sensation Dysphagia Thyroid nodule Skin lesions Edema Claudication Encounter for pre-operative cardiovascular clearance Hypokalemia Unstable angina Abnormal findings on diagnostic imaging of heart and coronary circulation Atypical angina Abnormal electrocardiography Metatarsalgia of both feet Injury of left foot Ground glass opacity present on imaging of lung Dyspnea on exertion Lung nodule Family history of lung cancer Stopped smoking with greater than 30 pack year history Mediastinal lymphadenopathy Mild intermittent asthma RBBB Dizziness Typical angina Palpitations CAD (coronary artery disease) Chest pain Dyspnea Thyroid goiter Vitamin D deficiency Anxiety Right shoulder pain BMI 36.0-36.9,adult Surgical History Status post arthroscopy of left knee History of bladder suspension procedure History of tonsillectomy Family History Other Cancer Coronary artery disease Diabetes Social History Smoking Status: Former smoker tobacco type: cigarettes packs per day: 1 how long ago did patient quit smokin alcohol intake: never substance use type: denies use current occupational status: employed Travel in the last 8 weeks?: None household members: spouse housing: house current occupational exposures/hazards: No caffeine: Yes Have you lived/traveled outside US in past 30 days?: No Contact w/someone who lives/traveled outside US past 30 days?: No Exposure to someone with infectious disease in past 14 days?: No Do you have a fever (greater than 100.4 F or 38 C)?: No Have you tested positive for COVID-19?: No Exposed to someone with COVID-19 in past 14 days?: No Do you have a sore throat?: No Do you have a cough?: No Do you have any weakness?: No Do you have any diarrhea?: No Are you experiencing any unusual bleeding?: No Do you have any muscle aches/pain?: No Do you have any abdominal pain?: No Are you experiencing loss of taste or smell?: No Other Medical History Have you received the Flu Vaccine for this season: No Have you received the Pneumonia Vaccine: No Review of Systems Review of Systems Review of systems (narrative): Negative *Cardiovascular Comments: Negative *Gastrointestinal Comments: Negative *Genitourinary Comments: Negative *Musculoskeletal Comments: Negative *Neurologic Comments: Negative Meds Home Medications and Allergies Home Medications ?Medication ?Instructions ?Recorded ?Confirmed ?Type aspirin 81 mg tablet,delayed 81 mg PO DAILY 05/09/24 09/19/25 History release loratadine 10 mg tablet (Allergy 10 mg PO DAILY 05/09/24 09/19/25 History Relief (loratadine)) metformin 1,000 mg tablet 1,000 mg PO BID 05/09/24 09/19/25 History omeprazole 40 mg capsule,delayed 40 mg PO DAILY 05/09/24 09/19/25 History release buspirone 7.5 mg tablet 7.5 mg PO TID 09/24/24 09/19/25 History cholecalciferol (vitamin D3) 25 25 mcg PO DAILY 09/24/24 09/19/25 History mcg (1,000 unit) capsule dapagliflozin propanediol 10 mg 10 mg PO DAILY 09/24/24 09/19/25 History tablet (Farxiga) ergocalciferol (vitamin D2) 1,250 1,250 mcg PO WEEKLY 09/24/24 09/19/25 History mcg (50,000 unit) capsule glipizide 10 mg tablet, extended 10 mg PO BID 09/24/24 09/19/25 History release 24 hr minocycline 100 mg capsule 100 mg PO BID 09/24/24 09/19/25 History insulin lispro protamine-lispro 28 unit (0.28 mL) SQ BID 30 days 10/02/24 09/19/25 Rx 100 unit/mL (75-25) subcutaneous #0 mL pen (Humalog Mix 75-25 KwikPen) tirzepatide 12.5 mg/0.5 mL 15 mg SQ QWEEK 10/11/24 09/19/25 History subcutaneous pen injector (Guadalupe) pregabalin 75 mg capsule 75 mg PO BID 01/08/25 09/19/25 History finerenone 20 mg tablet (Kerendia) 20 mg PO DAILY 01/09/25 09/12/25 History losartan 50 mg tablet 50 mg PO DAILY 01/09/25 09/19/25 History evolocumab 140 mg/mL subcutaneous See Rx Instructions .Route 06/10/25 09/19/25 Rx pen injector (Sonia Tam) .COMPLEX #6 mL furosemide 80 mg tablet 80 mg PO BID #180 tabs 07/01/25 09/19/25 Rx carvedilol 25 mg tablet See Rx Instructions .Route 09/16/25 09/19/25 Rx .COMPLEX #180 tabs New Prescriptions to Start Prescriptions: Allergies Allergy/AdvReac Type Severity Reaction Status Date / Time acetaminophen (From Lortab) Allergy Severe Swelling Verified 09/18/25 12:56 oral / throat hydrocodone (HYDROCODONE) Allergy Severe S-SWELLS-OR Verified 09/18/25 12:56 AL/THROAT cefaclor (From CECLOR) Allergy Unknown S-SWELLS-OR Verified 09/18/25 12:56 AL/THROAT celecoxib (From CELEBREX) Allergy Unknown S-SWELLS-OR Verified 09/18/25 12:56 AL/THROAT meperidine (From DEMEROL) Allergy Unknown S-SWELLS-OR Verified 09/18/25 12:56 AL/THROAT isosorbide AdvReac Intermediate GUTIÉRREZ Verified 09/18/25 12:56 atorvastatin AdvReac Mild myalgia Verified 09/18/25 12:56 pravastatin AdvReac Mild myalgia Verified 09/18/25 12:56 rosuvastatin (From Crestor) AdvReac Mild myalgia Verified 09/18/25 12:56 ranolazine (From Ranexa) AdvReac Dizziness Verified 09/18/25 12:56 Etindbf-XVP-RwA Reductase AdvReac Muscle Pain Verified 09/18/25 12:56 Inhibitor (Ubohxwt-Vgv-Nfl Reductase Inhibitor) Exam *Routine HEENT Exam Head: Present normocephalic Eye: Present EOMI and PERRL ENT: Present mucous membranes moist *Routine Neck Exam Neck: Present supple *Routine Respiratory Exam Respiratory: Present CTA bilaterally *Routine Cardiovascular Exam Cardiovascular: Present RRR *Routine Abdominal Exam Abdominal: Present soft and normoactive bowel sounds; Absent tenderness *Routine Rectal Exam Rectal:: deferred *Routine Genitalia Exam Genitalia:: deferred *Routine Extremities Exam Extremities: Absent cyanosis, clubbing or edema *Routine Skin Exam Skin: Present warm; Absent rash *Routine Neurological Exam Neurological: Present alert and oriented X3 Assessment and Plan *Assessment and plan (1) Dysphagia: Status: Acute Qualifiers: Dysphagia type: unspecified Qualified Code(s): R13.10 - Dysphagia, unspecified Category: Medical Code(s): R13.10 - Dysphagia, unspecified (2) Choking: Status: Acute Category: Medical Code(s): T17.308A - Unspecified foreign body in larynx causing other injury, initial encounter (3) Regurgitation of food: Status: Acute Category: Medical Code(s): R11.10 - Vomiting, unspecified Plan A/P: 1. Worsening dysphagia with regurgitation of food and choking is the preprocedural diagnosis. The patient will be anesthetized/sedated using MAC sedation. The patient has been seen and examined. Cardiac and lung assessment prior to the examination is stable. Proceed with planned diagnostic EGD.
--- NOTE | 2025-09-19 06:54 | P.PCN_ITS ---
[facility] Procedure Note Date: 09/19/25 Time: 12:03 Procedure Note:: Upper Endoscopy Procedure Report: Esophagogastroduodenoscopy with cold biopsies and TTS balloon dilation Endoscopost: Gordon Prado II, MD Referring Physician: Mara Mike PA-C Date of Procedure: September 19, 2025 Equipment: Olympus GIF-1100 standard upper endoscope Sedation: MAC sedation Indications: Mrs. Cooper is a 60-year-old female who is here for diagnostic EGD secondary to dysphagia. This usually occurs with solid foods such as meats and has progressively worsened. She often has to regurgitate. She is on omeprazole 40 mg daily and will occasionally awaken with reflux. The patient was eating cabbage a couple of months ago and got choked and she aspirated some into the lung. She does have some chronic constipation and has been on Mounjaro for the past year. She did have an EGD 7 or 8 years ago according to the patient. The examination is deemed medically necessary for diagnostic EGD. Procedure: Prior to the procedure, a history and physical exam was performed, and patient's medications and allergies were reviewed. The risks, benefits and alternatives of the sedation and procedure were discussed with the patient. All questions were answered and informed consent was obtained. The patient was brought to the procedure room. Patient identification and proposed procedure were verified by the physician and the nurse. The patient was placed in a left lateral decubitus position and the scope was passed under direct vision. Throughout the procedure, the patient's blood pressure, pulse, and oxygen saturations were monitored continuously. The upper GI endoscopy was accomplished without difficulty. The patient tolerated the procedure well. Findings: The scope was passed directly into the upper esophagus and advanced to the third portion of the duodenum. The post bulbar duodenum, ampulla and duodenal bulb were normal with normal mucosa and conniventes. 2 cold biopsies were taken from the second portion of the duodenum for the disaccharidase assay. The scope was withdrawn through a normal duodenal bulb and pylorus into the stomach. There was some bile reflux with very minimal linear reactive gastropathy of the antrum. There was moderate chronic gastritis of the body and fundus of the stomach. 2 cold biopsies were taken along the lesser curvature to rule out H. pylori. There were gastric fundic gland polyps (2 of which were removed via cold biopsy). Upon retroflexion there was a very small sliding 1 to 2 cm hiatal hernia. The scope was then withdrawn into the esophagus. There was no evidence of reflux esophagitis or Arroyo's. There were no rings, stri ctures, webs, corrugation, furrowing, Huma or inlet patch. There were tertiary contractions and evidence of moderate esophageal dysmotility. The entire esophagus was dilated to 60 Bhutanese/20 mm with a TTS hydrostatic balloon. There was very mild resistance at the cricopharyngeus/cricopharyngeal spasm. The remainder of the esophageal mucosa was normal. Impression: 1. Nonerosive GERD with moderate esophageal dysmotility, cricopharyngeal spasm and very small sliding 1 to 2 cm hiatal hernia 2. Moderate chronic gastritis 3. Gastric polyps (probable fundic gland polyps) 4. Bile reflux with mild linear reactive gastropathy of antrum Plan: I will follow-up the biopsies and discuss the findings with the patient and family. She is getting some functional GERD/bile reflux with esophageal dysmotility causing her swallowing difficulties and choking.
[2025-09-19 11:25] VITALS: BMI 33.4
[2025-09-19 11:35] VITALS: BP 125/79; PULSE 87; RESP 16; TEMP 36.5; O2SAT 98
[2025-09-19] MEDS: LACTATED RINGERS 1000ML 1,000 ML 50 ML IV (11:42)
[2025-09-19 12:00] VITALS: BP 140/86; PULSE 92; RESP 16; TEMP 36.2; O2SAT 96
[2025-09-19 12:10] VITALS: BP 135/85; PULSE 90; RESP 16; O2SAT 99
[2025-09-19 12:20] VITALS: BP 134/88; PULSE 82; RESP 18; O2SAT 100
[2025-09-19 12:30] VITALS: BP 149/90; PULSE 81; RESP 18; O2SAT 100
[2025-09-19 13:00] VITALS: BP 124/70; PULSE 73; RESP 18; TEMP 36.2; O2SAT 100
[2025-09-20 09:28] LABS: POC Glucose,Bedside 183 gm/dL (70-110)
[2025-09-23 18:08] LABS: Interpretation Notes (.); Lactase 25.94 (>/= 14.0); Maltase 194.2 (>/= 110.0); Palatinase 13.34 (>/= 8.5); Reference Notes (.); Sucrase 40.02 (>/= 25.0)
== END 2025-09-19 13:00 | disposition home or self-care (01) ==
PROVIDERS: PCP Physician Assistant; Visit Provider Internal Medicine Gastroenterology
PROC: 0DJ08ZZ Inspection of Upper Intestinal Tract, Via Natural or Artificial Opening Endoscopic (ICD-10-PCS; CPT 43239; principal; 2025-09-19 13:30)
DX: K21.9 Gastro-esophageal reflux disease without esophagitis (principal); K29.50 Unspecified chronic gastritis without bleeding; K31.7 Polyp of stomach and duodenum; K31.89 Other diseases of stomach and duodenum; K44.9 Diaphragmatic hernia without obstruction or gangrene; K22.4 Dyskinesia of esophagus; K59.09 Other constipation; I45.10 Unspecified right bundle-branch block; F41.9 Anxiety disorder, unspecified; I25.10 Atherosclerotic heart disease of native coronary artery without angina pectoris; J45.20 Mild intermittent asthma, uncomplicated; Z88.8 Allergy status to other drugs, medicaments and biological substances; Z88.6 Allergy status to analgesic agent; Z88.5 Allergy status to narcotic agent; Z79.899 Other long term (current) drug therapy; Z79.84 Long term (current) use of oral hypoglycemic drugs; Z79.4 Long term (current) use of insulin; Z79.82 Long term (current) use of aspirin; Z87.891 Personal history of nicotine dependence; Z79.85 Long-term (current) use of injectable non-insulin antidiabetic drugs
CPT/HCPCS: 43239; 43249; 82657; 82962; C1726; J2003; J2704; J7120

== ENCOUNTER 2025-10-01 16:47 | Emergency (ER) | payer BC, SELFPAY ==
[2025-10-01 16:50] VITALS: BP 164/82; PULSE 95; RESP 16; TEMP 36.4; O2SAT 96; BMI 33.9
--- OUTSIDE RECORDS SUMMARY | 2025-10-01 17:04 | XMS_ITS | Data Portability ---
Author Organization [employer] [facility] Address [address] [place] [address] Assessment No assessment recorded. Plan of Treatment Reminders Order Date Submit Date Provider Last Modified By Organization Details Last Modified Time Details Appointments None recorded. Lab unlisted lab - toxassure flex 19, [id number] 2024 025 KAI [facility] ([facility]), [facility] [place], [address], 5 12:08:05 HbA1c (hemoglobin A1c), blood [address], [address] [place], [address], 11:10:02 microalbumi n/creatinin e, mass ratio, urine [address], [address] [place], [address], 5 11:10:02 unlisted lab - toxassure flex 19, [id number] 2024 025 [employer] [facility]), [address] [place], [address], 5 16:08:26 HbA1c (hemoglobin A1c), blood 2024 025 [email or web address] [facility], [address] [facility], [place], [address], 5 17:02:56 microalbumi n/creatinin e, mass ratio, urine 2024 025 [email or web address] [facility], [address] [facility], [place], [address], 5 17:02:57 HbA1c (hemoglobin A1c), blood 2024 025 [facility] (Lab), [address], [place], [address], 5 15:49:24 CMP, serum or plasma [email or web address] (Lab), [address], [place], [address], 5 13:15:09 Referral EGD referral - STAT 2024 025 latrell Prado MD, [address], [place], [address], 5 10:16:57 colon & rectal surgeon referral - first available appt 2023 024 [facility], [address], [place], [address], 4 10:39:27 Procedures None recorded. Surgeries None recorded. Imaging US, lower back - soft tissue - nodule left mid back 2024 025 [facility] (Scheduling), [address], [place], [address], 5 13:22:07 ankle brachial index [address] (Scheduling), [address], [place], [address], 5 10:46:20 MAMMO, screening, bilateral 2023 024 [facility] (Scheduling), [address], [place], [address], 4 10:20:23 Medication Orders Xyzal 5 mg tablet 2024 025 [facility], [address] [place], [address], 5 11:02:20 Lyrica 150 mg capsule 2024 025 [facility], [address] [place], [address], 5 17:06:30 Lantus Solostar U-100 Insulin 100 unit/mL (3 mL) subcutaneou s pen 2024 025 [facility], [address] [place], [address], 5 17:06:26 glipizide ER 10 mg tablet, extended release 24 hr [address] [facility], [address] [place], [address], 5 17:22:38 Mounjaro 15 mg/0.5 mL subcutaneou s pen injector [address] [facility], [address] [place], [address], 5 17:22:38 Farxiga 10 mg tablet 2024 025 [facility], [address] [place], [address], 17:23:27 Lyrica 75 mg capsule [address] [facility], [address] [facility] [place], [address], 16:40:23 Patient TargetsNo targets recorded. Patient Instructions Encounter Date Encounter Id Patient Instructions Last Modified By Organization Details Last Modified Time 08/13/2024 [id number] mammogram: about this test [email or web address] Not available 08/13/2024 09:27:59 body mass index: care instructions [email or web address] Not available 08/13/2024 12:56:29 learning about healthy weight [email or web address] Not available 08/13/2024 12:56:29 Will return in one month for Shingrix and labs [email or web address] Not available 08/13/2024 12:55:44 11/15/2024 [id number] type 2 diabetes: care instructions Not available 11/15/2024 17:22:38 electrolyte imbalance: care instructions [email or web address] Not available 11/15/2024 17:28:38 Reason for Referral [...] n A1c), blood A1C 7.1 Not Available [facility] (Lab) [address] [facility] [address], [place], [address], 11/22/2024 15:36:35 05/23/20 25 05/27/2025 TOXAS SURE [...] ===== ===== ===== === Not Available [facility] ([facility]) [address] , [place], [address], 05/27/2025 16:08:26 08/ 25 05/27/2025 TOXAS SURE FLEX 19, UR pdf . Not Available [facility] ([facility]) [address] [place], [address], 05/27/2025 16:08:26 05/23/20 25 05/27/2025 TOXAS SURE FLEX 19, UR creatinine 29 mg/dL >=20 REFER ENCE RANGE : Ref Range >=20 Not Available [facility] ([facility]) [address] [place], [address], 05/27/2025 16:08:26 05/23/20 25 05/27/2025 TOXAS SURE FLEX 19, UR amphetamines ia Negati ve NG/mL cutoff :300 Not Available [facility] ([facility]) [address] [place], [address], 05/27/2025 16:08:26 05/23/20 25 05/27/2025 TOXAS SURE FLEX 19, UR benzodiazepi zohreh Negati ve Not Available [facility] ([facility]) [address] [place], [address], 05/27/2025 16:08:26 05/23/20 25 05/27/2025 TOXAS SURE FLEX 19, UR diazepam Not Detect ed NG/mg _crea t Not Available [facility] ([facility]) [address] [place], [address], 05/27/2025 16:08:26 05/23/20 25 05/27/2025 TOXAS SURE FLEX 19, UR desmethyldia zepam Not Detect ed NG/mg _crea t Not Available [facility] ([facility]) [address] [place], [address], 05/27/2025 16:08:26 05/23/20 25 05/27/2025 TOXAS SURE FLEX 19, UR oxazepam Not Detect ed NG/mg _crea t Not Available [facility] ([facility]) [address] [place], [address], 05/27/2025 16:08:26 05/23/20 25 05/27/2025 TOXAS SURE [...] pedro Oxaze pedro: None Not Available [facility] ([facility]) [address] [place], [address], 05/27/2025 16:08:26 05/23/20 25 05/27/2025 TOXAS SURE FLEX 19, UR alprazolam Not Detect ed NG/mg _crea t Not Available [facility] ([facility]) [address] [place], [address], 05/27/2025 16:08:26 05/23/20 25 05/27/2025 TOXAS SURE FLEX 19, UR alpha-hydrox yalprazolam Not Detect ed NG/mg _crea t Not Available [facility] ([facility]) [address] [place], [address], 05/27/2025 16:08:26 05/23/20 25 05/27/2025 TOXAS SURE FLEX 19, UR desalkylflur azepam Not Detect ed NG/mg _crea t Not Available [facility] ([facility]) [address] [place], [address], 05/27/2025 16:08:26 05/23/20 25 05/27/2025 TOXAS SURE FLEX 19, UR lorazepam Not Detect ed NG/mg _crea t Not Available [facility] ([facility]) [address] [place], [address], 05/27/2025 16:08:26 05/23/20 25 05/27/2025 TOXAS SURE FLEX 19, UR alpha-hydrox ytriazolam Not Detect ed NG/mg _crea t Not Available [facility] ([facility]) [address] [place], [address], 05/27/2025 16:08:26 05/23/20 25 05/27/2025 TOXAS SURE FLEX 19, UR clonazepam Not Detect ed NG/mg _crea t Not Available [facility] ([facility]) [address] [place], [address], 05/27/2025 16:08:26 05/23/20 25 05/27/2025 TOXAS SURE FLEX 19, UR 7-aminoclona zepam Not Detect ed NG/mg _crea t Not Available [facility] ([facility]) [address] [place], [address], 05/27/2025 16:08:26 05/23/20 25 05/27/2025 TOXAS SURE FLEX 19, UR midazolam Not Detect ed NG/mg _crea t Not Available [facility] ([facility]) [address] [place], [address], 05/27/2025 16:08:26 05/23/20 25 05/27/2025 TOXAS SURE FLEX 19, UR alpha-hydrox ymidazolam Not Detect ed NG/mg _crea t Not Available [facility] ([facility]) [address] [place], [address], 05/27/2025 16:08:26 05/23/20 25 05/27/2025 TOXAS SURE FLEX 19, UR flunitrazepa m Not Detect ed NG/mg _crea t Not Available [facility] ([facility]) [address] [place], [address], 05/27/2025 16:08:26 05/23/20 25 05/27/2025 TOXAS SURE FLEX 19, UR desmethylflu nitrazepam Not Detect ed NG/mg _crea t Not Available [facility] ([facility]) [address] [place], [address], 05/27/2025 16:08:26 05/23/20 25 05/27/2025 TOXAS SURE FLEX 19, UR cocaine metabolite ia Negati ve NG/mL cutoff :150 Not Available [facility] ([facility]) [address] [place], [address], 05/27/2025 16:08:26 05/23/20 25 05/27/2025 TOXAS SURE FLEX 19, UR ethanol biomarkers ia Negati ve NG/mL cutoff :500 Not Available [facility] ([facility]) [address] [place], [address], 05/27/2025 16:08:26 05/23/20 25 05/27/2025 TOXAS SURE FLEX 19, UR cannabinoids ia Negati ve NG/mL cutoff :20 Not Available [facility] ([facility]) [address] [place], [address], 05/27/2025 16:08:26 05/23/20 25 05/27/2025 TOXAS SURE FLEX 19, UR 6-acetylmorp alo ia Negati ve NG/mL cutoff :10 Not Available [facility] ([facility]) [address] [place], [address], 05/27/2025 16:08:26 05/23/20 25 05/27/2025 TOXAS SURE FLEX 19, UR opiate class ia Negati ve NG/mL cutoff :100 Not Available [facility] ([facility]) [address] [place], [address], 05/27/2025 16:08:26 05/23/20 25 05/27/2025 TOXAS SURE FLEX 19, UR oxycodone class ia Negati ve NG/mL cutoff :100 Not Available [facility] ([facility]) [address] [place], [address], 05/27/2025 16:08:26 05/23/20 25 05/27/2025 TOXAS SURE FLEX 19, UR methadone ia Negati ve NG/mL cutoff :100 Not Available [facility] ([facility]) [address] [place], [address], 05/27/2025 16:08:26 05/23/20 25 05/27/2025 TOXAS SURE FLEX 19, UR methadone mtb ia Negati ve NG/mL cutoff :100 Not Available [facility] ([facility]) [address] [place], [address], 05/27/2025 16:08:26 05/23/20 25 05/27/2025 TOXAS SURE FLEX 19, UR buprenorphin e ia Negati ve NG/mL cutoff :5.0 Not Available [facility] ([facility]) [address] [place], [address], 05/27/2025 16:08:26 05/23/20 25 05/27/2025 TOXAS SURE FLEX 19, UR fentanyl ia Negati ve NG/mL cutoff :2.0 Not Available [facility] ([facility]) [address] [place], [address], 05/27/2025 16:08:26 05/23/20 25 05/27/2025 TOXAS SURE FLEX 19, UR tapentadol ia Negati ve NG/mL cutoff :200 Not Available [facility] ([facility]) [address] [place], [address], 05/27/2025 16:08:26 05/23/20 25 05/27/2025 TOXAS SURE FLEX 19, UR propoxyphene ia Negati ve NG/mL cutoff :300 Not Available [facility] ([facility]) [address] [place], [address], 05/27/2025 16:08:26 05/23/20 25 05/27/2025 TOXAS SURE FLEX 19, UR tramadol ia Negati ve NG/mL cutoff :200 Not Available [facility] ([facility]) [address] [place], [address], 05/27/2025 16:08:26 05/23/20 25 05/27/2025 TOXAS SURE FLEX 19, UR methylphenid ate ia Negati ve NG/mL cutoff :100 Not Available [facility] ([facility]) [address] [place], [address], 05/27/2025 16:08:26 05/23/20 25 05/27/2025 TOXAS SURE FLEX 19, UR barbiturates ia Negati ve NG/mL cutoff :200 Not Available [facility] ([facility]) [address] [place], [address], 05/27/2025 16:08:26 05/23/20 25 05/27/2025 TOXAS SURE FLEX 19, UR phencyclidin e ia Negati ve NG/mL cutoff :25 Not Available [facility] ([facility]) [address] [place], [address], 05/27/2025 16:08:26 05/23/20 25 05/27/2025 TOXAS SURE FLEX 19, UR gabapentin ia Negati ve ug/mL cutoff :1.0 Not Available [facility] ([facility]) [address] [place] [address], [address], 05/27/2025 16:08:26 05/23/20 25 05/27/2025 TOXAS SURE FLEX 19, UR anticonvulsa nts +POSIT PATRICA+ Not Available [facility] ([facility]) [address] [facility], [place], [address], 05/27/2025 16:08:26 05/23/20 25 05/27/2025 TOXAS SURE FLEX 19, UR pregabalin PRESEN T Not Available [facility] ([facility]) [address] [facility], [place], [address], 05/27/2025 16:08:26 05/23/20 25 05/27/2025 TOXAS SURE FLEX 19, UR carisoprodol ia Negati ve NG/mL cutoff :100 Not Available [facility] ([facility]) [address] [facility], [place], [address], 05/27/2025 16:08:26 05/23/20 25 05/23/2025 HbA1c (hemo globi n A1c), blood HbA1c 9.4 % Not Available [facility] [address] [place], [address], 05/23/2025 16:47:06 05/23/20 25 05/23/2025 micro album in/cr eatin ine, mass ratio , urine Microalbumin 10 mg/L Not Available [facility] [address] [place], [address], 05/23/2025 16:47:12 05/23/20 25 05/23/2025 micro album in/cr eatin ine, mass ratio , urine Creatinine 50 mg/dL Not Available [facility] [address] [place], [address], 05/23/2025 16:47:12 05/23/20 25 05/23/2025 micro album in/cr eatin ine, mass ratio , urine Ratio <30 mg/g Not Available [facility] [address] [place], [address], 05/23/2025 16:47:12 12/04/20 25 09/09/2025 TOXAS SURE [...] ===== ===== ===== === Not Available [facility] ([facility]) [address] [place], [address], 09/09/2025 12:08:05 09/05/20 25 09/09/2025 TOXAS SURE FLEX 19, UR pdf . Not Available [facility] ([facility]) [address] [place], [address], 09/09/2025 12:08:05 09/05/20 25 09/09/2025 TOXAS SURE FLEX 19, UR creatinine 16 mg/dL >=20 below low normal Note: Urina ry creat inine is low; abili ty to detec t some drugs may be compr omise d. Inter pret resul ts with cauti on. REFER ENCE RANGE : Ref Range >=20 Not Available [facility] ([facility]) [address] [place], [address], 09/09/2025 12:08:05 09/05/2009/09/2025 TOXAS SURE FLEX 19, UR amphetamines ia Negati ve NG/mL cutoff :300 Not Available [facility] ([facility]) [address] [place], [address], 09/09/2025 12:08:05 09/05/20 25 09/09/2025 TOXAS SURE FLEX 19, UR benzodiazepi zohreh Negati ve Not Available [facility] ([facility]) [address] [place], [address], 09/09/2025 12:08:05 09/05/20 25 09/09/2025 TOXAS SURE FLEX 19, UR diazepam Not Detect ed NG/mg _crea t Not Available [facility] ([facility]) [address] [place], [address], 09/09/2025 12:08:05 09/05/20 25 09/09/2025 TOXAS SURE FLEX 19, UR desmethyldia zepam Not Detect ed NG/mg _crea t Not Available [facility] ([facility]) [address] [place], [address], 09/09/2025 12:08:05 09/05/20 25 09/09/2025 TOXAS SURE FLEX 19, UR oxazepam Not Detect ed NG/mg _crea t Not Available [facility] ([facility]) [address] [place], [address], 09/09/2025 12:08:05 09/05/20 25 09/09/2025 TOXAS SURE [...] pedro Oxaze pedro: None Not Available [facility] ([facility]) [address] [place], [address], 09/09/2025 12:08:05 09/05/20 25 09/09/2025 TOXAS SURE FLEX 19, UR alprazolam Not Detect ed NG/mg _crea t Not Available [facility] ([facility]) [address] [facility], [place], [address], 09/09/2025 12:08:05 09/05/20 25 09/09/2025 TOXAS SURE FLEX 19, UR alpha-hydrox yalprazolam Not Detect ed NG/mg _crea t Not Available [facility] ([facility]) [address] [place], [address], 09/09/2025 12:08:05 09/05/20 25 09/09/2025 TOXAS SURE FLEX 19, UR desalkylflur azepam Not Detect ed NG/mg _crea t Not Available [facility] ([facility]) [address] [facility], [place], [address], 09/09/2025 12:08:05 09/05/20 25 09/09/2025 TOXAS SURE FLEX 19, UR lorazepam Not Detect ed NG/mg _crea t Not Available [facility] ([facility]) [address] [place], [address], 09/09/2025 12:08:05 09/05/20 25 09/09/2025 TOXAS SURE FLEX 19, UR alpha-hydrox ytriazolam Not Detect ed NG/mg _crea t Not Available [facility] ([facility]) [address] [place], [address], 09/09/2025 12:08:05 09/05/20 25 09/09/2025 TOXAS SURE FLEX 19, UR clonazepam Not Detect ed NG/mg _crea t Not Available [facility] ([facility]) [address] [place], [address], 09/09/2025 12:08:05 09/05/20 25 09/09/2025 TOXAS SURE FLEX 19, UR 7-aminoclona zepam Not Detect ed NG/mg _crea t Not Available [facility] ([facility]) [address] [place], [address], 09/09/2025 12:08:05 09/05/20 25 09/09/2025 TOXAS SURE FLEX 19, UR midazolam Not Detect ed NG/mg _crea t Not Available [facility] ([facility]) [address] [place], [address], 09/09/2025 12:08:05 09/05/20 25 09/09/2025 TOXAS SURE FLEX 19, UR alpha-hydrox ymidazolam Not Detect ed NG/mg _crea t Not Available [facility] ([facility]) [address] [place], [address], 09/09/2025 12:08:05 09/05/20 25 09/09/2025 TOXAS SURE FLEX 19, UR flunitrazepa m Not Detect ed NG/mg _crea t Not Available [facility] ([facility]) [address] [place], [address], 09/09/2025 12:08:05 09/05/20 25 09/09/2025 TOXAS SURE FLEX 19, UR desmethylflu nitrazepam Not Detect ed NG/mg _crea t Not Available [facility] ([facility]) [address] [place], [address], 09/09/2025 12:08:05 09/05/20 25 09/09/2025 TOXAS SURE FLEX 19, UR cocaine metabolite ia Negati ve NG/mL cutoff :150 Not Available [facility] ([facility]) [address] [place], [address], 09/09/2025 12:08:05 09/05/20 25 09/09/2025 TOXAS SURE FLEX 19, UR ethanol biomarkers ia Negati ve NG/mL cutoff :500 Not Available [facility] ([facility]) [address] [place], [address], 09/09/2025 12:08:05 09/05/20 25 09/09/2025 TOXAS SURE FLEX 19, UR cannabinoids ia Negati ve NG/mL cutoff :20 Not Available [facility] ([facility]) [address] [place], [address], 09/09/2025 12:08:05 09/05/20 25 09/09/2025 TOXAS SURE FLEX 19, UR 6-acetylmorp alo ia Negati ve NG/mL cutoff :10 Not Available [facility] ([facility]) [address] [place], [address], 09/09/2025 12:08:05 09/05/20 25 09/09/2025 TOXAS SURE FLEX 19, UR opiate class ia Negati ve NG/mL cutoff :100 Not Available [facility] ([facility]) [address] [place], [address], 09/09/2025 12:08:05 09/05/20 25 09/09/2025 TOXAS SURE FLEX 19, UR oxycodone class ia Negati ve NG/mL cutoff :100 Not Available [facility] ([facility]) [address] [place], [address], 09/09/2025 12:08:05 09/05/20 25 09/09/2025 TOXAS SURE FLEX 19, UR methadone ia Negati ve NG/mL cutoff :100 Not Available [facility] ([facility]) [address] [place], [address], 09/09/2025 12:08:05 09/05/20 25 09/09/2025 TOXAS SURE FLEX 19, UR methadone mtb ia Negati ve NG/mL cutoff :100 Not Available [facility] ([facility]) [address] [place], [address], 09/09/2025 12:08:05 09/05/20 25 09/09/2025 TOXAS SURE FLEX 19, UR buprenorphin e ia Negati ve NG/mL cutoff :5.0 Not Available [facility] ([facility]) [address] [place], [address], 09/09/2025 12:08:05 09/05/20 25 09/09/2025 TOXAS SURE FLEX 19, UR fentanyl ia Negati ve NG/mL cutoff :2.0 Not Available [facility] ([facility]) [address] [place], [address], 09/09/2025 12:08:05 09/05/20 25 09/09/2025 TOXAS SURE FLEX 19, UR tapentadol ia Negati ve NG/mL cutoff :200 Not Available [facility] ([facility]) [address] [place], [address], 09/09/2025 12:08:05 09/05/20 25 09/09/2025 TOXAS SURE FLEX 19, UR propoxyphene ia Negati ve NG/mL cutoff :300 Not Available [facility] ([facility]) [address] [place], [address], 09/09/2025 12:08:05 09/05/20 25 09/09/2025 TOXAS SURE FLEX 19, UR tramadol ia Negati ve NG/mL cutoff :200 Not Available [facility] ([facility]) [address] [place], [address], 09/09/2025 12:08:05 09/05/20 25 09/09/2025 TOXAS SURE FLEX 19, UR methylphenid ate ia Negati ve NG/mL cutoff :100 Not Available [facility] ([facility]) [address] [place], [address], 09/09/2025 12:08:05 09/05/20 25 09/09/2025 TOXAS SURE FLEX 19, UR barbiturates ia Negati ve NG/mL cutoff :200 Not Available [facility] ([facility]) [address] [place], [address], 09/09/2025 12:08:05 09/05/20 25 09/09/2025 TOXAS SURE FLEX 19, UR phencyclidin e ia Negati ve NG/mL cutoff :25 Not Available [facility] ([facility]) [address] [facility], [place], [address], 09/09/2025 12:08:05 09/05/20 25 09/09/2025 TOXAS SURE FLEX 19, UR gabapentin ia Negati ve ug/mL cutoff :1.0 Not Available [facility] ([facility]) [address] [facility], [place], [address], 09/09/2025 12:08:05 09/05/20 25 09/09/2025 TOXAS SURE FLEX 19, UR anticonvulsa nts +POSIT PATRICA+ Not Available [facility] ([facility]) [address] [place], [address], 09/09/2025 12:08:05 09/05/20 25 09/09/2025 TOXAS SURE FLEX 19, UR pregabalin PRESEN T Not Available [facility] ([facility]) [address] [facility], [place], [address], 09/09/2025 12:08:05 09/05/20 25 09/09/2025 TOXAS SURE FLEX 19, UR carisoprodol ia Negati ve NG/mL cutoff :100 Not Available [facility] ([facility]) [address] [place], [address], 09/09/2025 12:08:05 09/05/20 25 09/05/2025 micro album in/cr eatin ine, mass ratio , urine Microalbumin 10 mg/L Not Available [facility] [address] [facility], [place], [address], 09/05/2025 10:47:23 09/05/20 25 09/05/2025 micro album in/cr eatin ine, mass ratio , urine Creatinine 10 mg/dL Not Available [facility] [address] [place] [address], [place], [address], 09/05/2025 10:47:23 09/05/20 25 09/05/2025 micro album in/cr eatin ine, mass ratio , urine Ratio <30 mg/g Not Available [facility] [address] [place] [address], [place], [address], 09/05/2025 10:47:23 09/05/20 25 09/05/2025 HbA1c (hemo globi n A1c), blood HbA1c 8.5 % Not Available [facility] [address] [place] [address], [place], [address], 09/05/2025 10:47:17 09/11/20 24 09/05/2024 MAMMO , scree kera, bilat eral No observ ation record ed. [facility] ([facility]) [address], [place], [address], 09/24/2024 08:47:36 05/29/20 25 05/28/2025 US, lower back No observ ation record ed. [email or web address] [facility] [address], [place], [address], 06/27/2025 13:56:46 07/23/2007/22/2025 US, doppl er, venou s No observ ation record ed. [email or web address], [place], [address], 07/23/2025 08:54:39 07/29/20 25 07/29/2025 US, doppl er, venou s No observ ation record ed. [email or web address] [address], [place], [address], 07/29/2025 14:10:53 09/17/20 25 09/17/2025 FL, modif ied marshal rich ow study No observ ation record ed. [email or web address] [facility] [address], [place], [address], 09/17/2025 11:50:36 09/18/20 25 09/17/2025 US, thyro id No observ ation record ed. [email or web address] [facility] [address], [place], [address], 09/19/2025 08:46:50 Result Notes None recorded. Problems Name Problem SNOMED Code Status Onset Date Resolution Date Notes Provider Name and Address Organization Details Recorded Time Type 2 diabetes mellitus without complicatio n 431066592 Active 2023 RAMON Obrien [address] [place] [address], [address], [employer] 4 09:24:20 Hypertensiv e disorder 46724718 Active 2023 RAMON Obrien [address] [place] [address], [address] 8, [employer] 4 09:24:11 Vitamin D deficiency 90133007 Active 2023 RAMON Obrien [address] [place] [address], [address] 8, [employer] 4 09:24:45 Anxiety 80862993 Active 2023 RAMON Obrien [address] [place] [address], [address] 8, [employer] 4 09:24:59 Allergic rhinitis 65183585 Active 2023 ARMON Obrien [address] [place] [address], [address] 8, [employer] 4 09:25:29 Gastroesoph ageal reflux disease 087582685 Active 2023 RAMON Obrien [address] [place] [address], [address] 8, [employer] 4 09:26:01 Chronic obstructive pulmonary disease 49182454 Active 2023 RAMON Obrien [address] [place] [address], [address] 8, [employer] 4 09:26:33 Congestive heart failure 67915763 Active 2023 RAMON Obrien [address] [place] [address], [address] 8, [employer] 4 09:28:28 Internal hemorrhoids 18550473 Active 2023 RAMON Obrien [address] [place] [address], [phone] 8, [employer] 4 09:41:10 Folliculiti s 82501218 Active 2024 RAMON Obrien [address] [place] [address], [phone] 8, [employer] 5 08:18:48 Type 2 diabetes mellitus 39782784 Active 2024 RAMON Obrien [address] [place] [address], [phone] 8, [employer] 5 17:14:21 Neuropathy due to type 2 diabetes mellitus [id number] 06 Active 2024 RAMON Obrien [address] [place] [address], [phone] 8, [employer] 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 5 09:16:10 Acute urinary tract infection 364318284 Active 2024 RAMON Obrien [address] [place] [address], [phone] 8, [employer] 15:33:07 Chronic kidney disease [id number] Active 2024 RAMON Obrien [address] [place] [address], [phone], [employer] 15:48:18 Lipoma of back 438285959 Active 2024 RAMON Obrien [address] [place] [address], [address] 8, [employer] 13:57:00 Nasal sinus problem 512032649 Active 2024 RAMON Obrien [address] [place] [address], [phone] 8, [employer] 11:01:32 Esophageal dysphagia 96238797 Active 2024 RAMON Obrien [address] [place] [address], [address] 8, [employer] 11:08:31 Bacterial sinusitis 847984310 Active 2024 RAMON Obrien [address] [place] [address], [phone] 8, [employer] 12:20:46 Problem Notes None recorded. Procedures Surgical History Date Name Laterality Status Provider Name and Address Organization Details Recorded Time 11/15/19 25 Diabetic Foot Screen completed RAMON Obrien [address] [place] [address], [phone], [employer] 11/15/2024 17:28:01 09/05/20 24 Most Recent Mammogram completed [employer] 11/15/2024 17:05:03 Caesarean Section completed [employer] 08/13/2024 09:02:44 Total Hysterectomy completed [employer] 08/13/2024 09:03:22 Orthopedic Surgery completed [employer] 08/13/2024 09:03:38 Tonsillectomy completed [employer] 08/13/2024 09:04:01 Other completed [facility] [employer] 08/13/2024 09:04:24 Knee Surgery completed [facility] [email or web address] 05/23/2025 16:39:35 Knee Surgery completed Birdie [facility] [email or web address] 05/23/2025 16:39:48 Imaging Results None recorded. Procedure Notes None recorded. Medical Equipment None Reported. Allergies Allergen ID Allergen Name Allergen Category Reaction Reaction Severity Criticality Documentation Date Start Date Code Code System Note Provider Name and Address Organization Details Recorded Time 72895 atorvasta tin medicatio n Not available Not available Not available 08/13/2024 49024 RxNorm Birdie Vice null, [employer] 4 08:56:10 26898 acetamino phen / hydrocodo ne medicatio n Not available Not available Not available 08/13/2024 52061 2 RxNorm Birdie Vice null, [employer] 4 08:56:23 62993 cefaclor medicatio n Not available Not available Not available 08/13/2024 2176 RxNorm Birdie Vice null, [employer] 4 08:56:33 07333 celecoxib medicatio n Not available Not available Not available 08/13/2024 95674 7 RxNorm [employer]ie Vice null, [employer] 4 08:56:41 63152 hydrocodo ne Not available Not available Not available Not available 08/13/2024 5489 RxNorm Birdie Vice null, [employer] 4 08:56:50 15432 isosorbid e medicatio n Not available Not available Not available 08/13/2024 6057 RxNorm Birdie Vice null, [employer] 4 08:56:59 45711 meperidin e medicatio n Not available Not available Not available 08/13/2024 6754 RxNorm Birdie Vice null, [employer] 4 08:57:10 48317 pravastat in medicatio n Not available Not available Not available 08/13/2024 72065 RxNorm Birdie Vice null, [employer] 4 08:57:20 87640 ranolazin e medicatio n Not available Not available Not available 08/13/2024 22454 RxNorm Birdie Vice null, [employer] 4 08:57:27 45395 rosuvasta tin medicatio n Not available Not available Not available 08/13/2024 73825 2 RxNorm [employer]ie Vice null, [employer] 4 08:57:35 08038 Product containin g 3-hydroxy -3-methyl glutaryl- coenzyme A reductase inhibitor (product) medicatio n Not available Not available Not available 08/13/2024 18057 009 SNOMED [facility]ie Vice null, [employer] 4 08:57:45 34838 cephalexi n medicatio n Not available Not available Not available 09/05/20252015 2231 RxNorm Not Available [facility] - prod 5 [...] 1 SYRINGE SUBCUTANE OUSLY ONCE A WEEK active Not [...] Available Not Available No t Available Verónica Pen Needle 32 gauge x 5/32 USE 1 PEN NEEDLE SUBCUTANE OUSLY THREE TIMES DAILY DIRECTED FOR INSULIN DOSING active Not Available Not Available No t Available Vitals Date Recorded Body height Body mass index (BMI) Body weight Oxygen saturation Heart rate Body temperature Systolic And Diastolic Systolic And Diastolic Provider Name and Address Organization Details Last Updated DateTime 5 167.64 cm 33.2 kg/m2 15587.0 3 g 99 % 86 /min 97.9 [degF] 146/88 mm[Hg] 138/86 mm[Hg] [employer] 5 17:10:08 Date Recorded Body height Body mass index (BMI) Body weight Heart rate Oxygen saturation Body temperature Systolic And Diastolic Provider Name and Address Organization Details Last Updated DateTime 5 167.64 cm 34.2 kg/m2 32772.5 8 g 82 /min 99 % 98.1 [degF] 116/80 mm[Hg] [employer] 5 16:45:06 Date Recorded Body weight Body mass index (BMI) Body height Oxygen saturation Heart rate Systolic And Diastolic Provider Name and Address Organization Details Last Updated DateTime 4 77745.8 g 34.8 kg/m2 167.64 cm 99 % 90 /min 112/79 mm[Hg] [employer] 4 08:49:24 Date Recorded Body height Body mass index (BMI) Body weight Oxygen saturation Heart rate Body temperature Systolic And Diastolic Provider Name and Address Organization Details Last Updated DateTime 5 167.64 cm 34.7 kg/m2 04488.0 8 g 98 % 80 /min 98 [degF] 118/80 mm[Hg] [employer] 5 10:44:51 Social History Question Answer Notes LastModified by Organizat ion Details LastModified Time Tobacco Smoking Status Former Smoker [employer] 08/13/2024 09:00:56 Do You Have An Advance [...] Or The Highest Degree You Have Received? [id number] Information not available 09/05/2025 Have There Been Any Changes To Your Family Or Social Situation? No Information no t available 08/13/2024 When Did You Quit Smoking? 11-15yearsescobar michaelelvis Information not available 09/05/2025 Are There Any [...] Do You Have A Medical Power Of Sack Cleaner? No Information not available 08/13/2024 What Was [...] anxious, or unable to sleep at night)? [id number] Information not available 08/13/2024 Do you have [...] Artery Disease Y Other N Gout N Blood Diseases N Kidney Stones N Hyperthyroidism N Blood Transfusion N Breast Cancer N Emergency room visit since last appointm ent. N Lung Disease Y COPD N Depression N Hypothyroidism Y Dermatologic Disorders N Defects or Inherited Disease N Developmental or Behavioral Disorders N Breast Problem N Difficulty Swallowing N [...] Organ Transplant N Psychiatric/Mental Health Condition N Dialysis N Headaches N Fibromyalgia N Schizophrenia N Kidney Disease N Allergies/Hayfever N Heart Problems Y Ear or Hearing Problems N Hospitalizations N Learning Disorder N Artificial Joints N Thyroid Problems Y GI Problems N Acne N ADD/ADHD N Eating Disorder N Anemia N Constipation Y Mental Illness N Diabetes Y Ovarian Cancer N Bedwetting N Hepatitis/Liver Disease N Tuberculosis N Eczema N Abuse/Domestic Violence N Diverticulitis N Asthma Y Trauma/Violence N Substance Abuse [...] 0.5 mL, PF 4 completed RAMON Obrien [address] [place] [address], [phone], [employer] 08/13/2024 12:51:32 Pneumococcal conjugate PCV21, polysaccharide WND244 conjugate, PF 5 completed [facility]ie [employer] null, [employer] 09/05/2025 11:33:32 Tdap 0 completed [employer] null, [employer] 11/15/2024 16:54:27 influenza, unspecified formulation 4 completed [employer] null, [employer] 11/15/2024 16:54:27 pneumococcal polysaccharide PPV23 7 completed [employer] null, [employer] 11/15/2024 16:54:27 pneumococcal polysaccharide PPV23 2 completed [employer] null, [employer] 11/15/2024 16:54:27 Pneumococcal conjugate PCV 13 7 completed RAMON Obrien [address] [place] [address], [address], [employer] 08/13/2024 13:03:27 Influenza, recombinant, quadrivalent, PF 0 completed [employer] [employer] null, [employer] 11/15/2024 16:54:27 zoster recombinant 9 completed [employer] [employer] null, [employer] 11/15/2024 16:54:27 COVID-19, mRNA, LNP-S, PF, 100 mcg/0.5mL dose or 50 mcg/0.25mL dose 1 completed [employer] [employer] null, [employer] 11/15/2024 16:54:27 COVID-19, mRNA, LNP-S, PF, 100 mcg/0.5mL dose or 50 mcg/0.25mL dose 1 completed [employer]ie [employer] null, [employer] 11/15/2024 16:54:27 COVID-19, mRNA, LNP-S, PF, 100 mcg/0.5mL dose or 50 mcg/0.25mL dose 2 completed [employer] [employer] null, [employer] 11/15/2024 16:54:27 zoster live 7 completed [employer] [employer] null, [employer] 11/15/2024 16:54:27 VZIG 7 completed [employer]ie [employer] null, [employer] 11/15/2024 16:54:27 Influenza, split virus, quadrivalent, PF 8 completed [employer] null, [employer] 11/15/2024 16:54:27 Influenza, split virus, quadrivalent, PF 3 completed [employer]ie [employer] null, [employer] 11/15/2024 16:54:27 Influenza, split virus, quadrivalent, PF 9 completed [employer] null, [employer] 11/15/2024 16:54:27 Influenza, split virus, quadrivalent, PF 2 completed [employer]ie [employer] null, [employer] 11/15/2024 16:54:27 Influenza, split virus, quadrivalent, PF 1 completed [employer] null, [employer] 11/15/2024 16:54:27 Influenza, recombinant, trivalent, PF 4 completed [employer] null, [employer] 11/15/2024 16:54:27 Hep A-Hep B 4 completed [employer] [employer] null, [employer] 11/15/2024 16:54:27 Hep A-Hep B 3 completed [employer] [employer] null, [employer] 11/15/2024 16:54:27 Hep A-Hep B 3 completed [employer]ie [employer] null, [employer] 11/15/2024 16:54:27 Influenza, recombinant, trivalent, PF 5 completed Not Available [facility] 09/05/2025 10:39:32 Past Encounters Encounter ID Performer Location Encounter Start Date Encounter Closed Date Diagnosis/Indication Diagnosis SNOMED-CT Code Diagnosis ICD10 Code Diagnosis IMO Codes Diagnosis Note [id number] RAMON Obrien [address] [address] 08/13/2024 08:36:37 08/13/2024 10:00:41 Screening mammography 42944412 Z12.31 Active or passive immunization 601746805 Z23 Internal hemorrhoids 904 24080 K64.8 Body mass index 30+ - obesity 876894758 Z68.34 [id number] RAMON Obrien [address] [address] 11/15/2024 16:50:25 11/15/2024 17:33:50 Type 2 diabetes mellitus without complication 356248188 E11.9 Type 2 brittany betes mellitus 01587586 E11.9 Electrolyte imbalance 10 6023572 E87.8 Neuropathy due to type 2 diabetes mellitus 9511842598 16438 E11.40 Stasis yenny matitis of lower limb due to chronic peripheral venous hypertension 224587141 I87.836 [id number] RAMON Obrien [facility] [address] [place] [address] 05/23/2025 16:32:17 05/23/2025 17:06:36 Neuropathy due to type 2 diabetes mellitus 3914345488 43949 E11.40 Z79.4 99039794 Increase LyricaAdd Lantus Long-term current use of drug therapy 226310765 Z79.899 84412893 Subcutaneous nodule 9532 5000 R22.9 854320 [id number] RAMON Obrien [facility] [address] [place] [address] 09/05/2025 10:27:59 09/05/2025 11:14:35 Neuropathy due to type 2 diabetes mellitus 3492652867 18292 E11.40 Z79.4 45352625 Long-term current use of drug therapy 213643551 Z79.899 23106454 Nasal sinus problem 3012 65137 J34.89 825422 Requires v accination against Streptococcus pneumoniae 8451382296 Z23 186629 Esophageal dysphagia 408 46662 R13.19 8211 Concern for esophageal stricture Health Concerns Section Related Observation LastModified by Organization Detai ls LastModified Time None Recorded Concern Status LastModified by Organization Details LastModified Time None Recorded Advance Directives Directive N: Payers Insurance Date Sequence Insurance Name Policy Number Policy Zarate Covered Member ID Zarate Member ID Guarantor Name 09/04/2025 1 [place] [id number] 1 Rosalinda Cooper [id number] Rosalinda Cooper Notes Date Note Type Note Provider Name and Address Organization Details Recorded Time 08/13/2024 text/html Patient presents to establish care at [facility].Patient has a history of diabetes. Taking Mounjaro [...] and was sick for months. RAMON Obrien [address] [place] [address], [phone], [employer] 08/13/2024 12:56:33 11/15/2024 text/html Patient presents for followup.History of diabetes. History of CKD. She would like to increase Mounjaro. Taking Farxiga.Hospitaliz ed twice in September. Had low potassium. Stopped chlorthalidone.Has numbness and burning in her feet and splotchy rash on lower legs. RAMON Obrien [address] [place], [address], [employer] [employer]. 11/16/2024 17:20:47 05/23/2025 text/html ROS as noted [...] back that are painful. RAMON Obrien [address] [place], [address], [employer] 05/27/2025 11:52:53 09/05/2025 text/html ROS as noted [...] meat is the worst. RAMON Obrien [address] [place], [address], [employer] 09/06/2025 10:47:01 OBGyn Episode No OBEpisode recorded.
--- OUTSIDE RECORDS SUMMARY | 2025-10-01 17:04 | XMS_ITS | Continuity of Care Document ---
Author Organization [place] [address] [address] [employer] [facility] Address [address] [place] [address] Assessment No assessment recorded. Plan of Treatment Reminders Order Date Submit Date Provider Last Modified By Organization Details Last Modified Time Details Appointments None recorded. Lab unlisted lab - toxassure flex 19, [id number] 2024 025 KAI [facility] ([facility], [address] [place] [address], [place], [address], 5 12:08:05 HbA1c (hemoglobi n A1c), blood [address], [address] [facility], [place], [address], 5 11:10:02 microalbum in/creatin ine, mass ratio, urine [address], [address] [facility], [place], [address], 5 11:10:02 Referral EGD referral - STAT 2024 025 [email or web address] Gordon Prado MD, [address], [place], [address], 5 10:16:57 Procedures None recorded. Surgeries None recorded. Imaging None recorded. Medication Orders Xyzal 5 mg tablet 2024 025 [facility] [id number] [facility] [place], [address], 11:02:20 Patient TargetsNo targets recorded. Patient InstructionsNo [...] ===== ===== ===== === Not Available [facility] ([facility]) [address] [place], [address], 09/09/2025 12:08:05 09/05/20 25 09/09/2025 TOXAS SURE FLEX 19, UR pdf . Not Available [facility] ([facility]) [address] [place], [address], 09/09/2025 12:08:05 09/05/20 25 09/09/2025 TOXAS SURE FLEX 19, UR creatinine 16 mg/dL >=20 below low normal Note: Urina ry creat inine is low; abili ty to detec t some drugs may be compr omise d. Inter pret resul ts with cauti on. REFER ENCE RANGE : Ref Range >=20 Not Available [facility] ([facility]) [address] [facility], [place], [address], 09/09/2025 12:08:05 09/05/20 25 09/09/2025 TOXAS SURE FLEX 19, UR amphetamines ia Negati ve NG/mL cutoff :300 Not Available [facility] ([facility]) [address] [place], [address], 09/09/2025 12:08:05 09/05/20 25 09/09/2025 TOXAS SURE FLEX 19, UR benzodiazepi zohreh Negati ve Not Available [facility] ([facility]) [address] [place], [address], 09/09/2025 12:08:05 09/05/20 25 09/09/2025 TOXAS SURE FLEX 19, UR diazepam Not Detect ed NG/mg _crea t Not Available [facility] ([facility]) [address] [place], [address], 09/09/2025 12:08:05 09/05/20 25 09/09/2025 TOXAS SURE FLEX 19, UR desmethyldia zepam Not Detect ed NG/mg _crea t Not Available [facility] ([facility]) [address] [place] [address], [address], 09/09/2025 12:08:05 09/05/20 25 09/09/2025 TOXAS SURE FLEX 19, UR oxazepam Not Detect ed NG/mg _crea t Not Available [facility] ([facility]) [address] [place], [address], 09/09/2025 12:08:05 09/05/20 25 09/09/2025 TOXAS SURE [...] pedro Oxaze pedro: None Not Available [facility] ([facility]) [address] [place], [address], 09/09/2025 12:08:05 09/05/20 25 09/09/2025 TOXAS SURE FLEX 19, UR alprazolam Not Detect ed NG/mg _crea t Not Available [facility] ([facility]) [address] [place], [address], 09/09/2025 12:08:05 09/05/20 25 09/09/2025 TOXAS SURE FLEX 19, UR alpha-hydrox yalprazolam Not Detect ed NG/mg _crea t Not Available [facility] ([facility]) [address] [place], [address], 09/09/2025 12:08:05 09/05/20 25 09/09/2025 TOXAS SURE FLEX 19, UR desalkylflur azepam Not Detect ed NG/mg _crea t Not Available [facility] ([facility]) [address] [place], [address], 09/09/2025 12:08:05 09/05/20 25 09/09/2025 TOXAS SURE FLEX 19, UR lorazepam Not Detect ed NG/mg _crea t Not Available [facility] ([facility]) [address] [place], [address], 09/09/2025 12:08:05 09/05/20 25 09/09/2025 TOXAS SURE FLEX 19, UR alpha-hydrox ytriazolam Not Detect ed NG/mg _crea t Not Available [facility] ([facility]) [address] [place], [address], 09/09/2025 12:08:05 09/05/20 25 09/09/2025 TOXAS SURE FLEX 19, UR clonazepam Not Detect ed NG/mg _crea t Not Available [facility] ([facility]) [address] [facility], [place], [address], 09/09/2025 12:08:05 09/05/20 25 09/09/2025 TOXAS SURE FLEX 19, UR 7-aminoclona zepam Not Detect ed NG/mg _crea t Not Available [facility] ([facility]) [address] [place], [address], 09/09/2025 12:08:05 09/05/20 25 09/09/2025 TOXAS SURE FLEX 19, UR midazolam Not Detect ed NG/mg _crea t Not Available [facility] ([facility]) [address] [place], [address], 09/09/2025 12:08:05 09/05/20 25 09/09/2025 TOXAS SURE FLEX 19, UR alpha-hydrox ymidazolam Not Detect ed NG/mg _crea t Not Available [facility] ([facility]) [address] [place], [address], 09/09/2025 12:08:05 09/05/20 25 09/09/2025 TOXAS SURE FLEX 19, UR flunitrazepa m Not Detect ed NG/mg _crea t Not Available [facility] ([facility]) [address] [place], [address], 09/09/2025 12:08:05 09/05/20 25 09/09/2025 TOXAS SURE FLEX 19, UR desmethylflu nitrazepam Not Detect ed NG/mg _crea t Not Available [facility] ([facility]) [address] [place], [address], 09/09/2025 12:08:05 09/05/20 25 09/09/2025 TOXAS SURE FLEX 19, UR cocaine metabolite ia Negati ve NG/mL cutoff :150 Not Available [facility] ([facility]) [address] [place], [address], 09/09/2025 12:08:05 09/05/20 25 09/09/2025 TOXAS SURE FLEX 19, UR ethanol biomarkers ia Negati ve NG/mL cutoff :500 Not Available [facility] ([facility]) [address] [place], [address], 09/09/2025 12:08:05 09/05/20 25 09/09/2025 TOXAS SURE FLEX 19, UR cannabinoids ia Negati ve NG/mL cutoff :20 Not Available [facility] ([facility]) [address] [place], [address], 09/09/2025 12:08:05 09/05/20 25 09/09/2025 TOXAS SURE FLEX 19, UR 6-acetylmorp alo ia Negati ve NG/mL cutoff :10 Not Available [facility] ([facility]) [address] [place], [address], 09/09/2025 12:08:05 09/05/20 25 09/09/2025 TOXAS SURE FLEX 19, UR opiate class ia Negati ve NG/mL cutoff :100 Not Available [facility] ([facility]) [address] [place], [address], 09/09/2025 12:08:05 09/05/20 25 09/09/2025 TOXAS SURE FLEX 19, UR oxycodone class ia Negati ve NG/mL cutoff :100 Not Available [facility] ([facility]) [address] [place], [address], 09/09/2025 12:08:05 09/05/20 25 09/09/2025 TOXAS SURE FLEX 19, UR methadone ia Negati ve NG/mL cutoff :100 Not Available [facility] ([facility]) [address] [place], [address], 09/09/2025 12:08:05 09/05/20 25 09/09/2025 TOXAS SURE FLEX 19, UR methadone mtb ia Negati ve NG/mL cutoff :100 Not Available [facility] ([facility]) [address] [place], [address], 09/09/2025 12:08:05 09/05/20 25 09/09/2025 TOXAS SURE FLEX 19, UR buprenorphin e ia Negati ve NG/mL cutoff :5.0 Not Available [facility] ([facility]) [address] [place], [address], 09/09/2025 12:08:05 09/05/20 25 09/09/2025 TOXAS SURE FLEX 19, UR fentanyl ia Negati ve NG/mL cutoff :2.0 Not Available [facility] ([facility]) [address] [place], [address], 09/09/2025 12:08:05 09/05/20 25 09/09/2025 TOXAS SURE FLEX 19, UR tapentadol ia Negati ve NG/mL cutoff :200 Not Available [facility] ([facility]) [address] [place], [address], 09/09/2025 12:08:05 09/05/20 25 09/09/2025 TOXAS SURE FLEX 19, UR propoxyphene ia Negati ve NG/mL cutoff :300 Not Available [facility] ([facility]) [address] [place], [address], 09/09/2025 12:08:05 09/05/20 25 09/09/2025 TOXAS SURE FLEX 19, UR tramadol ia Negati ve NG/mL cutoff :200 Not Available [facility] ([facility]) [address] [place], [address], 09/09/2025 12:08:05 12/04/20 25 09/09/2025 TOXAS SURE FLEX 19, UR methylphenid ate ia Negati ve NG/mL cutoff :100 Not Available [facility] ([facility]) [address] [place], [address], 09/09/2025 12:08:05 09/05/20 25 09/09/2025 TOXAS SURE FLEX 19, UR barbiturates ia Negati ve NG/mL cutoff :200 Not Available [facility] ([facility]) [address] [place], [address], 09/09/2025 12:08:05 09/05/20 25 09/09/2025 TOXAS SURE FLEX 19, UR phencyclidin e ia Negati ve NG/mL cutoff :25 Not Available [facility] ([facility]) [address] [place], [address], 09/09/2025 12:08:05 09/05/20 25 09/09/2025 TOXAS SURE FLEX 19, UR gabapentin ia Negati ve ug/mL cutoff :1.0 Not Available [facility] ([facility]) [address] [place], [address], 09/09/2025 12:08:05 09/05/20 25 09/09/2025 TOXAS SURE FLEX 19, UR anticonvulsa nts +POSIT PATRICA+ Not Available [facility] ([facility]) [address] [place], [address], 09/09/2025 12:08:05 09/05/20 25 09/09/2025 TOXAS SURE FLEX 19, UR pregabalin PRESEN T Not Available [facility] ([facility]) [address] [place] [address], [address], 09/09/2025 12:08:05 09/05/20 25 09/09/2025 TOXAS SURE FLEX 19, UR carisoprodol ia Negati ve NG/mL cutoff :100 Not Available [facility] ([facility]) [address], [place], [address], 09/09/2025 12:08:05 09/05/20 25 09/05/2025 micro album in/cr eatin ine, mass ratio , urine Microalbumin 10 mg/L Not Available [facility] [address] [facility], [place], [address], 09/05/2025 10:47:23 09/05/20 25 09/05/2025 micro album in/cr eatin ine, mass ratio , urine Creatinine 10 mg/dL Not Available [facility] [address] [facility], [place], [address], 09/05/2025 10:47:23 09/05/20 25 09/05/2025 micro album in/cr eatin ine, mass ratio , urine Ratio <30 mg/g Not Available [facility] [address] [place] [address], [place], [address], 09/05/2025 10:47:23 09/05/20 25 09/05/2025 HbA1c (hemo globi n A1c), blood HbA1c 8.5 % Not Available [facility] [address] [place] [address], [place], [address], 09/05/2025 10:47:17 09/17/20 25 09/17/2025 [place], modif ied marshal rich ow study No observ ation record ed. [facility] [address], [place], [address], 09/17/2025 11:50:36 09/18/20 25 09/17/2025 [place], thyro id No observ ation record ed. [email or web address] [facility] [address], [place], [place], [address], 09/19/2025 08:46:50 Result Notes None recorded. Problems Name Problem SNOMED Code Status Onset Date Resolution Date Notes Provider Name and Address Organization Details Recorded Time Type 2 diabetes mellitus without complicatio n 037729783 Active 2023 RAMON Obrien [address] [place] [address], [address], [employer] 4 09:24:20 Hypertensiv e disorder 22266245 Active 2023 RAMON Obrien [address] [place] [address], [address] 8, [employer] 4 09:24:11 Vitamin D deficiency 99256585 Active 2023 RAMON Obrien [address] [place] [address], [address] 8, [employer] 4 09:24:45 Anxiety 31556707 Active 2023 RAMON Obrien [address] [place] [address], 57[address] 8, [employer] 4 09:24:59 Allergic rhinitis 25175562 Active 2023 RAMON Obrien [address] [place] [address], 47[address] 8, [employer] 4 09:25:29 Gastroesoph ageal reflux disease 999851431 Active 2023 RAMON Obrien [address] [place] [address], [address]88[address] 8, [employer] 4 09:26:01 Chronic obstructive pulmonary disease 58158091 Active 2023 RAMON Obrien [address] [place] [address], [address] 8, [employer] 4 09:26:33 Congestive heart failure 24654194 Active 2023 RAMON Obrien [address] [place] [address], 33[address] 8, [employer] 4 09:28:28 Internal hemorrhoids 00559001 Active 2023 RAMON Obrien [address] [place] [address], [address] 8, [place] [email or web address] 4 09:41:10 Folliculiti s 42439128 Active 2024 RAMON Obrien [address] [place] [address], 73[address] 8, [place] [employer] 5 08:18:48 Type 2 diabetes mellitus 12944753 Active 2024 RAMON Obrien [address] [place] [address], 500[address] 8, [place] [employer] 5 17:14:21 Neuropathy due to type 2 diabetes mellitus 0209776240504 06 Active 2024 RAMON Obrien [address] [place] [address], 00[address] 8, [place] [employer] 5 11:49:16 Stasis dermatitis of lower limb due to chronic peripheral venous hypertensio n 637066015 Active 2024 RAMON Obrien [address] [place] [address], 38[address]737 8, [place] [email or web address] 5 09:16:10 Acute urinary tract infection 093810317 Active 2024 RAMON Obrien [address] [place] [address], 44710[address] 8, [place] [employer] 5 15:33:07 Chronic kidney disease 943025636 Active 2024 RAMON Obrien [address] [place] [address], 55415[address] 8, [place] [email or web address] 5 15:48:18 Lipoma of back 286663775 Active 2024 RAMON Obrien [address] [place] [address], 26536[address]248 8, [place] [employer] 5 13:57:00 Nasal sinus problem 887619681 Active 2024 RAMON Obrien [address] [place] [address], 29[address]766 8, [employer] 11:01:32 Esophageal dysphagia 15018280 Active 2024 RAMON Obrien [address] [place] [address], 62421[address] 8, [employer] 11:08:31 Bacterial sinusitis 846708699 Active 2024 RAMON Obrien [address] [place] [address], 37444-450 8, [employer] 12:20:46 Problem Notes None recorded. Procedures Surgical History Date Name Laterality Status Provider Name and Address Organization Details Recorded Time 11/15/19 25 Diabetic Foot Screen completed RAMON Obrien [address] [place] [address], [address], [employer] 11/15/2024 17:28:01 09/05/20 24 Most Recent Mammogram completed [employer] 11/15/2024 17:05:03 Caesarean Section completed [employer] 08/13/2024 09:02:44 Total Hysterectomy completed [employer] 08/13/2024 09:03:22 Orthopedic Surgery completed [employer] 08/13/2024 09:03:38 Tonsillectomy completed [employer] 08/13/2024 09:04:01 Other completed [employer] 08/13/2024 09:04:24 Knee Surgery completed [employer] 05/23/2025 16:39:35 Knee Surgery completed [employer] 05/23/2025 16:39:48 Imaging Results None recorded. Procedure Notes None recorded. Medical Equipment None Reported. Allergies Allergen ID Allergen Name Allergen Category Reaction Reaction Severity Criticality Documentation Date Start Date Code Code System Note Provider Name and Address Organization Details Recorded Time 86686 atorvasta tin medicatio n Not available Not available Not available 08/13/2024 74107 RxNorm Birdie Vice null, [employer] [place] [employer] 4 08:56:10 90428 acetamino phen / hydrocodo ne medicatio n Not available Not available Not available 08/13/2024 55265 2 RxNorm Birdie Vice null, [employer] [place] [employer] 4 08:56:23 94993 cefaclor medicatio n Not available Not available Not available 08/13/2024 2176 RxNorm Birdie Vice null, [employer] [place] [employer] 4 08:56:33 08693 celecoxib medicatio n Not available Not available Not available 08/13/2024 00848 7 RxNorm Birdie Vice null, [employer] [place] [employer] 4 08:56:41 67295 hydrocodo ne Not available Not available Not available Not available 08/13/2024 5489 RxNorm Birdie Vice null, [employer] [place] [employer] 4 08:56:50 13799 isosorbid e medicatio n Not available Not available Not available 08/13/2024 6057 RxNorm Birdie Vice null, [employer] [place] [employer] 4 08:56:59 16301 meperidin e medicatio n Not available Not available Not available 08/13/2024 6754 RxNorm Birdie Vice null, [facility] [place] [employer] 4 08:57:10 80779 pravastat in medicatio n Not available Not available Not available 08/13/2024 93488 RxNorm Birdie Vice null, [facility] [place] [employer] 4 08:57:20 79741 ranolazin e medicatio n Not available Not available Not available 08/13/2024 49524 RxNorm Birdie Vice null, [facility] [place] [employer] 4 08:57:27 85147 rosuvasta tin medicatio n Not available Not available Not available 08/13/2024 35340 2 RxNorm Birdie Vice null, [facility] [place] [employer] 4 08:57:35 69255 Product containin g 3-hydroxy -3-methyl glutaryl- coenzyme A reductase inhibitor (product) medicatio n Not available Not available Not available 08/13/2024 50288 009 JOSELIN taylor [place] - [employer] 4 08:57:45 94208 cephalexi n medicatio n Not available Not available Not available 09/05/20252015 2231 RxNorm Not Available [place] [facility] [employer] prod 5 07:56:20 Medications Name Sig Start Date Stop Date Status Note LastModified by Organization Details LastModified Time vitamin d3 25mcg cap TAKE 1 CAPSULE BY MOUTH ONCE DAILY 11/15 completed Not Available Not Available Not Available vitamin d3 (giulia) 50mcg cap TAKE 1 [...] 2024 active Not Available Not Available Not Surajai labaddis Mucinex DM 60 mg-1,200 mg tablet,exte nded [...] Last Updated DateTime 167.64 cm 34.7 kg/m2 19649.0 8 g 98 % 80 /min 98 [degF] 118/80 mm[Hg] Birdie Simon [employer] 5 10:44:51 Social History Question Answer Notes LastModified by Organizat ion Details LastModified Time Tobacco Smoking Status Former Smoker Birdie Simon [facility]. 08/13/2024 09:00:56 Do You Have An Advance [...] Or The Highest Degree You Have Received? [id number] Information not available 09/05/2025 Have There Been [...] Do You Have A Medical Power Of Dredge Master? No Information not available 08/13/2024 What Was [...] anxious, or unable to sleep at night)? [id number] Information not available 08/13/2024 Do you have [...] Stones N Hyperthyroidism N Blood Transfusion N COPD N Depression N Dermatologic Disorders N Anxiety Disorder N Muscle, Joint, or Bone Problems N Autoimmune disease N Vision or Eye Problems N Arthritis N Polyps N Infertility N Mental Disorder N Acid Reflux (GERD) N Cancer N Stroke N Neurologic/Epilepsy N Fibromyalgia N Headaches N Kidney Disease N Heart Problems Y Ear or Hearing Problems N Hospitalizations N Learning Disorder N Artificial Joints N Acne N Eating Disorder N Constipation Y Hepatitis/Liver Disease N Tuberculosis N Asthma Y Trauma/Violence N Substance Abuse N Hepatitis N Pulmonary Embolism N Chronic Ear Infections N Chicken Pox N Autism Spectrum Disorder (ASD) N Thrombophilias N Breast Cancer N Emergency room visit since last appointm ent. N Lung Disease Y Hypothyroidism Y Defects or Inherited Disease N Developmental or Behavioral Disorders N Breast Problem N Difficulty Swallowing N Anesthesia Complications N History of STI N Meniere's disease N Congenital Anomalies N Endometriosis N Bladder or Kidney Problems N High Cholesterol Y Liver Disease N Psychiatric/Mental Health Condition N Organ Transplant N Dialysis N Schizophrenia N Allergies/Hayfever N Thyroid Problems Y GI Problems N ADD/ADHD N Anemia N Mental Illness N Diabetes Y Ovarian Cancer N Bedwetting N Eczema N Abuse/Domestic Violence N Diverticulitis N Reflux/GERD Y Depression/ depression N Heart Disease N Tourette Syndrome N Pre-Eclampsia N Hypertension N Osteoporosis N Gynecological History Statement/Question Response Menses Monthly [...] 0.5 mL, PF 4 completed RAMON Obrien [address] [place] [address], [address], [employer] 08/13/2024 12:51:32 Pneumococcal conjugate PCV21, polysaccharide QTS718 conjugate, PF 5 completed Birdie Vice null, [employer] 09/05/2025 11:33:32 Tdap 0 completed Birdie Vice null, [employer] 11/15/2024 16:54:27 influenza, unspecified formulation 4 completed Birdie Vice null, [employer] 11/15/2024 16:54:27 pneumococcal polysaccharide PPV23 7 completed Birdie Vice null, [employer] 11/15/2024 16:54:27 pneumococcal polysaccharide PPV23 2 completed Birdie Vice null, [employer] 11/15/2024 16:54:27 Pneumococcal conjugate PCV 13 7 completed RAMON Obrien [address] [place] [address], [address], [employer] 08/13/2024 13:03:27 Influenza, recombinant, quadrivalent, PF 0 completed Birdie Vice null, [employer] 11/15/2024 16:54:27 zoster recombinant 9 completed Birdie Vice null, [employer] 11/15/2024 16:54:27 COVID-19, mRNA, LNP-S, PF, 100 mcg/0.5mL dose or 50 mcg/0.25mL dose 1 completed Birdie Vice null, [employer] 11/15/2024 16:54:27 COVID-19, mRNA, LNP-S, PF, 100 mcg/0.5mL dose or 50 mcg/0.25mL dose 1 completed Birdie Vice null, [employer] 11/15/2024 16:54:27 COVID-19, mRNA, LNP-S, PF, 100 mcg/0.5mL dose or 50 mcg/0.25mL dose 2 completed Birdie Vice null, [employer] 11/15/2024 16:54:27 zoster live 7 completed Birdie Vice null, [employer] 11/15/2024 16:54:27 VZIG 7 completed Birdie Vice null, [employer] 11/15/2024 16:54:27 Influenza, split virus, quadrivalent, PF 8 completed Birdie Vice null, [employer] 11/15/2024 16:54:27 Influenza, split virus, quadrivalent, PF 3 completed Birdie Vice null, [employer] 11/15/2024 16:54:27 Influenza, split virus, quadrivalent, PF 9 completed Birdie Vice null, [employer] 11/15/2024 16:54:27 Influenza, split virus, quadrivalent, PF 2 completed Birdie Vice null, [employer] 11/15/2024 16:54:27 Influenza, split virus, quadrivalent, PF 1 completed Birdie Vice null, [employer] 11/15/2024 16:54:27 Influenza, recombinant, trivalent, PF 4 completed Birdie Vice null, [employer] 11/15/2024 16:54:27 Hep A-Hep B 4 completed Birdie Vice null, [employer] 11/15/2024 16:54:27 Hep A-Hep B 3 completed Birdie Vice null, [employer] 11/15/2024 16:54:27 Hep A-Hep B 3 completed Birdie Vice null, [employer] 11/15/2024 16:54:27 Influenza, recombinant, trivalent, PF 5 completed Not Available [facility] 09/05/2025 10:39:32 Past Encounters Encounter ID Performer Location Encounter Start Date Encounter Closed Date Diagnosis/Indication Diagnosis SNOMED-CT Code Diagnosis ICD10 Code Diagnosis IMO Codes Diagnosis Note [id number] RAMON Obrien [facility] [address] [place] [address] 09/05/2025 10:27:59 09/05/2025 11:14:35 Neuropathy due to type 2 diabetes mellitus 6137295573 81654 E11.40 Z79.4 81659907 Long-term current use of drug therapy 859876185 Z79.899 08671356 Nasal sinus problem 3012 48614 J34.89 876906 Requires v accination against Streptococcus pneumoniae 0819187076 Z23 673017 Esophageal dysphagia 408 96245 R13.19 8211 Concern for esophageal stricture Health Concerns Section Related Observation LastModified by Organization Detai ls LastModified Time None Recorded Concern Status LastModified by Organization Details LastModified Time None Recorded Payers Encounter Date Sequence Insurance Name Policy Number Policy Zarate Covered Member ID Zarate Member ID Guarantor Name 09/05/2025 1 [place] [id number] 1 Rosalinda Cooper [id number] Rosalinda Cooper Notes Date Note Type [...] but meat is the worst. RAMON Obrien [address] [place] [address], [address], [facility] [employer] [place] [employer] [place] [employer] 09/06/2025 10:47:01 OBGyn Episode No OBEpisode recorded.
--- OUTSIDE RECORDS SUMMARY | 2025-10-01 17:05 | XMS_ITS | Clinical Summary ---
Author Organization [facility] Address [address] [place] [address] Care Team Providers Care Box Repairer Name Role Phone Mara Mike Primary Care Provider Allergies Active Allergy Reactions Criticality Noted Date [...] 07/19/2030 020 Medical Devices Implanted Type Area Dye Room Helper Device Identifier Shelf Expiration Date Model / Serial / Lot Mesh Ventralight St [employer] Cir 4.5in - [id number] Implanted:Qty: 1 on 04/08/2017 by Boaz Robert MD at [facility] Implant N/A: Umbilical DAVOL (DIV OF [employer]) 09/29/2018 [id number] / / [id number] Insurance PPO Care Teams Box Repairer Relationship Specialty Start Date End Date Mara Mike PA PCP - General Physician Promotions Executive 05/07/22
--- OUTSIDE RECORDS SUMMARY | 2025-10-01 17:05 | XMS_ITS | Clinical Summary ---
Author Organization [facility] Address [address] [place] [address] Care Team Providers Care Chief Psychologist Name Role Phone Mara Mike Primary Care Provider [phone] Family History Medical History Relation Name Comments [...] Vaccines (3 of 3) 09/25/2019 07/31/2019, 04/22/2017 [id number] Vaccine ( - season) 2025 05/08/2022, 11/05/2020, [...] complete this topic Insurance JASSI Care Teams Chief Psychologist Relationship Specialty Start Date End Date Mara Mike PA [address] [place] [address] PCP - General 02/13/21
--- NOTE | 2025-10-01 17:11 | XR_ITS ---
PROCEDURE INFORMATION: Exam: XR Left Foot Exam date and time: 10/01/2025 5:20 PM Age: 60 years old Clinical indication: Pain; Foot; Left; Additional info: Foot injury 12 days ago, neuropathy TECHNIQUE: Imaging protocol: Radiologic exam of the left foot. Views: 3 or more views. COMPARISON: CT FOOT LT WO CON 09/22/2022 11:12 AM FINDINGS: Bones/joints: There is a subtle cortical step-off medially and laterally involving the proximal phalanx of the little toe left foot approximately 6 cm distal to the metatarsal phalangeal joint. No other bony abnormality of the left foot is appreciated suggestive of a fracture. There is normal alignment at the left ankle joint. There is a small vertical calcaneal spur. Soft tissues: There does appear to be a very mild degree of diffuse soft tissue swelling of the left foot. IMPRESSION: 1. Probable nondisplaced transverse fracture involving the proximal phalanx little toe left foot 6 mm distal to the metatarsal phalangeal joint. 2. No other finding suggestive of a fracture or other focal bony abnormality appreciated.
--- NOTE | 2025-10-01 17:13 | HMH.EDGENADL ---
Discharge Plan Disposition Patient Disposition: Home, Self-Care Prescriptions Prescriptions: No Action Mounjaro 12.5 mg/0.5 mL pen injector 15 mg SQ QWEEK Patient Comments: INJECT 1 SYRINGE SUBCUTANEOUSLY ONCE A WEEK pregabalin 75 mg capsule 75 mg PO BID Patient Comments: TAKE 1 CAPSULE BY MOUTH TWICE DAILY Repatha SureClick 140 mg/mL pen injector See Rx Instructions .ROUTE .COMPLEX Qty: 6 3RF Dose Instruction: TAKE 140 MG UNDER THE SKIN INTO THE APPROPRIATE AREA EVERY 2 WEEKS Rx Instructions: TAKE 140 MG UNDER THE SKIN INTO THE APPROPRIATE AREA EVERY 2 WEEKS furosemide 80 mg tablet 80 mg PO BID Qty: 180 4RF carvedilol 25 mg tablet See Rx Instructions .ROUTE .COMPLEX Qty: 180 3RF Dose Instruction: Take 1 tablet by mouth twice daily Rx Instructions: Take 1 tablet by mouth twice daily dapagliflozin propanediol [Farxiga] 10 mg tablet 10 mg PO DAILY minocycline 100 mg capsule 100 mg PO BID glipizide 10 mg tablet extended release 24hr 10 mg PO BID buspirone 7.5 mg tablet 7.5 mg PO TID ergocalciferol (vitamin D2) 1,250 mcg (50,000 unit) capsule 1,250 mcg PO WEEKLY cholecalciferol (vitamin D3) 25 mcg (1,000 unit) capsule 25 mcg PO DAILY losartan 50 mg Tablet 50 mg PO DAILY Kerendia 20 mg Tablet 20 mg PO DAILY omeprazole 40 mg capsule,delayed release(DR/EC) 40 mg PO DAILY aspirin 81 mg tablet,delayed release (DR/EC) 81 mg PO DAILY metformin 1,000 mg tablet 1,000 mg PO BID loratadine [Allergy Relief (loratadine)] 10 mg tablet 10 mg PO DAILY insulin lispro protamin-lispro [Humalog Mix 75-25 KwikPen] 100 unit/mL (75-25) insulin pen 28 unit SQ BID 30 Days Qty: 0 0RF Referrals Follow up/Referrals: Mara Mike PA [Primary Care Provider, Medical] - See instructions Thanh Mcdowell DO [Staff Physician, Orthopedics] - See instructions Activity Restrictions/Add. Instructions Additional Instructions/Restrictions: You have a questionable proximal phalanx fracture of the fifth digit on your foot. We have err on the side of caution to go ahead and treat this please remain in your walking boot and follow-up with Dr. Mcdowell. Clinical Impressions Clinical Impression: Foot pain, left, Peripheral neuropathy, Closed fracture of proximal phalanx of toe Print Language Print Language: Bots[place] Discharge ED Provider: Wayne Moreau General Adult HPI General Chief complaint: Extremity Injury, Lower Stated complaint: AO 09/22/25 injury left foot injury Time Seen by Provider: 10/01/25 17:07 Mode of Arrival: Ambulatory Source of Information: Patient Description of Symptoms (Recalled from ER Triage Doc. by RN): Patient complaining of pain in left foot- states she injured her great toe, 4th and 5th toe on 09/22/25 at home. Continues to have pain. History of Present Illness HPI narrative: Patient is a 60-year-old female presented with left foot pain after an injury that occurred 12 days ago. She accidentally rolled over her foot with a vacuum block cleaner subsequently on the same day she stubbed her toe on a wall and laterally displaced her 4th and 5th digits. She has significant neuropathy associate with diabetes therefore she cannot feel it very much at baseline and she continued to have discomfort therefore she came today to get an x-ray. No soft tissue deformities skin breakdowns fevers etc. Related Data Home Medications ?Medication ?Instructions ?Recorded ?Confirmed aspirin 81 mg tablet,delayed 81 mg PO DAILY 05/09/24 09/23/25 release loratadine 10 mg tablet (Allergy 10 mg PO DAILY 05/09/24 09/23/25 Relief (loratadine)) metformin 1,000 mg tablet 1,000 mg PO BID 05/09/24 09/23/25 omeprazole 40 mg capsule,delayed 40 mg PO DAILY 05/09/24 09/23/25 release buspirone 7.5 mg tablet 7.5 mg PO TID 09/24/24 09/23/25 cholecalciferol (vitamin D3) 25 25 mcg PO DAILY 09/24/24 09/23/25 mcg (1,000 unit) capsule dapagliflozin propanediol 10 mg 10 mg PO DAILY 09/24/24 09/23/25 tablet (Farxiga) ergocalciferol (vitamin D2) 1,250 1,250 mcg PO WEEKLY 09/24/24 09/23/25 mcg (50,000 unit) capsule glipizide 10 mg tablet, extended 10 mg PO BID 09/24/24 09/23/25 release 24 hr minocycline 100 mg capsule 100 mg PO BID 09/24/24 09/23/25 tirzepatide 12.5 mg/0.5 mL 15 mg SQ QWEEK 10/11/24 09/23/25 subcutaneous pen injector (Guadalupe) pregabalin 75 mg capsule 75 mg PO BID 01/08/25 09/23/25 finerenone 20 mg tablet (Kerendia) 20 mg PO DAILY 01/09/25 09/23/25 losartan 50 mg tablet 50 mg PO DAILY 01/09/25 09/23/25 Previous Rx's ?Medication ?Instructions ?Recorded insulin lispro protamine-lispro 28 unit (0.28 mL) SQ BID 30 days 10/02/24 100 unit/mL (75-25) subcutaneous #0 mL pen (Humalog Mix 75-25 KwikPen) evolocumab 140 mg/mL subcutaneous See Rx Instructions .Route 06/10/25 pen injector (Sonia Tam) .COMPLEX #6 mL furosemide 80 mg tablet 80 mg PO BID #180 tabs 07/01/25 carvedilol 25 mg tablet See Rx Instructions .Route 09/16/25 .COMPLEX #180 tabs Allergies Allergy/AdvReac Type Severity Reaction Status Date / Time acetaminophen (From Lortab) Allergy Severe Swelling Verified 09/23/25 08:55 oral / throat hydrocodone (HYDROCODONE) Allergy Severe S-SWELLS-OR Verified 09/23/25 08:55 AL/THROAT cefaclor (From CECLOR) Allergy Unknown S-SWELLS-OR Verified 09/23/25 08:55 AL/THROAT celecoxib (From CELEBREX) Allergy Unknown S-SWELLS-OR Verified 09/23/25 08:55 AL/THROAT meperidine (From DEMEROL) Allergy Unknown S-SWELLS-OR Verified 09/23/25 08:55 AL/THROAT isosorbide AdvReac Intermediate GUTIÉRREZ Verified 09/23/25 08:55 atorvastatin AdvReac Mild myalgia Verified 09/23/25 08:55 pravastatin AdvReac Mild myalgia Verified 09/23/25 08:55 rosuvastatin (From Crestor) AdvReac Mild myalgia Verified 09/23/25 08:55 ranolazine (From Ranexa) AdvReac Dizziness Verified 09/23/25 08:55 Xtqeoud-KSM-KbP Reductase AdvReac Muscle Pain Verified 09/23/25 08:55 Inhibitor (Udjdiif-Hth-Alr Reductase Inhibitor) [facility] Disclaimer: The information contained in this section may have been updated after the patient was seen, as this information can be updated by other users. Medical History Globus sensation Dysphagia Thyroid nodule Skin lesions Edema Claudication Encounter for pre-operative cardiovascular clearance Hypokalemia Unstable angina Abnormal findings on diagnostic imaging of heart and coronary circulation Atypical angina Abnormal electrocardiography Metatarsalgia of both feet Injury of left foot Ground glass opacity present on imaging of lung Dyspnea on exertion Lung nodule Family history of lung cancer Stopped smoking with greater than 30 pack year history Mediastinal lymphadenopathy Mild intermittent asthma RBBB Dizziness Typical angina Palpitations CAD (coronary artery disease) Chest pain Dyspnea Thyroid goiter Vitamin D deficiency Anxiety Right shoulder pain BMI 36.0-36.9,adult Surgical History Status post arthroscopy of left knee History of bladder suspension procedure History of tonsillectomy Family History Other Cancer Coronary artery disease Diabetes Social History Smoking Status: Never smoker how long ago did patient quit smokin alcohol intake: never substance use type: denies use current occupational status: employed Travel in the last 8 weeks?: None household members: spouse housing: house current occupational exposures/hazards: No caffeine: Yes Have you lived/traveled outside [place] in past 30 days?: No Contact w/someone who lives/traveled outside US past 30 days?: No Exposure to someone with infectious disease in past 14 days?: No Do you have a fever (greater than 100.4 F or 38 C)?: No Have you tested positive for COVID-19?: No Exposed to someone with COVID-19 in past 14 days?: No Do you have a sore throat?: No Do you have a cough?: No Do you have any weakness?: No Do you have any diarrhea?: No Are you experiencing any unusual bleeding?: No Do you have any muscle aches/pain?: No Do you have any abdominal pain?: No Are you experiencing loss of taste or smell?: No Other Medical History Have you received the Flu Vaccine for this season: No Have you received the Pneumonia Vaccine: No ROS Obtained: Yes All systems reviewed & no additional complaints except as documented Physical Exam General General appearance: alert and in no apparent distress Respiratory Respiratory exam: Present normal lung sounds bilaterally Cardiovascular Cardiovascular exam: Present regular rate Extremities Exam Extremities exam: Present other (Left lower extremity 2+ DP and PT pulses she does have some ecchymosis between the 4th and 5th digit on the dorsal aspect of her foot tenderness throughout the foot but she is neuropathic at baseline sensory exam is limited) Neurological Exam Neurological exam: Present other Medical Decision Making Medical Records Screening: Per USPSTF and CDC recommendations, given the prevalence of disease in our region, it is our hospital?s policy to screen for HIV and viral Hepatitis for all patients aged 18 and over and those with ongoing risk factors. Angel Inquiry Pt receiving controlled substance: No Vital Signs: 10/01/25 16:50 Temperature 97.6 F Temperature Source Oral Pulse Rate [Left Brachial] 95 H Respiratory Rate 16 Blood Pressure [Left Arm] 164/82 H Blood Pressure Mean [Left Arm] 109 Blood Pressure Source [Left Arm] Automatic Cuff Blood Pressure Position [Left Arm] Sitting 02 Sat by Pulse Oximetry 96 Oxygen Delivery Method Room Air Orders (Tests/Meds): ORDERS Category Date Time Status Foot XR left minimum 3 views [XR foot LT min 3V] Stat Exams 10/01/25 17:11 Completed Medical Decision Narrative: Patient with above history and physical concerning for possible occult fracture given the fact that she has neuropathic sensory abnormalities at baseline sign associate with her diabetes. Will get a plain film to make sure is not any fracture. No evidence of any infectious process going on at the moment. Reassessment 644 x-rays performed I personally interpreted I do not see any obvious fractures or dislocations however radiology read regarding the fifth proximal phalanx as there is a cortical irregularity which may be a nondisplaced transverse fracture. Will treat this in err on the side of caution as a possible fracture. She has been placed in a walking boot will follow-up with orthopedic surgery. Critical Care Critical Care Time Critical Care Time: No
[2025-10-01 18:53] VITALS: BP 165/97; PULSE 98; RESP 18; TEMP 36.8; O2SAT 98
== END 2025-10-01 18:53 | disposition home or self-care (01) ==
PROVIDERS: Emergency Provider Student in an Organized Health Care Education/Training Program; PCP Physician Assistant
DX: S92.515A Nondisplaced fracture of proximal phalanx of left lesser toe(s), initial encounter for closed fracture (principal); M79.672 Pain in left foot; E11.40 Type 2 diabetes mellitus with diabetic neuropathy, unspecified; W22.8XXA Striking against or struck by other objects, initial encounter; Z79.84 Long term (current) use of oral hypoglycemic drugs; Z79.85 Long-term (current) use of injectable non-insulin antidiabetic drugs
CPT/HCPCS: 73630; 99283